=== PATIENT | male | born 1945 | race Two or more races ===

== ENCOUNTER → 2021-03-31 | Outpatient (CLI) | payer MEDICARE ==
[2021-03-31 11:44] LABS: African American GFR (CKD) >90 (>60 ml/min/1.73 sqM); Blood Urea Nitrogen 15 mg/dL (9-20); Non-African American GFR(CKD) 84 (>60 ml/min/1.73 sqM)
--- NOTE | 2021-04-02 19:44 | CT ---
EXAMINATION TYPE: CT soft tissue neck w con DATE OF EXAM: 03/31/2021 COMPARISON: None HISTORY: 75-year-old male right-sided sore throat TECHNIQUE: Contiguous axial scanning of the soft tissues of the neck performed with IV Contrast, nataly ent injected with 100 mL of Isovue 300. Coronal/sagittal reconstructions performed. CT DLP: 552 mGycm Automated exposure control for dose reduction was used. FINDINGS: Leftward nasal septal deviation. There is partial opacification of the right-sided mastoid air cells. Visualized paranasal sinuses are clear. Visualized intracranial structures and orbits and globes appear intact. Nasopharynx is clear. Retropharyngeal course of the bilateral ICAs. There is some asymmetric soft tissue effacement in the region of the right palatoglossal arch, refer to axial image 37. This may be secondary to some asymmetric soft palate elevation. Minimal hypertrophy of the lingual tonsils. Epiglottis and prevertebral soft tissues are satisfactory. Asymmetric soft tissue thickening and effacement of the left piriform sinus, refer to axial images 52 through 54. Findings may be positional and in part due to mass effect from the retropharyngeal cours e of the ICAs. Otherwise, glottic and subglottic structures as well as the tracheal column appear clear. Minimal emp hysematous change of the visualized upper lungs. There is a 2.4 cm soft tissue calcification centered in the anterior right-sided subcutaneous adipose layer at the level of the thyroid gland. Thyroid gland is satisfactory. Small 3 mm calculus within the medial margin of the right submandibular gland. Seminal glands otherwi se appear satisfactory as does the bilateral parotid glands. No cervical lymphadenopathy seen. Moderate axillary calcifications left greater than right carotid bifurcations. Moderate spondylotic change particularly at C5-C6 and C6-C7. IMPRESSION: 1. A 2.4 CM FOCUS OF SOFT TISSUE CALCIFICATION IN THE ANTERIOR RIGHT NECK AT THE LEVEL OF THE THYROID GLAND CENTERED WITHIN THE SUBCUTANEOUS ADIPOSE LAYER. FINDINGS MAY REFLECT SEQUELA OF PRIOR INJURY O R INFECTION. CLINICALLY CORRELATE. 2. A 3 MM SIALOLITH ALONG THE MEDIAL MARGIN OF THE RIGHT SUBMANDIBULAR GLAND. NO INFLAMMATORY CHANGES SEEN. 3. SOME ASYMMETRIC SOFT TISSUE EFFACEMENT IN THE REGION OF THE RIGHT PALATOGLOSSAL ARCH MAY BE DUE TO UNEVEN SOFT PALATE ELEVATION. RECOMMEND DIRECT VISUALIZATION TO EXCLUDE A SUBTLE MUCOSAL LESION HERE . 4. SIMILARLY, ASYMMETRIC EFFACEMENT OF THE LEFT PIRIFORM SINUS. THIS MAY IN PART BE DUE TO MASS EFFEC T FROM THE RETROPHARYNGEAL COURSE OF THE ICA's. AGAIN, DIRECT VISUALIZATION CAN BE PERFORMED. 5. PARTIAL OPACIFICATION RIGHT MASTOID AIR CELLS. CORRELATE FOR ANY MASTOID PAIN TO EXCLUDE MASTOIDIT IS.
== END | disposition home or self-care (01) ==
LOC: RADCTMAIN 11:07
PROVIDERS: ATTEND Otolaryngology
DX: K11.5 Sialolithiasis (principal); M79.89 Other specified soft tissue disorders
CPT/HCPCS: 82565; 84520; 70491; 36415; Q9967

== ENCOUNTER 2021-08-19 22:06 | Inpatient (IN) | payer MEDICARE ==
[2021-08-19] MEDS ORDERED: SODIUM CHLORIDE 0.9% 500 ML 500 ML IV STA (22:44)
--- NOTE | 2021-08-19 22:48 | ED ---
Weakness HPI - General Chief complaint: Weakness Stated complaint: Weakness Time Seen by Provider: 08/19/21 22:15 Source: patient, family, EMS Mode of arrival: EMS Limitations: no limitations - History of Present Illness MD Complaint: generalized weakness, lack of energy Onset/Timin -: days(s) Location: generalized Severity scale (1-10): 0 Consistency: constant Improves with: none Worsens with: none Associated Symptoms: fever/chills, loss of appetite, other (Cough) - Related Data Allergies Allergy/AdvReac Type Severity Reaction Status Date / Time No Known Allergies Allergy Verified 08/19/21 22:49 Review of Systems ROS Statement: Those systems with pertinent positive or pertinent negative responses have been documented in the HPI. ROS Other: All systems not noted in ROS Statement are negative. Constitutional: Reports: fever, weakness. Denies: chills ENT: Denies: ear pain, throat pain, congestion Respiratory: Reports: cough. Denies: dyspnea, wheezes Cardiovascular: Denies: chest pain, palpitations, orthopnea, edema, syncope Gastrointestinal: Denies: abdominal pain, vomiting, diarrhea Genitourinary: Denies: dysuria, hematuria Musculoskeletal: Denies: back pain Skin: Denies: rash Neurological: Denies: headache, weakness Past Medical History Past Medical History: Hypertension Additional Past Medical History / Comment(s): AAA History of Any Multi-Drug Resistant Organisms: None Reported Past Psychological History: No Psychological Hx Reported Smoking Status: Never smoker Past Alcohol Use History: Daily Past Drug Use History: None Reported - Past Family History Mother Family Medical History: Congestive Heart Failure (CHF) General Exam Limitations: no limitations General appearance: alert, in no apparent distress Head exam: Present: atraumatic, normocephalic Eye exam: Present: normal appearance. Absent: scleral icterus, conjunctival injection Respiratory exam: Present: normal lung sounds bilaterally. Absent: respiratory distress, wheezes, rales, rhonchi, stridor Cardiovascular Exam: Present: regular rate, normal rhythm, normal heart sounds. Absent: systolic murmur, diastolic murmur, rubs, gallop GI/Abdominal exam: Present: soft. Absent: distended, tenderness, guarding, rebound, rigid, mass, pulsatile mass Extremities exam: Present: normal inspection, normal capillary refill. Absent: pedal edema, calf tenderness Back exam: Present: normal inspection. Absent: CVA tenderness (R), CVA te nderness (L) Neurological exam: Present: alert Skin exam: Present: warm, dry, intact, normal color. Absent: rash Course Vital Signs 08/19/21 08/19/21 08/20/21 22:11 22:21 01:44 Temperature 101.4 F H Pulse Rate 91 100 Pulse Rate [ Pulse Oximetery ] Respiratory 18 16 16 Rate Blood Pressure 99/61 86/57 Blood Pressure [Left Arm] O2 Sat by Pulse 90 L 97 Oximetry 08/20/21 08/20/21 02:29 03:00 Temperature 98.9 F 98.5 F Pulse Rate 92 Pulse Rate [ 102 H Pulse Oximetery ] Respiratory 18 18 Rate Blood Pressure 106/62 Blood Pressure 105/60 [Left Arm] O2 Sat by Pulse 94 L 91 L Oximetry Medical Decision Making - Lab Data Result diagrams: 08/19/21 22:56 08/19/21 22:56 Lab Results 08/19/21 08/19/21 08/19/21 Range/Units 22:56 22:56 22:56 WBC 2.6 L (3.8-10.6) k/uL RBC 4.07 L (4.30-5.90) m/uL Hgb 12.7 L (13.0-17.5) gm/dL Hct 37.6 L (39.0-53.0) % MCV 92.4 (80.0-100.0) fL MCH 31.2 (25.0-35.0) pg MCHC 33.8 (31.0-37.0) g/dL RDW 12.9 (11.5-15.5) % Plt Count 165 (150-450) k/uL MPV 8.5 Neutrophils % 80 % Lymphocytes % 10 % Monocytes % 7 % Eosinophils % 0 % Basophils % 1 % Neutrophils # 2.1 (1.3-7.7) k/uL Lymphocytes # 0.3 L (1.0-4.8) k/uL Monocytes # 0.2 (0-1.0) k/uL Eosinophils # 0.0 (0-0.7) k/uL Basophils # 0.0 (0-0.2) k/uL PT 10.4 (9.0-12.0) sec INR 1.0 (<1.2) APTT 23.1 (22.0-30.0) sec Sodium 129 L (137-145) mmol/L Potassium 3.6 (3.5-5.1) mmol/L Chloride 99 (98-107) mmol/L Carbon Dioxide 19 L (22-30) mmol/L Anion Gap 11 mmol/L BUN 49 H (9-20) mg/dL Creatinine 1.42 H (0.66-1.25) mg/dL Est GFR (CKD-EPI)AfAm 55 (>60 ml/min/1.73 sqM) Est GFR (CKD-EPI)NonAf 48 (>60 ml/min/1.73 sqM) Glucose 106 H (74-99) mg/dL Plasma Lactic Acid Jayden (0.7-2.0) mmol/L Calcium 7.7 L (8.4-10.2) mg/dL Magnesium 2.4 H (1.6-2.3) mg/dL Total Bilirubin 0.5 (0.2-1.3) mg/dL AST 37 (17-59) U/L ALT 16 (4-49) U/L Alkaline Phosphatase 54 (38-126) U/L Troponin I (0.000-0.034) ng/mL Total Protein 6.4 (6.3-8.2) g/dL Albumin 3.3 L (3.5-5.0) g/dL TSH 0.611 (0.465-4.680) mIU/L Urine Color Urine Appearance (Clear) Urine pH (5.0-8.0) Ur Specific [place] (1.001-1.035) Urine Protein (Negative) Urine Glucose (UA) (Negative) Urine Ketones (Negative) Urine Blood (Negative) Urine Nitrite (Negative) Urine Bilirubin (Negative) Urine Urobilinogen (<2.0) mg/dL Ur Leukocyte Esterase (Negative) Coronavirus (PCR) (Not Detectd) 08/19/21 08/20/21 08/20/21 Range/Units 22:56 01:24 01:40 WBC (3.8-10.6) k/uL RBC (4.30-5.90) m/uL Hgb (13.0-17.5) gm/dL Hct (39.0-53.0) % MCV (80.0-100.0) fL MCH (25.0-35.0) pg MCHC (31.0-37.0) g/dL RDW (11.5-15.5) % Plt Count (150-450) k/uL MPV Neutrophils % % Lymphocytes % % Monocytes % % Eosinophils % % Basophils % % Neutrophils # (1.3-7.7) k/uL Lymphocytes # (1.0-4.8) k/uL Monocytes # (0-1.0) k/uL Eosinophils # (0-0.7) k/uL Basophils # (0-0.2) k/uL PT (9.0-12.0) sec INR (<1.2) APTT (22.0-30.0) sec Sodium (137-145) mmol/L Potassium (3.5-5.1) mmol/L Chloride (98-107) mmol/L Carbon Dioxide (22-30) mmol/L Anion Gap mmol/L BUN (9-20) mg/dL Creatinine (0.66-1.25) mg/dL Est GFR (CKD-EPI)AfAm (>60 ml/min/1.73 sqM) Est GFR (CKD-EPI)NonAf (>60 ml/min/1.73 sqM) Glucose (74-99) mg/dL Plasma Lactic Acid Jayden 1.4 (0.7-2.0) mmol/L Calcium (8.4-10.2) mg/dL Magnesium (1.6-2.3) mg/dL Total Bilirubin (0.2-1.3) mg/dL AST (17-59) U/L ALT (4-49) U/L Alkaline Phosphatase (38-126) U/L Troponin I 0.058 H* (0.000-0.034) ng/mL Total Protein (6.3-8.2) g/dL Albumin (3.5-5.0) g/dL TSH (0.465-4.680) mIU/L Urine Color Yellow Urine Appearance Clear (Clear) Urine pH 5.5 (5.0-8.0) Ur Specific [place] 1.018 (1.001-1.035) Urine Protein Trace H (Negative) Urine Glucose (UA) Negative (Negative) Urine Ketones Negative (Negative) Urine Blood Negative (Negative) Urine Nitrite Negative (Negative) Urine Bilirubin Negative (Negative) Urine Urobilinogen <2.0 (<2.0) mg/dL Ur Leukocyte Esterase Negative (Negative) Coronavirus (PCR) (Not Detectd) 08/20/21 08/20/21 Range/Units 01:40 03:07 WBC (3.8-10.6) k/uL RBC (4.30-5.90) m/uL Hgb (13.0-17.5) gm/dL Hct (39.0-53.0) % MCV (80.0-100.0) fL MCH (25.0-35.0) pg MCHC (31.0-37.0) g/dL RDW (11.5-15.5) % Plt Count (150-450) k/uL MPV Neutrophils % % Lymphocytes % % Monocytes % % Eosinophils % % Basophils % % Neutrophils # (1.3-7.7) k/uL Lymphocytes # (1.0-4.8) k/uL Monocytes # (0-1.0) k/uL Eosinophils # (0-0.7) k/uL Basophils # (0-0.2) k/uL PT (9.0-12.0) sec INR (<1.2) APTT (22.0-30.0) sec Sodium (137-145) mmol/L Potassium (3.5-5.1) mmol/L Chloride (98-107) mmol/L Carbon Dioxide (22-30) mmol/L Anion Gap mmol/L BUN (9-20) mg/dL Creatinine (0.66-1.25) mg/dL Est GFR (CKD-EPI)AfAm (>60 ml/min/1.73 sqM) Est GFR (CKD-EPI)NonAf (>60 ml/min/1.73 sqM) Glucose (74-99) mg/dL Plasma Lactic Acid Jayden (0.7-2.0) mmol/L Calcium (8.4-10.2) mg/dL Magnesium (1.6-2.3) mg/dL Total Bilirubin (0.2-1.3) mg/dL AST (17-59) U/L ALT (4-49) U/L Alkaline Phosphatase (38-126) U/L Troponin I 0.051 H* (0.000-0.034) ng/mL Total Protein (6.3-8.2) g/dL Albumin (3.5-5.0) g/dL TSH (0.465-4.680) mIU/L Urine Color Urine Appearance (Clear) Urine pH (5.0-8.0) Ur Specific [place] (1.001-1.035) Urine Protein (Negative) Urine Glucose (UA) (Negative) Urine Ketones (Negative) Urine Blood (Negative) Urine Nitrite (Negative) Urine Bilirubin (Negative) Urine Urobilinogen (<2.0) mg/dL Ur Leukocyte Esterase (Negative) Coronavirus (PCR) Detected A (Not Detectd) Disposition Clinical Impression: Generalized weakness, COVID-19, Dehydration Disposition: ADMITTED IP TO THIS [facility] Condition: Fair Is patient prescribed a controlled substance at d/c from ED?: No Referrals: Brenda Redd DO [Primary Care Provider] - 1-2 days
--- NOTE | 2021-08-19 23:07 | XR ---
EXAMINATION TYPE: XR chest 2V DATE OF EXAM: 08/19/2021 COMPARISON: NONE HISTORY: Weakness TECHNIQUE: 2 views FINDINGS: Heart is normal. Lungs are clear of consolidation. There are no hilar masses. Bony thorax is intact IMPRESSION: No active cardiopulmonary disease. Normal heart.
[2021-08-19 23:26] LABS: Albumin 3.3 g/dL (3.5-5.0); Calcium 7.7 mg/dL (8.4-10.2); Magnesium 2.4 mg/dL (1.6-2.3); Potassium 3.6 mmol/L (3.5-5.1); Total Bilirubin 0.5 mg/dL (0.2-1.3); Total Protein 6.4 g/dL (6.3-8.2)
[2021-08-19 23:47] LABS: Partial Thromboplastin Time 23.1 sec (22.0-30.0); Prothrombin Time 10.4 sec (9.0-12.0)
[2021-08-20 00:19] LABS: Basophils % (A) 1 %; Eosinophils % (A) 0 %; HCT 37.6 % (39.0-53.0); HGB 12.7 gm/dL (13.0-17.5); Lymphocytes # (A) 0.3 k/uL (1.0-4.8); Lymphocytes % (A) 10 %; MCH 31.2 pg (25.0-35.0); MCHC 33.8 g/dL (31.0-37.0); MCV 92.4 fL (80.0-100.0); Mean Platelet Volume 8.5; Monocytes # (A) 0.2 k/uL (0-1.0); Monocytes % (A) 7 %; Neutrophils # (A) 2.1 k/uL (1.3-7.7); Neutrophils % (A) 80 %; Platelet Count 165 k/uL (150-450); RBC 4.07 m/uL (4.30-5.90); RDW 12.9 % (11.5-15.5); WBC 2.6 k/uL (3.8-10.6)
[2021-08-20 01:37] LABS: Appearance,Urine Clear (Clear); Bilirubin,Urine Negative (Negative); Blood,Urine Negative (Negative); Color,Urine Yellow; Glucose,Urine (UA) Negative (Negative); Ketones,Urine Negative (Negative); Leukocyte Esterase,Urine Negative (Negative); Nitrite,Urine Negative (Negative); PH, Urine 5.5 (5.0-8.0); Protein,Urine Trace (Negative); Specific Gravity,Urine 1.018 (1.001-1.035); Urobilinogen,Urine <2.0 mg/dL (<2.0)
[2021-08-20] MEDS ORDERED: MAG HYDROX/AL HYDROX/SIMETH 30 ML CUP PO PRN (02:06)
[2021-08-20] MEDS ORDERED: NALOXONE 0.4 MG/ML 1 ML VIAL IV PRN (02:06)
[2021-08-20] MEDS ORDERED: ONDANSETRON 4 MG/2 ML VIAL IVP PRN (02:06)
[2021-08-20] MEDS ORDERED: SODIUM CHLORIDE 0.9% 500 ML 500 ML IV STA (02:09)
[2021-08-20] MEDS: SODIUM CHLORIDE 0.9% 1,000 ML IV SCH (03:29)
[2021-08-20] MEDS ORDERED: HEPARIN SODIUM 1,000 UN/ML (10ML VL) IV ONE (04:25)
[2021-08-20] MEDS ORDERED: HEPARIN SODIUM 1,000 UN/ML (10ML VL) IV PRN (04:25)
[2021-08-20] MEDS: HEPARIN SOD,PORK IN 0.45% NACL 25,000 UNIT in 0.45% NACL 1 250ML.BAG IV SCH (04:46)
[2021-08-20] MEDS: METOPROLOL TARTRATE 12.5 MG TAB PO SCH ×2 (08:49→20:35)
[2021-08-20] MEDS: FAMOTIDINE 20 MG/2 ML VIAL IV SCH (08:49)
[2021-08-20] MEDS ORDERED: FAMOTIDINE 20 MG/2 ML VIAL IV SCH (09:00)
--- NOTE | 2021-08-20 09:58 | P.HPIM ---
History of Present Illness Patient is a pleasant 75 years old male with past medical history of hypertension and AAA. Patient states he came because of generalized weakness. Patient has been feeling weak for the last 4-5 days, was getting worse over the last 3 days staying in bed most of the time difficult for him to get out of bed. His granddaughter was: Him and he could not get up and go fast enough to grape picker before so she got worried and she is a nurse so she can visit with him and brought him to the hospital. Patient states that he can manage himself going to the restroom and making food but he didn't have good appetite over the last 3 days,. Denies any headache or difficulty moving her arms or legs or weakness. No numbness. No blood vision or slurred speech. She was feeling dizzy, no vertigo but nonspecific dizziness. Patient denies falling or syncope. No chest pain or discomfort. No dyspnea. He has some cough and the total amoun t of phlegm occasionally over the last week. No abdominal pain or vomiting. He has loose bowel movements once a day now and then. His been having low appetite over the last 3 days. No urinary complaints. Patient 64. States every day. No smoking or illicit drugs Denies depression, suicidal or homicidal ideation. Patient states he has been not taking his blood pressure medication for the last few days. She supposed to be on 2 medications On admission he was hypotensive 86/57, with a short of breath and saturating 91% on 2 L oxygen via nasal cannula Labs reviewed showing the leukopenia of 2.6 hemoglobin 12.7, platelet normal 165, lymphocytes low at 0.3 INR is 1.0 Sodium 129 Creatinine elevated 1.4, baseline 0.8-1.1 Magnesium 2.4, liver enzymes not elevated. Troponin is elevated at 0.052 TSH is normal at 0.6 Urine analysis is no suspicious of infection [place] first detected Chest x-ray: No active cardiopulmonary disease per radiologist In the emergency room patient was started on heparin drip, and received normal saline Also cardiology team were consulted Review of Systems CONSTITUTIONAL: No fever, no malaise, no fatigue. HEENT: No recent visual problems or hearing problems. Denied any sore throat. CARDIOVASCULAR: No orthopnea, PND, no palpitations, no syncope. PULMONARY: No shortness of breath, no cough, no hemoptysis. GASTROINTESTINAL: No diarrhea, no nausea, no vomiting, no abdominal pain. Normoactive bowel sounds. NEUROLOGICAL: No headaches, no weakness, no numbness. HEMATOLOGICAL: Denies any bleeding or petechiae. GENITOURINARY: Denies any burning micturition, frequency, or urgency. MUSCULOSKELETAL/RHEUMATOLOGICAL: Denies any joint pain, swelling, or any muscle pain. ENDOCRINE: Denies any polyuria or polydipsia. Past Medical History Past Medical History: Hypertension Additional Past Medical History / Comment(s): AAA History of Any Multi-Drug Resistant Organisms: None Reported Past Psychological History: No Psychological Hx Reported Smoking Status: Never smoker Past Alcohol Use History: Daily Past Drug Use History: None Reported - Past Family History Mother Family Medical History: Congestive Heart Failure (CHF) Medications and Allergies Allergies Allergy/AdvReac Type Severity Reaction Status Date / Time No Known Allergies Allergy Verified 08/20/21 08:33 Physical Exam Vitals: Vital Signs Temp Pulse Pulse Resp BP BP Pulse Ox 08/20/21 03:00 98.5 F 102 H 18 105/60 91 L 08/20/21 02:29 98.9 F 92 18 106/62 94 L 08/20/21 01:44 100 16 86/57 97 08/19/21 22:21 16 08/19/21 22:11 101.4 F H 91 18 99/61 90 L Intake and Output 08/19/21 08/20/21 08/20/21 22:59 06:59 14:59 Other: Weight 88.904 kg 88.904 kg -GENERAL: The patient is alert and oriented x3, not in any acute distress. Well developed, well nourished. Generally weak HEENT: Pupils are round and equally reacting to light. EOMI. No scleral icterus. No conjunctival pallor. Normocephalic, atraumatic. No pharyngeal erythema. No thyromegaly. CARDIOVASCULAR: S1 and S2 present. No murmurs, rubs, or gallops. PULMONARY: Chest is clear to auscultation, no wheezing or crackles. ABDOMEN: Soft, nontender, nondistended, normoactive bowel sounds. No palpable organomegaly. MUSCULOSKELETAL: No joint swelling or deformity. EXTREMITIES: No cyanosis, clubbing, or pedal edema. -NEUROLOGICAL: Cranial nerves are grossly intact, strength is 5/5 in all extremities. Sensation is intact. Meningeal signs are absent. Gait deferred because of generalized weakness SKIN: No rashes. No petechiae Results CBC & Chem 7: 08/19/21 22:56 08/19/21 22:56 Labs: Abnormal Lab Results - Last 24 Hours (Table) 08/19/21 08/19/21 08/19/21 Range/Units 22:56 22:56 22:56 WBC 2.6 L (3.8-10.6) k/uL RBC 4.07 L (4.30-5.90) m/uL Hgb 12.7 L (13.0-17.5) gm/dL Hct 37.6 L (39.0-53.0) % Lymphocytes # 0.3 L (1.0-4.8) k/uL Sodium 129 L (137-145) mmol/L Carbon Dioxide 19 L (22-30) mmol/L BUN 49 H (9-20) mg/dL Creatinine 1.42 H (0.66-1.25) mg/dL Glucose 106 H (74-99) mg/dL Calcium 7.7 L (8.4-10.2) mg/dL Magnesium 2.4 H (1.6-2.3) mg/dL Troponin I 0.058 H* (0.000-0.034) ng/mL Albumin 3.3 L (3.5-5.0) g/dL Urine Protein (Negative) Coronavirus (PCR) (Not Detectd) 08/20/21 08/20/21 08/20/21 Range/Units 01:24 01:40 03:07 WBC (3.8-10.6) k/uL RBC (4.30-5.90) m/uL Hgb (13.0-17.5) gm/dL Hct (39.0-53.0) % Lymphocytes # (1.0-4.8) k/uL Sodium (137-145) mmol/L Carbon Dioxide (22-30) mmol/L BUN (9-20) mg/dL Creatinine (0.66-1.25) mg/dL Glucose (74-99) mg/dL Calcium (8.4-10.2) mg/dL Magnesium (1.6-2.3) mg/dL Troponin I 0.051 H* (0.000-0.034) ng/mL Albumin (3.5-5.0) g/dL Urine Protein Trace H (Negative) Coronavirus (PCR) Detected A (Not Detectd) Thrombosis Risk Factor Assmnt - Choose All That Apply Any of the Below Risk Factors Present?: Yes Each Factor Represents 1 point: Obesity (BMI >25) Other Risk Factors: Yes Each Risk Factor Represents 3 Points: Age 75 years or older Other congenital or acquired thrombophilia - If yes, enter type in comment: No Thrombosis Risk Factor Assessment Total Risk Factor Score: 4 Thrombosis Risk Factor Assessment Level: Moderate Risk Assessment and Plan Assessment: COVID-19 infection, with no significant evidence of pneumonia but mild hypoxia Elevated troponin rule out Exclude intracardiac hoses Hypotension on admission Acute kidney injury Hypovolemic hyponatremia History of Hypertension History of aortic abdominal aneurysm Plan: This is a pleasant 75 years old male who presents with hypotension, elevated troponin and Covid infection [facility] [employer] Department already evaluated the patient and start him on heparin drip. Follow-up Echocardiogram Continue with normal saline hydration Monitor creatinine Start dexamethasone, vitamin C, vitamin D and zinc. Infectious disease consult Labs and medication were reviewed.. Continue same treatment. Continue with symptomatic treatment. Resume home medication. Monitor lytes and vitals. DVT and GI prophylaxis. Further recommendations depends on the clinical course of the patient DVT prophylaxis: heparin GI Prophylaxis: Pepcid PT/OT: Pending Prognosis is guarded
--- NOTE | 2021-08-20 10:08 | P.CRDCN ---
History of Present Illness Consult date: 08/20/21 History of present illness: This is a 75-year-old gentleman with history of hypertension and also abdominal aortic aneurysm was brought to the hospital with complaints of generalized weakness for the last for 5 days. Patient also lost his appetite. Patient denied any chest pain or shortness of breath. Patient had cough with small amount of phlegm. Patient was brought to the hospital because of the above complaints. Patient was tested positive for COVID. His troponin levels are mildly elevated but the pattern is not consistent with acute coronary syndrome. EKG was reported as showing atrial fibrillation with controlled ventricular response. Patient was initiated on metoprolol 12.5 mg by mouth twice a day along with heparin. Patient is going to have an echocardiogram done. Rest of the management as for the primary care physician. We'll follow Review of Systems As per the chart Past Medical History Past Medical History: Hypertension Additional Past Medical History / Comment(s): AAA History of Any Multi-Drug Resistant Organisms: None Reported Past Psychological History: No Psychological Hx Reported Smoking Status: Never smoker Past Alcohol Use History: Daily Past Drug Use History: None Reported - Past Family History Mother Family Medical History: Congestive Heart Failure (CHF) Medications and Allergies Allergies Allergy/AdvReac Type Severity Reaction Status Date / Time No Known Allergies Allergy Verified 08/20/21 08:33 Physical Exam Vitals: Vital Signs Temp Pulse Pulse Resp BP BP Pulse Ox 08/20/21 08:00 98.7 F 92 18 91/59 91 L 08/20/21 03:00 98.5 F 102 H 18 105/60 91 L 08/20/21 02:29 98.9 F 92 18 106/62 94 L 08/20/21 01:44 100 16 86/57 97 08/19/21 22:21 16 08/19/21 22:11 101.4 F H 91 18 99/61 90 L Intake and Output 08/19/21 08/20/21 08/20/21 22:59 06:59 14:59 Other: Weight 88.904 kg 88.904 kg This patient is not personally examined. Information is From the consult notes in chart Results 08/19/21 22:56 08/19/21 22:56 Cardiac Enzymes 08/19/21 08/19/21 08/20/21 Range/Units 22:56 22:56 03:07 AST 37 (17-59) U/L Troponin I 0.058 H* 0.051 H* (0.000-0.034) ng/mL 08/20/21 Range/Units 06:59 AST (17-59) U/L Troponin I 0.042 H* (0.000-0.034) ng/mL Coagulation 08/19/21 Range/Units 22:56 PT 10.4 (9.0-12.0) sec APTT 23.1 (22.0-30.0) sec CBC 08/19/21 Range/Units 22:56 WBC 2.6 L (3.8-10.6) k/uL RBC 4.07 L (4.30-5.90) m/uL Hgb 12.7 L (13.0-17.5) gm/dL Hct 37.6 L (39.0-53.0) % Plt Count 165 (150-450) k/uL Comprehensive Metabolic Panel 08/19/21 Range/Units 22:56 Sodium 129 L (137-145) mmol/L Potassium 3.6 (3.5-5.1) mmol/L Chloride 99 (98-107) mmol/L Carbon Dioxide 19 L (22-30) mmol/L BUN 49 H (9-20) mg/dL Creatinine 1.42 H (0.66-1.25) mg/dL Glucose 106 H (74-99) mg/dL Calcium 7.7 L (8.4-10.2) mg/dL AST 37 (17-59) U/L ALT 16 (4-49) U/L Alkaline Phosphatase 54 (38-126) U/L Total Protein 6.4 (6.3-8.2) g/dL Albumin 3.3 L (3.5-5.0) g/dL Current Medications Generic Name Dose Route Start Last Admin Trade Name Freq PRN Reason Stop Dose Admin Acetaminophen 650 mg 08/20/21 02:06 Acetaminophen Tab 325 Mg Tab PO Q6HR PRN Mild Pain or Fever > 100.5 Al Hydroxide/Mg Hydroxide 15 ml 08/20/21 02:06 Mag Hydrox/Al Hydrox/Simeth 30 Ml Cup PO Q6HR PRN Indigestion Ascorbic Acid 1,000 mg 08/20/21 10:00 Ascorbic Acid 500 Mg Tab PO DAILY MARK Cholecalciferol 50 mcg 08/20/21 10:00 Cholecalciferol 25 Mcg (1000 Iu) Tablet PO DAILY MARK Dexamethasone 6 mg 08/20/21 10:00 Dexamethasone 2 Mg Tab PO DAILY MARK Famotidine 20 mg 08/20/21 09:00 08/20/21 08:49 Famotidine 20 Mg/2 Ml Vial IV 20 mg Q24HR MARK Administration Heparin Sodium (Porcine) 0 unit 08/20/21 04:25 Heparin Sodium 1,000 Un/Ml (10ml Vl) IV PER PROTOCOL PRN Low PTT Protocol Sodium Chloride 1,000 mls @ 20 mls/hr 08/20/21 02:15 08/20/21 03:29 Saline 0.9% IV Not Given .Q24H MARK Heparin Sodium/Sodium Chloride 250 mls @ 9.984 mls/hr 08/20/21 04:30 08/20/21 04:46 25,000 unit/ Sodium Chloride IV 11.23 units/kg/hr .Q24H MARK 9.984 mls/hr Administration Protocol 11.23 UNITS/KG/HR Sodium Chloride 1,000 mls @ 75 mls/hr 08/20/21 08:00 Saline 0.9% IV .[id number] MARK Metoprolol Tartrate 12.5 mg 08/20/21 09:00 08/20/21 08:49 Metoprolol Tartrate 12.5 Mg Tab PO 12.5 mg BID MARK Administration Naloxone HCl 0.2 mg 08/20/21 02:06 Naloxone 0.4 Mg/Ml 1 Ml Vial IV Q2M PRN Opioid Reversal Ondansetron HCl 4 mg 08/20/21 02:06 Ondansetron 4 Mg/2 Ml Vial IVP Q8HR PRN Nausea And Vomiting Thiamine HCl 100 mg 08/20/21 10:00 Thiamine 100 Mg/Ml 2 Ml Vial IVP DAILY MARK Zinc Sulfate 220 mg 08/20/21 10:00 Zinc Sulfate 220 Mg Cap PO DAILY MARK Intake and Output 08/19/21 08/20/21 08/20/21 22:59 06:59 14:59 Other: Weight 88.904 kg 88.904 kg 08/19/21 22:56 08/19/21 22:56 EKG Interpretations (text) Not available in the computer. Apparently showed atrial fibrillation with controlled ventricular response Assessment and Plan (1) Atrial fibrillation Current Visit: Yes Status: Acute Code(s): I48.91 - UNSPECIFIED ATRIAL FIBRILLATION SNOMED Code(s): 56146828 (2) COVID-19 Current Visit: Yes Status: Acute Code(s): U07.1 - COVID-19 SNOMED Code(s): 101893794 (3) Generalized weakness Current Visit: Yes Status: Acute Code(s): R53.1 - WEAKNESS SNOMED Code(s): 57617713 (4) Troponin level elevated Current Visit: Yes Status: Acute Code(s): R77.8 - OTHER SPECIFIED ABNORMALITIES OF PLASMA PROTEINS SNOMED Code(s): 299269034 Plan: Continue with beta blockers and heparin. Echocardiogram to assess LV function. Continue the rest of the treatment. Prognosis is guarded
[2021-08-20 10:22] LABS: Basophils % (A) 0 %; Eosinophils % (A) 0 %; HCT 35.2 % (39.0-53.0); HGB 11.7 gm/dL (13.0-17.5); Lymphocytes # (A) 0.3 k/uL (1.0-4.8); Lymphocytes % (A) 10 %; MCH 31.3 pg (25.0-35.0); MCHC 33.1 g/dL (31.0-37.0); MCV 94.6 fL (80.0-100.0); Mean Platelet Volume 8.8; Monocytes # (A) 0.1 k/uL (0-1.0); Monocytes % (A) 4 %; Neutrophils # (A) 2.2 k/uL (1.3-7.7); Neutrophils % (A) 84 %; Platelet Count 176 k/uL (150-450); RBC 3.73 m/uL (4.30-5.90); WBC 2.6 k/uL (3.8-10.6)
[2021-08-20 11:26] LABS: Bilirubin,Unconjugated 0.2 mg/dL (0.0-1.1)
[2021-08-20 11:55] LABS: Albumin 2.8 g/dL (3.5-5.0); Bilirubin, Delta 0.1 mg/dL (0.0-0.2); Calcium 7.3 mg/dL (8.4-10.2); Potassium 3.7 mmol/L (3.5-5.1); Total Bilirubin 0.3 mg/dL (0.2-1.3); Total Protein 5.6 g/dL (6.3-8.2)
[2021-08-20] MEDS: ZINC SULFATE 220 MG CAP PO SCH (12:23)
[2021-08-20] MEDS: dexAMETHasone 2 MG TAB PO SCH (12:23)
[2021-08-20] MEDS: CHOLECALCIFEROL 25 MCG (1000 IU) TABLET PO SCH (12:23)
[2021-08-20] MEDS: ASCORBIC ACID 500 MG TAB PO SCH (12:23)
[2021-08-20] MEDS: THIAMINE 100 MG/ML 2 ML VIAL IVP SCH (12:24)
--- NOTE | 2021-08-21 00:02 | P.CONS ---
History of Present Illness - Reason for Consult Consult date: 08/20/21 covid Requesting physician: Chico Roberts - Chief Complaint cough x 10 days and worsening weakness x few days - History of Present Illness History of present illness : Patient is 75-year male presenting to the ER last night for evaluation of generalized weakness no energy in this patient symptom has been going on for about 10 days before presentation to the hospital patient mention his symptoms initially started with a cough which has been moderate intensity and dry in nature subsequently started having a increasing shortness of breath and started having the weakness patient could not get up and go positive tobacco patient did not have any good appetite with the symptom the patient was evaluated by the ER physician on arrival to the ER patient did have a fever of 101.4 F patient was hypoxic with O2 sats of 90% on room air and is currently 93% on 7 L nasal cannula patient did have a leukopenia as well as lymphopenia creatinine was normal liver enzymes are normal did have elevated troponin procalcitonin 0.13 urine has been negative richter PCR was positive patient did have a chest x-ray no active cardiopulmonary disease normal heart patient was admitted to hospital infectious disease was consulted for further management Review of system: CONSTITUTIONAL: Positive for weakness along with the fever. EYES: No complaint. ENT: No complaint. RESPIRATORY: As per history of present illness. CARDIOVASCULAR: No complaint. GENITOURINARY: No complaint. GASTROINTESTINAL as per history of present illness. MUSCULOSKELETAL: No complaint. INTEGUMENTARY: No complaint. PSYCHOLOGIC: No complaint. ENDOCRINE: No complaint. NEUROLOGIC: No complaint. Past medical history : Reviewed, documented below Past surgical history : Reviewed, documented below Social history: Reviewed, documented below Medications: Reviewed, as documented below EXAMINATION: Vital sigans= Reviewed and documented below GENERAL DESCRIPTION: Elderly male lying in bed, no distress. No tachypnea or accessory muscle of respiration use. HEENT: Shows Pallor , no scleral icterus. Oral mucous membrane is dry. NECK: Trachea central, no thyromegaly. LUNGS: Unlabored breathing. Decrease intensity of breath sounds. No wheeze or crackle. HEART: S1, S2, regular rate and rhythm. ABDOMEN: Soft, no tenderness , guarding or rigidity EXTREMITIES: No edema of feet. SKIN: No rash, no masses palpable. NEUROLOGICAL: The patient is awake, alert, oriented x3, mood and affect normal. LABS AND RADIOLOGY: Reviewed results see below Assessment : Patient presented to hospital with generalized weakness no energy in this patient started having a cough about 10 days ago and the symptom has been getting worse since then now with progressive weakness shortness of breath and cough patient did have a fever on admission the hospital the patient was hypoxic and need for supplemental oxygen chest x-ray reported negative for acute infiltrate, patient is currently out of the therapeutic window for remdesivir per [facility] policy Plan: 1-patient to continue with heparin per weight-based protocol receiving for his elevated troponin along with the dexamethasone zinc and ascorbic acid 2-patient out of the therapeutic window for remdesivir 3-droplet isolation and respiratory support We will follow on clinical condition and cultures to further adjust medication if needed Thank you for this consultation we will follow the patient along with you Past Medical History Past Medical History: Hypertension Additional Past Medical History / Comment(s): AAA History of Any Multi-Drug Resistant Organisms: None Reported Past Psychological History: No Psychological Hx Reported Smoking Status: Never smoker Past Alcohol Use History: Daily Past Drug Use History: None Reported - Past Family History Mother Family Medical History: Congestive Heart Failure (CHF) Medications and Allergies Allergies Allergy/AdvReac Type Severity Reaction Status Date / Time No Known Allergies Allergy Verified 08/20/21 08:33 Physical Exam Vitals: Vital Signs Temp Pulse Pulse Resp BP BP Pulse Ox 08/20/21 14:00 20 08/20/21 12:00 99 20 118/59 94 L 08/20/21 08:00 98.7 F 92 18 91/59 91 L 08/20/21 03:00 98.5 F 102 H 18 105/60 91 L 08/20/21 02:29 98.9 F 92 18 106/62 94 L 08/20/21 01:44 100 16 86/57 97 08/19/21 22:21 16 08/19/21 22:11 101.4 F H 91 18 99/61 90 L Intake and Output 08/20/21 08/20/21 08/20/21 06:59 14:59 22:59 Output Total 300 225 Balance -300 -225 Output: Urine 300 225 Other: Weight 88.904 kg Results CBC & Chem 7: 08/20/21 10:04 08/20/21 10:04 Labs: Abnormal Lab Results - Last 24 Hours (Table) 08/19/21 08/19/21 08/19/21 Range/Units 22:56 22:56 22:56 WBC 2.6 L (3.8-10.6) k/uL RBC 4.07 L (4.30-5.90) m/uL Hgb 12.7 L (13.0-17.5) gm/dL Hct 37.6 L (39.0-53.0) % Lymphocytes # 0.3 L (1.0-4.8) k/uL APTT (22.0-30.0) sec Sodium 129 L (137-145) mmol/L Carbon Dioxide 19 L (22-30) mmol/L BUN 49 H (9-20) mg/dL Creatinine 1.42 H (0.66-1.25) mg/dL Glucose 106 H (74-99) mg/dL Calcium 7.7 L (8.4-10.2) mg/dL Magnesium 2.4 H (1.6-2.3) mg/dL Troponin I 0.058 H* (0.000-0.034) ng/mL Total Protein (6.3-8.2) g/dL Albumin 3.3 L (3.5-5.0) g/dL Urine Protein (Negative) Coronavirus (PCR) (Not Detectd) 08/20/21 08/20/21 08/20/21 Range/Units 01:24 01:40 03:07 WBC (3.8-10.6) k/uL RBC (4.30-5.90) m/uL Hgb (13.0-17.5) gm/dL Hct (39.0-53.0) % Lymphocytes # (1.0-4.8) k/uL APTT (22.0-30.0) sec Sodium (137-145) mmol/L Carbon Dioxide (22-30) mmol/L BUN (9-20) mg/dL Creatinine (0.66-1.25) mg/dL Glucose (74-99) mg/dL Calcium (8.4-10.2) mg/dL Magnesium (1.6-2.3) mg/dL Troponin I 0.051 H* (0.000-0.034) ng/mL Total Protein (6.3-8.2) g/dL Albumin (3.5-5.0) g/dL Urine Protein Trace H (Negative) Coronavirus (PCR) Detected A (Not Detectd) 08/20/21 08/20/21 08/20/21 Range/Units 06:59 10:04 10:04 WBC 2.6 L (3.8-10.6) k/uL RBC 3.73 L (4.30-5.90) m/uL Hgb 11.7 L (13.0-17.5) gm/dL Hct 35.2 L (39.0-53.0) % Lymphocytes # 0.3 L (1.0-4.8) k/uL APTT 47.2 H (22.0-30.0) sec Sodium (137-145) mmol/L Carbon Dioxide (22-30) mmol/L BUN (9-20) mg/dL Creatinine (0.66-1.25) mg/dL Glucose (74-99) mg/dL Calcium (8.4-10.2) mg/dL Magnesium (1.6-2.3) mg/dL Troponin I 0.042 H* (0.000-0.034) ng/mL Total Protein (6.3-8.2) g/dL Albumin (3.5-5.0) g/dL Urine Protein (Negative) Coronavirus (PCR) (Not Detectd) 08/20/21 Range/Units 10:04 WBC (3.8-10.6) k/uL RBC (4.30-5.90) m/uL Hgb (13.0-17.5) gm/dL Hct (39.0-53.0) % Lymphocytes # (1.0-4.8) k/uL APTT (22.0-30.0) sec Sodium 130 L (137-145) mmol/L Carbon Dioxide 21 L (22-30) mmol/L BUN 35 H (9-20) mg/dL Creatinine (0.66-1.25) mg/dL Glucose 114 H (74-99) mg/dL Calcium 7.3 L (8.4-10.2) mg/dL Magnesium (1.6-2.3) mg/dL Troponin I (0.000-0.034) ng/mL Total Protein 5.6 L (6.3-8.2) g/dL Albumin 2.8 L (3.5-5.0) g/dL Urine Protein (Negative) Coronavirus (PCR) (Not Detectd)
[2021-08-21] MEDS: HEPARIN SOD,PORK IN 0.45% NACL 25,000 UNIT in 0.45% NACL 1 250ML.BAG IV SCH (02:03)
[2021-08-21] MEDS: SODIUM CHLORIDE 0.9% 1,000 ML IV SCH ×3 (02:26→19:02)
[2021-08-21 08:18] LABS: Basophils % (A) 0 %; Eosinophils % (A) 0 %; HCT 38.7 % (39.0-53.0); HGB 12.5 gm/dL (13.0-17.5); Lymphocytes # (A) 0.2 k/uL (1.0-4.8); Lymphocytes % (A) 4 %; MCHC 32.3 g/dL (31.0-37.0); MCV 95.9 fL (80.0-100.0); Mean Platelet Volume 8.2; Monocytes # (A) 0.1 k/uL (0-1.0); Monocytes % (A) 2 %; Neutrophils # (A) 5.2 k/uL (1.3-7.7); Neutrophils % (A) 92 %; Platelet Count 253 k/uL (150-450); RBC 4.03 m/uL (4.30-5.90); RDW 13.2 % (11.5-15.5); WBC 5.7 k/uL (3.8-10.6)
[2021-08-21 08:29] LABS: INR 0.9 (<1.2); Partial Thromboplastin Time 47.8 sec (22.0-30.0); Prothrombin Time 10.2 sec (9.0-12.0)
--- NOTE | 2021-08-21 09:17 | P.PN ---
Subjective Progress Note Date: 08/21/21 Principal diagnosis: Paroxysmal atrial fibrillation The patient is a 75-year-old gentleman who was admitted to the hospital with COVID-19 infection and we consulted to see the patient for atrial fibrillation with RVR which was new the patient. The patient continues to have hypoxemia and he is requiring higher dose of oxygen. He reports no heart racing or fluttering or dizziness or lightheadedness and no presyncope or syncope and no symptoms of chest pain or chest discomfort. He continues to be in atrial fibrillation with heart rate around 100 bpm. He is on AV marck olga with beta olga. He is on heparin for anticoagulation. We will consider starting the patient on oral anticoagulation in the next 24 hours. Echo still pending Objective - Vital Signs Vital signs: Vital Signs Temp 98.3 F 08/20/21 20:40 Pulse 99 08/21/21 03:20 Resp 18 08/21/21 03:20 BP 113/72 08/21/21 03:20 Pulse Ox 92 L 08/21/21 03:20 Intake & Output 08/20/21 08/21/21 08/21/21 18:59 06:59 18:59 Intake Total 212.493 Output Total 625 500 175 Balance -625 -287.507 -175 Intake: Intake, IV Titration 212.493 Amount Heparin Sod,Pork in 0.45% 212.493 NaCl 25,000 unit In 0.45 % NaCl 1 250ml.bag @ 11. 23 UNITS/KG/HR 9.984 mls/ hr IV .Q24H [facility] Rx#: [id number] Output: Urine 625 500 175 - Labs CBC & Chem 7: 08/21/21 07:09 08/20/21 10:04 Labs: Abnormal Lab Results - Last 24 Hours (Table) 08/20/21 08/20/21 08/20/21 Range/Units 10:04 10:04 10:04 WBC 2.6 L (3.8-10.6) k/uL RBC 3.73 L (4.30-5.90) m/uL Hgb 11.7 L (13.0-17.5) gm/dL Hct 35.2 L (39.0-53.0) % Lymphocytes # 0.3 L (1.0-4.8) k/uL APTT 47.2 H (22.0-30.0) sec Sodium 130 L (137-145) mmol/L Carbon Dioxide 21 L (22-30) mmol/L BUN 35 H (9-20) mg/dL Glucose 114 H (74-99) mg/dL Calcium 7.3 L (8.4-10.2) mg/dL Total Protein 5.6 L (6.3-8.2) g/dL Albumin 2.8 L (3.5-5.0) g/dL Procalcitonin (0.02-0.09) ng/mL 08/20/21 08/21/21 08/21/21 Range/Units 10:04 07:09 07:09 WBC (3.8-10.6) k/uL RBC 4.03 L (4.30-5.90) m/uL Hgb 12.5 L (13.0-17.5) gm/dL Hct 38.7 L (39.0-53.0) % Lymphocytes # 0.2 L (1.0-4.8) k/uL APTT 47.8 H (22.0-30.0) sec Sodium (137-145) mmol/L Carbon Dioxide (22-30) mmol/L BUN (9-20) mg/dL Glucose (74-99) mg/dL Calcium (8.4-10.2) mg/dL Total Protein (6.3-8.2) g/dL Albumin (3.5-5.0) g/dL Procalcitonin 0.13 H (0.02-0.09) ng/mL Assessment and Plan Assessment: Assessment #1 COVID-19 pneumonia #2 paroxysmal atrial fibrillation Plan #1 continue the current dose of metoprolol #2 consider starting the patient on oral anticoagulation #3 follow-up on the echocardiogram
[2021-08-21] MEDS: ASCORBIC ACID 500 MG TAB PO SCH (09:38)
[2021-08-21] MEDS: THIAMINE 100 MG/ML 2 ML VIAL IVP SCH (09:38)
[2021-08-21] MEDS: CHOLECALCIFEROL 25 MCG (1000 IU) TABLET PO SCH (09:38)
[2021-08-21] MEDS: METOPROLOL TARTRATE 12.5 MG TAB PO SCH ×2 (09:38→20:45)
[2021-08-21] MEDS: dexAMETHasone 2 MG TAB PO SCH (09:38)
[2021-08-21] MEDS: FAMOTIDINE 20 MG/2 ML VIAL IV SCH ×2 (09:39→20:45)
[2021-08-21] MEDS: ZINC SULFATE 220 MG CAP PO SCH (09:39)
--- NOTE | 2021-08-21 11:00 | ECHOF ---
Referral Reason:new onset afib MEASUREMENTS -------- HEIGHT: 180.3 cm WEIGHT: 88.9 kg BP: IVSd: 1.7 cm (0.6 - 1.1) LVIDd: 2.8 cm (3.9 - 5.3) LVPWd: 1.7 cm (0.6 - 1.1) IVSs: 1.8 cm LVIDs: 2.0 cm LVPWs: 2.7 cm Ao Diam: 3.7 cm (2.0 - 3.7) AV Cusp: 2.0 cm (1.5 - 2.6) LA Diam: 4.0 cm (2.7 - 3.8) MV EXCURSION: 19.783 mm (> 18.000) MV EF SLOPE: 129 mm/s (70 - 150) EPSS: 0.8 cm RAP: 5.00 mmHg RVSP: 11.16 mmHg FINDINGS -------- This was a technically difficult study with suboptimal views. Limited study due to covid 19 exposur e. The left ventricular size is normal. There is moderate concentric left ventricular hypertrophy. O verall left ventricular systolic function is mild-moderately impaired with, an EF between 40 - 45 %. Mid to basal inferiorlateral is hypokinetic Lumason used The tricuspid valve appears structurally normal. Mild tricuspid regurgitation present. Right vent ricular systolic pressure is normal at < 35 mmHg. There is no pericardial effusion. CONCLUSIONS -------- 1. Limited study due to covid 19 exposure. 2. The left ventricular size is normal. 3. There is moderate concentric left ventricular hypertrophy. 4. Overall left ventricular systolic function is mild-moderately impaired with, an EF between 40 - 45 %. 5. Mid to basal inferiorlateral is hypokinetic 6. Lumason used 7. Mild tricuspid regurgitation present. 8. There is no pericardial effusion. EXCAVATING CONTRACTOR: Jacqueline Btuler RDCS
--- NOTE | 2021-08-21 11:17 | XR ---
EXAMINATION TYPE: XR chest 1V portable DATE OF EXAM: 08/21/2021 COMPARISON: 08/19/2021 HISTORY: Shortness of breath TECHNIQUE: Frontal and lateral views of the chest are obtained. FINDINGS: Scattered senescent parenchymal changes noted. Hyperinflation compatible with COPD. Ill-defined infiltrates noted throughout the left mid lung zone and to a lesser extent on the right o f reflect underlying pneumonia. Heart size is stable. Mediastinal structures are stable and grossly unremarkable. No evidence for hilar prominence. Degenerative changes dorsal spine. IMPRESSION: 1. Ill-defined infiltrates noted throughout the left mid lung zone and to a lesser extent on the righ t of reflect underlying pneumonia.
--- NOTE | 2021-08-21 12:57 | CT ---
EXAMINATION TYPE: CT chest angio for PE DATE OF EXAM: 08/21/2021 COMPARISON: None HISTORY: Covid, hypoxia. CT DLP: 430.6 mGycm CONTRAST: CT chest with contrast and 3D reconstruction with MIP imaging is performed with IV Contrast, patient injected with 100 mL of Isovue 370. Contrast-enhanced CT of the chest was performed through the course of the pulmonary arteries with emily g and mediastinal window settings submitted. 3D reconstruction with MIP imaging was also performed. PULMONARY ARTERIES: The pulmonary arteries and their major tributaries are patent. I do not see dhaval dence for sizable filling defect to suggest pulmonary embolic process. LUNGS: Diffuse infiltrates throughout both lung griggs. No evidence for atelectasis. No pulmonary n odule or mass is detected. No pleural effusion. MEDIASTINUM: Thoracic aorta is of normal caliber,however, evaluation is limited given timing of the contrast bolus. If there is concern for thoracic aortic pathology consider EULALIA. Correlate clinicall y . The heart is not enlarged. No evidence for mediastinal mass. No mediastinal lymph nodes greater than 1cm. HILAR STRUCTURES: No evidence for mass. No hilar lymph nodes greater than 1 cm. UPPER ABDOMEN: No significant abnormality is seen. IMPRESSION: 1. No evidence for Pulmonary embolism at this time.
[2021-08-21] MEDS ORDERED: FUROSEMIDE 10 MG/ML 4 ML VIAL IV SCH (13:15)
[2021-08-21] MEDS ORDERED: DILTIAZEM DRIP BOLUS FROM BAG 1 MG SOLN IV ONE (14:08)
[2021-08-21] MEDS: DILTIAZEM 125 MG in SODIUM CHLORIDE 0.9% 100 ML IV SCH (15:19)
--- NOTE | 2021-08-21 15:23 | P.CNPUL ---
History of Present Illness Consult date: 08/21/21 Requesting physician: Chico E Sheet Reason for consult: pneumonia Chief complaint: Cough and shortness of breath History of present illness: This is a 75-year-old white male with history of hypertension, dyslipidemia, history of abdominal aortic aneurysm, patient was brought into the hospital with 10 days' history of feeling weak, shortness of breath, cough, patient is not vaccinated. Patient was seen in the ER, and his chest x-ray showed evidence of pneumonia. CT angiogram of the chest showed extensive diffuse infiltrates throughout the lungs and no evidence of pulmonary embolism. PCR for COVID-19 was positive, patient was noted to have relative leukopenia with WBC count of 2.6, lymphopenia, hyponatremia, elevated troponin, and relatively unremarkable pro calcitonin level. Patient was initially on 2 L nasal cannula, however over the last 24 hours since admission, his oxygen saturation has been dropping and his oxygen has been titrated up to a nonrebreather mask with poor oxygenation and his O2 saturation at present is 85% on a nonrebreather mask. Patient was also noted to be in atrial fibrillation and that is being addressed by cardiology patient was placed on that COVID-19 cocktail, he is also on heparin, and he received significant amount of fluids with fluid boluses on admissions. After I evaluated the patient and reviewed his chest x-ray as well as CT angiogram of the chest, I recommended Lasix 40 mg IV push to be given and I recommended immediate transfer the patient to the ICU. Patient has been on Cardizem drip, remains tachycardic remains in atrial fibrillation with a rate of 120. Patient denies any chest pain denies any nausea or vomiting denies any palpitations denies any orthopnea or PND however the patient is complaining of weakness cough and shortness of breath. Review of Systems CONSTITUTIONAL: Weakness fatigue malaise and low-grade fever when his initial symptoms started about 10 days ago. HEENT: No loss of sensation of taste or smell CARDIOVASCULAR: As noted in HPI PULMONARY: As noted in HPI GASTROINTESTINAL: Negative NEUROLOGICAL: No headaches, no weakness, no numbness. HEMATOLOGICAL: Denies any bleeding or petechiae. GENITOURINARY: Denies any burning micturition, frequency, or urgency. MUSCULOSKELETAL/RHEUMATOLOGICAL: Negative ENDOCRINE: Negative Past Medical History Past Medical History: Hypertension Additional Past Medical History / Comment(s): AAA History of Any Multi-Drug Resistant Organisms: None Reported Past Psychological History: No Psychological Hx Reported Smoking Status: Never smoker Past Alcohol Use History: Daily Past Drug Use History: None Reported - Past Family History Mother Family Medical History: Congestive Heart Failure (CHF) Medications and Allergies Home Medications Medication Instructions Recorded Confirmed Type Atorvastatin [Lipitor] 40 mg PO DAILY 08/21/21 08/21/21 History Lisinopril-Hctz 20-12.5 mg 1 tab PO DAILY 08/21/21 08/21/21 History [Zestoretic 20-12.5] amLODIPine [Norvasc] 5 mg PO DAILY 08/21/21 08/21/21 History Allergies Allergy/AdvReac Type Severity Reaction Status Date / Time No Known Allergies Allergy Verified 08/20/21 08:33 Physical Exam Vitals: Vital Signs Temp Pulse Resp BP Pulse Ox 08/21/21 12:00 120 H 24 135/71 77 L 08/21/21 08:00 84 18 125/67 90 L 08/21/21 03:20 99 18 113/72 92 L 08/21/21 01:57 93 L 08/20/21 23:00 91 19 108/60 91 L 08/20/21 20:40 98.3 F 82 18 106/60 93 L 08/20/21 16:00 88 20 91/55 90 L Intake and Output 08/21/21 08/21/21 08/21/21 06:59 14:59 22:59 Intake Total 212.493 0 Output Total 500 175 Balance -287.507 -175 Intake: Intake, IV Titration 212.493 Amount Heparin Sod,Pork in 0.45% 212.493 NaCl 25,000 unit In 0.45 % NaCl 1 250ml.bag @ 11. 23 UNITS/KG/HR 9.984 mls/ hr IV .Q24H [facility] Rx#: [id number] Oral 0 Output: Urine 500 175 Physical Exam: Revealed a 75-year-old white male in moderate respiratory distress tachypneic, tachycardic, anxious. On a nonrebreather mask. Head: Atraumatic, normocephalic. HEENT:[Neck is supple.] [No neck masses.] [No thyromegaly.] [No JVD.] Chest: [Symmetrical chest expansion crackles at the bases bilaterally no rhonchi and no wheezes Cardiac Exam: Irregular irregular rhythm, 2/6 systolic murmur thought the precordium. Abdomen: [Soft, nontender, no megaly, no rebound, no guarding, normal bowel sounds.] Extremities: [No clubbing edema or cyanosis. Good pulses bilaterally. Neurological Exam: Alert and oriented 3 focal deficits. Psychiatric: Normal mood, affect and normal mental status examination. Skin: No rashes. Results - Laboratory Findings CBC and BMP: 08/21/21 07:09 08/20/21 10:04 PT/INR, D-dimer PT 10.2 sec (9.0-12.0) 08/21/21 07:09 INR 0.9 (<1.2) 08/21/21 07:09 Abnormal lab findings: Abnormal Labs 08/19/21 08/19/21 08/19/21 22:56 22:56 22:56 WBC 2.6 L RBC 4.07 L Hgb 12.7 L Hct 37.6 L Lymphocytes # 0.3 L APTT Sodium 129 L Carbon Dioxide 19 L BUN 49 H Creatinine 1.42 H Glucose 106 H Calcium 7.7 L Magnesium 2.4 H Troponin I 0.058 H* Total Protein Albumin 3.3 L Procalcitonin Urine Protein Coronavirus (PCR) 08/20/21 08/20/21 08/20/21 01:24 01:40 03:07 WBC RBC Hgb Hct Lymphocytes # APTT Sodium Carbon Dioxide BUN Creatinine Glucose Calcium Magnesium Troponin I 0.051 H* Total Protein Albumin Procalcitonin Urine Protein Trace H Coronavirus (PCR) Detected A 08/20/21 08/20/21 08/20/21 06:59 10:04 10:04 WBC 2.6 L RBC 3.73 L Hgb 11.7 L Hct 35.2 L Lymphocytes # 0.3 L APTT 47.2 H Sodium Carbon Dioxide BUN Creatinine Glucose Calcium Magnesium Troponin I 0.042 H* Total Protein Albumin Procalcitonin Urine Protein Coronavirus (PCR) 08/20/21 08/20/21 08/21/21 10:04 10:04 07:09 WBC RBC 4.03 L Hgb 12.5 L Hct 38.7 L Lymphocytes # 0.2 L APTT Sodium 130 L Carbon Dioxide 21 L BUN 35 H Creatinine Glucose 114 H Calcium 7.3 L Magnesium Troponin I Total Protein 5.6 L Albumin 2.8 L Procalcitonin 0.13 H Urine Protein Coronavirus (PCR) 08/21/21 07:09 WBC RBC Hgb Hct Lymphocytes # APTT 47.8 H Sodium Carbon Dioxide BUN Creatinine Glucose Calcium Magnesium Troponin I Total Protein Albumin Procalcitonin Urine Protein Coronavirus (PCR) - Diagnostic Findings CT scan - chest: image reviewed (As noted in HPI diffuse airspace disease, no evidence of pulmonary embolism) Assessment and Plan Assessment: Impression: Acute hypoxic respiratory failure secondary to COVID-19 pneumonia Atrial fibrillation with RVR Possible component of pulmonary edema based on chest x-ray and computed tomography scan findings History of hypertension History of abdominal aortic aneurysm Hypovolemic hyponatremia Lymphopenia secondary to COVID-19 infection LV dysfunction with ejection fraction of 40-45% Recommendation: Transfer patient to ICU Titrate oxygen accordingly and maintain O2 sats above 90% Cut down IV fluid to KVO for now, considering the patient has LV dysfunction with ejection fraction of 40-45% Lasix 40 mg IV push was given Continue the COVID-19 cocktail including ascorbic acid Decadron heparin vitamin D, and zinc GI and DVT prophylaxis Monitor and check inflammatory markers ProBNP level to be done now. Monitor daily x-rays of the chest Will start the patient on Baricitinib Prognosis is guarded We will continue to follow while in the ICU. Time with Patient: Greater than 30
[2021-08-21 16:54] LABS: C Reactive Protein 6.4 mg/dL (<1.0)
[2021-08-21 16:56] LABS: Glucose,Whole Blood 141 mg/dL (75-99)
--- NOTE | 2021-08-21 17:29 | PN ---
PROGRESS NOTE DATE OF SERVICE: 08/21/2021 REASON FOR FOLLOWUP: COVID-19 pneumonia. INTERVAL HISTORY: Patient is afebrile. The patient noticed worsening of his respiratory distress and is currently on a non-rebreather. The patient denies any chest pain. No worsening cough or sputum production. No abdominal pain or diarrhea. PHYSICAL EXAMINATION: Blood pressure 135/71 with a pulse of 120, temperature is 98.3. He is 97% on room air. General description is an elderly male lying in bed in no distress. Respiratory system: Unlabored breathing. Coarse breath sounds bilaterally. No wheeze. Heart S1, S2. Regular rate and rhythm. Abdomen soft, no tenderness. LABS: Hemoglobin is 12.5, white count 5.7. DIAGNOSTIC IMPRESSION AND PLAN: Patient with acute respiratory failure, COVID-19 pneumonia with worsening of his respiratory status. The patient started on Baricitinib to continue along with dexamethasone, zinc and ascorbic acid. Prognosis remains to be guarded. MMODL / IJN: [id number] /
[2021-08-21] MEDS: BARICITINIB 2 MG TABLET PO SCH (19:02)
[2021-08-21] MEDS: FUROSEMIDE 10 MG/ML 2 ML VIAL IV SCH (20:43)
--- NOTE | 2021-08-22 02:22 | P.PN ---
Subjective Patient is a pleasant 75 years old male with past medical history of hypertension and AAA. Patient states he came because of generalized weakness. Patient has been feeling weak for the last 4-5 days, was getting worse over the last 3 days staying in bed most of the time difficult for him to get out of bed. His granddaughter was: Him and he could not get up and go fast enough to pear picker before so she got worried and she is a nurse so she can visit with him and brought him to the hospital. Patient states that he can manage himself going to the restroom and making food but he didn't have good appetite over the last 3 days,. Denies any headache or difficulty moving her arms or legs or weakness. No numbness. No blood vision or slurred speech. She was feeling dizzy, no vertigo but nonspecific dizziness. Patient denies falling or syncope. No chest pain or discomfort. No dyspnea. He has some cough and the total amount of phlegm occasionally over the last week. No abdominal pain or vomiting. He has loose bowel movements once a day now and then. His been having low appetite over the last 3 days. No urinary complaints. Patient 64. States every day. No smoking or illicit drugs Denies depression, suicidal or homicidal ideation. Patient states he has been not taking his blood pressure medication for the last few days. She supposed to be on 2 medications On admission he was hypotensive 86/57, with a short of breath and saturating 91% on 2 L oxygen via nasal cannula Labs reviewed showing the leukopenia of 2.6 hemoglobin 12.7, platelet normal 165, lymphocytes low at 0.3 INR is 1.0 Sodium 129 Creatinine elevated 1.4, baseline 0.8-1.1 Magnesium 2.4, liver enzymes not elevated. Troponin is elevated at 0.052 TSH is normal at 0.6 Urine analysis is no suspicious of infection [place] first detected Chest x-ray: No active cardiopulmonary disease per radiologist In the emergency room patient was started on heparin drip, and received normal saline Also cardiology team were consulted 08/21/2021 Patient today More dyspneic, his oxygen requirements increased from 2 L/m up to 15 L/m during the day. Also patient is tachycardic and tachypneic Chest x-ray: ill defined infiltrates noted throughout the left mid lung zone and to a lesser extent to the right reflect an underlying pneumonia. CTA: No PE, diffuse infiltrates throughout both lung griggs. No pulmonary mass pulmonary team consult was obtained. He was started on baricitinib per pulmonary team. lasix iv 20 BID. thiamin he was transferred to icu for close monitoring also he is on cardizem drip for his a fib infectious input is already appreciated Objective - Vital Signs Vital signs: Vital Signs Temp 98.3 F 08/20/21 20:40 Pulse 84 08/21/21 08:00 Resp 18 08/21/21 08:00 BP 125/67 08/21/21 08:00 Pulse Ox 90 L 08/21/21 08:00 Intake & Output 08/20/21 08/21/21 08/21/21 18:59 06:59 18:59 Intake Total 212.493 Output Total 625 500 175 Balance -625 -287.507 -175 Intake: Intake, IV Titration 212.493 Amount Heparin Sod,Pork in 0.45% 212.493 NaCl 25,000 unit In 0.45 % NaCl 1 250ml.bag @ 11. 23 UNITS/KG/HR 9.984 mls/ hr IV .Q24H [facility] Rx#: [id number] Output: Urine 625 500 175 - Labs CBC & Chem 7: 08/21/21 07:09 08/20/21 10:04 Labs: Abnormal Lab Results - Last 24 Hours (Table) 08/20/21 08/21/21 08/21/21 Range/Units 10:04 07:09 07:09 RBC 4.03 L (4.30-5.90) m/uL Hgb 12.5 L (13.0-17.5) gm/dL Hct 38.7 L (39.0-53.0) % Lymphocytes # 0.2 L (1.0-4.8) k/uL APTT 47.8 H (22.0-30.0) sec Procalcitonin 0.13 H (0.02-0.09) ng/mL Assessment and Plan Assessment: COVID-19 infection, bilateral pneumonia sever hypoxic respiratory failure elevated inflammatory markers paroxysmal atrial fibrillation Hypertension on admission Acute kidney injury Hypovolemic hyponatremia History of Hypertension History of aortic abdominal aneurysm Plan: This is a pleasant 75 years old male who presents with hypotension, elevated troponin and Covid infection Skimmer Scoop Operator already evaluated the patient and start him on heparin drip. Follow-up Echocardiogram Monitor creatinine Start dexamethasone, vitamin C, vitamin D and zinc. Infectious disease consult infectious disease consult is already on the case consult pulmonary team Labs and medication were reviewed.. Continue same treatment. Continue with symptomatic treatment. Resume home medication. Monitor lytes and vitals. DVT and GI prophylaxis. Further recommendations depends on the clinical course of the patient DVT prophylaxis: heparin GI Prophylaxis: Pepcid PT/OT: Pending Prognosis is guarded
[2021-08-22] MEDS: SODIUM CHLORIDE 0.9% 1,000 ML IV SCH ×3 (02:42→17:54)
[2021-08-22] MEDS: DEXMEDETOMIDINE/0.9% NACL(PMX) 400 MCG in EMPTY BAG 1 BAG IV SCH (03:04)
[2021-08-22] MEDS: HEPARIN SOD,PORK IN 0.45% NACL 25,000 UNIT in 0.45% NACL 1 250ML.BAG IV SCH (03:19)
[2021-08-22 04:37] LABS: Allen Test Performed? Yes
[2021-08-22 04:38] LABS: ABG Base Excess -2.7 mmol/L; ABG HCO3 22 mmol/L (21-25); ABG PCO2 34 mmHg (35-45); ABG PH 7.42 (7.35-7.45); ABG TCO2 23 mmol/L (19-24)
[2021-08-22 04:40] LABS: ABG PO2 42 mmHg (83-108)
[2021-08-22] MEDS: CISATRACURIUM 200 MG in SODIUM CHLORIDE 0.9% 180 ML IV SCH (05:13)
[2021-08-22] MEDS: fentaNYL (PF). 1,000 MCG in SODIUM CHLORIDE 0.9% 80 ML IV SCH ×3 (05:15→22:29)
[2021-08-22] MEDS: NOREPINEPHRINE 4 MG in SODIUM CHLORIDE 0.9% 250 ML IV SCH (05:29)
--- NOTE | 2021-08-22 06:06 | XR ---
EXAMINATION TYPE: XR chest 1V portable DATE OF EXAM: 08/22/2021 COMPARISON: Yesterday HISTORY: Hypoxemia TECHNIQUE: Single view FINDINGS: Endotracheal tube is 4 cm from the ana lilia. There is pulmonary interstitial and airspace rose mary ma. Heart size is normal. There is nasogastric tube in the stomach. There are chest leads. IMPRESSION: There is mild pulmonary edema which is not significantly different than yesterday.
[2021-08-22 06:17] LABS: ABG Base Excess -4.2 mmol/L; ABG HCO3 22 mmol/L (21-25); ABG PCO2 43 mmHg (35-45); ABG PH 7.32 (7.35-7.45); ABG PO2 116 mmHg (83-108); ABG TCO2 23 mmol/L (19-24); Allen Test Performed? Yes
--- NOTE | 2021-08-22 07:47 | P.PN ---
Subjective Progress Note Date: 08/22/21 Principal diagnosis: Paroxysmal atrial fibrillation The patient is a 75-year-old gentleman who was admitted to the hospital with COVID-19 infection and we consulted to see the patient for atrial fibrillation with RVR which was new the patient. The patient went back into sinus rhythm and subsequently later on during the day yesterday he went into A. fib with RVR and he was in respiratory distress and for that reason he was transferred to the intensive care unit. He was seen today in the intensive care unit. He is intubated on mechanical ventilation. Hemodynamically he was requiring small dose of norepinephrine but currently he is off norepinephrine. He converted back to normal sinus mechanism. I'm going to increase the dose of metoprolol to 25 mg by mouth twice a day. DC heparin and start the patient on oral anticoagulation with a lacrosse. The echo showed mildly impaired LV function was EF between 40-45%. Objective - Vital Signs Vital signs: Vital Signs Temp 99.6 F 08/22/21 04:00 Pulse 64 08/22/21 07:00 Resp 32 H 08/22/21 07:00 BP 117/68 08/22/21 06:00 Pulse Ox 97 08/22/21 07:00 Intake & Output 08/21/21 08/22/21 08/22/21 18:59 06:59 18:59 Intake Total 0 2319.826 25 Output Total 575 1470 12 Balance -575 849.826 13 Intake: IV 770 25 0.9 NaCl- 715 20 Cardizem 55 5 Intake, IV Titration 0 349.826 Amount Dexmedetomidine/0.9% NaCl 12.594 (Pmx) 400 mcg In Empty Bag 1 bag @ 0.2 MCG/KG/HR 4.445 mls/hr IV .[id number] [facility] Rx#:[id number] Heparin Sod,Pork in 0.45% 250 NaCl 25,000 unit In 0.45 % NaCl 1 250ml.bag @ 11. 23 UNITS/KG/HR 9.984 mls/ hr IV .Q24H [facility] Rx#: [id number] Norepinephrine 4 mg In 8.75 Sodium Chloride 0.9% 250 ml @ 0.05 MCG/KG/MIN 16. 936 mls/hr IV .Q15H [facility] Rx#:[id number] Sodium Chloride 0.9% 1, 0 75 000 ml @ 75 mls/hr IV . [id number] [facility] Rx#:[id number] fentaNYL (PF). 1,000 mcg 3.482 In Sodium Chloride 0.9% 80 ml @ 0.5 MCG/KG/HR 4. 445 mls/hr IV .[id number] [facility] Rx#:[id number] Oral 0 1200 Output: Urine 575 1470 12 Other: Voiding Method Urinal ABP, PAP, CO, CI - Last Documented Arterial Blood Pressure 107/46 - Constitutional General appearance: Present: no acute distress - Labs CBC & Chem 7: 08/21/21 07:09 08/20/21 10:04 Labs: Abnormal Lab Results - Last 24 Hours (Table) 08/21/21 08/21/21 08/21/21 Range/Units 07:09 07:09 15:48 RBC 4.03 L (4.30-5.90) m/uL Hgb 12.5 L (13.0-17.5) gm/dL Hct 38.7 L (39.0-53.0) % Lymphocytes # 0.2 L (1.0-4.8) k/uL APTT 47.8 H (22.0-30.0) sec D-Dimer (<0.60) mg/L FEU ABG pH (7.35-7.45) ABG pCO2 (35-45) mmHg ABG pO2 (83-108) mmHg ABG O2 Saturation (94-97) % POC Glucose (mg/dL) (75-99) mg/dL Lactate Dehydrogenase (313-618) U/L C-Reactive Protein (<1.0) mg/dL Procalcitonin 0.11 H (0.02-0.09) ng/mL 08/21/21 08/21/21 08/21/21 Range/Units 15:48 15:48 16:54 RBC (4.30-5.90) m/uL Hgb (13.0-17.5) gm/dL Hct (39.0-53.0) % Lymphocytes # (1.0-4.8) k/uL APTT (22.0-30.0) sec D-Dimer 1.88 H (<0.60) mg/L FEU ABG pH (7.35-7.45) ABG pCO2 (35-45) mmHg ABG pO2 (83-108) mmHg ABG O2 Saturation (94-97) % POC Glucose (mg/dL) 141 H (75-99) mg/dL Lactate Dehydrogenase 1206 H (313-618) U/L C-Reactive Protein 6.4 H (<1.0) mg/dL Procalcitonin (0.02-0.09) ng/mL 08/22/21 08/22/21 Range/Units 04:33 06:15 RBC (4.30-5.90) m/uL Hgb (13.0-17.5) gm/dL Hct (39.0-53.0) % Lymphocytes # (1.0-4.8) k/uL APTT (22.0-30.0) sec D-Dimer (<0.60) mg/L FEU ABG pH 7.32 L (7.35-7.45) ABG pCO2 34 L (35-45) mmHg ABG pO2 42 L* 116 H (83-108) mmHg ABG O2 Saturation 77.0 L 98.0 H (94-97) % POC Glucose (mg/dL) (75-99) mg/dL Lactate Dehydrogenase (313-618) U/L C-Reactive Protein (<1.0) mg/dL Procalcitonin (0.02-0.09) ng/mL Assessment and Plan Assessment: Assessment #1 COVID-19 pneumonia #2 acute hypoxic respiratory failure #3 paroxysmal atrial fibrillation #4 mild cardiomyopathy Plan #1 DC heparin and start the patient on oral anticoagulation #2 increase the dose of metoprolol #3 follow-up with the patient
[2021-08-22] MEDS ORDERED: SODIUM CHLORIDE 0.9% 1,000 ML IV ONE (09:51)
[2021-08-22] MEDS ORDERED: INSULIN ASPART (NovoLOG) 100 UNIT/ML VIAL SQ SCH (10:00)
[2021-08-22] MEDS ORDERED: LIDOCAINE 1% INJ 10MG/ML (20 ML MDV) ONE (10:12)
[2021-08-22] MEDS: CHOLECALCIFEROL 25 MCG (1000 IU) TABLET PO SCH (10:22)
[2021-08-22] MEDS: CHLORHEXIDINE GLUCONATE 15 ML CUP MUCOUS MEM SCH ×2 (10:22→20:36)
[2021-08-22] MEDS: ASCORBIC ACID 500 MG TAB PO SCH (10:22)
[2021-08-22] MEDS: FUROSEMIDE 10 MG/ML 2 ML VIAL IV SCH ×2 (10:23→20:37)
[2021-08-22] MEDS: THIAMINE 100 MG TAB PO SCH (10:23)
[2021-08-22] MEDS: dexAMETHasone 2 MG TAB PO SCH (10:23)
[2021-08-22] MEDS: ZINC SULFATE 220 MG CAP PO SCH (10:24)
[2021-08-22] MEDS: FAMOTIDINE 20 MG/2 ML VIAL IV SCH ×2 (10:25→20:37)
[2021-08-22] MEDS ORDERED: LIDOCAINE 1% INJ 10MG/ML (20 ML MDV) SQ ONE (10:40)
--- NOTE | 2021-08-22 11:00 | IR ---
PICC LINE PLACEMENT: HISTORY: TPN PROCEDURE: Ultrasound guidance of PICC line placement. COMPLICATIONS: None ANESTHESIA: 1. 1% Lidocaine locally. FINDINGS/TECHNIQUE: The procedure was explained to the patient. The risks, complications, benefits and alternatives were discussed and any questions were answered. Informed consent was obtained. The patient was placed supine on the fluoroscopic table and prepped and draped in the usual sterile fash ion. Utilizing a 21 gauge needle and sonographic guidance, access in the right cephalic vein was ac hieved and there is placement of a 0.018 guidewire. The vein is patent. A 5-F. sheath was placed ov er the guidewire. The guidewire and dilator were removed and a 5-F. Double lumen PICC line was place d through the sheath with the chest x-ray confirming the tip at the level of the SVC. The sheath was removed, the catheter was flushed and sutured into position. The patient was stable throughout the procedure and remained stable upon discharge from the Department of Radiology. The vein puncture was patent under ultrasound. A patrick scale image was obtained to document patency of the vein punctured. All elements of the maximal barrier technique were utilized. IMPRESSION: 1. Successful PICC line placement under ultrasound performed bedside within the ICU.
--- NOTE | 2021-08-22 11:07 | XR ---
EXAMINATION TYPE: XR chest 1V portable DATE OF EXAM: 08/22/2021 HISTORY: Shortness of breath. COMPARISON: 08/22/2021 TECHNIQUE: Single view of the chest is submitted. FINDINGS: Right-sided PICC line with distal tip overlying the SVC. No evidence for pneumothorax. Endotracheal a nd NG tubes are noted to be in place. Scattered bilateral infiltrates persist unchanged. The heart is stable. Hilar and mediastinal structures are within normal limits. Degenerative changes are seen of the dorsal spine. IMPRESSION: 1. As above
[2021-08-22] MEDS: APIXABAN 5 MG TAB PO SCH ×2 (11:24→20:37)
[2021-08-22 11:39] LABS: Glucose,Whole Blood 111 mg/dL (75-99)
--- NOTE | 2021-08-22 11:43 | P.PN ---
Subjective Progress Note Date: 08/22/21 Principal diagnosis: Acute hypoxic respiratory failure secondary to COVID-19 pneumonia This is a 75-year-old white male with history of hypertension, dyslipidemia, history of abdominal aortic aneurysm, patient was brought into the hospital with 10 days' history of feeling weak, shortness of breath, cough, patient is not vaccinated. Patient was seen in the ER, and his chest x-ray showed evidence of pneumonia. CT angiogram of the chest showed extensive diffuse infiltrates th roughout the lungs and no evidence of pulmonary embolism. PCR for COVID-19 was positive, patient was noted to have relative leukopenia with WBC count of 2.6, lymphopenia, hyponatremia, elevated troponin, and relatively unremarkable pro calcitonin level. Patient was initially on 2 L nasal cannula, however over the last 24 hours since admission, his oxygen saturation has been dropping and his oxygen has been titrated up to a nonrebreather mask with poor oxygenation and his O2 saturation at present is 85% on a nonrebreather mask. Patient was also noted to be in atrial fibrillation and that is being addressed by cardiology patient was placed on that COVID-19 cocktail, he is also on heparin, and he received significant amount of fluids with fluid boluses on admissions. After I evaluated the patient and reviewed his chest x-ray as well as CT angiogram of the chest, I recommended Lasix 40 mg IV push to be given and I recommended immediate transfer the patient to the ICU. Patient has been on Cardizem drip, remains tachycardic remains in atrial fibrillation with a rate of 120. Patient denies any chest pain denies any nausea or vomiting denies any palpitations denies any orthopnea or PND however the patient is complaining of weakness cough and shortness of breath. Patient was reevaluated today on 08/22/21, patient was evaluated yesterday on the regular medical floor, and as soon as I evaluated the patient, I recommended immediate transfer to the ICU. Patient was developing impending respiratory failure requiring intubation and mechanical ventilation. He was initially placed on BiPAP, and he could not tolerate BiPAP as the patient has history of claustrophobia. Patient was given Precedex, and did not seem to do well, I was notified about the patient at night, that he was not doing well and he Desaturated. And he was developing worsening respiratory distress. Recommended intubation and mechanical ventilation. He is now on mechanical ventilation with assist control rate of 32 patella volume 400 FiO2 is 50% and PEEP of 14. ABG earlier on 100% showed a pO2 of 116 pCO2 43 pH of 7.32. On admission patient was also noted to have elevated BNP, and Lasix was given as I felt there may be some component of potential congestive heart failure. Patient is on fentanyl at 1 Nimbex at 2 mcg/kg/m, is also on propofol at 20 mcg/kg/m. Patient is fully sedated and paralyzed. X-ray is clearly showing bilateral interstitial infiltrates consistent with COVID-19 pneumonia. Patient is on Eliquis 5 mg twice a day Baricitinib, Peridex, vitamin D, Decadron 6 mg by mouth daily, Pepcid 20 mg twice a day, Lasix 20 mg IV push every 12 hours, patient is not requiring any pressors. He is hemodynamically stable. He is on thiamine and zinc. Last night he was briefly on norepinephrine which has been discontinued early this morning. Blood pressure seems to be stable. Objective - Vital Signs Vital signs: Vital Signs Temp 99.6 F 08/22/21 04:00 Pulse 64 08/22/21 07:00 Resp 32 H 08/22/21 07:00 BP 117/68 08/22/21 06:00 Pulse Ox 97 08/22/21 07:00 Intake & Output 08/21/21 08/22/21 08/22/21 18:59 06:59 18:59 Intake Total 0 2319.826 25 Output Total 575 1470 12 Balance -575 849.826 13 Intake: IV 770 25 0.9 NaCl- 715 20 Cardizem 55 5 Intake, IV Titration 0 349.826 Amount Dexmedetomidine/0.9% NaCl 12.594 (Pmx) 400 mcg In Empty Bag 1 bag @ 0.2 MCG/KG/HR 4.445 mls/hr IV .[id number] [facility] Rx#:[id number] Heparin Sod,Pork in 0.45% 250 NaCl 25,000 unit In 0.45 % NaCl 1 250ml.bag @ 11. 23 UNITS/KG/HR 9.984 mls/ hr IV .Q24H [facility] Rx#: [id number] Norepinephrine 4 mg In 8.75 Sodium Chloride 0.9% 250 ml @ 0.05 MCG/KG/MIN 16. 936 mls/hr IV .Q15H [facility] Rx#:[id number] Sodium Chloride 0.9% 1, 0 75 000 ml @ 75 mls/hr IV . [id number] [facility] Rx#:[id number] fentaNYL (PF). 1,000 mcg 3.482 In Sodium Chloride 0.9% 80 ml @ 0.5 MCG/KG/HR 4. 445 mls/hr IV .[id number] [facility] Rx#:[id number] Oral 0 1200 Output: Urine 575 1470 12 Other: Voiding Method Urinal ABP, PAP, CO, CI - Last Documented Arterial Blood Pressure 107/46 - Exam Physical Exam: Revealed a 75-year-old white male, heavily bearded, intubated and mechanically ventilated. Sedated and paralyzed Head: Atraumatic, normocephalic. The tracheal tube and orogastric tube are intact HEENT:[Neck is supple.] [No neck masses.] [No thyromegaly.] [No JVD.] Chest: [Symmetrical chest expansion crackles at the bases bilaterally no rhonchi and no wheezes Cardiac Exam: Normal S1 and S2. 2/6 systolic murmur thought the precordium. Abdomen: [Soft, nontender, no megaly, no rebound, no guarding, normal bowel sounds.] Extremities: [No clubbing edema or cyanosis. Good pulses bilaterally. Neurological Exam: Could not assess patient is sedated and paralyzed. Psychiatric: Could not assess, patient is sedated and paralyzed Skin: No rashes. - Labs CBC & Chem 7: 08/21/21 07:09 08/20/21 10:04 Labs: Abnormal Lab Results - Last 24 Hours (Table) 08/21/21 08/21/21 08/21/21 Range/Units 15:48 15:48 15:48 D-Dimer 1.88 H (<0.60) mg/L FEU ABG pH (7.35-7.45) ABG pCO2 (35-45) mmHg ABG pO2 (83-108) mmHg ABG O2 Saturation (94-97) % POC Glucose (mg/dL) (75-99) mg/dL Lactate Dehydrogenase 1206 H (313-618) U/L C-Reactive Protein 6.4 H (<1.0) mg/dL Procalcitonin 0.11 H (0.02-0.09) ng/mL 08/21/21 08/22/21 08/22/21 Range/Units 16:54 04:33 06:15 D-Dimer (<0.60) mg/L FEU ABG pH 7.32 L (7.35-7.45) ABG pCO2 34 L (35-45) mmHg ABG pO2 42 L* 116 H (83-108) mmHg ABG O2 Saturation 77.0 L 98.0 H (94-97) % POC Glucose (mg/dL) 141 H (75-99) mg/dL Lactate Dehydrogenase (313-618) U/L C-Reactive Protein (<1.0) mg/dL Procalcitonin (0.02-0.09) ng/mL Assessment and Plan Assessment: Impression: Acute hypoxic respiratory failure secondary to COVID-19 pneumonia patient was admitted and seen yesterday, transferred to the ICU, intubated on 08/21/21, re [facility] intubated and mechanically ventilated, sedated and paralyzed. Patient is now on Baricitinib and the COVID-19 cocktail. Atrial fibrillation with RVR, patient converted to normal sinus rhythm this morning. Possible component acute systolic congestive heart failure patient has abnormal BNP level, and abnormal echocardiogram, LV dysfunction and ejection fraction of 40-45%. History of hypertension History of abdominal aortic aneurysm Hypovolemic hyponatremia Lymphopenia secondary to COVID-19 infection LV dysfunction with ejection fraction of 40-45% Recommendation: Continue ventilatory support Continue COVID-19 cocktail Continue Baricitinib Continue diuretics Continue sedation and paralysis as the patient is requiring relatively high FiO2 and high PEEP Continue Eliquis, patient had atrial fibrillation and RVR on his initial presentation presently in sinus rhythm, negative workup for pulmonary embolism Minimize fluids Continue Lasix 20 mg IV push twice a day GI and DVT prophylaxis Monitor and check inflammatory markers Monitor daily x-rays of the chest Prognosis is guarded, patient is critically ill. Critical care time is over 30 minutes Time with Patient: Greater than 30
[2021-08-22] MEDS: INSULIN ASPART (NovoLOG) 100 UNIT/ML VIAL SQ SCH ×2 (12:10→17:56)
[2021-08-22] MEDS: DILTIAZEM 125 MG in SODIUM CHLORIDE 0.9% 100 ML IV SCH (12:17)
[2021-08-22 15:12] LABS: Basophils % (A) 0 %; Eosinophils % (A) 0 %; HCT 34.2 % (39.0-53.0); HGB 11.7 gm/dL (13.0-17.5); Lymphocytes # (A) 0.1 k/uL (1.0-4.8); Lymphocytes % (A) 2 %; MCH 32.2 pg (25.0-35.0); MCHC 34.1 g/dL (31.0-37.0); MCV 94.4 fL (80.0-100.0); Monocytes # (A) 0.1 k/uL (0-1.0); Monocytes % (A) 2 %; Neutrophils # (A) 8.2 k/uL (1.3-7.7); Neutrophils % (A) 96 %; Platelet Count 327 k/uL (150-450); RBC 3.63 m/uL (4.30-5.90); RDW 13.9 % (11.5-15.5); WBC 8.6 k/uL (3.8-10.6)
[2021-08-22 15:23] LABS: ALT 16 U/L (4-49); AST 55 U/L (17-59); African American GFR (CKD) >90 (>60 ml/min/1.73 sqM); Albumin 2.9 g/dL (3.5-5.0); Alkaline Phosphatase 56 U/L (38-126); Anion Gap 9 mmol/L; Blood Urea Nitrogen 24 mg/dL (9-20); Calcium 6.9 mg/dL (8.4-10.2); Carbon Dioxide 23 mmol/L (22-30); Chloride 105 mmol/L (98-107); Glucose 121 mg/dL (74-99); Non-African American GFR(CKD) 84 (>60 ml/min/1.73 sqM); Potassium 4.2 mmol/L (3.5-5.1); Sodium 137 mmol/L (137-145); Total Bilirubin 0.3 mg/dL (0.2-1.3); Total Protein 5.9 g/dL (6.3-8.2)
--- NOTE | 2021-08-22 15:56 | PN ---
PROGRESS NOTE DATE OF SERVICE: 08/22/2021 This 75-year-old gentleman who was admitted acute COVID-19 bilateral pneumonia, acute hypoxic respiratory failure, is on mechanical ventilation. The patient also has paroxysmal atrial fibrillation. The patient is mechanically ventilated and sedated. The most recent chest x-ray, which I reviewed personally, showed extensive bilateral infiltrates, left more than the right. The patient is being closely monitored at this time. Dr. Gonzalez and Infectious Disease are also following the patient closely. The patient was intubated because of impending acute hypoxic respiratory failure and was not responding to BiPAP adequately. The cultures are negative. Past medical history reviewed. Review of systems could not be taken because the patient is mechanically ventilated and sedated. CURRENT MEDICATIONS: Reviewed. They include Tylenol, Maalox, Eliquis, vitamin C, Peridex, vitamin D3. Doses and other medications noted. PHYSICAL EXAMINATION: Patient is mechanically ventilated and sedated. Pulse 71, blood pressure 142/84, respiration 32, temperature normal, pulse ox 98% on mechanical ventilation. Mechanical vent parameters are tidal volume 450, FiO2 40, 14 of PEEP. HEENT: Conjunctivae normal. NECK: No jugular venous distention. CARDIOVASCULAR: S1, S2 muffled. RESPIRATION: Breath sounds diminished at the bases. A few scattered rhonchi. ABDOMEN: Soft, nontender. LEGS: No edema. No swelling. NERVOUS SYSTEM: Patient is mechanically ventilated and sedated. LAB STUDIES: ABG showed pH of 7.32 and pCO2 of 42. CRP 6.4. WBC 2.6, hemoglobin 12.7. ASSESSMENT: 1. Acute COVID-19 infection with acute COVID-19 bilateral pneumonia with acute hypoxic hypercarbic respiratory failure, on mechanical ventilation. 2. Status post BiPAP. 3. Change in mental status, acute metabolic encephalopathy. 4. Bicytopenia, possibly secondary to COVID-19, with neutropenia as well as anemia. 5. Lymphopenia. 6. Elevated D-dimer. 7. Hyponatremia. 8. Elevated creatinine with acute renal failure, acute tubular necrosis, present on admission. 9. Hypermagnesemia. 10.Hypocalcemia. 11.Troponin 0.058, present on admission, of undetermined etiology; possibly related to COVID. Rule out coronary artery disease. 12.Elevated procalcitonin 0.133. 13.History of hypertension. 14.History of abdominal aortic aneurysm. 15.History of daily ETOH. RECOMMENDATIONS AND DISCUSSION: I recommend to continue current medications, continue with the monitoring, symptomatic treatment. Continue with mechanical ventilation. Continue with usual medications for COVID-19, including dexamethasone. Otherwise, inflammatory markers are COVID-19 are also elevated. Will continue to monitor. Continue with Levophed and continue the rest of the medications. Guarded prognosis. Further recommendations to follow. Infectious Disease as well as Pulmonary have been consulted. MMLACEY / INON: [id number] /
[2021-08-22 17:16] LABS: Glucose,Whole Blood 121 mg/dL (75-99)
[2021-08-22] MEDS: BARICITINIB 2 MG TABLET PO SCH (17:54)
[2021-08-22] MEDS: METOPROLOL TARTRATE 25 MG TAB PO SCH (19:47)
--- NOTE | 2021-08-22 22:42 | PN ---
PROGRESS NOTE DATE OF SERVICE: 08/22/2021 REASON FOR FOLLOWUP: COVID-19 pneumonia. INTERVAL HISTORY: The patient is afebrile. The patient did go into respiratory distress, ended up getting intubated early this morning. The patient is currently on a low-dose pressor in the form of Levophed. FiO2 is currently at 45%. No significant purulent secretions through the ET, diarrhea or any other changes reported by nursing staff. PHYSICAL EXAMINATION: Blood pressure 118/47 with a pulse of 75, temperature 98.1. He is 98% on 45% FiO2. General description is an elderly male lying in bed in no distress. Respiratory system: Unlabored breathing, decreased intensity of breath sounds. No wheeze. Heart S1, S2. Regular rate and rhythm. Abdomen soft, no tenderness. Extremities with no edema of the feet. LABS: Hemoglobin is 11.6, white count 8.6, creatinine 0.85. DIAGNOSTIC IMPRESSION AND PLAN: Patient with acute respiratory failure secondary to severe COVID-19 pneumonia. Patient is currently on dexamethasone, Eliquis, zinc and ascorbic acid along with baricitinib; to continue along with respiratory support and monitor his clinical course closely. Continue with supportive care. MMODL / IJN: [id number] /
[2021-08-22 23:12] LABS: Glucose,Whole Blood 143 mg/dL (75-99)
[2021-08-23] MEDS: NOREPINEPHRINE 4 MG in SODIUM CHLORIDE 0.9% 250 ML IV SCH ×2 (00:02→15:52)
[2021-08-23] MEDS: DEXMEDETOMIDINE/0.9% NACL(PMX) 400 MCG in EMPTY BAG 1 BAG IV SCH (00:02)
[2021-08-23] MEDS: INSULIN ASPART (NovoLOG) 100 UNIT/ML VIAL SQ SCH ×5 (00:30→23:12)
[2021-08-23] MEDS: CISATRACURIUM 200 MG in SODIUM CHLORIDE 0.9% 180 ML IV SCH (04:58)
[2021-08-23 05:29] LABS: Basophils % (A) 0 %; Eosinophils % (A) 0 %; HCT 34.2 % (39.0-53.0); HGB 11.2 gm/dL (13.0-17.5); Lymphocytes # (A) 0.1 k/uL (1.0-4.8); Lymphocytes % (A) 2 %; MCH 31.2 pg (25.0-35.0); MCHC 32.9 g/dL (31.0-37.0); MCV 94.8 fL (80.0-100.0); Mean Platelet Volume 7.9; Monocytes # (A) 0.2 k/uL (0-1.0); Monocytes % (A) 3 %; Neutrophils # (A) 5.6 k/uL (1.3-7.7); Neutrophils % (A) 94 %; Platelet Count 343 k/uL (150-450); RBC 3.61 m/uL (4.30-5.90); WBC 5.9 k/uL (3.8-10.6)
[2021-08-23 05:39] LABS: ALT 15 U/L (4-49); AST 55 U/L (17-59); African American GFR (CKD) >90 (>60 ml/min/1.73 sqM); Albumin 2.7 g/dL (3.5-5.0); Alkaline Phosphatase 52 U/L (38-126); Anion Gap 5 mmol/L; Blood Urea Nitrogen 24 mg/dL (9-20); Carbon Dioxide 26 mmol/L (22-30); Chloride 106 mmol/L (98-107); Glucose 141 mg/dL (74-99); Non-African American GFR(CKD) 83 (>60 ml/min/1.73 sqM); Potassium 4.3 mmol/L (3.5-5.1); Sodium 137 mmol/L (137-145); Total Bilirubin 0.2 mg/dL (0.2-1.3); Total Protein 5.7 g/dL (6.3-8.2)
[2021-08-23 05:51] LABS: ABG Base Excess 1.8 mmol/L; ABG HCO3 27 mmol/L (21-25); ABG Oxygen Saturation 98.1 % (94-97); ABG PCO2 46 mmHg (35-45); ABG PH 7.38 (7.35-7.45); ABG PO2 108 mmHg (83-108); ABG TCO2 28 mmol/L (19-24); Allen Test Performed? Yes; Glucose,Whole Blood 145 mg/dL (75-99)
[2021-08-23] MEDS: SODIUM CHLORIDE 0.9% 1,000 ML IV SCH ×3 (05:58→18:11)
--- NOTE | 2021-08-23 07:27 | XR ---
EXAMINATION TYPE: XR chest 1V portable DATE OF EXAM: 08/23/2021 COMPARISON: 08/22/2021 INDICATION: Tube placement TECHNIQUE: Single frontal view of the chest is obtained semiupright position. FINDINGS: The heart size is normal. The pulmonary vasculature is normal. Mild slight increased lung markings are present within the lower lung griggs. This is nonspecific. Co nsider atelectasis or atypical pulmonary edema. Other etiologies including atypical pneumonia not exc luded. Endotracheal tube tip is above ana lilia. Nasogastric tube transverses the thorax tip in the proximal le ft upper quadrant of the abdomen. This could be advanced slightly for better positioning. Right-sided PICC line is present with tip in the distal superior vena cava region. IMPRESSION: 1. Mild diffuse increased lung markings at the lung bases may have slight improvement over the interv al. 2. Lines and catheters discussed above. Nasogastric tube can be advanced slightly.
[2021-08-23] MEDS: CHOLECALCIFEROL 25 MCG (1000 IU) TABLET PO SCH (09:07)
[2021-08-23] MEDS: CHLORHEXIDINE GLUCONATE 15 ML CUP MUCOUS MEM SCH ×2 (09:07→20:36)
[2021-08-23] MEDS: ZINC SULFATE 220 MG CAP PO SCH (09:08)
[2021-08-23] MEDS: FAMOTIDINE 20 MG/2 ML VIAL IV SCH ×2 (09:08→20:36)
[2021-08-23] MEDS: ASCORBIC ACID 500 MG TAB PO SCH (09:08)
[2021-08-23] MEDS: FUROSEMIDE 10 MG/ML 2 ML VIAL IV SCH ×2 (09:08→20:36)
[2021-08-23] MEDS: THIAMINE 100 MG TAB PO SCH (09:08)
[2021-08-23] MEDS: APIXABAN 5 MG TAB PO SCH ×2 (09:09→20:36)
[2021-08-23] MEDS: fentaNYL (PF). 1,000 MCG in SODIUM CHLORIDE 0.9% 80 ML IV SCH ×2 (09:38→18:08)
[2021-08-23] MEDS: dexAMETHasone 2 MG TAB PO SCH (09:39)
[2021-08-23] MEDS: METOPROLOL TARTRATE 25 MG TAB PO SCH ×2 (09:39→22:09)
[2021-08-23 11:36] LABS: Glucose,Whole Blood 146 mg/dL (75-99)
[2021-08-23] MEDS ORDERED: DEXTROSE 5% IN WATER 100 ML with AMIODARONE 150 MG IV ONE (11:37)
[2021-08-23] MEDS ORDERED: AMIODARONE 360 MG in DEXTROSE 5% IN WATER 200 ML IV ONE ×2 (11:37)
--- NOTE | 2021-08-23 13:08 | P.PN ---
Subjective Progress Note Date: 08/23/21 Principal diagnosis: Paroxysmal atrial fibrillation The patient is a 75-year-old gentleman who was admitted to the hospital with COVID-19 infection and we consulted to see the patient for atrial fibrillation with RVR which was new the patient. The patient went back into sinus rhythm and subsequently later on during the day yesterday he went into A. fib with RVR and he was in respiratory distress and for that reason he was transferred to the intensive care unit. The patient was evaluated today. He continues to be intubated and on mechanical ventilation. Hemodynamically he is unstable and requiring norepinephrine. For that reason the beta olga and calcium channel olga are on hold. He has been maintaining normal sinus mechanism. He was started yesterday on oral anticoagulation. The echo during this admission revealed mild cardiomyopathy with EF between 40-45%. Objective - Vital Signs Vital signs: Vital Signs Temp 98.6 F 08/23/21 08:00 Pulse 94 08/23/21 11:00 Resp 32 H 08/23/21 11:00 BP 89/69 08/23/21 11:00 Pulse Ox 100 08/23/21 11:00 Intake & Output 08/22/21 08/23/21 08/23/21 18:59 06:59 18:59 Intake Total 2305.413 1421.208 881.985 Output Total 1522 1275 600 Balance 783.413 146.208 281.985 Weight 86 kg Intake: IV 850 825 375 0.9 NaCl- 845 825 375 Cardizem 5 Intake, IV Titration 1285.413 326.208 266.985 Amount Cisatracurium 200 mg In 73.520 83 32.992 Sodium Chloride 0.9% 180 ml @ 1 MCG/KG/MIN 5.334 mls/hr IV .Q24H [facility] Rx#: [id number] Diltiazem 125 mg In 80.917 Sodium Chloride 0.9% 100 ml @ 5 MG/HR 5 mls/hr IV .Q24H [facility] Rx#:[id number] Norepinephrine 4 mg In 21.451 80.788 75.982 Sodium Chloride 0.9% 250 ml @ 0.05 MCG/KG/MIN 16. 936 mls/hr IV .Q15H [facility] Rx#:[id number] Sodium Chloride 0.9% 1, 1000 000 ml @ 999 mls/hr IV . Q1H1M [facility] Rx#:[id number] fentaNYL (PF). 1,000 mcg 66.231 80.01 99.124 In Sodium Chloride 0.9% 80 ml @ 0.5 MCG/KG/HR 4. 445 mls/hr IV .[id number] [facility] Rx#:[id number] propofoL 1,000 mg In 43.294 82.410 58.887 Empty Bag 1 bag @ Titrate IV .Q0M [facility] Rx#: [id number] Oral 100 Tube Feeding 40 210 140 Other 130 60 Output: Urine 1522 1275 600 Other: Voiding Method Indwelling Catheter ABP, PAP, CO, CI - Last Documented Arterial Blood Pressure 97/56 - Constitutional General appearance: Present: no acute distress - Labs CBC & Chem 7: 08/23/21 05:00 08/23/21 05:00 Labs: Abnormal Lab Results - Last 24 Hours (Table) 08/22/21 08/22/21 08/22/21 Range/Units 14:25 14:25 17:14 RBC 3.63 L (4.30-5.90) m/uL Hgb 11.7 L (13.0-17.5) gm/dL Hct 34.2 L (39.0-53.0) % Neutrophils # 8.2 H (1.3-7.7) k/uL Lymphocytes # 0.1 L (1.0-4.8) k/uL ABG pCO2 (35-45) mmHg ABG HCO3 (21-25) mmol/L ABG Total CO2 (19-24) mmol/L ABG O2 Saturation (94-97) % BUN 24 H (9-20) mg/dL Glucose 121 H (74-99) mg/dL POC Glucose (mg/dL) 121 H (75-99) mg/dL Calcium 6.9 L (8.4-10.2) mg/dL Total Protein 5.9 L (6.3-8.2) g/dL Albumin 2.9 L (3.5-5.0) g/dL 08/22/21 08/23/21 08/23/21 Range/Units 23:11 05:00 05:00 RBC 3.61 L (4.30-5.90) m/uL Hgb 11.2 L (13.0-17.5) gm/dL Hct 34.2 L (39.0-53.0) % Neutrophils # (1.3-7.7) k/uL Lymphocytes # 0.1 L (1.0-4.8) k/uL ABG pCO2 (35-45) mmHg ABG HCO3 (21-25) mmol/L ABG Total CO2 (19-24) mmol/L ABG O2 Saturation (94-97) % BUN 24 H (9-20) mg/dL Glucose 141 H (74-99) mg/dL POC Glucose (mg/dL) 143 H (75-99) mg/dL Calcium 7.0 L (8.4-10.2) mg/dL Total Protein 5.7 L (6.3-8.2) g/dL Albumin 2.7 L (3.5-5.0) g/dL 08/23/21 08/23/21 08/23/21 Range/Units 05:50 05:50 11:34 RBC (4.30-5.90) m/uL Hgb (13.0-17.5) gm/dL Hct (39.0-53.0) % Neutrophils # (1.3-7.7) k/uL Lymphocytes # (1.0-4.8) k/uL ABG pCO2 46 H (35-45) mmHg ABG HCO3 27 H (21-25) mmol/L ABG Total CO2 28 H (19-24) mmol/L ABG O2 Saturation 98.1 H (94-97) % BUN (9-20) mg/dL Glucose (74-99) mg/dL POC Glucose (mg/dL) 145 H 146 H (75-99) mg/dL Calcium (8.4-10.2) mg/dL Total Protein (6.3-8.2) g/dL Albumin (3.5-5.0) g/dL Microbiology - Last 24 Hours (Table) 08/22/21 17:05 Urine Culture - Preliminary Urine,Catheterized Assessment and Plan Assessment: Assessment #1 COVID-19 pneumonia #2 acute hypoxic respiratory failure #3 paroxysmal atrial fibrillation #4 mild cardiomyopathy Plan #1 continue the current medical regimen #2 continue oral anticoagulation #3 consider starting the patient on amiodarone IV if he goes to A. fib again #4 restart the patient back on beta olga once he is stable hemodynamically
--- NOTE | 2021-08-23 13:13 | P.PN ---
Subjective Progress Note Date: 08/23/21 Principal diagnosis: Acute hypoxic respiratory failure secondary to COVID-19 pneumonia This is a 75-year-old white male with history of hypertension, dyslipidemia, history of abdominal aortic aneurysm, patient was brought into the hospital with 10 days' history of feeling weak, shortness of breath, cough, patient is not vaccinated. Patient was seen in the ER, and his chest x-ray showed evidence of pneumonia. CT angiogram of the chest showed extensive diffuse infiltrates th roughout the lungs and no evidence of pulmonary embolism. PCR for COVID-19 was positive, patient was noted to have relative leukopenia with WBC count of 2.6, lymphopenia, hyponatremia, elevated troponin, and relatively unremarkable pro calcitonin level. Patient was initially on 2 L nasal cannula, however over the last 24 hours since admission, his oxygen saturation has been dropping and his oxygen has been titrated up to a nonrebreather mask with poor oxygenation and his O2 saturation at present is 85% on a nonrebreather mask. Patient was also noted to be in atrial fibrillation and that is being addressed by cardiology patient was placed on that COVID-19 cocktail, he is also on heparin, and he received significant amount of fluids with fluid boluses on admissions. After I evaluated the patient and reviewed his chest x-ray as well as CT angiogram of the chest, I recommended Lasix 40 mg IV push to be given and I recommended immediate transfer the patient to the ICU. Patient has been on Cardizem drip, remains tachycardic remains in atrial fibrillation with a rate of 120. Patient denies any chest pain denies any nausea or vomiting denies any palpitations denies any orthopnea or PND however the patient is complaining of weakness cough and shortness of breath. Patient was reevaluated today on 08/22/21, patient was evaluated yesterday on the regular medical floor, and as soon as I evaluated the patient, I recommended immediate transfer to the ICU. Patient was developing impending respiratory failure requiring intubation and mechanical ventilation. He was initially placed on BiPAP, and he could not tolerate BiPAP as the patient has history of claustrophobia. Patient was given Precedex, and did not seem to do well, I was notified about the patient at night, that he was not doing well and he Desaturated. And he was developing worsening respiratory distress. Recommended intubation and mechanical ventilation. He is now on mechanical ventilation with assist control rate of 32 patella volume 400 FiO2 is 50% and PEEP of 14. ABG earlier on 100% showed a pO2 of 116 pCO2 43 pH of 7.32. On admission patient was also noted to have elevated BNP, and Lasix was given as I felt there may be some component of potential congestive heart failure. Patient is on fentanyl at 1 Nimbex at 2 mcg/kg/m, is also on propofol at 20 mcg/kg/m. Patient is fully sedated and paralyzed. X-ray is clearly showing bilateral interstitial infiltrates consistent with COVID-19 pneumonia. Patient is on Eliquis 5 mg twice a day Baricitinib, Peridex, vitamin D, Decadron 6 mg by mouth daily, Pepcid 20 mg twice a day, Lasix 20 mg IV push every 12 hours, patient is not requiring any pressors. He is hemodynamically stable. He is on thiamine and zinc. Last night he was briefly on norepinephrine which has been discontinued early this morning. Blood pressure seems to be stable. Reevaluated today on 08/23/21, patient remains in the ICU, intubated and mechanically ventilated. He is on assist control rate of 32, tidal volume 400 FiO2 45% and PEEP of 14 and I cut it down to 10. Patient is on multiple drips including norepinephrine at 0.02 more cramping per minute, he is also receiving fentanyl at 20 mcg/kg/h propofol at 20 mcg/kg/m IV fluid at 75 mL per hour. He is also receiving Glucerna for nutritional support, he is at 50 mL per hour and the goal is 65. His Baricitinib was discontinued today because of worsening lymphopenia and it is presently on hold. His WBC count is 5.9 hemoglobin is 11.2. Lactulose are normal renal profile is normal ABG this morning showed a pO2 of 108 pCO2 46 pH of 7.38 hence his PEEP 1 down from 14-10. Kept him on 45% FiO2. Chest x-ray is showing slight improvement in his bilateral infiltrates. May even consider stopping his sedation today if tolerated and at least give the patient possibly a weaning trial if possible. At least I will start withholding the Nimbex and see how he does with fentanyl and propofol only and if he tolerates that may consider a weaning trial on this patient. If not patient may have to go back on Nimbex. Objective - Vital Signs Vital signs: Vital Signs Temp 98.6 F 08/23/21 08:00 Pulse 94 08/23/21 11:00 Resp 32 H 08/23/21 11:00 BP 89/69 08/23/21 11:00 Pulse Ox 100 08/23/21 11:00 Intake & Output 08/22/21 08/23/21 08/23/21 18:59 06:59 18:59 Intake Total 2305.413 1421.208 881.985 Output Total 1522 1275 600 Balance 783.413 146.208 281.985 Weight 86 kg Intake: IV 850 825 375 0.9 NaCl- 845 825 375 Cardizem 5 Intake, IV Titration 1285.413 326.208 266.985 Amount Cisatracurium 200 mg In 73.520 83 32.992 Sodium Chloride 0.9% 180 ml @ 1 MCG/KG/MIN 5.334 mls/hr IV .Q24H [facility] Rx#: [id number] Diltiazem 125 mg In 80.917 Sodium Chloride 0.9% 100 ml @ 5 MG/HR 5 mls/hr IV .Q24H [facility] Rx#:[id number] Norepinephrine 4 mg In 21.451 80.788 75.982 Sodium Chloride 0.9% 250 ml @ 0.05 MCG/KG/MIN 16. 936 mls/hr IV .Q15H [facility] Rx#:[id number] Sodium Chloride 0.9% 1, 1000 000 ml @ 999 mls/hr IV . Q1H1M [facility] Rx#:[id number] fentaNYL (PF). 1,000 mcg 66.231 80.01 99.124 In Sodium Chloride 0.9% 80 ml @ 0.5 MCG/KG/HR 4. 445 mls/hr IV .[id number] [facility] Rx#:[id number] propofoL 1,000 mg In 43.294 82.410 58.887 Empty Bag 1 bag @ Titrate IV .Q0M [facility] Rx#: [id number] Oral 100 Tube Feeding 40 210 140 Other 130 60 Output: Urine 1522 1275 600 Other: Voiding Method Indwelling Catheter ABP, PAP, CO, CI - Last Documented Arterial Blood Pressure 97/56 - Exam Physical Exam: Revealed a 75-year-old white male, heavily bearded, intubated and mechanically ventilated. Sedated and paralyzed Head: Atraumatic, normocephalic. Endotracheal tube and orogastric tube are intact HEENT:[Neck is supple.] [No neck masses.] [No thyromegaly.] [No JVD.] Chest: [Symmetrical chest expansion crackles at the bases bilaterally no rhonchi and no wheezes Cardiac Exam: Normal S1 and S2. 2/6 systolic murmur thought the precordium. Abdomen: [Soft, nontender, no megaly, no rebound, no guarding, normal bowel sounds.] Extremities: [No clubbing edema or cyanosis. Good pulses bilaterally. Neurological Exam: Could not assess patient is sedated and paralyzed. Psychiatric: Could not assess, patient is sedated and paralyzed Skin: No rashes. - Labs CBC & Chem 7: 08/23/21 05:00 08/23/21 05:00 Labs: Abnormal Lab Results - Last 24 Hours (Table) 08/22/21 08/22/21 08/22/21 Range/Units 14:25 14:25 17:14 RBC 3.63 L (4.30-5.90) m/uL Hgb 11.7 L (13.0-17.5) gm/dL Hct 34.2 L (39.0-53.0) % Neutrophils # 8.2 H (1.3-7.7) k/uL Lymphocytes # 0.1 L (1.0-4.8) k/uL ABG pCO2 (35-45) mmHg ABG HCO3 (21-25) mmol/L ABG Total CO2 (19-24) mmol/L ABG O2 Saturation (94-97) % BUN 24 H (9-20) mg/dL Glucose 121 H (74-99) mg/dL POC Glucose (mg/dL) 121 H (75-99) mg/dL Calcium 6.9 L (8.4-10.2) mg/dL Total Protein 5.9 L (6.3-8.2) g/dL Albumin 2.9 L (3.5-5.0) g/dL 08/22/21 08/23/21 08/23/21 Range/Units 23:11 05:00 05:00 RBC 3.61 L (4.30-5.90) m/uL Hgb 11.2 L (13.0-17.5) gm/dL Hct 34.2 L (39.0-53.0) % Neutrophils # (1.3-7.7) k/uL Lymphocytes # 0.1 L (1.0-4.8) k/uL ABG pCO2 (35-45) mmHg ABG HCO3 (21-25) mmol/L ABG Total CO2 (19-24) mmol/L ABG O2 Saturation (94-97) % BUN 24 H (9-20) mg/dL Glucose 141 H (74-99) mg/dL POC Glucose (mg/dL) 143 H (75-99) mg/dL Calcium 7.0 L (8.4-10.2) mg/dL Total Protein 5.7 L (6.3-8.2) g/dL Albumin 2.7 L (3.5-5.0) g/dL 08/23/21 08/23/21 08/23/21 Range/Units 05:50 05:50 11:34 RBC (4.30-5.90) m/uL Hgb (13.0-17.5) gm/dL Hct (39.0-53.0) % Neutrophils # (1.3-7.7) k/uL Lymphocytes # (1.0-4.8) k/uL ABG pCO2 46 H (35-45) mmHg ABG HCO3 27 H (21-25) mmol/L ABG Total CO2 28 H (19-24) mmol/L ABG O2 Saturation 98.1 H (94-97) % BUN (9-20) mg/dL Glucose (74-99) mg/dL POC Glucose (mg/dL) 145 H 146 H (75-99) mg/dL Calcium (8.4-10.2) mg/dL Total Protein (6.3-8.2) g/dL Albumin (3.5-5.0) g/dL Microbiology - Last 24 Hours (Table) 08/22/21 17:05 Urine Culture - Preliminary Urine,Catheterized Assessment and Plan Assessment: Impression: Acute hypoxic respiratory failure secondary to COVID-19 pneumonia patient was admitted and seen yesterday, transferred to the ICU, intubated on 08/21/21, remains intubated and mechanically ventilated, sedated and paralyzed. However his Baricitinib was placed on hold today mostly because of worsening lymphopenia Atrial fibrillation with RVR, patient converted to normal sinus rhythm Possible component acute systolic congestive heart failure patient has abnormal BNP level, and abnormal echocardiogram, LV dysfunction and ejection fraction of 40-45%. History of hypertension History of abdominal aortic aneurysm Hypovolemic hyponatremia Lymphopenia secondary to COVID-19 infection LV dysfunction with ejection fraction of 40-45% Recommendation: Continue ventilatory support, presently on assist control rate 52 total volume 400 FiO2 45%, and I cut the PEEP down from 14-10. Continue COVID-19 cocktail Hold Baricitinib Continue diuretics, Lasix 20 mg IV push every 12 hours. Trial off Nimbex today. And see if tolerated. Continue Eliquis, patient had atrial fibrillation and RVR on his initial presentation Minimize fluids GI and DVT prophylaxis Monitor and check inflammatory markers Monitor daily x-rays of the chest Prognosis is guarded, patient is critically ill. Critical care time is over 30 minutes Time with Patient: Greater than 30
--- NOTE | 2021-08-23 13:14 | P.PN ---
Subjective Progress Note Date: 08/23/21 This is a 75-year-old male who was admitted for bilateral acute COVID-19 pneumonia with acute hypoxic respiratory failure and continues on mechanical ventilation. Multiple medical consultations following including pulmonary junior architect and cardiology. Per nursing staff peep has been slightly adjusted and decreased to 10%. Patient continues on oral dexamethasone along with Eliquis, vitamin and zinc supplements and will continue. Patient also continues on Nimbex and propofol and fentanyl for sedation. Cardiology following as well and patient is off IV Cardizem and started on IV amiodarone along with metoprolol. Patient is also receiving IV Lasix 20 mg twice daily. Chest x-ray today shows mild diffuse increased lung markings at the lung bases that may have a slight improvement over the interval and recommend NG tube to be advanced slightly. Patient is afebrile Labs: WBC is 5.9, hemoglobin is 11.2, platelets are 343, sodium is 137, potassium is 4.3, BUN is 24, creatinine is 0.88 Review of systems: Unable to complete as patient is intubated and sedated Active Medications Acetaminophen (Acetaminophen Tab 325 Mg Tab) 650 mg PO Q6HR PRN PRN Reason: Mild Pain or Fever > 100.5 Al Hydroxide/Mg Hydroxide (Mag Hydrox/Al Hydrox/Simeth 30 Ml Cup) 15 ml PO Q6HR PRN PRN Reason: Indigestion Apixaban (Apixaban 5 Mg Tab) 5 mg PO BID [facility]; Protocol Last Admin: 08/23/21 09:09 Dose: 5 mg Documented by: Ascorbic Acid (Ascorbic Acid 500 Mg Tab) 1,000 mg PO DAILY [facility] Last Admin: 08/23/21 09:08 Dose: 1,000 mg Documented by: Chlorhexidine Gluconate (Chlorhexidine Gluconate 15 Ml Cup) 15 ml MUCOUS MEM BID [facility] Last Admin: 08/23/21 09:07 Dose: 15 ml Documented by: Cholecalciferol (Cholecalciferol 25 Mcg (1000 Iu) Tablet) 50 mcg PO DAILY [facility] Last Admin: 08/23/21 09:07 Dose: 50 mcg Documented by: Dexamethasone (Dexamethasone 2 Mg Tab) 6 mg PO DAILY [facility] Last Admin: 08/23/21 09:39 Dose: 6 mg Documented by: Famotidine (Famotidine 20 Mg/2 Ml Vial) 20 mg IV Q12HR [facility] Last Admin: 08/23/21 09:08 Dose: 20 mg Documented by: Furosemide (Furosemide 10 Mg/Ml 2 Ml Vial) 20 mg IV Q12HR [facility] Last Admin: 08/23/21 09:08 Dose: 20 mg Documented by: Sodium Chloride (Saline 0.9%) 1,000 mls @ 75 mls/hr IV .[id number] [facility] Last Admin: 08/23/21 05:58 Dose: 75 mls/hr Documented by: Diltiazem HCl 125 mg/ Sodium (Chloride) 125 mls @ 5 mls/hr IV .Q24H [facility] Last Admin: 08/22/21 12:17 Dose: Not Given Documented by: Dexmedetomidine HCl 400 mcg/ (IV Solution) 100 mls @ 4.445 mls/hr IV .[id number] [facility]; Protocol Last Admin: 08/23/21 00:02 Dose: Not Given Documented by: Propofol 1,000 mg/ IV Solution 100 mls @ 0 mls/hr IV .Q0M [facility]; Protocol Last Titration: 08/23/21 11:18 Dose: 25 mcg/kg/min, 12.9 mls/hr Documented by: Cisatracurium Besylate 200 mg/ (Sodium Chloride) 200 mls @ 5.334 mls/hr IV .Q24H [facility]; Protocol Last Titration: 08/23/21 10:16 Dose: 1 mcg/kg/min, 5.334 mls/hr Documented by: Fentanyl Citrate 1,000 mcg/ (Sodium Chloride) 100 mls @ 4.445 mls/hr IV .[id number] [facility]; Protocol Last Admin: 08/23/21 09:38 Dose: 1 mcg/kg/hr, 8.89 mls/hr Documented by: Norepinephrine Bitartrate 4 mg (/ Sodium Chloride) 254 mls @ 16.936 mls/hr IV .Q15H [facility]; Protocol Last Titration: 08/23/21 09:40 Dose: 0 mcg/kg/min, 0 mls/hr Documented by: Amiodarone HCl 360 mg/ (Dextrose/Water) 200 mls @ 33.333 mls/hr IV .Q6H [facility]; Protocol Stop: 08/23/21 17:36 Amiodarone HCl 450 mg/ (Dextrose/Water) 250 mls @ 16.667 mls/hr IV .Q15H [facility]; Protocol Stop: 08/24/21 11:59 Insulin Aspart (Insulin Aspart (Novolog) 100 Unit/Ml Vial) 0 unit SQ Q6H [facility]; Protocol Last Admin: 08/23/21 06:39 Dose: 2 unit Documented by: Metoprolol Tartrate (Metoprolol Tartrate 25 Mg Tab) 25 mg PO BID [facility] Last Admin: 08/23/21 09:39 Dose: 25 mg Documented by: Naloxone HCl (Naloxone 0.4 Mg/Ml 1 Ml Vial) 0.2 mg IV Q2M PRN PRN Reason: Opioid Reversal Ondansetron HCl (Ondansetron 4 Mg/2 Ml Vial) 4 mg IVP Q8HR PRN PRN Reason: Nausea And Vomiting Thiamine HCl (Thiamine 100 Mg Tab) 100 mg PO DAILY [facility] Last Admin: 08/23/21 09:08 Dose: 100 mg Documented by: Zinc Sulfate (Zinc Sulfate 220 Mg Cap) 220 mg PO DAILY [facility] Last Admin: 08/23/21 09:08 Dose: 220 mg Documented by: PHYSICAL EXAMINATION: GENERAL: The patient is on mechanical ventilation and sedation. Temp is 98.6F, pulse is 79, respirations are 32, blood pressure is 116/72, arterial blood pressure is 121/56, oxygen saturation is 99% on mechanical vent and FiO2 of 45% and PEEP of 10% HEENT: Pupils are round and equally reacting to light. EOMI. No scleral icterus. No conjunctival pallor. Normocephalic, atraumatic. No pharyngeal erythema. No thyromegaly. CARDIOVASCULAR: S1 and S2 muffled. PULMONARY: diminished breath sounds bilaterally with a few scattered rhonchi not ed.. ABDOMEN: Soft, nontender, nondistended, normoactive bowel sounds. No palpable organomegaly. MUSCULOSKELETAL: No joint swelling or deformity. EXTREMITIES: No cyanosis, clubbing, or pedal edema. NEUROLOGICAL: Unable to completely assess as patient is on mechanical ventilation and sedation SKIN: No rashes. Assessment and plan: Acute COVID-19 infection with acute COVID-19 bilateral pneumonia with acute hypoxic respiratory failure, on mechanical ventilation Status post BiPAP Atrial fibrillation with RVR, paroxysmal, currently rate controlled on IV amiodarone and metoprolol Change in mental status, acute mental ENCEPHALOPATHY Bicytopenia, possibly secondary to COVID-19 with neutropenia as well as anemia Lymphopenia Elevated d-dimer Hyponatremia Elevated creatinine with acute renal failure, acute tubular necrosis, present on admission Hypomagnesemia Hypocalcemia troponin 0.058, present on admission of undetermined etiology possibly related to Covid, rule out coronary artery disease Elevated pro calcitonin 0.133 history of hypertension history of abdominal aortic aneurysm history of daily EtOH DVT prophylaxis on Eliquis Full code Plan: Continue with current medications and management with multiple medical consultations following. Per nursing staff patient peep has been slightly decreased to 10% and continues on mechanical ventilation and intubation. Attempts to wean Nimbex were unsuccessful as patient's respirations increased and patient became hypertensive and will continue for now. Continue with propofol and fentanyl for sedation as well. Due to multiple complex medical issues, prognosis is guarded. Objective - Vital Signs Vital signs: Vital Signs Temp 98.3 F 08/23/21 04:00 Pulse 79 08/23/21 07:00 Resp 32 H 08/23/21 07:00 BP 129/79 08/23/21 07:00 Pulse Ox 98 08/23/21 07:00 Intake & Output 08/22/21 08/23/21 08/23/21 18:59 06:59 18:59 Intake Total 2305.413 1421.208 341.710 Output Total 1522 1275 80 Balance 783.413 146.208 261.710 Weight 86 kg Intake: IV 850 825 75 0.9 NaCl- 845 825 75 Cardizem 5 Intake, IV Titration 1285.413 326.208 246.710 Amount Cisatracurium 200 mg In 73.520 83 32.325 Sodium Chloride 0.9% 180 ml @ 1 MCG/KG/MIN 5.334 mls/hr IV .Q24H [facility] Rx#: [id number] Diltiazem 125 mg In 80.917 Sodium Chloride 0.9% 100 ml @ 5 MG/HR 5 mls/hr IV .Q24H [facility] Rx#:[id number] Norepinephrine 4 mg In 21.451 80.788 75.982 Sodium Chloride 0.9% 250 ml @ 0.05 MCG/KG/MIN 16. 936 mls/hr IV .Q15H [facility] Rx#:[id number] Sodium Chloride 0.9% 1, 1000 000 ml @ 999 mls/hr IV . Q1H1M [facility] Rx#:[id number] fentaNYL (PF). 1,000 mcg 66.231 80.01 99.124 In Sodium Chloride 0.9% 80 ml @ 0.5 MCG/KG/HR 4. 445 mls/hr IV .[id number] [facility] Rx#:[id number] propofoL 1,000 mg In 43.294 82.410 39.279 Empty Bag 1 bag @ Titrate IV .Q0M [facility] Rx#: [id number] Tube Feeding 40 210 20 Other 130 60 Output: Urine 1522 1275 80 Other: Voiding Method Indwelling Catheter ABP, PAP, CO, CI - Last Documented Arterial Blood Pressure 118/48 - Labs CBC & Chem 7: 08/23/21 05:00 08/23/21 05:00 Labs: Abnormal Lab Results - Last 24 Hours (Table) 08/22/21 08/22/21 08/22/21 Range/Units 11:38 14:25 14:25 RBC 3.63 L (4.30-5.90) m/uL Hgb 11.7 L (13.0-17.5) gm/dL Hct 34.2 L (39.0-53.0) % Neutrophils # 8.2 H (1.3-7.7) k/uL Lymphocytes # 0.1 L (1.0-4.8) k/uL ABG pCO2 (35-45) mmHg ABG HCO3 (21-25) mmol/L ABG Total CO2 (19-24) mmol/L ABG O2 Saturation (94-97) % BUN 24 H (9-20) mg/dL Glucose 121 H (74-99) mg/dL POC Glucose (mg/dL) 111 H (75-99) mg/dL Calcium 6.9 L (8.4-10.2) mg/dL Total Protein 5.9 L (6.3-8.2) g/dL Albumin 2.9 L (3.5-5.0) g/dL 08/22/21 08/22/21 08/23/21 Range/Units 17:14 23:11 05:00 RBC 3.61 L (4.30-5.90) m/uL Hgb 11.2 L (13.0-17.5) gm/dL Hct 34.2 L (39.0-53.0) % Neutrophils # (1.3-7.7) k/uL Lymphocytes # 0.1 L (1.0-4.8) k/uL ABG pCO2 (35-45) mmHg ABG HCO3 (21-25) mmol/L ABG Total CO2 (19-24) mmol/L ABG O2 Saturation (94-97) % BUN (9-20) mg/dL Glucose (74-99) mg/dL POC Glucose (mg/dL) 121 H 143 H (75-99) mg/dL Calcium (8.4-10.2) mg/dL Total Protein (6.3-8.2) g/dL Albumin (3.5-5.0) g/dL 08/23/21 08/23/21 08/23/21 Range/Units 05:00 05:50 05:50 RBC (4.30-5.90) m/uL Hgb (13.0-17.5) gm/dL Hct (39.0-53.0) % Neutrophils # (1.3-7.7) k/uL Lymphocytes # (1.0-4.8) k/uL ABG pCO2 46 H (35-45) mmHg ABG HCO3 27 H (21-25) mmol/L ABG Total CO2 28 H (19-24) mmol/L ABG O2 Saturation 98.1 H (94-97) % BUN 24 H (9-20) mg/dL Glucose 141 H (74-99) mg/dL POC Glucose (mg/dL) 145 H (75-99) mg/dL Calcium 7.0 L (8.4-10.2) mg/dL Total Protein 5.7 L (6.3-8.2) g/dL Albumin 2.7 L (3.5-5.0) g/dL Microbiology - Last 24 Hours (Table) 08/22/21 17:05 Urine Culture - Preliminary Urine,Catheterized
[2021-08-23] MEDS: DILTIAZEM 125 MG in SODIUM CHLORIDE 0.9% 100 ML IV SCH (15:53)
--- NOTE | 2021-08-23 16:49 | PN ---
PROGRESS NOTE DATE OF SERVICE: 08/23/2021 REASON FOR FOLLOWUP: COVID-19 pneumonia. INTERVAL HISTORY: The patient is afebrile. The patient is hemodynamically stable. He is off the pressor support as of this morning. FiO2 is currently 45%. No significant purulent secretion or any other changes reported by nursing staff. PHYSICAL EXAMINATION: Blood pressure 118/70 with a pulse of 83, temperature of 98.6. He is 97% on 45% FiO2. General description is an elderly male intubated on the vent. Respiratory system: Unlabored breathing, decreased intensity of breath sounds. No wheeze. Heart S1, S2. Regular rate and rhythm. Abdomen: Soft, no tenderness. Extremities: No edema of the feet. LABS: Hemoglobin 11.2, white count 5.8, creatinine 0.88. DIAGNOSTIC IMPRESSION AND PLAN: Patient with acute respiratory failure secondary to COVID-19 pneumonia. Clinical suspicion for secondary bacterial infection. The patient is currently on Eliquis, dexamethasone, to continue along with respiratory support and monitor clinical course closely. Continue supportive care. MMODL / IJN: [id number] /
[2021-08-23 17:58] LABS: Glucose,Whole Blood 174 mg/dL (75-99)
[2021-08-23 23:10] LABS: Glucose,Whole Blood 170 mg/dL (75-99)
[2021-08-24] MEDS: fentaNYL (PF). 1,000 MCG in SODIUM CHLORIDE 0.9% 80 ML IV SCH ×2 (03:24→13:23)
[2021-08-24] MEDS: AMIODARONE 450 MG in DEXTROSE 5% IN WATER 250 ML IV SCH ×6 (04:35→14:50)
[2021-08-24] MEDS: CISATRACURIUM 200 MG in SODIUM CHLORIDE 0.9% 180 ML IV SCH ×2 (04:38→11:59)
[2021-08-24] MEDS: NOREPINEPHRINE 4 MG in SODIUM CHLORIDE 0.9% 250 ML IV SCH ×2 (04:43→18:25)
[2021-08-24] MEDS: DEXMEDETOMIDINE/0.9% NACL(PMX) 400 MCG in EMPTY BAG 1 BAG IV SCH ×2 (04:43→08:06)
[2021-08-24 05:01] LABS: Basophils % (A) 0 %; Eosinophils % (A) 0 %; HCT 31.9 % (39.0-53.0); HGB 10.6 gm/dL (13.0-17.5); Lymphocytes # (A) 0.2 k/uL (1.0-4.8); Lymphocytes % (A) 3 %; MCH 31.5 pg (25.0-35.0); MCHC 33.1 g/dL (31.0-37.0); MCV 95.2 fL (80.0-100.0); Monocytes # (A) 0.2 k/uL (0-1.0); Monocytes % (A) 4 %; Neutrophils # (A) 4.2 k/uL (1.3-7.7); Neutrophils % (A) 90 %; Platelet Count 345 k/uL (150-450); RBC 3.35 m/uL (4.30-5.90); RDW 14.2 % (11.5-15.5); WBC 4.6 k/uL (3.8-10.6)
[2021-08-24 05:15] LABS: ALT 16 U/L (4-49); AST 46 U/L (17-59); African American GFR (CKD) >90 (>60 ml/min/1.73 sqM); Albumin 2.5 g/dL (3.5-5.0); Alkaline Phosphatase 48 U/L (38-126); Anion Gap 5 mmol/L; Blood Urea Nitrogen 28 mg/dL (9-20); Calcium 7.4 mg/dL (8.4-10.2); Carbon Dioxide 26 mmol/L (22-30); Chloride 109 mmol/L (98-107); Glucose 148 mg/dL (74-99); Non-African American GFR(CKD) 87 (>60 ml/min/1.73 sqM); Potassium 4.1 mmol/L (3.5-5.1); Sodium 140 mmol/L (137-145); Total Bilirubin 0.2 mg/dL (0.2-1.3); Total Protein 5.3 g/dL (6.3-8.2)
[2021-08-24] MEDS: SODIUM CHLORIDE 0.9% 1,000 ML IV SCH ×2 (05:25→20:01)
[2021-08-24 05:26] LABS: Glucose,Whole Blood 140 mg/dL (75-99)
[2021-08-24] MEDS: INSULIN ASPART (NovoLOG) 100 UNIT/ML VIAL SQ SCH ×3 (05:26→18:32)
[2021-08-24 05:39] LABS: ABG Base Excess 4.7 mmol/L; ABG HCO3 28 mmol/L (21-25); ABG Oxygen Saturation 94.4 % (94-97); ABG PCO2 40 mmHg (35-45); ABG PH 7.47 (7.35-7.45); ABG PO2 65 mmHg (83-108); ABG TCO2 30 mmol/L (19-24)
--- NOTE | 2021-08-24 06:03 | P.PN ---
Subjective Progress Note Date: 08/24/21 Principal diagnosis: Paroxysmal atrial fibrillation The patient is a 75-year-old gentleman who was admitted to the hospital with COVID-19 infection and we consulted to see the patient for atrial fibrillation with RVR which was new the patient. The patient was seen this morning. He has been maintaining normal sinus mechanism except for one short episode of A. fib with RVR earlier. He is off norepinephrine. With that being safe going to restart him back on beta olga with metoprolol. He is already on oral anticoagulation with WHICH we are going to continue. He is on Lasix IV. The chest x-ray was reviewed today and continues to 40 finding consistent was bilateral pleural effusion. The echo revealed cardiomyopathy with EF between 40-45%. We will continue the current medical regimen and continue following up with the patient and continue up titrating the dose of beta olga if his pressure allows. Continue oral anticoagulation Objective - Vital Signs Vital signs: Vital Signs Temp 98.3 F 08/24/21 04:00 Pulse 57 L 08/24/21 04:00 Resp 32 H 08/24/21 04:00 BP 117/63 08/24/21 04:00 Pulse Ox 98 08/24/21 04:00 Intake & Output 08/23/21 08/23/21 08/24/21 06:59 18:59 06:59 Intake Total 9379.990 7131.250 1715.727 Output Total 5016 499 4420 Balance 146.208 888.250 530.727 Weight 82 kg 77 kg Intake: IV 825 900 750 0.9 NaCl- 825 900 750 Intake, IV Titration 326.208 453.250 435.727 Amount Cisatracurium 200 mg In 83 32.992 97.968 Sodium Chloride 0.9% 180 ml @ 1 MCG/KG/MIN 5.334 mls/hr IV .Q24H MARK Rx#: [id number] Norepinephrine 4 mg In 80.788 75.982 Sodium Chloride 0.9% 250 ml @ 0.05 MCG/KG/MIN 16. 936 mls/hr IV .Q15H MARK Rx#:[id number] fentaNYL (PF). 1,000 mcg 80.01 182.692 100 In Sodium Chloride 0.9% 80 ml @ 0.5 MCG/KG/HR 4. 445 mls/hr IV .[id number] MARK Rx#:[id number] propofoL 1,000 mg In 82.410 161.584 237.759 Empty Bag 1 bag @ Titrate IV .Q0M MARK Rx#: [id number] Oral 100 Tube Feeding 210 400 440 Other 60 90 Output: Urine 7479 062 0477 Other: Voiding Method Indwelling Catheter Indwelling Catheter Indwelling Catheter ABP, PAP, CO, CI - Last Documented Arterial Blood Pressure 133/52 - Constitutional General appearance: Present: no acute distress - Labs CBC & Chem 7: 08/24/21 04:55 08/24/21 04:55 Labs: Abnormal Lab Results - Last 24 Hours (Table) 08/23/21 08/23/21 08/23/21 Range/Units 11:34 17:56 23:08 RBC (4.30-5.90) m/uL Hgb (13.0-17.5) gm/dL Hct (39.0-53.0) % Lymphocytes # (1.0-4.8) k/uL Chloride (98-107) mmol/L BUN (9-20) mg/dL Glucose (74-99) mg/dL POC Glucose (mg/dL) 146 H 174 H 170 H (75-99) mg/dL Calcium (8.4-10.2) mg/dL Total Protein (6.3-8.2) g/dL Albumin (3.5-5.0) g/dL 08/24/21 08/24/21 08/24/21 Range/Units 04:55 04:55 05:25 RBC 3.35 L (4.30-5.90) m/uL Hgb 10.6 L (13.0-17.5) gm/dL Hct 31.9 L (39.0-53.0) % Lymphocytes # 0.2 L (1.0-4.8) k/uL Chloride 109 H (98-107) mmol/L BUN 28 H (9-20) mg/dL Glucose 148 H (74-99) mg/dL POC Glucose (mg/dL) 140 H (75-99) mg/dL Calcium 7.4 L (8.4-10.2) mg/dL Total Protein 5.3 L (6.3-8.2) g/dL Albumin 2.5 L (3.5-5.0) g/dL Microbiology - Last 24 Hours (Table) 08/22/21 17:05 Urine Culture - Preliminary Urine,Catheterized Group D Enterococcus 08/22/21 15:13 Blood Culture - Preliminary Blood No Growth after 24 hours Assessment and Plan Assessment: Assessment #1 COVID-19 pneumonia #2 acute hypoxic respiratory failure #3 paroxysmal atrial fibrillation #4 mild cardiomyopathy Plan #1 restart the patient back on beta olga since he is off norepinephrine #2 continue oral anticoagulation #3 uptitrate the dose of beta olga if the pressure continues to be stable #4 follow-up with the patient
[2021-08-24 06:19] LABS: Allen Test Performed? no
[2021-08-24] MEDS ORDERED: FUROSEMIDE 10 MG/ML 4 ML VIAL IV STA (07:06)
--- NOTE | 2021-08-24 07:11 | P.PN ---
Subjective Progress Note Date: 08/24/21 This is a 75-year-old white male with history of hypertension, dyslipidemia, history of abdominal aortic aneurysm, patient was brought into the hospital with 10 days' history of feeling weak, shortness of breath, cough, patient is not vaccinated. Patient was seen in the ER, and his chest x-ray showed evidence of pneumonia. CT angiogram of the chest showed extensive diffuse infiltrates throughout the lungs and no evidence of pulmonary embolism. PCR for COVID-19 was positive, patient was noted to have relative leukopenia with WBC count of 2.6, lymphopenia, hyponatremia, elevated troponin, and relatively unremarkable pro calcitonin level. Patient was initially on 2 L nasal cannula, however over the last 24 hours since admission, his oxygen saturation has been dropping and his oxygen has been titrated up to a nonrebreather mask with poor oxygenation and his O2 saturation at present is 85% on a nonrebreather mask. Patient was also noted to be in atrial fibrillation and that is being addressed by cardiology patient was placed on that COVID-19 cocktail, he is also on heparin, and he received significant amount of fluids with fluid boluses on admissions. After I evaluated the patient and reviewed his chest x-ray as well as CT angiogram of the chest, I recommended Lasix 40 mg IV push to be given and I recommended immediate transfer the patient to the ICU. Patient has been on Cardizem drip, remains tachycardic remains in atrial fibrillation with a rate of 120. Patient denies any chest pain denies any nausea or vomiting denies any palpitations denies any orthopnea or PND however the patient is complaining of weakness cough and shortness of breath. Patient was reevaluated today on 08/22/21, patient was evaluated yesterday on the regular medical floor, and as soon as I evaluated the patient, I recommended immediate transfer to the ICU. Patient was developing impending respiratory failure requiring intubation and mechanical ventilation. He was initially placed on BiPAP, and he could not tolerate BiPAP as the patient has history of claustrophobia. Patient was given Precedex, and did not seem to do well, I was notified about the patient at night, that he was not doing well and he Desaturated. And he was developing worsening respiratory distress. Recommended intubation and mechanical ventilation. He is now on mechanical ventilation with assist control rate of 32 patella volume 400 FiO2 is 50% and PEEP of 14. ABG earlier on 100% showed a pO2 of 116 pCO2 43 pH of 7.32. On admission patient was also noted to have elevated BNP, and Lasix was given as I felt there may be some component of potential congestive heart failure. Patient is on fentanyl at 1 Nimbex at 2 mcg/kg/m, is also on propofol at 20 mcg/kg/m. Patient is fully sedated and paralyzed. X-ray is clearly showing bilateral interstitial infiltrates consistent with COVID-19 pneumonia. Patient is on Eliquis 5 mg twice a day Baricitinib, Peridex, vitamin D, Decadron 6 mg by mouth daily, Pepcid 20 mg twice a day, Lasix 20 mg IV push every 12 hours, patient is not requiring any pressors. He is hemodynamically stable. He is on thiamine and zinc. Last night he was briefly on norepinephrine which has been discontinued early this morning. Blood pressure seems to be stable. Reevaluated today on 08/23/21, patient remains in the ICU, intubated and mechanically ventilated. He is on assist control rate of 32, tidal volume 400 FiO2 45% and PEEP of 14 and I cut it down to 10. Patient is on multiple drips including norepinephrine at 0.02 more cramping per minute, he is also receiving fentanyl at 20 mcg/kg/h propofol at 20 mcg/kg/m IV fluid at 75 mL per hour. He is also receiving Glucerna for nutritional support, he is at 50 mL per hour and the goal is 65. His Baricitinib was discontinued today because of worsening lymphopenia and it is presently on hold. His WBC count is 5.9 hemoglobin is 11.2. Lactulose are normal renal profile is normal ABG this morning showed a pO2 of 108 pCO2 46 pH of 7.38 hence his PEEP 1 down from 14-10. Kept him on 45% FiO2. Chest x-ray is showing slight improvement in his bilateral infiltrates. May even consider stopping his sedation today if tolerated and at least give the patient possibly a weaning trial if possible. At least I will start withholding the Nimbex and see how he does with fentanyl and propofol only and if he tolerates that may consider a weaning trial on this patient. If not patient may have to go back on Nimbex. 08/24/2021, seeing this patient for a follow-up. 75-year-old male patient, currently intubated on mechanical ventilator due to complications of COVID 19 related pneumonia. Note that the patient was quite ill when he presented to us. CAT scan of the chest that was done at that time showed evidence of diffuse bilateral pulmonary infiltrates consistent with COVID 19. He was leukopenic and he was hyponatremic. He was on 2 L of oxygen by nasal cannula and he immediately progressed and following that here required intubation mechanical ventilation. Currently he is sedated and paralyzed. Currently is on a combination of propofol and fentanyl, propofol is running at 45 mg/kg per minute and fentanyl is running at 1.25 mcg/kg/h. The patient is also on Nimbex running at 1 mg/kg per minute. He has been adequately sedated and paralyzed. He remains on a mechanical ventilator on assist control mode at the rate of 32, tidal volume is at 400, FiO2 is 50% and this was up down to 45% and a PEEP is currently at 8. The chest x-ray showing bilateral pulmonary infiltrates, there is elevation of left hemidiaphragm and some infiltration of the left lung base compared to yesterday. The pH of 7.47 with a pCO2 of 40 and pO2 of 65 and the rest of the blood work shows a white cell count of 4.6, hemoglobin of 10.6, the patient remains lymphopenic, electrodes are all within normal limits, blood sugars of 140, LFTs are normal, the inflammatory markers showed an LDH level of 1206 on 08/21/2021. The patient also had a CRP level of 6.4. ProBNP level was also elevated at 6470. The patient is currently on IV fluids running at 75 mL an hour this obviously needs to be cut down. The patient's net fluid balance over the past 24 hours has been +1.5 L. The patient is also on enteral feeding for nutritional support and currently is on Glucerna running at the rate of 50 mL an hour. In terms of his lung mechanics, I noted that the peak patient has a peak airway pressure of around 23 Static air pressure was I will say lower at 18-20. Objective - Vital Signs Vital signs: Vital Signs Temp 98.3 F 08/24/21 04:00 Pulse 60 08/24/21 06:00 Resp 32 H 08/24/21 06:00 BP 117/63 08/24/21 06:00 Pulse Ox 97 08/24/21 06:00 Intake & Output 08/23/21 08/24/21 08/24/21 18:59 06:59 18:59 Intake Total 9703.752 5320.727 Output Total 965 1280 Balance 888.250 685.727 Weight 82 kg 77 kg Intake: IV 900 900 0.9 NaCl- 900 900 Intake, IV Titration 453.250 435.727 Amount Cisatracurium 200 mg In 32.992 97.968 Sodium Chloride 0.9% 180 ml @ 1 MCG/KG/MIN 5.334 mls/hr IV .Q24H MARK Rx#: [id number] Norepinephrine 4 mg In 75.982 Sodium Chloride 0.9% 250 ml @ 0.05 MCG/KG/MIN 16. 936 mls/hr IV .Q15H MARK Rx#:[id number] fentaNYL (PF). 1,000 mcg 182.692 100 In Sodium Chloride 0.9% 80 ml @ 0.5 MCG/KG/HR 4. 445 mls/hr IV .[id number] MARK Rx#:[id number] propofoL 1,000 mg In 161.584 237.759 Empty Bag 1 bag @ Titrate IV .Q0M MARK Rx#: [id number] Oral 100 Tube Feeding 400 540 Other 90 Output: Urine 965 1280 Other: Voiding Method Indwelling Catheter Indwelling Catheter ABP, PAP, CO, CI - Last Documented Arterial Blood Pressure 132/53 - Exam Physical Exam: Revealed a 75-year-old white male, heavily bearded, intubated and mechanically ventilated. Sedated and off paralyzed Head: Atraumatic, normocephalic. Endotracheal tube and orogastric tube are intact HEENT:[Neck is supple.] [No neck masses.] [No thyromegaly.] [No JVD.] Chest: [Symmetrical chest expansion crackles at the bases bilaterally no rhonchi and no wheezes Cardiac Exam: Normal S1 and S2. 2/6 systolic murmur thought the precordium. Abdomen: [Soft, nontender, no megaly, no rebound, no guarding, normal bowel sounds.] Extremities: [No clubbing edema or cyanosis. Good pulses bilaterally. Neurological Exam: Could not assess patient is sedated and off paralyzed. Psychiatric: Could not assess, patient is sedated and paralyzed Skin: No rashes. - Labs CBC & Chem 7: 08/24/21 04:55 08/24/21 04:55 Labs: Abnormal Lab Results - Last 24 Hours (Table) 08/23/21 08/23/21 08/23/21 Range/Units 11:34 17:56 23:08 RBC (4.30-5.90) m/uL Hgb (13.0-17.5) gm/dL Hct (39.0-53.0) % Lymphocytes # (1.0-4.8) k/uL ABG pH (7.35-7.45) ABG pO2 (83-108) mmHg ABG HCO3 (21-25) mmol/L ABG Total CO2 (19-24) mmol/L Chloride (98-107) mmol/L BUN (9-20) mg/dL Glucose (74-99) mg/dL POC Glucose (mg/dL) 146 H 174 H 170 H (75-99) mg/dL Calcium (8.4-10.2) mg/dL Total Protein (6.3-8.2) g/dL Albumin (3.5-5.0) g/dL 08/24/21 08/24/21 08/24/21 Range/Units 04:55 04:55 05:25 RBC 3.35 L (4.30-5.90) m/uL Hgb 10.6 L (13.0-17.5) gm/dL Hct 31.9 L (39.0-53.0) % Lymphocytes # 0.2 L (1.0-4.8) k/uL ABG pH (7.35-7.45) ABG pO2 (83-108) mmHg ABG HCO3 (21-25) mmol/L ABG Total CO2 (19-24) mmol/L Chloride 109 H (98-107) mmol/L BUN 28 H (9-20) mg/dL Glucose 148 H (74-99) mg/dL POC Glucose (mg/dL) 140 H (75-99) mg/dL Calcium 7.4 L (8.4-10.2) mg/dL Total Protein 5.3 L (6.3-8.2) g/dL Albumin 2.5 L (3.5-5.0) g/dL 08/24/21 Range/Units 05:37 RBC (4.30-5.90) m/uL Hgb (13.0-17.5) gm/dL Hct (39.0-53.0) % Lymphocytes # (1.0-4.8) k/uL ABG pH 7.47 H (7.35-7.45) ABG pO2 65 L (83-108) mmHg ABG HCO3 28 H (21-25) mmol/L ABG Total CO2 30 H (19-24) mmol/L Chloride (98-107) mmol/L BUN (9-20) mg/dL Glucose (74-99) mg/dL POC Glucose (mg/dL) (75-99) mg/dL Calcium (8.4-10.2) mg/dL Total Protein (6.3-8.2) g/dL Albumin (3.5-5.0) g/dL Microbiology - Last 24 Hours (Table) 08/22/21 17:05 Urine Culture - Preliminary Urine,Catheterized Group D Enterococcus 08/22/21 15:13 Blood Culture - Preliminary Blood No Growth after 24 hours Assessment and Plan Plan: 1 Acute hypoxic respiratory failure secondary to COVID-19 pneumonia patient was admitted and seen yesterday, transferred to the ICU, intubated on 08/21/21, remains intubated and mechanically ventilated, sedated and paralyzed. However h is Baricitinib was placed on hold today mostly because of worsening lymphopenia rate, the patient seems to be improving. Peak and static pressures are quite low. Chest x-ray findings are rather stable. Blood gases was noted. Chest x- ray was noted. The patient is currently on a PEEP of 8 with an FiO2 of 45% he is hemodynamically stable at this point in time. I dropped the PEEP down to 6 I am in the process of making of the patient's to assess his weaning parameters. 2 Atrial fibrillation with RVR, patient converted to normal sinus rhythm 3 systolic congestive heart failure patient has abnormal BNP level, and abnormal echocardiogram, LV dysfunction and ejection fraction of 40-45%. 4 History of hypertension 5 History of abdominal aortic aneurysm 6 Hypovolemic hyponatremia, recovered 7 Lymphopenia secondary to COVID-19 infection 8 Suspected UTI with Enterococcus grp D Recommendation: Continue ventilatory support I cut the PEEP down to 6 Stop sedation and check weaning parameters and assess candidacy for further weaning. The patient is very gently sedated and he would wake up from sedation rather easily and we'll should be able to check his weaning parameters and consider possible extubation. Repeat urinalysis and urine cultures in regards to enterococcus in the urine IV fluids to KVO Continue COVID-19 cocktail Hold Baricitinib Lasix 40 mg IV push x1. Continue Eliquis, patient had atrial fibrillation and RVR on his initial presentation GI and DVT prophylaxis Monitor and check inflammatory markers Monitor daily x-rays of the chest Prognosis is guarded, patient is critically ill. Critical care time is over 30 minutes Time with Patient: Greater than 30
--- NOTE | 2021-08-24 07:37 | XR ---
EXAMINATION TYPE: XR chest 1V portable DATE OF EXAM: 08/24/2021 Comparison: 08/23/2021 Clinical History: 75 year-old male tube placement Findings: ET tube tip 3.6 cm from the ana lilia. NG tube courses below the diaphragm. Partially visualized endovas cular stent graft of the abdominal aorta. Right PICC tip within the right atrium. Heart mildly enlarg ed. There are bilateral patchy interstitial opacities. Slightly more confluent at the left lower lobe . Overall unchanged from prior exam. Impression: Overall stable patchy interstitial densities and more focal opacity at the left base.
[2021-08-24] MEDS ORDERED: AMIODARONE 360 MG in DEXTROSE 5% IN WATER 200 ML IV ONE ×2 (08:08)
[2021-08-24] MEDS ORDERED: DEXTROSE 5% IN WATER 100 ML with AMIODARONE 150 MG IV ONE (08:08)
[2021-08-24] MEDS ORDERED: AMIODARONE IN DEXTROSE,ISO-OSM 360 MG/200 ML PLAST..BAG IV ONE (08:49)
[2021-08-24] MEDS ORDERED: AMIODARONE IN DEXTROSE,ISO-OSM 150 MG/100 ML PLAST..BAG IV ONE (08:49)
[2021-08-24] MEDS: ASCORBIC ACID 500 MG TAB PO SCH (09:38)
[2021-08-24] MEDS: CHOLECALCIFEROL 25 MCG (1000 IU) TABLET PO SCH (09:38)
[2021-08-24] MEDS: CHLORHEXIDINE GLUCONATE 15 ML CUP MUCOUS MEM SCH ×2 (09:38→20:01)
[2021-08-24] MEDS: APIXABAN 5 MG TAB PO SCH ×2 (09:39→20:01)
[2021-08-24] MEDS: dexAMETHasone 2 MG TAB PO SCH (09:39)
[2021-08-24] MEDS: FAMOTIDINE 20 MG/2 ML VIAL IV SCH ×2 (09:39→20:01)
[2021-08-24] MEDS: ZINC SULFATE 220 MG CAP PO SCH (09:40)
[2021-08-24] MEDS: METOPROLOL TARTRATE 25 MG TAB PO SCH (09:40)
[2021-08-24] MEDS: THIAMINE 100 MG TAB PO SCH (09:40)
[2021-08-24 15:40] LABS: Appearance,Urine Clear (Clear); Bacteria,Urine Occasional /hpf; Bilirubin,Urine Negative (Negative); Blood,Urine Small (Negative); Color,Urine Yellow; Glucose,Urine (UA) Negative (Negative); Ketones,Urine Negative (Negative); Leukocyte Esterase,Urine Small (Negative); Mucus,Urine Rare /hpf; Nitrite,Urine Negative (Negative); PH, Urine 5.5 (5.0-8.0); Protein,Urine Trace (Negative); RBC,Urine 24 /hpf (0-5); Specific Gravity,Urine 1.017 (1.001-1.035); Squamous Epithelial Cell,Urine <1 /hpf (0-4); Urobilinogen,Urine <2.0 mg/dL (<2.0); WBC,Urine 6 /hpf (0-5)
[2021-08-24 17:01] LABS: Glucose,Whole Blood 157 mg/dL (75-99)
--- NOTE | 2021-08-24 18:05 | PN ---
PROGRESS NOTE DATE OF SERVICE: 08/24/2021 This 75-year-old gentleman who was admitted with acute Covid 19 initial bilateral interstitial pneumonia had acute hypoxic respiratory had problems with weaning. The patient had tachycardia. The patient has atrial fibrillation. Patient is started on amiodarone drip. The patient being closely monitored. Patient remains unresponsive. Dr. Villegas is following the patient closely in ICU. Otherwise, portable chest x-ray which was done today and monitored, reviewed personally by me showed extensive bilateral interstitial infiltrate. Past medical history reviewed. REVIEW OF SYMPTOMS: Could not be taken, the patient mechanically ventilated and sedated. CURRENT MEDICATIONS: Reviewed and include: Tylenol, Maalox, amiodarone drip, Eliquis, vitamin C, Peridex, vitamin D3, doses reviewed. PHYSICAL EXAMINATION: Patient is mechanically sedated. Pulse 85, blood pressure is 114/65, respirations 30, temperature 99.2, pulse ox 100 percent on mechanical ventilation. Vent settings are noted. Tidal volume 400 and 100% FIO2 and 10 of PEEP. HEENT: Conjunctivae normal. Neck: No JVD. Cardiovascular: S1, S2 irregular. Respirations: A few scattered rhonchi. Abdomen: Soft. Nervous system: The patient mechanically sedated. LAB STUDIES: WBC 4.7, hemoglobin 10.3, ABGs noted. UA also noted. Mainly RBCs. ASSESSMENT: 1. Acute Covid 19 infection with acute Covid 19 bilateral interstitial pneumonia with acute hypoxic respiratory failure on mechanical ventilation. 2. Status post BiPAP. 3. Atrial fibrillation with rapid ventricular rate, paroxysmal, currently on IV amiodarone and metoprolol. 4. Change in mental status, acute metabolic encephalopathy. 5. Bicytopenia possibly secondary to Covid 19 and neutropenia as well as anemia. 6. Lymphopenia. 7. Elevated D-dimer. 8. Hyponatremia. 9. Elevated creatinine with acute renal failure, acute tubular necrosis present on admission. 10.Hypomagnesemia. 11.Hypocalcemia. 12.Troponin 0.058, present on admission. Underlying etiology possibly due to Covid rule out coronary artery disease. 13.Elevated procalcitonin 0.133. 14.History of hypertension. 15.History of abdominal aortic aneurysm. 16.History of daily EtOH. 17.Deep vein thrombosis prophylaxis. 18.FULL CODE. RECOMMENDATIONS AND DISCUSSION: Continue current medications, management and symptomatic treatment. Continue with the monitoring, continue with further weaning attempts. Continue with amiodarone. Otherwise, I would also supplement vitamins. Guarded prognosis. Further recommendations to follow. MMODL / IJN: [id number] / JULI
[2021-08-24] MEDS: DILTIAZEM 125 MG in SODIUM CHLORIDE 0.9% 100 ML IV SCH (18:25)
[2021-08-24] MEDS: PIPERACILLIN-TAZOBACTAM 3.375 GM in SODIUM CHLORIDE 0.9% 100 ML IVPB SCH (18:32)
--- NOTE | 2021-08-24 18:50 | PN ---
PROGRESS NOTE DATE OF SERVICE: 08/24/2021 REASON FOR FOLLOWUP: COVID-19 pneumonia. INTERVAL HISTORY: The patient did spike a fever this morning of 102 degrees Fahrenheit. The patient has been afebrile since then. The patient is hemodynamically stable. The patient is currently on 100% FiO2. No significant purulent secretions in the ET, diarrhea or any other changes reported by the nursing staff. PHYSICAL EXAMINATION: Blood pressure 106/67, pulse of 85, temperature 99.2. He is 100% on 100% FiO2. General description is an elderly male intubated on the vent. Respiratory system: Unlabored breathing, decreased intensity of breath sounds. No wheeze. Heart S1, S2. Regular rate and rhythm. Abdomen soft, no tenderness. LABS: Hemoglobin is 10.3, white count 4.6, creatinine 0.79. Urine is mildly positive. Urine is showing a group D Enterococcus. DIAGNOSTIC IMPRESSION AND PLAN: Patient with acute respiratory failure secondary to COVID-19 pneumonia in this patient with a new fever and evidence of Enterococcus in the urine. UA not significantly positive, though. We will obtain sputum for Gram stain and culture. Empirically add Zosyn while waiting for the culture to finalize and monitor his clinical course closely. MMODL / IJN: [id number] /
[2021-08-24 23:47] LABS: Glucose,Whole Blood 169 mg/dL (75-99)
[2021-08-25] MEDS: METOPROLOL TARTRATE 25 MG TAB PO SCH ×3 (00:12→22:28)
[2021-08-25] MEDS: INSULIN ASPART (NovoLOG) 100 UNIT/ML VIAL SQ SCH ×5 (00:14→23:59)
[2021-08-25] MEDS: fentaNYL (PF). 1,000 MCG in SODIUM CHLORIDE 0.9% 80 ML IV SCH ×3 (00:27→20:57)
[2021-08-25] MEDS: CISATRACURIUM 200 MG in SODIUM CHLORIDE 0.9% 180 ML IV SCH (00:33)
[2021-08-25] MEDS: PIPERACILLIN-TAZOBACTAM 3.375 GM in SODIUM CHLORIDE 0.9% 100 ML IVPB SCH ×3 (01:29→17:54)
[2021-08-25] MEDS: AMIODARONE 450 MG in DEXTROSE 5% IN WATER 250 ML IV SCH ×2 (04:29)
[2021-08-25 04:56] LABS: Basophils % (A) 0 %; Eosinophils % (A) 0 %; HCT 32.7 % (39.0-53.0); HGB 10.7 gm/dL (13.0-17.5); Lymphocytes # (A) 0.2 k/uL (1.0-4.8); Lymphocytes % (A) 2 %; MCH 31.8 pg (25.0-35.0); MCHC 32.8 g/dL (31.0-37.0); MCV 96.9 fL (80.0-100.0); Mean Platelet Volume 8.3; Monocytes # (A) 0.2 k/uL (0-1.0); Monocytes % (A) 3 %; Neutrophils # (A) 5.8 k/uL (1.3-7.7); Neutrophils % (A) 93 %; Platelet Count 358 k/uL (150-450); RBC 3.37 m/uL (4.30-5.90); RDW 13.6 % (11.5-15.5); WBC 6.2 k/uL (3.8-10.6)
[2021-08-25 05:32] LABS: ABG Base Excess 6.1 mmol/L; ABG HCO3 31 mmol/L (21-25); ABG Oxygen Saturation 97.4 % (94-97); ABG PCO2 49 mmHg (35-45); ABG PH 7.41 (7.35-7.45); ABG PO2 90 mmHg (83-108); ABG TCO2 32 mmol/L (19-24)
[2021-08-25 05:45] LABS: Glucose,Whole Blood 150 mg/dL (75-99)
[2021-08-25 05:50] LABS: ALT 20 U/L (4-49); AST 54 U/L (17-59); African American GFR (CKD) >90 (>60 ml/min/1.73 sqM); Albumin 2.5 g/dL (3.5-5.0); Alkaline Phosphatase 48 U/L (38-126); Anion Gap 4 mmol/L; Blood Urea Nitrogen 27 mg/dL (9-20); Calcium 7.8 mg/dL (8.4-10.2); Carbon Dioxide 29 mmol/L (22-30); Chloride 109 mmol/L (98-107); Glucose 141 mg/dL (74-99); Non-African American GFR(CKD) 88 (>60 ml/min/1.73 sqM); Potassium 4.2 mmol/L (3.5-5.1); Sodium 142 mmol/L (137-145); Total Bilirubin 0.3 mg/dL (0.2-1.3); Total Protein 5.5 g/dL (6.3-8.2)
[2021-08-25 06:28] LABS: Allen Test Performed? no
[2021-08-25] MEDS: NOREPINEPHRINE 4 MG in SODIUM CHLORIDE 0.9% 250 ML IV SCH ×2 (06:36→23:44)
[2021-08-25] MEDS ORDERED: FUROSEMIDE 10 MG/ML 4 ML VIAL IV STA (07:10)
--- NOTE | 2021-08-25 07:13 | P.PN ---
Subjective Progress Note Date: 08/25/21 This is a 75-year-old white male with history of hypertension, dyslipidemia, history of abdominal aortic aneurysm, patient was brought into the hospital with 10 days' history of feeling weak, shortness of breath, cough, patient is not vaccinated. Patient was seen in the ER, and his chest x-ray showed evidence of pneumonia. CT angiogram of the chest showed extensive diffuse infiltrates throughout the lungs and no evidence of pulmonary embolism. PCR for COVID-19 was positive, patient was noted to have relative leukopenia with WBC count of 2.6, lymphopenia, hyponatremia, elevated troponin, and relatively unremarkable pro calcitonin level. Patient was initially on 2 L nasal cannula, however over the last 24 hours since admission, his oxygen saturation has been dropping and his oxygen has been titrated up to a nonrebreather mask with poor oxygenation and his O2 saturation at present is 85% on a nonrebreather mask. Patient was also noted to be in atrial fibrillation and that is being addressed by cardiology patient was placed on that COVID-19 cocktail, he is also on heparin, and he received significant amount of fluids with fluid boluses on admissions. After I evaluated the patient and reviewed his chest x-ray as well as CT angiogram of the chest, I recommended Lasix 40 mg IV push to be given and I recommended immediate transfer the patient to the ICU. Patient has been on Cardizem drip, remains tachycardic remains in atrial fibrillation with a rate of 120. Patient denies any chest pain denies any nausea or vomiting denies any palpitations denies any orthopnea or PND however the patient is complaining of weakness cough and shortness of breath. Patient was reevaluated today on 08/22/21, patient was evaluated yesterday on the regular medical floor, and as soon as I evaluated the patient, I recommended immediate transfer to the ICU. Patient was developing impending respiratory failure requiring intubation and mechanical ventilation. He was initially placed on BiPAP, and he could not tolerate BiPAP as the patient has history of claustrophobia. Patient was given Precedex, and did not seem to do well, I was notified about the patient at night, that he was not doing well and he Desaturated. And he was developing worsening respiratory distress. Recommended intubation and mechanical ventilation. He is now on mechanical ventilation with assist control rate of 32 patella volume 400 FiO2 is 50% and PEEP of 14. ABG earlier on 100% showed a pO2 of 116 pCO2 43 pH of 7.32. On admission patient was also noted to have elevated BNP, and Lasix was given as I felt there may be some component of potential congestive heart failure. Patient is on fentanyl at 1 Nimbex at 2 mcg/kg/m, is also on propofol at 20 mcg/kg/m. Patient is fully sedated and paralyzed. X-ray is clearly showing bilateral interstitial infiltrates consistent with COVID-19 pneumonia. Patient is on Eliquis 5 mg twice a day Baricitinib, Peridex, vitamin D, Decadron 6 mg by mouth daily, Pepcid 20 mg twice a day, Lasix 20 mg IV push every 12 hours, patient is not requiring any pressors. He is hemodynamically stable. He is on thiamine and zinc. Last night he was briefly on norepinephrine which has been discontinued early this morning. Blood pressure seems to be stable. Reevaluated today on 08/23/21, patient remains in the ICU, intubated and mechanically ventilated. He is on assist control rate of 32, tidal volume 400 FiO2 45% and PEEP of 14 and I cut it down to 10. Patient is on multiple drips including norepinephrine at 0.02 more cramping per minute, he is also receiving fentanyl at 20 mcg/kg/h propofol at 20 mcg/kg/m IV fluid at 75 mL per hour. He is also receiving Glucerna for nutritional support, he is at 50 mL per hour and the goal is 65. His Baricitinib was discontinued today because of worsening lymphopenia and it is presently on hold. His WBC count is 5.9 hemoglobin is 11.2. Lactulose are normal renal profile is normal ABG this morning showed a pO2 of 108 pCO2 46 pH of 7.38 hence his PEEP 1 down from 14-10. Kept him on 45% FiO2. Chest x-ray is showing slight improvement in his bilateral infiltrates. May even consider stopping his sedation today if tolerated and at least give the patient possibly a weaning trial if possible. At least I will start withholding the Nimbex and see how he does with fentanyl and propofol only and if he tolerates that may consider a weaning trial on this patient. If not patient may have to go back on Nimbex. 08/24/2021, seeing this patient for a follow-up. 75-year-old male patient, currently intubated on mechanical ventilator due to complications of COVID 19 related pneumonia. Note that the patient was quite ill when he presented to us. CAT scan of the chest that was done at that time showed evidence of diffuse bilateral pulmonary infiltrates consistent with COVID 19. He was leukopenic and he was hyponatremic. He was on 2 L of oxygen by nasal cannula and he immediately progressed and following that here required intubation mechanical ventilation. Currently he is sedated and paralyzed. Currently is on a combination of propofol and fentanyl, propofol is running at 45 mg/kg per minute and fentanyl is running at 1.25 mcg/kg/h. The patient is also on Nimbex running at 1 mg/kg per minute. He has been adequately sedated and paralyzed. He remains on a mechanical ventilator on assist control mode at the rate of 32, tidal volume is at 400, FiO2 is 50% and this was up down to 45% and a PEEP is currently at 8. The chest x-ray showing bilateral pulmonary infiltrates, there is elevation of left hemidiaphragm and some infiltration of the left lung base compared to yesterday. The pH of 7.47 with a pCO2 of 40 and pO2 of 65 and the rest of the blood work shows a white cell count of 4.6, hemoglobin of 10.6, the patient remains lymphopenic, electrodes are all within normal limits, blood sugars of 140, LFTs are normal, the inflammatory markers showed an LDH level of 1206 on 08/21/2021. The patient also had a CRP level of 6.4. ProBNP level was also elevated at 6470. The patient is currently on IV fluids running at 75 mL an hour this obviously needs to be cut down. The patient's net fluid balance over the past 24 hours has been +1.5 L. The patient is also on enteral feeding for nutritional support and currently is on Glucerna running at the rate of 50 mL an hour. In terms of his lung mechanics, I noted that the peak patient has a peak airway pressure of around 23 Static air pressure was I will say lower at 18-20. 08/25/2021, the patient is being seen for a follow-up. Note that the patient's condition was rather stable yesterday. I was quite excited about possible extubation. For that reason, the patient was given a sedation holiday and following that he was given a spelled his breathing trial. Note that his weaning parameters were adequate. While having the spontaneous breathing trial, the patient went into atrial fibrillation with rapid ventricular response, he became tachypneic and tachycardic and hemodynamically unstable and he started desaturating. Based on all this, the child was aborted, the patient was placed back on sedation and he was briefly paralyzed. Subsequently, he was taken off the paralytics. I brought up his PEEP up to 10 and gradually wean down the FiO2 down to 50% and currently is on a rate of 32 with an FiO2 of 400. His blood gases from this morning shows a pH of 7.41 with a pCO2 of 49 and pO2 of 90. Chest x-ray shows stable bilateral pulmonary infiltrates, essentially unchanged from yesterday probably there is some improved aeration the left lung base. No significant orotracheal secretions. Note that his cardiac rhythm is back to sinus. I started patient back then amiodarone drip which is currently running at 0.5 mg per minute and I'm going to maintain the amiodarone drip for now. He is hemodynamically stable. Is on no pressors. IV fluids are running at the rate of 20 mL an hour. His peak airway pressure is around 23. He is easily arousable. The plan is to go to the same process again and consider extubating this patient and this will largely depend on his weaning parameters and ability to do a brief spotting is breathing trial. Noted this patient has been intubated on 08/22/2021. Electrolytes are all within normal limits. Sodium is at 142, BUN is at 27 with a creatinine of 0.7, white cell count is at 6.2. He remains on Decadron 6 mg daily basis. He sedation currently is with a combination of propofol and fentanyl. Propofol is running at 40 mcg/kg per minute and fentanyl is running at 1 mcg/kg/h. He is on no pressors. Overall fluid balance has been +1.5 L over the past 24-48 hours. Objective - Vital Signs Vital signs: Vital Signs Temp 97.8 F 08/24/21 20:00 Pulse 57 L 08/25/21 07:00 Resp 32 H 08/25/21 07:00 BP 110/60 08/25/21 02:00 Pulse Ox 98 08/25/21 07:00 Intake & Output 12/08/25/21 08/25/21 18:59 06:59 18:59 Intake Total 4500.323 5770.569 Output Total 1315 600 Balance -466.291 4902.569 Weight 71.5 kg Intake: IV 295 220 0.9 NaCl- 295 220 Intake, IV Titration 457.365 765.569 Amount Amiodarone 450 mg In 227.505 Dextrose 5% in Water 250 ml @ 0.5 MG/MIN 16.667 mls/hr IV .Q15H MARK Rx#: [id number] Cisatracurium 200 mg In 142.824 128.470 Sodium Chloride 0.9% 180 ml @ 1 MCG/KG/MIN 5.334 mls/hr IV .Q24H MARK Rx#: [id number] Dexmedetomidine/0.9% NaCl 2.889 (Pmx) 400 mcg In Empty Bag 1 bag @ 0.2 MCG/KG/HR 4.445 mls/hr IV .[id number] MARK Rx#:[id number] fentaNYL (PF). 1,000 mcg 85.309 98.383 In Sodium Chloride 0.9% 80 ml @ 0.5 MCG/KG/HR 4. 445 mls/hr IV .[id number] MARK Rx#:[id number] propofoL 1,000 mg In 226.343 311.211 Empty Bag 1 bag @ Titrate IV .Q0M MARK Rx#: [id number] Oral 100 Tube Feeding 250 560 Other 90 Output: Urine 1315 600 Other: Voiding Method Indwelling Catheter Indwelling Catheter ABP, PAP, CO, CI - Last Documented Arterial Blood Pressure 123/49 - Exam Physical Exam: Revealed a 75-year-old white male, heavily bearded, intubated and mechanically ventilated. Sedated and off paralyzed Head: Atraumatic, normocephalic. Endotracheal tube and orogastric tube are int act HEENT:[Neck is supple.] [No neck masses.] [No thyromegaly.] [No JVD.] Chest: [Symmetrical chest expansion crackles at the bases bilaterally no rhonchi and no wheezes Cardiac Exam: Normal S1 and S2. 2/6 systolic murmur thought the precordium. Abdomen: [Soft, nontender, no megaly, no rebound, no guarding, normal bowel sounds.] Extremities: [No clubbing edema or cyanosis. Good pulses bilaterally. Neurological Exam: Could not assess patient is sedated and off paralyzed. Psychiatric: Could not assess, patient is sedated and paralyzed Skin: No rashes. - Labs CBC & Chem 7: 08/25/21 04:40 08/25/21 04:40 Labs: Abnormal Lab Results - Last 24 Hours (Table) 08/24/21 08/24/21 08/24/21 Range/Units 14:46 17:00 23:45 RBC (4.30-5.90) m/uL Hgb (13.0-17.5) gm/dL Hct (39.0-53.0) % Lymphocytes # (1.0-4.8) k/uL ABG pCO2 (35-45) mmHg ABG HCO3 (21-25) mmol/L ABG Total CO2 (19-24) mmol/L ABG O2 Saturation (94-97) % Chloride (98-107) mmol/L BUN (9-20) mg/dL Glucose (74-99) mg/dL POC Glucose (mg/dL) 157 H 169 H (75-99) mg/dL Calcium (8.4-10.2) mg/dL Total Protein (6.3-8.2) g/dL Albumin (3.5-5.0) g/dL Urine Protein Trace H (Negative) Urine Blood Small H (Negative) Ur Leukocyte Esterase Small H (Negative) Urine RBC 24 H (0-5) /hpf Urine WBC 6 H (0-5) /hpf Urine Bacteria Occasional H (None) /hpf Urine Mucus Rare H (None) /hpf 08/25/21 08/25/21 08/25/21 Range/Units 04:40 04:40 05:31 RBC 3.37 L (4.30-5.90) m/uL Hgb 10.7 L (13.0-17.5) gm/dL Hct 32.7 L (39.0-53.0) % Lymphocytes # 0.2 L (1.0-4.8) k/uL ABG pCO2 49 H (35-45) mmHg ABG HCO3 31 H (21-25) mmol/L ABG Total CO2 32 H (19-24) mmol/L ABG O2 Saturation 97.4 H (94-97) % Chloride 109 H (98-107) mmol/L BUN 27 H (9-20) mg/dL Glucose 141 H (74-99) mg/dL POC Glucose (mg/dL) (75-99) mg/dL Calcium 7.8 L (8.4-10.2) mg/dL Total Protein 5.5 L (6.3-8.2) g/dL Albumin 2.5 L (3.5-5.0) g/dL Urine Protein (Negative) Urine Blood (Negative) Ur Leukocyte Esterase (Negative) Urine RBC (0-5) /hpf Urine WBC (0-5) /hpf Urine Bacteria (None) /hpf Urine Mucus (None) /hpf 08/25/21 Range/Units 05:43 RBC (4.30-5.90) m/uL Hgb (13.0-17.5) gm/dL Hct (39.0-53.0) % Lymphocytes # (1.0-4.8) k/uL ABG pCO2 (35-45) mmHg ABG HCO3 (21-25) mmol/L ABG Total CO2 (19-24) mmol/L ABG O2 Saturation (94-97) % Chloride (98-107) mmol/L BUN (9-20) mg/dL Glucose (74-99) mg/dL POC Glucose (mg/dL) 150 H (75-99) mg/dL Calcium (8.4-10.2) mg/dL Total Protein (6.3-8.2) g/dL Albumin (3.5-5.0) g/dL Urine Protein (Negative) Urine Blood (Negative) Ur Leukocyte Esterase (Negative) Urine RBC (0-5) /hpf Urine WBC (0-5) /hpf Urine Bacteria (None) /hpf Urine Mucus (None) /hpf Microbiology - Last 24 Hours (Table) 08/24/21 07:00 Gram Stain - Preliminary Sputum Sputum Culture - Preliminary 08/22/21 17:05 Urine Culture - Final Urine,Catheterized Enterococcus faecalis 08/22/21 15:13 Blood Culture - Preliminary Blood No Growth after 48 hours Assessment and Plan Plan: 1 Acute hypoxic respiratory failure secondary to COVID-19 pneumonia patient was admitted and seen yesterday, transferred to the ICU, intubated on 08/21/21, remains intubated and mechanically ventilated, sedated and paralyzed. However his Baricitinib was placed on hold today mostly because of worsening lymphopenia rate, the patient seems to be improving. Peak and static pressures are quite low. I think the patient is potentially extubated about. The patient failed this point is breathing trial as the patient became unstable, tachypneic and tachycardic and he went into atrial fibrillation with rapid ventricular response. The situation was controlled. The patient was placed back on sedation and his cardiac rhythm is back to sinus. I reviewed the chest x-ray from today. I reviewed the blood gas. He is in a stable condition. We'll given a sedation holiday and recheck the weaning parameters and proceed with another spontaneous breathing trial. We'll continue Decadron for now. We'll continue the anticoagulation for now. He is hemodynamically stable. 2 Atrial fibrillation with RVR, patient converted to normal sinus rhythm , and the patient is currently on amiodarone drip at 0.5 mg/m and the patient is on metoprolol at a dose of 25 mg by mouth twice a day and the patient is on Eliquis anticoagulants. 3 systolic congestive heart failure patient has abnormal BNP level, and ab normal echocardiogram, LV dysfunction and ejection fraction of 40-45%. 4 History of hypertension 5 History of abdominal aortic aneurysm 6 Hypovolemic hyponatremia, recovered 7 Lymphopenia secondary to COVID-19 infection 8 Suspected UTI with Enterococcus grp D, Enterococcus faecalis sensitive to penicillins. Recommendation: Continue ventilatory support I cut the PEEP down to 6, RR to 24 Stop sedation and check weaning parameters and assess candidacy for further weaning. The patient is very gently sedated and he would wake up from sedation rather easily and we'll should be able to check his weaning parameters and consider possible extubation. Noted the patient. The trial yesterday because of hemodynamic changes. I'm going to keep him on amiodarone 0.5 mg per minute and keep the cardiac rhythm is sinus. This may be ultimately a quick point is breathing trial and neck extubation IV fluids to KVO Continue COVID-19 cocktail Hold Baricitinib Lasix 40 mg IV push x1. Continue Eliquis, GI and DVT prophylaxis Monitor and check inflammatory markers Monitor daily x-rays of the chest Prognosis is guarded, patient is critically ill. Critical care time is over 30 minutes Time with Patient: Greater than 30
[2021-08-25] MEDS: ASCORBIC ACID 500 MG TAB PO SCH (08:04)
[2021-08-25] MEDS: ZINC SULFATE 220 MG CAP PO SCH (08:04)
[2021-08-25] MEDS: dexAMETHasone 2 MG TAB PO SCH (08:05)
[2021-08-25] MEDS: CHOLECALCIFEROL 25 MCG (1000 IU) TABLET PO SCH (08:05)
[2021-08-25] MEDS: THIAMINE 100 MG TAB PO SCH (08:05)
[2021-08-25] MEDS: APIXABAN 5 MG TAB PO SCH ×2 (08:05→20:13)
[2021-08-25] MEDS: FOLIC ACID 1 MG TAB PO SCH ×2 (08:06→12:17)
[2021-08-25] MEDS: FAMOTIDINE 20 MG/2 ML VIAL IV SCH ×2 (08:07→20:13)
[2021-08-25] MEDS: CHLORHEXIDINE GLUCONATE 15 ML CUP MUCOUS MEM SCH ×2 (08:07→20:14)
--- NOTE | 2021-08-25 08:10 | P.PN ---
Subjective HISTORY OF PRESENTING ILLNESS Paroxysmal atrial fibrillation The patient is a 75-year-old gentleman who was admitted to the hospital with COVID-19 infection and we consulted to see the patient for atrial fibrillation with RVR which was new the patient. The patient was seen this morning. He has been maintaining normal sinus mechanism except for one short episode of A. fib with RVR earlier. He is off norepinephrine. With that being safe going to restart him back on beta olga with metoprolol. He is already on oral anticoagulation with WHICH we are going to continue. He is on Lasix IV. The chest x-ray was reviewed today and continu es to 40 finding consistent was bilateral pleural effusion. The echo revealed cardiomyopathy with EF between 40-45%. We will continue the current medical regimen and continue following up with the patient and continue up titrating the dose of beta olga if his pressure allows. Continue oral anticoagulation 08/25 Patient examined from the hallway however not personally examined secondary COVI D-19 infection. Patient converted to sinus rhythm. Patient has been on amiodarone drip at 0.5. Maintained on anticoagulation without hematochezia or melena. Remains sedated on ventilator however wean sedation with likely trial extubation today. On 50% FiO2. PHYSICAL EXAMINATION Vital signs reviewed. Not personally examined secondary COVID-19 infection. Appears sedated on ventilator. ASSESSMENT Assessment #1 COVID-19 pneumonia #2 acute hypoxic respiratory failure #3 paroxysmal atrial fibrillation #4 mild cardiomyopathy PLAN Currently in normal sinus rhythm. Blood pressures been better and has recently been elevated secondary to wean sedation. Continue to monitor and increase rate control if able. Continue amiodarone for now, change to oral 400mg bid however doubt long-term amiodarone. Objective - Vital Signs Vital signs: Vital Signs Temp 97.8 F 08/24/21 20:00 Pulse 57 L 08/25/21 07:00 Resp 32 H 08/25/21 07:00 BP 110/60 08/25/21 02:00 Pulse Ox 98 08/25/21 07:00 Intake & Output 08/24/21 08/25/21 08/25/21 18:59 06:59 18:59 Intake Total 7060.738 7306.569 20 Output Total 1315 650 50 Balance -711.045 6112.569 -30 Weight 71.5 kg Intake: IV 295 240 20 0.9 NaCl- 295 240 20 Intake, IV Titration 457.365 765.569 Amount Amiodarone 450 mg In 227.505 Dextrose 5% in Water 250 ml @ 0.5 MG/MIN 16.667 mls/hr IV .Q15H MARK Rx#: [id number] Cisatracurium 200 mg In 142.824 128.470 Sodium Chloride 0.9% 180 ml @ 1 MCG/KG/MIN 5.334 mls/hr IV .Q24H MARK Rx#: [id number] Dexmedetomidine/0.9% NaCl 2.889 (Pmx) 400 mcg In Empty Bag 1 bag @ 0.2 MCG/KG/HR 4.445 mls/hr IV .[id number] MARK Rx#:[id number] fentaNYL (PF). 1,000 mcg 85.309 98.383 In Sodium Chloride 0.9% 80 ml @ 0.5 MCG/KG/HR 4. 445 mls/hr IV .[id number] MARK Rx#:[id number] propofoL 1,000 mg In 226.343 311.211 Empty Bag 1 bag @ Titrate IV .Q0M MARK Rx#: [id number] Oral 100 Tube Feeding 250 560 Other 90 Output: Urine 1315 650 50 Other: Voiding Method Indwelling Catheter Indwelling Catheter ABP, PAP, CO, CI - Last Documented Arterial Blood Pressure 123/49 - Labs CBC & Chem 7: 08/25/21 04:40 08/25/21 04:40 Labs: Abnormal Lab Results - Last 24 Hours (Table) 08/24/21 08/24/21 08/24/21 Range/Units 14:46 17:00 23:45 RBC (4.30-5.90) m/uL Hgb (13.0-17.5) gm/dL Hct (39.0-53.0) % Lymphocytes # (1.0-4.8) k/uL ABG pCO2 (35-45) mmHg ABG HCO3 (21-25) mmol/L ABG Total CO2 (19-24) mmol/L ABG O2 Saturation (94-97) % Chloride (98-107) mmol/L BUN (9-20) mg/dL Glucose (74-99) mg/dL POC Glucose (mg/dL) 157 H 169 H (75-99) mg/dL Calcium (8.4-10.2) mg/dL Total Protein (6.3-8.2) g/dL Albumin (3.5-5.0) g/dL Urine Protein Trace H (Negative) Urine Blood Small H (Negative) Ur Leukocyte Esterase Small H (Negative) Urine RBC 24 H (0-5) /hpf Urine WBC 6 H (0-5) /hpf Urine Bacteria Occasional H (None) /hpf Urine Mucus Rare H (None) /hpf 08/25/21 08/25/21 08/25/21 Range/Units 04:40 04:40 05:31 RBC 3.37 L (4.30-5.90) m/uL Hgb 10.7 L (13.0-17.5) gm/dL Hct 32.7 L (39.0-53.0) % Lymphocytes # 0.2 L (1.0-4.8) k/uL ABG pCO2 49 H (35-45) mmHg ABG HCO3 31 H (21-25) mmol/L ABG Total CO2 32 H (19-24) mmol/L ABG O2 Saturation 97.4 H (94-97) % Chloride 109 H (98-107) mmol/L BUN 27 H (9-20) mg/dL Glucose 141 H (74-99) mg/dL POC Glucose (mg/dL) (75-99) mg/dL Calcium 7.8 L (8.4-10.2) mg/dL Total Protein 5.5 L (6.3-8.2) g/dL Albumin 2.5 L (3.5-5.0) g/dL Urine Protein (Negative) Urine Blood (Negative) Ur Leukocyte Esterase (Negative) Urine RBC (0-5) /hpf Urine WBC (0-5) /hpf Urine Bacteria (None) /hpf Urine Mucus (None) /hpf 08/25/21 Range/Units 05:43 RBC (4.30-5.90) m/uL Hgb (13.0-17.5) gm/dL Hct (39.0-53.0) % Lymphocytes # (1.0-4.8) k/uL ABG pCO2 (35-45) mmHg ABG HCO3 (21-25) mmol/L ABG Total CO2 (19-24) mmol/L ABG O2 Saturation (94-97) % Chloride (98-107) mmol/L BUN (9-20) mg/dL Glucose (74-99) mg/dL POC Glucose (mg/dL) 150 H (75-99) mg/dL Calcium (8.4-10.2) mg/dL Total Protein (6.3-8.2) g/dL Albumin (3.5-5.0) g/dL Urine Protein (Negative) Urine Blood (Negative) Ur Leukocyte Esterase (Negative) Urine RBC (0-5) /hpf Urine WBC (0-5) /hpf Urine Bacteria (None) /hpf Urine Mucus (None) /hpf Microbiology - Last 24 Hours (Table) 08/24/21 07:00 Gram Stain - Preliminary Sputum Sputum Culture - Preliminary 08/22/21 17:05 Urine Culture - Final Urine,Catheterized Enterococcus faecalis 08/22/21 15:13 Blood Culture - Preliminary Blood No Growth after 48 hours
--- NOTE | 2021-08-25 08:22 | XR ---
EXAMINATION TYPE: XR chest 1V portable DATE OF EXAM: 08/25/2021 Comparison: 08/24/2021 Clinical History: 75-year-old male Tube placement Findings: ET tube tip 4 cm from the ana lilia. NG tube courses below the diaphragm. Heart) dictated up right atriu m. Upper limits of normal in size. Diffuse interstitial changes and patchy lower lung opacities. No s izable pleural effusion. Impression: Overall stable mild diffuse interstitial changes and patchy bibasilar opacities, left greater than ri ght.
[2021-08-25] MEDS: MULTIVITAMINS, THERA 1 EACH TAB PO SCH (12:17)
[2021-08-25 12:30] LABS: Glucose,Whole Blood 130 mg/dL (75-99)
[2021-08-25 17:35] LABS: Glucose,Whole Blood 158 mg/dL (75-99)
[2021-08-25] MEDS: AMIODARONE 200 MG TAB PO SCH (20:13)
[2021-08-25] MEDS: SODIUM CHLORIDE 0.9% 1,000 ML IV SCH (20:32)
[2021-08-25] MEDS: DEXMEDETOMIDINE/0.9% NACL(PMX) 400 MCG in EMPTY BAG 1 BAG IV SCH (20:33)
[2021-08-25 23:49] LABS: Glucose,Whole Blood 152 mg/dL (75-99)
--- NOTE | 2021-08-25 23:55 | P.PN ---
Subjective Progress Note Date: 08/25/21 This is a 75-year-old male who was admitted for bilateral acute COVID-19 pneumonia with acute hypoxic respiratory failure and continues on mechanical ventilation. 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 Per nursing staff peep has been slightly adjusted and decreased to 10%. Patient continues on oral dexamethasone along with Eliquis, vitamin and zinc supplements and will continue. Patient also continues on Nimbex and propofol and fentanyl for sedation. Cardiology following as well and patient is off IV Cardizem and started on IV amiodarone along with metoprolol. Patient is also receiving IV Lasix 20 mg twice daily. Chest x-ray today shows mild diffuse increased lung markings at the lung bases that may have a slight improvement over the interval and recommend NG tube to be advanced slightly. Patient is afebrile 08/25/2021 Patient is seen in follow up today and continues to be closely monitored in the ICU with multiple medical consultations following. Patient remains on mechanical vent with an FI02 of 50% and peep of 6. Patient continues with sedation as well. Patient is maintained on eliquis and oral amiodarone, vitamin and zinc supplements along with oral dexamethasone and will continue. ID also following and patient continues on Zosyn and will continue while awaiting cultures to finalize. urine culture showed enterococcus faecalis. Labs: WBC is 6.2, hemoglobin is 10.7, platelets are 358, sodium is 142, potassium is 4.2, BUN is 27, creatinine is 0.77 Review of systems: Unable to complete as patient is intubated and sedated Active Medications Acetaminophen (Acetaminophen Tab 325 Mg Tab) 650 mg PO Q6HR PRN PRN Reason: Mild Pain or Fever > 100.5 Al Hydroxide/Mg Hydroxide (Mag Hydrox/Al Hydrox/Simeth 30 Ml Cup) 15 ml PO Q6HR PRN PRN Reason: Indigestion Amiodarone HCl (Amiodarone 200 Mg Tab) 400 mg PO BID [facility] Apixaban (Apixaban 5 Mg Tab) 5 mg PO BID [facility]; Protocol Last Admin: 08/25/21 08:05 Dose: 5 mg Documented by: Ascorbic Acid (Ascorbic Acid 500 Mg Tab) 1,000 mg PO DAILY [facility] Last Admin: 08/25/21 08:04 Dose: 1,000 mg Documented by: Chlorhexidine Gluconate (Chlorhexidine Gluconate 15 Ml Cup) 15 ml MUCOUS MEM BID [facility] Last Admin: 08/25/21 08:07 Dose: 15 ml Documented by: Cholecalciferol (Cholecalciferol 25 Mcg (1000 Iu) Tablet) 50 mcg PO DAILY [facility] Last Admin: 08/25/21 08:05 Dose: 50 mcg Documented by: Dexamethasone (Dexamethasone 2 Mg Tab) 6 mg PO DAILY [facility] Last Admin: 08/25/21 08:05 Dose: 6 mg Documented by: Famotidine (Famotidine 20 Mg/2 Ml Vial) 20 mg IV Q12HR [facility] Last Admin: 08/25/21 08:07 Dose: 20 mg Documented by: Folic Acid (Folic Acid 1 Mg Tab) 1 mg PO DAILY@1200 [facility] Last Admin: 08/25/21 12:17 Dose: 1 mg Documented by: Sodium Chloride (Saline 0.9%) 1,000 mls @ 20 mls/hr IV .Q24H [facility] Last Admin: 08/24/21 20:01 Dose: Not Given Documented by: Dexmedetomidine HCl 400 mcg/ (IV Solution) 100 mls @ 4.445 mls/hr IV .[id number] [facility]; Protocol Last Titration: 08/24/21 08:45 Dose: 0 mcg/kg/hr, 0 mls/hr Documented by: Propofol 1,000 mg/ IV Solution 100 mls @ 0 mls/hr IV .Q0M [facility]; Protocol Last Admin: 08/25/21 15:02 Dose: 45 mcg/kg/min, 19.305 mls/hr Documented by: Fentanyl Citrate 1,000 mcg/ (Sodium Chloride) 100 mls @ 4.445 mls/hr IV .[id number] [facility]; Protocol Last Admin: 08/25/21 13:00 Dose: 1 mcg/kg/hr, 8.89 mls/hr Documented by: Norepinephrine Bitartrate 4 mg (/ Sodium Chloride) 254 mls @ 16.936 mls/hr IV . Q15H [facility]; Protocol Last Admin: 08/25/21 06:36 Dose: Not Given Documented by: Piperacillin Sod/Tazobactam (Sod 3.375 gm/ Sodium Chloride) 100 mls @ 25 mls/hr IVPB Q8H [facility] Last Admin: 08/25/21 10:02 Dose: 25 mls/hr Documented by: Insulin Aspart (Insulin Aspart (Novolog) 100 Unit/Ml Vial) 0 unit SQ Q6H [facility]; Protocol Last Admin: 08/25/21 13:01 Dose: Not Given Documented by: Metoprolol Tartrate (Metoprolol Tartrate 25 Mg Tab) 25 mg PO BID [facility] Last Admin: 08/25/21 08:05 Dose: 25 mg Documented by: Multivitamins (Multivitamins, Thera 1 Each Tab) 1 each PO DAILY@1200 [facility] Last Admin: 08/25/21 12:17 Dose: 1 each Documented by: Naloxone HCl (Naloxone 0.4 Mg/Ml 1 Ml Vial) 0.2 mg IV Q2M PRN PRN Reason: Opioid Reversal Ondansetron HCl (Ondansetron 4 Mg/2 Ml Vial) 4 mg IVP Q8HR PRN PRN Reason: Nausea And Vomiting Thiamine HCl (Thiamine 100 Mg Tab) 100 mg PO DAILY [facility] Last Admin: 08/25/21 08:05 Dose: 100 mg Documented by: Zinc Sulfate (Zinc Sulfate 220 Mg Cap) 220 mg PO DAILY [facility] Last Admin: 08/25/21 08:04 Dose: 220 mg Documented by: PHYSICAL EXAMINATION: GENERAL: The patient is on mechanical ventilation and sedation. Temp is 98F, pulse is 68, respirations are 26, blood pressure is 104/50, oxygen saturation is 95% on mechanical vent and FiO2 of 50% and PEEP of 6% HEENT: Pupils are round and equally reacting to light. EOMI. No scleral icterus. No conjunctival pallor. Normocephalic, atraumatic. No pharyngeal erythema. No thyromegaly. CARDIOVASCULAR: S1 and S2 muffled. PULMONARY: diminished breath sounds bilaterally with a few scattered rhonchi no hussein.. ABDOMEN: Soft, nontender, nondistended, normoactive bowel sounds. No palpable organomegaly. MUSCULOSKELETAL: No joint swelling or deformity. EXTREMITIES: No cyanosis, clubbing, or pedal edema. NEUROLOGICAL: Unable to completely assess as patient is on mechanical ventilation and sedation SKIN: No rashes. Assessment and plan: Acute COVID-19 infection with acute COVID-19 bilateral pneumonia with acute hypoxic respiratory failure, on mechanical ventilation Status post BiPAP Atrial fibrillation with RVR, paroxysmal, currently rate controlled on oral amiodarone and metoprolol Change in mental status, acute metabolic ENCEPHALOPATHY Bicytopenia, possibly secondary to COVID-19 with neutropenia as well as anemia Lymphopenia Elevated d-dimer Hyponatremia Elevated creatinine with acute renal failure, acute tubular necrosis, present on admission Hypomagnesemia Hypocalcemia troponin 0.058, present on admission of undetermined etiology possibly related to Covid, rule out coronary artery disease Elevated pro calcitonin 0.133 history of hypertension history of abdominal aortic aneurysm history of daily EtOH DVT prophylaxis on Eliquis Full code Plan: Continue with current medications and management with multiple medical consultations following. Patient continues on mechanical ventilation and intubation. Continued weaning trials. Continue with propofol and fentanyl for sedation as well. Cardiology and ID also following and patient is now on eliquis with oral amiodarone. Patient also continues on IV zosyn for enterococcus. Repeat chest xray and labs ordered. Further recommendations to follow based on the clinical course of the patient. Due to multiple complex medical issues, prognosis is guarded. Objective - Vital Signs Vital signs: Vital Signs Temp 98 F 08/25/21 12:00 Pulse 57 L 08/25/21 15:00 Resp 26 H 08/25/21 15:00 BP 110/60 08/25/21 02:00 Pulse Ox 92 L 08/25/21 15:00 Intake & Output 08/24/21 08/25/21 08/25/21 18:59 06:59 18:59 Intake Total 1774.525 8000.569 988.074 Output Total 1524 303 1221 Balance -712.124 3664.569 -796.926 Weight 71.5 kg 71.5 kg Intake: IV 295 240 20 0.9 NaCl- 295 240 20 Intake, IV Titration 457.365 765.569 508.074 Amount Amiodarone 450 mg In 227.505 Dextrose 5% in Water 250 ml @ 0.5 MG/MIN 16.667 mls/hr IV .Q15H [facility] Rx#: [id number] Cisatracurium 200 mg In 142.824 128.470 Sodium Chloride 0.9% 180 ml @ 1 MCG/KG/MIN 5.334 mls/hr IV .Q24H [facility] Rx#: [id number] Dexmedetomidine/0.9% NaCl 2.889 (Pmx) 400 mcg In Empty Bag 1 bag @ 0.2 MCG/KG/HR 4.445 mls/hr IV .[id number] [facility] Rx#:[id number] Piperacillin-Tazobactam 3 100 .375 gm In Sodium Chloride 0.9% 100 ml @ 25 mls/hr IVPB Q8H [facility] Rx#: [id number] Sodium Chloride 0.9% 1, 160 000 ml @ 20 mls/hr IV . Q24H [facility] Rx#:[id number] fentaNYL (PF). 1,000 mcg 85.309 98.383 95.420 In Sodium Chloride 0.9% 80 ml @ 0.5 MCG/KG/HR 4. 445 mls/hr IV .[id number] [facility] Rx#:[id number] propofoL 1,000 mg In 226.343 311.211 152.654 Empty Bag 1 bag @ Titrate IV .Q0M [facility] Rx#: [id number] Oral 100 Tube Feeding 250 560 330 Other 90 130 Output: Urine 0284 828 2200 Other: Voiding Method Indwelling Catheter Indwelling Catheter Indwelling Catheter ABP, PAP, CO, CI - Last Documented Arterial Blood Pressure 98/45 - Labs CBC & Chem 7: 08/25/21 04:40 08/25/21 04:40 Labs: Abnormal Lab Results - Last 24 Hours (Table) 08/24/21 08/24/21 08/25/21 Range/Units 17:00 23:45 04:40 RBC 3.37 L (4.30-5.90) m/uL Hgb 10.7 L (13.0-17.5) gm/dL Hct 32.7 L (39.0-53.0) % Lymphocytes # 0.2 L (1.0-4.8) k/uL ABG pCO2 (35-45) mmHg ABG HCO3 (21-25) mmol/L ABG Total CO2 (19-24) mmol/L ABG O2 Saturation (94-97) % Chloride (98-107) mmol/L BUN (9-20) mg/dL Glucose (74-99) mg/dL POC Glucose (mg/dL) 157 H 169 H (75-99) mg/dL Calcium (8.4-10.2) mg/dL Total Protein (6.3-8.2) g/dL Albumin (3.5-5.0) g/dL 08/25/21 08/25/21 08/25/21 Range/Units 04:40 05:31 05:43 RBC (4.30-5.90) m/uL Hgb (13.0-17.5) gm/dL Hct (39.0-53.0) % Lymphocytes # (1.0-4.8) k/uL ABG pCO2 49 H (35-45) mmHg ABG HCO3 31 H (21-25) mmol/L ABG Total CO2 32 H (19-24) mmol/L ABG O2 Saturation 97.4 H (94-97) % Chloride 109 H (98-107) mmol/L BUN 27 H (9-20) mg/dL Glucose 141 H (74-99) mg/dL POC Glucose (mg/dL) 150 H (75-99) mg/dL Calcium 7.8 L (8.4-10.2) mg/dL Total Protein 5.5 L (6.3-8.2) g/dL Albumin 2.5 L (3.5-5.0) g/dL 08/25/21 Range/Units 12:28 RBC (4.30-5.90) m/uL Hgb (13.0-17.5) gm/dL Hct (39.0-53.0) % Lymphocytes # (1.0-4.8) k/uL ABG pCO2 (35-45) mmHg ABG HCO3 (21-25) mmol/L ABG Total CO2 (19-24) mmol/L ABG O2 Saturation (94-97) % Chloride (98-107) mmol/L BUN (9-20) mg/dL Glucose (74-99) mg/dL POC Glucose (mg/dL) 130 H (75-99) mg/dL Calcium (8.4-10.2) mg/dL Total Protein (6.3-8.2) g/dL Albumin (3.5-5.0) g/dL Microbiology - Last 24 Hours (Table) 08/24/21 07:00 Gram Stain - Preliminary Sputum Sputum Culture - Preliminary 08/22/21 17:05 Urine Culture - Final Urine,Catheterized Enterococcus faecalis 08/22/21 15:13 Blood Culture - Preliminary Blood No Growth after 48 hours
--- NOTE | 2021-08-26 00:03 | PN ---
PROGRESS NOTE DATE OF SERVICE: 08/25/2021. REASON FOR FOLLOW UP: Pneumonia. INTERVAL HISTORY: Patient is afebrile. The patient is hemodynamically stable. FiO2 is currently 50%. No significant purulent secretions through the ET, diarrhea or any other changes reported by the nursing staff. PHYSICAL EXAMINATION: Blood pressure is 113/48 with a pulse of 55, temperature 98.7. He is 97% on 50% FiO2. General description is an elderly male lying in bed in no distress. Respiratory system: Unlabored breathing, decreased breath sounds in the base. No wheeze. Heart S1, S2. Regular rate and rhythm. Abdomen soft, no tenderness. LABS: Hemoglobin is 12.6, white count 6.2, creatinine 0.77. Urine showing Enterococcus faecalis. Sputum cultures currently pending. No . DIAGNOSTIC IMPRESSION AND PLAN: Patient with acute respiratory failure secondary to Covid 19 pneumonia concern for possible ischemic component. Also with Enterococcus faecalis UTI. The patient is currently covered with Zosyn to continue while waiting for the sputum culture to finalize and monitor clinical course closely. Prognosis remains to be guarded. MMODL / IJN: [id number] /
[2021-08-26] MEDS: fentaNYL (PF). 1,000 MCG in SODIUM CHLORIDE 0.9% 80 ML IV SCH ×4 (02:26→22:34)
[2021-08-26] MEDS: PIPERACILLIN-TAZOBACTAM 3.375 GM in SODIUM CHLORIDE 0.9% 100 ML IVPB SCH ×3 (02:26→17:46)
[2021-08-26 04:04] LABS: Basophils % (A) 0 %; Eosinophils % (A) 1 %; HGB 10.6 gm/dL (13.0-17.5); Lymphocytes # (A) 0.3 k/uL (1.0-4.8); Lymphocytes % (A) 5 %; MCHC 33.3 g/dL (31.0-37.0); MCV 96.1 fL (80.0-100.0); Mean Platelet Volume 8.8; Monocytes # (A) 0.2 k/uL (0-1.0); Monocytes % (A) 3 %; Neutrophils # (A) 5.7 k/uL (1.3-7.7); Neutrophils % (A) 90 %; Platelet Count 333 k/uL (150-450); RBC 3.33 m/uL (4.30-5.90); RDW 13.6 % (11.5-15.5); WBC 6.3 k/uL (3.8-10.6)
[2021-08-26 04:18] LABS: ALT 24 U/L (4-49); AST 53 U/L (17-59); African American GFR (CKD) >90 (>60 ml/min/1.73 sqM); Albumin 2.6 g/dL (3.5-5.0); Alkaline Phosphatase 53 U/L (38-126); Anion Gap 5 mmol/L; Blood Urea Nitrogen 37 mg/dL (9-20); Calcium 8.1 mg/dL (8.4-10.2); Carbon Dioxide 31 mmol/L (22-30); Chloride 105 mmol/L (98-107); Glucose 125 mg/dL (74-99); Non-African American GFR(CKD) 87 (>60 ml/min/1.73 sqM); Potassium 4.6 mmol/L (3.5-5.1); Sodium 141 mmol/L (137-145); Total Bilirubin 0.2 mg/dL (0.2-1.3); Total Protein 5.5 g/dL (6.3-8.2)
[2021-08-26 05:30] LABS: ABG Base Excess 8.8 mmol/L; ABG HCO3 33 mmol/L (21-25); ABG Oxygen Saturation 82.2 % (94-97); ABG PCO2 49 mmHg (35-45); ABG PH 7.44 (7.35-7.45); ABG TCO2 35 mmol/L (19-24)
[2021-08-26 05:36] LABS: ABG PO2 47 mmHg (83-108); Allen Test Performed? no
[2021-08-26] MEDS: INSULIN ASPART (NovoLOG) 100 UNIT/ML VIAL SQ SCH ×3 (06:25→18:30)
[2021-08-26 06:26] LABS: Glucose,Whole Blood 137 mg/dL (75-99)
--- NOTE | 2021-08-26 06:45 | XR ---
EXAMINATION TYPE: XR chest 1V portable DATE OF EXAM: 08/26/2021 5:28 AM COMPARISON:Chest radiograph from one day prior. CLINICAL INDICATION:Male, 75 years old with history of Tube placement; TECHNIQUE: Frontal view of the chest. FINDINGS: Lungs/Pleura: Multifocal airspace opacities. No evidence of pneumothorax or pleural effusion. Pulmonary vascularity: Unremarkable. Heart/mediastinum: Cardiomediastinal silhouette is unremarkable. Musculoskeletal: No acute osseous pathology. Lines/Tubes: Endotracheal tube with distal tip 3. The Cm above the ana lilia Nasogastric tube with its distal tip and side-port projecting under the diaphragm. Right-sided PICC line with distal tip at the cavoatrial junction. IMPRESSION: 1. Similar multifocal pneumonia. 2. Stable support lines and tubes.
--- NOTE | 2021-08-26 07:42 | P.PN ---
Subjective Progress Note Date: 08/26/21 This is a 75-year-old white male with history of hypertension, dyslipidemia, history of abdominal aortic aneurysm, patient was brought into the hospital with 10 days' history of feeling weak, shortness of breath, cough, patient is not vaccinated. Patient was seen in the ER, and his chest x-ray showed evidence of pneumonia. CT angiogram of the chest showed extensive diffuse infiltrates throughout the lungs and no evidence of pulmonary embolism. PCR for COVID-19 was positive, patient was noted to have relative leukopenia with WBC count of 2.6, lymphopenia, hyponatremia, elevated troponin, and relatively unremarkable pro calcitonin level. Patient was initially on 2 L nasal cannula, however over the last 24 hours since admission, his oxygen saturation has been dropping and his oxygen has been titrated up to a nonrebreather mask with poor oxygenation and his O2 saturation at present is 85% on a nonrebreather mask. Patient was also noted to be in atrial fibrillation and that is being addressed by cardiology patient was placed on that COVID-19 cocktail, he is also on heparin, and he received significant amount of fluids with fluid boluses on admissions. After I evaluated the patient and reviewed his chest x-ray as well as CT angiogram of the chest, I recommended Lasix 40 mg IV push to be given and I recommended immediate transfer the patient to the ICU. Patient has been on Cardizem drip, remains tachycardic remains in atrial fibrillation with a rate of 120. Patient denies any chest pain denies any nausea or vomiting denies any palpitations denies any orthopnea or PND however the patient is complaining of weakness cough and shortness of breath. Patient was reevaluated today on 08/22/21, patient was evaluated yesterday on the regular medical floor, and as soon as I evaluated the patient, I recommended immediate transfer to the ICU. Patient was developing impending respiratory failure requiring intubation and mechanical ventilation. He was initially placed on BiPAP, and he could not tolerate BiPAP as the patient has history of claustrophobia. Patient was given Precedex, and did not seem to do well, I was notified about the patient at night, that he was not doing well and he Desaturated. And he was developing worsening respiratory distress. Recommended intubation and mechanical ventilation. He is now on mechanical ventilation with assist control rate of 32 patella volume 400 FiO2 is 50% and PEEP of 14. ABG earlier on 100% showed a pO2 of 116 pCO2 43 pH of 7.32. On admission patient was also noted to have elevated BNP, and Lasix was given as I felt there may be some component of potential congestive heart failure. Patient is on fentanyl at 1 Nimbex at 2 mcg/kg/m, is also on propofol at 20 mcg/kg/m. Patient is fully sedated and paralyzed. X-ray is clearly showing bilateral interstitial infiltrates consistent with COVID-19 pneumonia. Patient is on Eliquis 5 mg twice a day Baricitinib, Peridex, vitamin D, Decadron 6 mg by mouth daily, Pepcid 20 mg twice a day, Lasix 20 mg IV push every 12 hours, patient is not requiring any pressors. He is hemodynamically stable. He is on thiamine and zinc. Last night he was briefly on norepinephrine which has been discontinued early this morning. Blood pressure seems to be stable. Reevaluated today on 08/23/21, patient remains in the ICU, intubated and mechanically ventilated. He is on assist control rate of 32, tidal volume 400 FiO2 45% and PEEP of 14 and I cut it down to 10. Patient is on multiple drips including norepinephrine at 0.02 more cramping per minute, he is also receiving fentanyl at 20 mcg/kg/h propofol at 20 mcg/kg/m IV fluid at 75 mL per hour. He is also receiving Glucerna for nutritional support, he is at 50 mL per hour and the goal is 65. His Baricitinib was discontinued today because of worsening lymphopenia and it is presently on hold. His WBC count is 5.9 hemoglobin is 11.2. Lactulose are normal renal profile is normal ABG this morning showed a pO2 of 108 pCO2 46 pH of 7.38 hence his PEEP 1 down from 14-10. Kept him on 45% FiO2. Chest x-ray is showing slight improvement in his bilateral infiltrates. May even consider stopping his sedation today if tolerated and at least give the patient possibly a weaning trial if possible. At least I will start withholding the Nimbex and see how he does with fentanyl and propofol only and if he tolerates that may consider a weaning trial on this patient. If not patient may have to go back on Nimbex. 08/24/2021, seeing this patient for a follow-up. 75-year-old male patient, currently intubated on mechanical ventilator due to complications of COVID 19 related pneumonia. Note that the patient was quite ill when he presented to us. CAT scan of the chest that was done at that time showed evidence of diffuse bilateral pulmonary infiltrates consistent with COVID 19. He was leukopenic and he was hyponatremic. He was on 2 L of oxygen by nasal cannula and he immediately progressed and following that here required intubation mechanical ventilation. Currently he is sedated and paralyzed. Currently is on a combination of propofol and fentanyl, propofol is running at 45 mg/kg per minute and fentanyl is running at 1.25 mcg/kg/h. The patient is also on Nimbex running at 1 mg/kg per minute. He has been adequately sedated and paralyzed. He remains on a mechanical ventilator on assist control mode at the rate of 32, tidal volume is at 400, FiO2 is 50% and this was up down to 45% and a PEEP is currently at 8. The chest x-ray showing bilateral pulmonary infiltrates, there is elevation of left hemidiaphragm and some infiltration of the left lung base compared to yesterday. The pH of 7.47 with a pCO2 of 40 and pO2 of 65 and the rest of the blood work shows a white cell count of 4.6, hemoglobin of 10.6, the patient remains lymphopenic, electrodes are all within normal limits, blood sugars of 140, LFTs are normal, the inflammatory markers showed an LDH level of 1206 on 08/21/2021. The patient also had a CRP level of 6.4. ProBNP level was also elevated at 6470. The patient is currently on IV fluids running at 75 mL an hour this obviously needs to be cut down. The patient's net fluid balance over the past 24 hours has been +1.5 L. The patient is also on enteral feeding for nutritional support and currently is on Glucerna running at the rate of 50 mL an hour. In terms of his lung mechanics, I noted that the peak patient has a peak airway pressure of around 23 Static air pressure was I will say lower at 18-20. 08/25/2021, the patient is being seen for a follow-up. Note that the patient's condition was rather stable yesterday. I was quite excited about possible extubation. For that reason, the patient was given a sedation holiday and following that he was given a spelled his breathing trial. Note that his weaning parameters were adequate. While having the spontaneous breathing trial, the patient went into atrial fibrillation with rapid ventricular response, he became tachypneic and tachycardic and hemodynamically unstable and he started desaturating. Based on all this, the child was aborted, the patient was placed back on sedation and he was briefly paralyzed. Subsequently, he was taken off the paralytics. I brought up his PEEP up to 10 and gradually wean down the FiO2 down to 50% and currently is on a rate of 32 with an FiO2 of 400. His blood gases from this morning shows a pH of 7.41 with a pCO2 of 49 and pO2 of 90. Chest x-ray shows stable bilateral pulmonary infiltrates, essentially unchanged from yesterday probably there is some improved aeration the left lung base. No significant orotracheal secretions. Note that his cardiac rhythm is back to sinus. I started patient back then amiodarone drip which is currently running at 0.5 mg per minute and I'm going to maintain the amiodarone drip for now. He is hemodynamically stable. Is on no pressors. IV fluids are running at the rate of 20 mL an hour. His peak airway pressure is around 23. He is easily arousable. The plan is to go to the same process again and consider extubating this patient and this will largely depend on his weaning parameters and ability to do a brief spotting is breathing trial. Noted this patient has been intubated on 08/22/2021. Electrolytes are all within normal limits. Sodium is at 142, BUN is at 27 with a creatinine of 0.7, white cell count is at 6.2. He remains on Decadron 6 mg daily basis. He sedation currently is with a combination of propofol and fentanyl. Propofol is running at 40 mcg/kg per minute and fentanyl is running at 1 mcg/kg/h. He is on no pressors. Overall fluid balance has been +1.5 L over the past 24-48 hours. 08/26/2021, I'm seeing the patient for a follow-up. As noted, the patient failed weaning trial yesterday as the patient became again hypoxic while being given as pertains breathing trial. As such, he was kept on a mechanical ventilator throughout the day and he was restarted back on sedation and currently is on propofol which is running at 50 mg/kg per minute. He is also on fentanyl at 2 mcg/kg/h. He seems to be quite comfortable at this point in time. I noted that the patient is generating a higher tidal volumes that he is quite asynchronous with mechanical ventilator. He was on a volume cycle mode of mechanical ventilation with a tidal volume of 400, the FiO2 is up to 100% with a PEEP of 6 and the rate of 24. Morning blood gases showed a pH of 7.44 with a pCO2 of 49 and pO2 of 47. The chest x-ray shows stable findings on the right, there is some worsening in the consolidation of the left lung base. The patient is still having significant amount of rest or secretions. Cultures from the sputum was sent and is pending for now. He does have Enterococcus faecalis in his urine. The patient remains on IV antibiotics and currently he is on IV Zosyn. Hemodynamically stable. Is on no pressors. He was taken off the amiodarone drip and currently is on amiodarone orally. He does have underlying centimeters bradycardia for now with a heart rate in the mid 50s. He remains to coagulation with Eliquis 5 mg by mouth twice a day. He remains on Decadron 6 mg by mouth on a daily basis. He remains on enteral feeding for nutritional support and the patient is receiving Glucerna at the rate of 55 mL an hour. No significant swelling in lower extremities. Fluid balance over the past 24 hours has been +792 mL. He is afebrile. He is hemodynamically stable at this point in time. Objective - Vital Signs Vital signs: Vital Signs Temp 98 F 08/26/21 04:00 Pulse 54 L 08/26/21 07:00 Resp 26 H 08/26/21 07:00 BP 110/60 08/25/21 02:00 Pulse Ox 96 08/26/21 07:00 Intake & Output 08/25/21 08/26/21 08/26/21 18:59 06:59 18:59 Intake Total 7293.704 8692.071 78 Output Total 1965 730 50 Balance -470.084 705.071 28 Weight 71.5 kg 74 kg Intake: IV 20 253 23 0.9 NaCl- 20 220 20 pressure bag 33 3 Intake, IV Titration 764.916 432.071 Amount Piperacillin-Tazobactam 3 200 .375 gm In Sodium Chloride 0.9% 100 ml @ 25 mls/hr IVPB Q8H MARK Rx#: [id number] Sodium Chloride 0.9% 1, 220 20 000 ml @ 20 mls/hr IV . Q24H MARK Rx#:[id number] fentaNYL (PF). 1,000 mcg 136.314 131.433 In Sodium Chloride 0.9% 80 ml @ 0.5 MCG/KG/HR 4. 445 mls/hr IV .[id number] MARK Rx#:[id number] propofoL 1,000 mg In 208.602 280.638 Empty Bag 1 bag @ Titrate IV .Q0M MARK Rx#: [id number] Tube Feeding 550 660 55 Other 160 90 Output: Urine 1965 730 50 Other: Voiding Method Indwelling Catheter Indwelling Catheter ABP, PAP, CO, CI - Last Documented Arterial Blood Pressure 117/47 - Exam Physical Exam: Revealed a 75-year-old white male, heavily bearded, intubated and mechanically ventilated. Patient remains sedated with a combination of propofol and fentanyl. Head: Atraumatic, normocephalic. Endotracheal tube and orogastric tube are intact HEENT:[Neck is supple.] [No neck masses.] [No thyromegaly.] [No JVD.] Chest: [Symmetrical chest expansion crackles at the bases bilaterally no rhonchi and no wheezes Cardiac Exam: Normal S1 and S2. 2/6 systolic murmur thought the precordium. Abdomen: [Soft, nontender, no megaly, no rebound, no guarding, normal bowel sounds.] Extremities: [No clubbing edema or cyanosis. Good pulses bilaterally. Neurological Exam: Could not assess patient is sedated and off paralyzed. Psychiatric: Could not assess, patient is sedated and the patient remains on examination of propofol and fentanyl. Skin: No rashes. - Labs CBC & Chem 7: 08/26/21 03:50 08/26/21 03:50 Labs: Abnormal Lab Results - Last 24 Hours (Table) 08/25/21 08/25/21 08/25/21 Range/Units 12:28 17:34 23:48 RBC (4.30-5.90) m/uL Hgb (13.0-17.5) gm/dL Hct (39.0-53.0) % Lymphocytes # (1.0-4.8) k/uL ABG pCO2 (35-45) mmHg ABG pO2 (83-108) mmHg ABG HCO3 (21-25) mmol/L ABG Total CO2 (19-24) mmol/L ABG O2 Saturation (94-97) % Carbon Dioxide (22-30) mmol/L BUN (9-20) mg/dL Glucose (74-99) mg/dL POC Glucose (mg/dL) 130 H 158 H 152 H (75-99) mg/dL Calcium (8.4-10.2) mg/dL Total Protein (6.3-8.2) g/dL Albumin (3.5-5.0) g/dL 08/26/21 08/26/21 08/26/21 Range/Units 03:50 03:50 05:29 RBC 3.33 L (4.30-5.90) m/uL Hgb 10.6 L (13.0-17.5) gm/dL Hct 32.0 L (39.0-53.0) % Lymphocytes # 0.3 L (1.0-4.8) k/uL ABG pCO2 49 H (35-45) mmHg ABG pO2 47 L* (83-108) mmHg ABG HCO3 33 H (21-25) mmol/L ABG Total CO2 35 H (19-24) mmol/L ABG O2 Saturation 82.2 L (94-97) % Carbon Dioxide 31 H (22-30) mmol/L BUN 37 H (9-20) mg/dL Glucose 125 H (74-99) mg/dL POC Glucose (mg/dL) (75-99) mg/dL Calcium 8.1 L (8.4-10.2) mg/dL Total Protein 5.5 L (6.3-8.2) g/dL Albumin 2.6 L (3.5-5.0) g/dL 08/26/21 Range/Units 06:24 RBC (4.30-5.90) m/uL Hgb (13.0-17.5) gm/dL Hct (39.0-53.0) % Lymphocytes # (1.0-4.8) k/uL ABG pCO2 (35-45) mmHg ABG pO2 (83-108) mmHg ABG HCO3 (21-25) mmol/L ABG Total CO2 (19-24) mmol/L ABG O2 Saturation (94-97) % Carbon Dioxide (22-30) mmol/L BUN (9-20) mg/dL Glucose (74-99) mg/dL POC Glucose (mg/dL) 137 H (75-99) mg/dL Calcium (8.4-10.2) mg/dL Total Protein (6.3-8.2) g/dL Albumin (3.5-5.0) g/dL Microbiology - Last 24 Hours (Table) 08/22/21 15:13 Blood Culture - Preliminary Blood No Growth after 72 hours Assessment and Plan Plan: 1 Acute hypoxic respiratory failure secondary to COVID-19 pneumonia patient was admitted and seen yesterday, transferred to the ICU, intubated on 08/21/21, remains intubated and mechanically ventilated, sedated and paralyzed. However his Baricitinib was placed on hold today mostly because of worsening lymphopenia rate, and suspicion for an infection. The patient has failed spontaneous breathing trials on 2 separate occasions for the past 2 days. On today's evaluation, he is hypoxic and is quite a sense of the mechanical ventilator despite being sedated with a combination of propofol and fentanyl. He is having increased orotracheal secretions. Cultures were sent and the patient is also on IV Zosyn. Meanwhile, I did the necessity ventilator changes to maintain s ynchrony and improve his oxygenation. A follow-up blood gases will be done. 2 Atrial fibrillation with RVR, patient converted to normal sinus rhythm , and the patient is currently on oral amiodarone and Eliquis. He is in sinus bradycardia for now. 3 systolic congestive heart failure patient has abnormal BNP level, and abnormal echocardiogram, LV dysfunction and ejection fraction of 40-45%. 4 History of hypertension 5 History of abdominal aortic aneurysm 6 Hypovolemic hyponatremia, recovered 7 Lymphopenia secondary to COVID-19 infection 8 UTI with Enterococcus grp D, Enterococcus faecalis sensitive to penicillins. The patient remains on IV Zosyn Recommendation: Continue ventilatory support , switch this patient to a pressure control mode of mechanical ventilation. Currently is on a pressure control of 16 with an FiO2 of 80% with a PEEP of 6 and the respiratory rate of 24. His inspiratory time is currently at 1.15 seconds. He is quite synchronous and is not double stacking at this point in time. There is a chance that we may be able to gradually wean off the sedation initially fentanyl and later on propofol. Did for further weaning for now. IV fluids to KVO Continue COVID-19 cocktail Hold Baricitinib Continue oral amiodarone Continue Eliquis, GI and DVT prophylaxis Monitor and check inflammatory markers Monitor daily x-rays of the chest Awaiting cultures including sputum cultures Failed spontaneous breathing trial on several occasions, and the patient accordingly was not extubated Prognosis is guarded, patient is critically ill. Critical care time is over 30 minutes Time with Patient: Greater than 30
--- NOTE | 2021-08-26 08:15 | P.PN ---
Subjective HISTORY OF PRESENTING ILLNESS Paroxysmal atrial fibrillation The patient is a 75-year-old gentleman who was admitted to the hospital with COVID-19 infection and we consulted to see the patient for atrial fibrillation with RVR which was new the patient. The patient was seen this morning. He has been maintaining normal sinus mechanism except for one short episode of A. fib with RVR earlier. He is off norepinephrine. With that being safe going to restart him back on beta olga with metoprolol. He is already on oral anticoagulation with WHICH we are going to continue. He is on Lasix IV. The chest x-ray was reviewed today and continu es to 40 finding consistent was bilateral pleural effusion. The echo revealed cardiomyopathy with EF between 40-45%. We will continue the current medical regimen and continue following up with the patient and continue up titrating the dose of beta olga if his pressure allows. Continue oral anticoagulation 08/25 Patient examined from the hallway however not personally examined secondary COVI D-19 infection. Patient converted to sinus rhythm. Patient has been on amiodarone drip at 0.5. Maintained on anticoagulation without hematochezia or melena. Remains sedated on ventilator however wean sedation with likely trial extubation today. On 50% FiO2. 08/26 Patient examined from the hallway. She remains in sinus rhythm with oral amiodarone. Heart rates are predominantly in the 50s. No further A. fib since yesterday. Patient failed weaning and spontaneous breathing trial yesterday. PHYSICAL EXAMINATION Vital signs reviewed. Not personally examined secondary COVID-19 infection. Appears sedated on ventilator. ASSESSMENT Assessment #1 COVID-19 pneumonia #2 acute hypoxic respiratory failure #3 paroxysmal atrial fibrillation #4 mild cardiomyopathy PLAN Currently in normal sinus rhythm. Continue with oral amiodarone and monitor for any significant bradycardia however currently appears well controlled. Blood pressures appear controlled. Continue supportive care. Objective - Vital Signs Vital signs: Vital Signs Temp 98 F 08/26/21 04:00 Pulse 54 L 08/26/21 07:00 Resp 26 H 08/26/21 07:00 BP 110/60 08/25/21 02:00 Pulse Ox 96 08/26/21 07:00 Intake & Output 08/25/21 08/26/21 08/26/21 18:59 06:59 18:59 Intake Total 4107.190 3952.071 78 Output Total 1965 730 50 Balance -470.084 705.071 28 Weight 71.5 kg 74 kg Intake: IV 20 253 23 0.9 NaCl- 20 220 20 pressure bag 33 3 Intake, IV Titration 764.916 432.071 Amount Piperacillin-Tazobactam 3 200 .375 gm In Sodium Chloride 0.9% 100 ml @ 25 mls/hr IVPB Q8H MARK Rx#: [id number] Sodium Chloride 0.9% 1, 220 20 000 ml @ 20 mls/hr IV . Q24H MARK Rx#:[id number] fentaNYL (PF). 1,000 mcg 136.314 131.433 In Sodium Chloride 0.9% 80 ml @ 0.5 MCG/KG/HR 4. 445 mls/hr IV .[id number] MARK Rx#:[id number] propofoL 1,000 mg In 208.602 280.638 Empty Bag 1 bag @ Titrate IV .Q0M MARK Rx#: [id number] Tube Feeding 550 660 55 Other 160 90 Output: Urine 1965 730 50 Other: Voiding Method Indwelling Catheter Indwelling Catheter ABP, PAP, CO, CI - Last Documented Arterial Blood Pressure 117/47 - Labs CBC & Chem 7: 08/26/21 03:50 08/26/21 03:50 Labs: Abnormal Lab Results - Last 24 Hours (Table) 08/25/21 08/25/21 08/25/21 Range/Units 12:28 17:34 23:48 RBC (4.30-5.90) m/uL Hgb (13.0-17.5) gm/dL Hct (39.0-53.0) % Lymphocytes # (1.0-4.8) k/uL ABG pCO2 (35-45) mmHg ABG pO2 (83-108) mmHg ABG HCO3 (21-25) mmol/L ABG Total CO2 (19-24) mmol/L ABG O2 Saturation (94-97) % Carbon Dioxide (22-30) mmol/L BUN (9-20) mg/dL Glucose (74-99) mg/dL POC Glucose (mg/dL) 130 H 158 H 152 H (75-99) mg/dL Calcium (8.4-10.2) mg/dL Total Protein (6.3-8.2) g/dL Albumin (3.5-5.0) g/dL 08/26/21 08/26/21 08/26/21 Range/Units 03:50 03:50 05:29 RBC 3.33 L (4.30-5.90) m/uL Hgb 10.6 L (13.0-17.5) gm/dL Hct 32.0 L (39.0-53.0) % Lymphocytes # 0.3 L (1.0-4.8) k/uL ABG pCO2 49 H (35-45) mmHg ABG pO2 47 L* (83-108) mmHg ABG HCO3 33 H (21-25) mmol/L ABG Total CO2 35 H (19-24) mmol/L ABG O2 Saturation 82.2 L (94-97) % Carbon Dioxide 31 H (22-30) mmol/L BUN 37 H (9-20) mg/dL Glucose 125 H (74-99) mg/dL POC Glucose (mg/dL) (75-99) mg/dL Calcium 8.1 L (8.4-10.2) mg/dL Total Protein 5.5 L (6.3-8.2) g/dL Albumin 2.6 L (3.5-5.0) g/dL 08/26/21 Range/Units 06:24 RBC (4.30-5.90) m/uL Hgb (13.0-17.5) gm/dL Hct (39.0-53.0) % Lymphocytes # (1.0-4.8) k/uL ABG pCO2 (35-45) mmHg ABG pO2 (83-108) mmHg ABG HCO3 (21-25) mmol/L ABG Total CO2 (19-24) mmol/L ABG O2 Saturation (94-97) % Carbon Dioxide (22-30) mmol/L BUN (9-20) mg/dL Glucose (74-99) mg/dL POC Glucose (mg/dL) 137 H (75-99) mg/dL Calcium (8.4-10.2) mg/dL Total Protein (6.3-8.2) g/dL Albumin (3.5-5.0) g/dL Microbiology - Last 24 Hours (Table) 08/22/21 15:13 Blood Culture - Preliminary Blood No Growth after 72 hours
[2021-08-26] MEDS: CHLORHEXIDINE GLUCONATE 15 ML CUP MUCOUS MEM SCH ×2 (08:52→20:24)
[2021-08-26] MEDS: ASCORBIC ACID 500 MG TAB PO SCH (08:53)
[2021-08-26] MEDS: dexAMETHasone 2 MG TAB PO SCH (08:53)
[2021-08-26] MEDS: AMIODARONE 200 MG TAB PO SCH ×2 (08:53→20:24)
[2021-08-26] MEDS: THIAMINE 100 MG TAB PO SCH (08:53)
[2021-08-26] MEDS: ZINC SULFATE 220 MG CAP PO SCH (08:53)
[2021-08-26] MEDS: APIXABAN 5 MG TAB PO SCH ×2 (08:53→20:24)
[2021-08-26] MEDS: CHOLECALCIFEROL 25 MCG (1000 IU) TABLET PO SCH (08:53)
[2021-08-26] MEDS: METOPROLOL TARTRATE 25 MG TAB PO SCH ×2 (08:54→20:18)
[2021-08-26] MEDS: FAMOTIDINE 20 MG/2 ML VIAL IV SCH ×2 (08:54→20:25)
[2021-08-26 10:17] LABS: ABG Base Excess 9.2 mmol/L; ABG HCO3 33 mmol/L (21-25); ABG Oxygen Saturation 92.3 % (94-97); ABG PCO2 46 mmHg (35-45); ABG PH 7.47 (7.35-7.45); ABG PO2 62 mmHg (83-108); ABG TCO2 34 mmol/L (19-24)
[2021-08-26 10:18] LABS: Allen Test Performed? NO
[2021-08-26] MEDS: MULTIVITAMINS, THERA 1 EACH TAB PO SCH (11:51)
[2021-08-26] MEDS: FOLIC ACID 1 MG TAB PO SCH (11:51)
[2021-08-26 11:55] LABS: Glucose,Whole Blood 122 mg/dL (75-99)
[2021-08-26] MEDS: NOREPINEPHRINE 4 MG in SODIUM CHLORIDE 0.9% 250 ML IV SCH (14:28)
[2021-08-26 17:54] LABS: Glucose,Whole Blood 150 mg/dL (75-99)
[2021-08-26] MEDS: DEXMEDETOMIDINE/0.9% NACL(PMX) 400 MCG in EMPTY BAG 1 BAG IV SCH (18:30)
[2021-08-26] MEDS: SODIUM CHLORIDE 0.9% 1,000 ML IV SCH (18:30)
--- NOTE | 2021-08-26 20:07 | PN ---
PROGRESS NOTE DATE OF SERVICE: 08/26/2021 This 75-year-old gentleman who was admitted with acute Covid 19 infection is being closely monitored. The patient is on mechanical ventilation. The most recent chest x- ray which I reviewed personally showed acute extensive bilateral lesions, probably left more than the right. The patient has atrial fibrillation also. The patient is on amiodarone. Cardiology following the patient closely. Dr. Villegas has recommended continue the mechanical ventilation because of the patient's repeated failures of weaning. The patient has significant asynchronous ventilations also. The recent sputum cultures are pending at this time. The patient is on IV Zosyn as well. Urine culture showed Enterococcus faecalis. Past medical history reviewed. REVIEW OF SYSTEMS: Could not be taken because the patient is mechanically sedated. CURRENT MEDICATIONS: Reviewed and include: Tylenol, Maalox, Cordarone, Eliquis, vitamin C. Rest of medication doses are reviewed. PHYSICAL EXAM: The patient mechanically ventilated and sedated. Pulse 51, blood pressure 117/40, respiration 24, temperature 99 degrees, pulse ox 97% on mechanical ventilation. Vent settings are noted. HEENT: Conjunctivae normal. Neck: No JVD. Cardiovascular: S1, S2 muffled. Respiration: Breath sounds diminished in the bases. Scattered rhonchi and crackles. Abdomen: Soft, nontender. Legs: No edema. No swelling. Nervous system: The patient mechanically sedated. LAB STUDIES: ABGs noted. Other labs are noted. ASSESSMENT: 1. Acute Covid 19 infection with acute chronic bilateral pneumonia, interstitial pneumonia with acute hypoxic respiratory on prolonged mechanical ventilation. 2. Failure to wean multiple times. 3. Status post BiPAP. 4. Possible superadded bacterial pneumonia infection. 5. Atrial fibrillation with rapid ventricular rate, paroxysmal, currently rate controlled and amiodarone and metoprolol. 6. Change in mental status, acute metabolic encephalopathy. 7. Bicytopenia, possibly secondary to Covid 19, neutropenia and anemia. 8. Lymphopenia. 9. Elevated D-dimer. 10.Hyponatremia. 11.Elevated creatinine with acute renal failure with acute tubular necrosis present on admission. 12.Hypomagnesemia. 13.Hypocalcemia. 14.Troponin 0.052, present on admission of undetermined etiology, possibly related to Covid. Rule out coronary artery disease. 15.Elevated procalcitonin. 16.History of hypertension. 17.History of abdominal aortic aneurysm. 18.History of ETOH. 19.Deep vein thrombosis prophylaxis, on Eliquis. 20.FULL CODE. RECOMMENDATIONS AND DISCUSSION: Recommend to continue current medication, management and symptomatic treatment. Otherwise, at this time, I would recommend continue the antibiotics. Repeat labs. Further weaning attempts per Dr. Villegas. Prognosis guarded because of multiple complex medical issues. Further recommendations to follow. MMODL / IJN: [id number] /
--- NOTE | 2021-08-26 20:10 | PN ---
PROGRESS NOTE DATE OF SERVICE: 09/14/2021 REASON FOR FOLLOWUP: COVID-19 pneumonia. INTERVAL HISTORY: The patient is afebrile. The patient is hemodynamically stable. FiO2 is currently 80%. No significant purulent secretions in the ET, diarrhea or any other changes reported by Nursing staff. PHYSICAL EXAMINATION: Blood pressure 117/47, pulse of 50, temperature of 98. He is 96% on 80% FiO2. General description is an elderly male intubated on the vent. Respiratory system: Unlabored breathing, decreased intensity of breath sounds in the base, with no wheeze. Heart S1, S2. Regular rate and rhythm. Abdomen soft. No tenderness. LABS: Hemoglobin is 10.1, white count 6.3, creatinine 0.78. Urine showing Enterococcus faecalis. Sputum culture has been negative. DIAGNOSTIC IMPRESSION AND PLAN: 1. Patient with acute respiratory failure secondary to COVID-19 pneumonia. Patient is currently on dexamethasone, Tylenol, Lovenox, zinc and ascorbic acid. 2. Patient did have a new fever. Source could be possibly urinary tract infection, catheter associated urine showing Enterococcus sensitive pathogen. Antibiotic will be adjusted to Unasyn and monitor clinical course closely. MMODL / IJN: [id number] /
[2021-08-26 23:59] LABS: Glucose,Whole Blood 137 mg/dL (75-99)
[2021-08-27] MEDS: NOREPINEPHRINE 4 MG in SODIUM CHLORIDE 0.9% 250 ML IV SCH ×2 (00:04→20:59)
[2021-08-27] MEDS: AMPICILLIN-SULBACTAM 3 GM in SODIUM CHLORIDE 0.9% 100 ML IVPB SCH ×4 (00:11→17:33)
[2021-08-27] MEDS: INSULIN ASPART (NovoLOG) 100 UNIT/ML VIAL SQ SCH ×4 (00:11→18:00)
[2021-08-27 04:47] LABS: ALT 22 U/L (4-49); AST 58 U/L (17-59); African American GFR (CKD) >90 (>60 ml/min/1.73 sqM); Albumin 2.6 g/dL (3.5-5.0); Alkaline Phosphatase 49 U/L (38-126); Anion Gap 5 mmol/L; Blood Urea Nitrogen 35 mg/dL (9-20); Calcium 8.3 mg/dL (8.4-10.2); Carbon Dioxide 31 mmol/L (22-30); Chloride 108 mmol/L (98-107); Glucose 117 mg/dL (74-99); Non-African American GFR(CKD) 88 (>60 ml/min/1.73 sqM); Potassium 4.8 mmol/L (3.5-5.1); Sodium 144 mmol/L (137-145); Total Bilirubin 0.4 mg/dL (0.2-1.3); Total Protein 5.5 g/dL (6.3-8.2)
[2021-08-27 04:48] LABS: Basophils % (A) 0 %; Eosinophils % (A) 0 %; HCT 31.7 % (39.0-53.0); HGB 10.3 gm/dL (13.0-17.5); Lymphocytes # (A) 0.3 k/uL (1.0-4.8); Lymphocytes % (A) 3 %; MCH 30.9 pg (25.0-35.0); MCHC 32.4 g/dL (31.0-37.0); MCV 95.5 fL (80.0-100.0); Mean Platelet Volume 8.7; Monocytes # (A) 0.2 k/uL (0-1.0); Monocytes % (A) 2 %; Neutrophils # (A) 7.7 k/uL (1.3-7.7); Neutrophils % (A) 93 %; Platelet Count 336 k/uL (150-450); RBC 3.32 m/uL (4.30-5.90); RDW 13.6 % (11.5-15.5); WBC 8.3 k/uL (3.8-10.6)
[2021-08-27] MEDS: fentaNYL (PF). 1,000 MCG in SODIUM CHLORIDE 0.9% 80 ML IV SCH ×3 (05:40→19:40)
[2021-08-27 05:49] LABS: Glucose,Whole Blood 114 mg/dL (75-99)
[2021-08-27 05:56] LABS: ABG Base Excess 8.6 mmol/L; ABG HCO3 32 mmol/L (21-25); ABG Oxygen Saturation 85.9 % (94-97); ABG PCO2 46 mmHg (35-45); ABG PH 7.46 (7.35-7.45); ABG TCO2 34 mmol/L (19-24)
[2021-08-27 05:59] LABS: ABG PO2 52 mmHg (83-108)
[2021-08-27 06:00] LABS: Allen Test Performed? No
--- NOTE | 2021-08-27 07:54 | P.PN ---
Subjective Progress Note Date: 08/27/21 Principal diagnosis: CoVID pneumonia This is a 75-year-old white male with history of hypertension, dyslipidemia, history of abdominal aortic aneurysm, patient was brought into the hospital with 10 days' history of feeling weak, shortness of breath, cough, patient is not vaccinated. Patient was seen in the ER, and his chest x-ray showed evidence of pneumonia. CT angiogram of the chest showed extensive diffuse infiltrates throughout the lungs and no evidence of pulmonary embolism. PCR for COVID-19 was positive, patient was noted to have relative leukopenia with WBC count of 2.6, lymphopenia, hyponatremia, elevated troponin, and relatively unremarkable pro calcitonin level. Patient was initially on 2 L nasal cannula, however over the last 24 hours since admission, his oxygen saturation has been dropping and his oxygen has been titrated up to a nonrebreather mask with poor oxygenation and his O2 saturation at present is 85% on a nonrebreather mask. Patient was also noted to be in atrial fibrillation and that is being addressed by cardiology patient was placed on that COVID-19 cocktail, he is also on heparin, and he received significant amount of fluids with fluid boluses on admissions. After I evaluated the patient and reviewed his chest x-ray as well as CT angiogram of the chest, I recommended Lasix 40 mg IV push to be given and I recommended immediate transfer the patient to the ICU. Patient has been on Cardizem drip, remains tachycardic remains in atrial fibrillation with a rate of 120. Patient denies any chest pain denies any nausea or vomiting denies any palpitations denies any orthopnea or PND however the patient is complaining of weakness cough and shortness of breath. Patient was reevaluated today on 08/22/21, patient was evaluated yesterday on the regular medical floor, and as soon as I evaluated the patient, I recommended immediate transfer to the ICU. Patient was developing impending respiratory failure requiring intubation and mechanical ventilation. He was initially placed on BiPAP, and he could not tolerate BiPAP as the patient has history of claustrophobia. Patient was given Precedex, and did not seem to do well, I was notified about the patient at night, that he was not doing well and he Desaturated. And he was developing worsening respiratory distress. Recommended intubation and mechanical ventilation. He is now on mechanical ventilation with assist control rate of 32 patella volume 400 FiO2 is 50% and PEEP of 14. ABG earlier on 100% showed a pO2 of 116 pCO2 43 pH of 7.32. On admission patient was also noted to have elevated BNP, and Lasix was given as I felt there may be some component of potential congestive heart failure. Patient is on fentanyl at 1 Nimbex at 2 mcg/kg/m, is also on propofol at 20 mcg/kg/m. Patient is fully sedated and paralyzed. X-ray is clearly showing bilateral interstitial infiltrates consistent with COVID-19 pneumonia. Patient is on Eliquis 5 mg twice a day Baricitinib, Peridex, vitamin D, Decadron 6 mg by mouth daily, Pepcid 20 mg twice a day, Lasix 20 mg IV push every 12 hours, patient is not requiring any pressors. He is hemodynamically stable. He is on thiamine and zinc. Last night he was briefly on norepinephrine which has been discontinued early this morning. Blood pressure seems to be stable. Reevaluated today on 08/23/21, patient remains in the ICU, intubated and mechanically ventilated. He is on assist control rate of 32, tidal volume 400 FiO2 45% and PEEP of 14 and I cut it down to 10. Patient is on multiple drips including norepinephrine at 0.02 more cramping per minute, he is also receiving fentanyl at 20 mcg/kg/h propofol at 20 mcg/kg/m IV fluid at 75 mL per hour. He is also receiving Glucerna for nutritional support, he is at 50 mL per hour and the goal is 65. His Baricitinib was discontinued today because of worsening lymphopenia and it is presently on hold. His WBC count is 5.9 hemoglobin is 11.2. Lactulose are normal renal profile is normal ABG this morning showed a pO2 of 108 pCO2 46 pH of 7.38 hence his PEEP 1 down from 14-10. Kept him on 45% FiO2. Chest x-ray is showing slight improvement in his bilateral infiltrates. May even consider stopping his sedation today if tolerated and at least give the patient possibly a weaning trial if possible. At least I will start withholding the Nimbex and see how he does with fentanyl and propofol only and if he tolerates that may consider a weaning trial on this patient. If not patient may have to go back on Nimbex. 08/24/2021, seeing this patient for a follow-up. 75-year-old male patient, currently intubated on mechanical ventilator due to complications of COVID 19 related pneumonia. Note that the patient was quite ill when he presented to us. CAT scan of the chest that was done at that time showed evidence of diffuse bilateral pulmonary infiltrates consistent with COVID 19. He was leukopenic and he was hyponatremic. He was on 2 L of oxygen by nasal cannula and he immediately progressed and following that here required intubation mechanical ventilation. Currently he is sedated and paralyzed. Currently is on a combination of propofol and fentanyl, propofol is running at 45 mg/kg per minute and fentanyl is running at 1.25 mcg/kg/h. The patient is also on Nimbex running at 1 mg/kg per minute. He has been adequately sedated and paralyzed. He remains on a mechanical ventilator on assist control mode at the rate of 32, tidal volume is at 400, FiO2 is 50% and this was up down to 45% and a PEEP is currently at 8. The chest x-ray showing bilateral pulmonary infiltrates, there is elevation of left hemidiaphragm and some infiltration of the left lung base compared to yesterday. The pH of 7.47 with a pCO2 of 40 and pO2 of 65 and the rest of the blood work shows a white cell count of 4.6, hemoglobin of 10.6, the patient remains lymphopenic, electrodes are all within normal limits, blood sugars of 140, LFTs are normal, the inflammatory markers showed an LDH level of 1206 on 08/21/2021. The patient also had a CRP level of 6.4. ProBNP level was also elevated at 6470. The patient is currently on IV fluids running at 75 mL an hour this obviously needs to be cut down. The patient's net fluid balance over the past 24 hours has been +1.5 L. The patient is also on enteral feeding for nutritional support and currently is on Glucerna running at the rate of 50 mL an hour. In terms of his lung mechanics, I noted that the peak patient has a peak airway pressure of around 23 Static air pressure was I will say lower at 18-20. 08/25/2021, the patient is being seen for a follow-up. Note that the patient's condition was rather stable yesterday. I was quite excited about possible extubation. For that reason, the patient was given a sedation holiday and following that he was given a spelled his breathing trial. Note that his we aning parameters were adequate. While having the spontaneous breathing trial, the patient went into atrial fibrillation with rapid ventricular response, he became tachypneic and tachycardic and hemodynamically unstable and he started desaturating. Based on all this, the child was aborted, the patient was placed back on sedation and he was briefly paralyzed. Subsequently, he was taken off the paralytics. I brought up his PEEP up to 10 and gradually wean down the FiO2 down to 50% and currently is on a rate of 32 with an FiO2 of 400. His blood gases from this morning shows a pH of 7.41 with a pCO2 of 49 and pO2 of 90. Chest x-ray shows stable bilateral pulmonary infiltrates, essentially unchanged from yesterday probably there is some improved aeration the left lung base. No significant orotracheal secretions. Note that his cardiac rhythm is back to sinus. I started patient back then amiodarone drip which is currently running at 0.5 mg per minute and I'm going to maintain the amiodarone drip for now. He is hemodynamically stable. Is on no pressors. IV fluids are running at the rate of 20 mL an hour. His peak airway pressure is around 23. He is easily arousable. The plan is to go to the same process again and consider extubating this patient and this will largely depend on his weaning parameters and ability to do a brief spotting is breathing trial. Noted this patient has been intubated on 08/22/2021. Electrolytes are all within normal limits. Sodium is at 142, BUN is at 27 with a creatinine of 0.7, white cell count is at 6.2. He remains on Decadron 6 mg daily basis. He sedation currently is with a combination of propofol and fentanyl. Propofol is running at 40 mcg/kg per minute and fentanyl is running at 1 mcg/kg/h. He is on no pressors. Overall fluid balance has been +1.5 L over the past 24-48 hours. 08/26/2021, I'm seeing the patient for a follow-up. As noted, the patient failed weaning trial yesterday as the patient became again hypoxic while being given as pertains breathing trial. As such, he was kept on a mechanical ventilator throughout the day and he was restarted back on sedation and currently is on propofol which is running at 50 mg/kg per minute. He is also on fentanyl at 2 mcg/kg/h. He seems to be quite comfortable at this point in time. I noted that the patient is generating a higher tidal volumes that he is quite asynchronous with mechanical ventilator. He was on a volume cycle mode of mechanical ventilation with a tidal volume of 400, the FiO2 is up to 100% with a PEEP of 6 and the rate of 24. Morning blood gases showed a pH of 7.44 with a pCO2 of 49 and pO2 of 47. The chest x-ray shows stable findings on the right, there is some worsening in the consolidation of the left lung base. The patient is still having significant amount of rest or secretions. Cultures from the sputum was sent and is pending for now. He does have Enterococcus faecalis in his urine. The patient remains on IV antibiotics and currently he is on IV Zosyn. Hemodynamically stable. Is on no pressors. He was taken off the amioda laurie drip and currently is on amiodarone orally. He does have underlying centimeters bradycardia for now with a heart rate in the mid 50s. He remains to coagulation with Eliquis 5 mg by mouth twice a day. He remains on Decadron 6 mg by mouth on a daily basis. He remains on enteral feeding for nutritional support and the patient is receiving Glucerna at the rate of 55 mL an hour. No significant swelling in lower extremities. Fluid balance over the past 24 hours has been +792 mL. He is afebrile. He is hemodynamically stable at this point in time. The patient is seen today 08/27/2021 in follow-up on the intensive care unit. He remains intubated and on the mechanical ventilator. Currently on pressure control mode at 16 with a TI of 1.15, respiratory rate, respiratory rate at 24, FiO2 80% and a PEEP of 6. Morning blood gases revealed a P O2 of 52, pCO2 46, pH 7.46. He is currently sedated on propofol at 40 mcg/kg/m. Fentanyl at 1 g her kilogram per hour. He is anticoagulated with Eliquis. He has more synchronous with the vent and the pressure control mode. He does become quite restless, tachypneic, hypertensive with daily interruption of sedation. We will try again today. He remains on antibiotics in the form of Unasyn for Enterococcus faecalis in his urine culture. Sputum cultures revealing no growth thus far. Chest x-ray continues to show bilateral patchy infiltrates with some increased density in the left lower lung. White count 8.3. Hemoglobin 10.3. Lymphocytes 0.3. Sodium 144. Potassium 4.8. Creatinine 0.77. Glucose 117. He is being nourished with Glucerna at 55 ML's per hour which is goal. No significant issues with bradycardia this morning. No lower extremity edema. He remains in a positive balance of 1.3 L. He is continued on amiodarone. Not requiring any pressors at this point. Objective - Vital Signs Vital signs: Vital Signs Temp 98.3 F 08/27/21 04:00 Pulse 58 L 08/27/21 07:00 Resp 24 08/27/21 07:00 BP 110/60 08/25/21 02:00 Pulse Ox 90 L 08/27/21 07:00 Intake & Output 08/26/21 08/27/21 08/27/21 18:59 06:59 18:59 Intake Total 7180.807 9561.271 Output Total 750 965 Balance 1091.119 297.271 Weight 74 kg 76.8 kg Intake: IV 56 279 0.9 NaCl- 20 Sodium Chloride 0.9% 1, 240 000 ml @ 20 mls/hr IV . Q24H MARK Rx#:[id number] pressure bag 36 39 Intake, IV Titration 860.119 349.271 Amount Piperacillin-Tazobactam 3 200 .375 gm In Sodium Chloride 0.9% 100 ml @ 25 mls/hr IVPB Q8H MARK Rx#: [id number] Sodium Chloride 0.9% 1, 220 20 000 ml @ 20 mls/hr IV . Q24H MARK Rx#:[id number] fentaNYL (PF). 1,000 mcg 258.251 103.256 In Sodium Chloride 0.9% 80 ml @ 0.5 MCG/KG/HR 4. 445 mls/hr IV .[id number] MARK Rx#:[id number] propofoL 1,000 mg In 181.868 226.015 Empty Bag 1 bag @ Titrate IV .Q0M MARK Rx#: [id number] Tube Feeding 735 574 Other 190 60 Output: Urine 750 965 Other: Voiding Method Indwelling Catheter Indwelling Catheter ABP, PAP, CO, CI - Last Documented Arterial Blood Pressure 126/41 - Exam GENERAL EXAM: Intubated, sedated 75-year-old male patient, remains on mechanical ventilator, fairly comfortable in no apparent distress. HEAD: Normocephalic. EYES: Sluggish reaction of pupils, equal size. NOSE: Clear with pink turbinates. THROAT: Oral endotracheal and gastric tube secured in place. No erythema or exudates. NECK: No masses, no JVD. CHEST: No chest wall deformity. LUNGS: Equal air entry with bilateral scattered rhonchi, crackles in the posterior bases more so on the left lung base. CVS: S1 and S2 normal with no audible murmur, regular rhythm. ABDOMEN: No hepatosplenomegaly, normal bowel sounds, no guarding or rigidity. SPINE: No scoliosis or deformity SKIN: No rashes CENTRAL NERVOUS SYSTEM: Intubated, sedated, tone is normal in all 4 extremities. EXTREMITIES: There is no peripheral edema. No clubbing, no cyanosis. Peripheral pulses are intact. - Labs CBC & Chem 7: 08/27/21 04:30 08/27/21 04:30 Labs: Abnormal Lab Results - Last 24 Hours (Table) 08/26/21 08/26/21 08/26/21 Range/Units 10:16 11:53 17:52 RBC (4.30-5.90) m/uL Hgb (13.0-17.5) gm/dL Hct (39.0-53.0) % Lymphocytes # (1.0-4.8) k/uL ABG pH 7.47 H (7.35-7.45) ABG pCO2 46 H (35-45) mmHg ABG pO2 62 L (83-108) mmHg ABG HCO3 33 H (21-25) mmol/L ABG Total CO2 34 H (19-24) mmol/L ABG O2 Saturation 92.3 L (94-97) % Chloride (98-107) mmol/L Carbon Dioxide (22-30) mmol/L BUN (9-20) mg/dL Glucose (74-99) mg/dL POC Glucose (mg/dL) 122 H 150 H (75-99) mg/dL Calcium (8.4-10.2) mg/dL Total Protein (6.3-8.2) g/dL Albumin (3.5-5.0) g/dL 08/26/21 08/27/21 08/27/21 Range/Units 23:57 04:30 04:30 RBC 3.32 L (4.30-5.90) m/uL Hgb 10.3 L (13.0-17.5) gm/dL Hct 31.7 L (39.0-53.0) % Lymphocytes # 0.3 L (1.0-4.8) k/uL ABG pH (7.35-7.45) ABG pCO2 (35-45) mmHg ABG pO2 (83-108) mmHg ABG HCO3 (21-25) mmol/L ABG Total CO2 (19-24) mmol/L ABG O2 Saturation (94-97) % Chloride 108 H (98-107) mmol/L Carbon Dioxide 31 H (22-30) mmol/L BUN 35 H (9-20) mg/dL Glucose 117 H (74-99) mg/dL POC Glucose (mg/dL) 137 H (75-99) mg/dL Calcium 8.3 L (8.4-10.2) mg/dL Total Protein 5.5 L (6.3-8.2) g/dL Albumin 2.6 L (3.5-5.0) g/dL 08/27/21 08/27/21 Range/Units 05:37 05:47 RBC (4.30-5.90) m/uL Hgb (13.0-17.5) gm/dL Hct (39.0-53.0) % Lymphocytes # (1.0-4.8) k/uL ABG pH 7.46 H (7.35-7.45) ABG pCO2 46 H (35-45) mmHg ABG pO2 52 L* (83-108) mmHg ABG HCO3 32 H (21-25) mmol/L ABG Total CO2 34 H (19-24) mmol/L ABG O2 Saturation 85.9 L (94-97) % Chloride (98-107) mmol/L Carbon Dioxide (22-30) mmol/L BUN (9-20) mg/dL Glucose (74-99) mg/dL POC Glucose (mg/dL) 114 H (75-99) mg/dL Calcium (8.4-10.2) mg/dL Total Protein (6.3-8.2) g/dL Albumin (3.5-5.0) g/dL Microbiology - Last 24 Hours (Table) 08/22/21 15:13 Blood Culture - Preliminary Blood No Growth after 96 hours 08/24/21 07:00 Gram Stain - Final Sputum Sputum Culture - Final Assessment and Plan Assessment: 1 Acute hypoxic respiratory failure secondary to COVID-19 pneumonia patient was admitted and seen yesterday, transferred to the ICU, intubated on 08/21/21, remains intubated and mechanically ventilated, sedated. However his Baricitinib was placed on hold mostly because of worsening lymphopenia rate, and urine culture positive for Enterococcus faecalis. Currently on Unasyn. The patient has failed spontaneous breathing trials on 2 separate occasions for the past 3 days. On today's evaluation, he is hypoxic and is more synchronous with the mechanical ventilator on pressure control mode he still has quite a significant amount of secretions. The plan is for bronchoscopy today. 2 Atrial fibrillation with RVR, patient converted to normal sinus rhythm , and the patient is currently on oral amiodarone and Eliquis. He is in sinus bradycardia for now. 3 systolic congestive heart failure patient has abnormal BNP level, and abnormal echocardiogram, LV dysfunction and ejection fraction of 40-45%. 4 History of hypertension 5 History of abdominal aortic aneurysm 6 Hypovolemic hyponatremia, recovered 7 Lymphopenia secondary to COVID-19 infection 8 UTI with Enterococcus grp D, Enterococcus faecalis sensitive to penicillins. The patient remains on IV Zosyn Alejandra: The patient was seen and evaluated Chest x-ray, ABGs and labs reviewed Increase the PEEP to 8 Continue pressure control mode Plan for bronchoscopy with BAL today Follow-up chest x-ray, ABGs and labs in the a.m. Continue Unasyn for an Enterococcus faecalis UTI Remains anticoagulated with Eliquis Remains on Decadron, bronchodilators We will continue to follow and make further recommendations based on his clinical status Critical care time not including procedures, 38 minutes I, the cosigning physician, performed a history & physical examination of the patient. Lungs sounds with bilateral scattered rhonchi, crackles in the posterior bases more so on the left lung. Maintaining O2 saturations in the 90s on 80% FiO2 and a PEEP of 8 via the mechanical ventilator. I discussed the assessment and plan of care with my nurse practitioner, Alannah Son. I attest to the above note as dictated by her.
--- NOTE | 2021-08-27 08:32 | P.PN ---
Subjective HISTORY OF PRESENTING ILLNESS Paroxysmal atrial fibrillation The patient is a 75-year-old gentleman who was admitted to the hospital with COVID-19 infection and we consulted to see the patient for atrial fibrillation with RVR which was new the patient. The patient was seen this morning. He has been maintaining normal sinus mechanism except for one short episode of A. fib with RVR earlier. He is off norepinephrine. With that being safe going to restart him back on beta olga with metoprolol. He is already on oral anticoagulation with WHICH we are going to continue. He is on Lasix IV. The chest x-ray was reviewed today and continu es to 40 finding consistent was bilateral pleural effusion. The echo revealed cardiomyopathy with EF between 40-45%. We will continue the current medical regimen and continue following up with the patient and continue up titrating the dose of beta olga if his pressure allows. Continue oral anticoagulation 08/25 Patient examined from the hallway however not personally examined secondary COVI D-19 infection. Patient converted to sinus rhythm. Patient has been on amiodarone drip at 0.5. Maintained on anticoagulation without hematochezia or melena. Remains sedated on ventilator however wean sedation with likely trial extubation today. On 50% FiO2. 08/26 Patient examined from the hallway. She remains in sinus rhythm with oral amiodarone. Heart rates are predominantly in the 50s. No further A. fib since yesterday. Patient failed weaning and spontaneous breathing trial yesterday. 08/27 Patient has been going in and out of atrial fibrillation however currently sinus rhythm. Maintained on oral amiodarone. Patient is off of pressors. FiO2 up to 80% and likely bronchoscopy to be performed today. PHYSICAL EXAMINATION Vital signs reviewed. Not personally examined secondary COVID-19 infection. Appears sedated on ventilator. ASSESSMENT Assessment #1 COVID-19 pneumonia #2 acute hypoxic respiratory failure #3 paroxysmal atrial fibrillation #4 mild cardiomyopathy PLAN Continues to have intermittent runs of atrial fibrillation. Continue with oral amiodarone. Continue with metoprolol 25 mg twice a day May consider uptitrating if blood pressures allow. Patient with continued high oxygen demand and likely bronchoscopy to be performed by pulmonary today. Continue supportive care. Objective - Vital Signs Vital signs: Vital Signs Temp 98.3 F 08/27/21 04:00 Pulse 58 L 08/27/21 07:00 Resp 24 08/27/21 07:00 BP 110/60 08/25/21 02:00 Pulse Ox 90 L 08/27/21 07:00 Intake & Output 08/26/21 08/27/21 08/27/21 18:59 06:59 18:59 Intake Total 5084.363 0204.271 81.77 Output Total 750 965 Balance 1091.119 297.271 81.77 Weight 74 kg 76.8 kg Intake: IV 56 279 0.9 NaCl- 20 Sodium Chloride 0.9% 1, 240 000 ml @ 20 mls/hr IV . Q24H MARK Rx#:[id number] pressure bag 36 39 Intake, IV Titration 860.119 349.271 81.77 Amount Piperacillin-Tazobactam 3 200 .375 gm In Sodium Chloride 0.9% 100 ml @ 25 mls/hr IVPB Q8H MARK Rx#: [id number] Sodium Chloride 0.9% 1, 220 20 000 ml @ 20 mls/hr IV . Q24H MARK Rx#:[id number] fentaNYL (PF). 1,000 mcg 258.251 103.256 In Sodium Chloride 0.9% 80 ml @ 0.5 MCG/KG/HR 4. 445 mls/hr IV .[id number] MARK Rx#:[id number] propofoL 1,000 mg In 181.868 226.015 81.77 Empty Bag 1 bag @ Titrate IV .Q0M MARK Rx#: [id number] Tube Feeding 735 574 Other 190 60 Output: Urine 750 965 Other: Voiding Method Indwelling Catheter Indwelling Catheter ABP, PAP, CO, CI - Last Documented Arterial Blood Pressure 126/41 - Labs CBC & Chem 7: 08/27/21 04:30 08/27/21 04:30 Labs: Abnormal Lab Results - Last 24 Hours (Table) 08/26/21 08/26/21 08/26/21 Range/Units 10:16 11:53 17:52 RBC (4.30-5.90) m/uL Hgb (13.0-17.5) gm/dL Hct (39.0-53.0) % Lymphocytes # (1.0-4.8) k/uL ABG pH 7.47 H (7.35-7.45) ABG pCO2 46 H (35-45) mmHg ABG pO2 62 L (83-108) mmHg ABG HCO3 33 H (21-25) mmol/L ABG Total CO2 34 H (19-24) mmol/L ABG O2 Saturation 92.3 L (94-97) % Chloride (98-107) mmol/L Carbon Dioxide (22-30) mmol/L BUN (9-20) mg/dL Glucose (74-99) mg/dL POC Glucose (mg/dL) 122 H 150 H (75-99) mg/dL Calcium (8.4-10.2) mg/dL Total Protein (6.3-8.2) g/dL Albumin (3.5-5.0) g/dL 08/26/21 08/27/21 08/27/21 Range/Units 23:57 04:30 04:30 RBC 3.32 L (4.30-5.90) m/uL Hgb 10.3 L (13.0-17.5) gm/dL Hct 31.7 L (39.0-53.0) % Lymphocytes # 0.3 L (1.0-4.8) k/uL ABG pH (7.35-7.45) ABG pCO2 (35-45) mmHg ABG pO2 (83-108) mmHg ABG HCO3 (21-25) mmol/L ABG Total CO2 (19-24) mmol/L ABG O2 Saturation (94-97) % Chloride 108 H (98-107) mmol/L Carbon Dioxide 31 H (22-30) mmol/L BUN 35 H (9-20) mg/dL Glucose 117 H (74-99) mg/dL POC Glucose (mg/dL) 137 H (75-99) mg/dL Calcium 8.3 L (8.4-10.2) mg/dL Total Protein 5.5 L (6.3-8.2) g/dL Albumin 2.6 L (3.5-5.0) g/dL 08/27/21 08/27/21 Range/Units 05:37 05:47 RBC (4.30-5.90) m/uL Hgb (13.0-17.5) gm/dL Hct (39.0-53.0) % Lymphocytes # (1.0-4.8) k/uL ABG pH 7.46 H (7.35-7.45) ABG pCO2 46 H (35-45) mmHg ABG pO2 52 L* (83-108) mmHg ABG HCO3 32 H (21-25) mmol/L ABG Total CO2 34 H (19-24) mmol/L ABG O2 Saturation 85.9 L (94-97) % Chloride (98-107) mmol/L Carbon Dioxide (22-30) mmol/L BUN (9-20) mg/dL Glucose (74-99) mg/dL POC Glucose (mg/dL) 114 H (75-99) mg/dL Calcium (8.4-10.2) mg/dL Total Protein (6.3-8.2) g/dL Albumin (3.5-5.0) g/dL Microbiology - Last 24 Hours (Table) 08/22/21 15:13 Blood Culture - Preliminary Blood No Growth after 96 hours 08/24/21 07:00 Gram Stain - Final Sputum Sputum Culture - Final
[2021-08-27] MEDS: ACETAMINOPHEN TAB 325 MG TAB PO PRN ×2 (08:46→17:33)
[2021-08-27] MEDS: ASCORBIC ACID 500 MG TAB PO SCH (08:46)
[2021-08-27] MEDS: APIXABAN 5 MG TAB PO SCH ×2 (08:46→20:59)
[2021-08-27] MEDS: AMIODARONE 200 MG TAB PO SCH ×2 (08:47→20:59)
[2021-08-27] MEDS: METOPROLOL TARTRATE 25 MG TAB PO SCH ×2 (08:47→20:59)
[2021-08-27] MEDS: CHOLECALCIFEROL 25 MCG (1000 IU) TABLET PO SCH (08:48)
[2021-08-27] MEDS: CHLORHEXIDINE GLUCONATE 15 ML CUP MUCOUS MEM SCH ×2 (08:48→20:59)
[2021-08-27] MEDS: dexAMETHasone 2 MG TAB PO SCH (08:48)
[2021-08-27] MEDS: THIAMINE 100 MG TAB PO SCH (08:49)
[2021-08-27] MEDS: FAMOTIDINE 20 MG/2 ML VIAL IV SCH ×2 (08:49→20:59)
[2021-08-27] MEDS: ZINC SULFATE 220 MG CAP PO SCH (08:49)
[2021-08-27] MEDS ORDERED: CISATRACURIUM 2 MG/ML 5 ML VIAL IV ONE (09:09)
--- NOTE | 2021-08-27 09:56 | XR ---
EXAMINATION TYPE: XR chest 1V portable DATE OF EXAM: 08/27/2021 COMPARISON: 08/26/2021 INDICATION: Tube placement TECHNIQUE: Single frontal view of the chest is obtained. FINDINGS: The heart size may be mildly prominent. This could be related to technique.. The pulmonary vasculature is normal. Left lower lobe infiltrate is present. Mild infiltrates at the right base. Lines and catheters are pr esent. Right PICC line has its tip within the right atrium. Endotracheal tube tip is above the ana lilia . Nasogastric tube transverses the thorax. IMPRESSION: 1. Bibasilar infiltrates may be worsening over the interval. 2. Lines and catheters discussed above.
[2021-08-27 12:16] LABS: Glucose,Whole Blood 145 mg/dL (75-99)
[2021-08-27] MEDS: FOLIC ACID 1 MG TAB PO SCH (13:14)
[2021-08-27] MEDS: MULTIVITAMINS, THERA 1 EACH TAB PO SCH (13:14)
[2021-08-27] MEDS: DEXMEDETOMIDINE/0.9% NACL(PMX) 400 MCG in EMPTY BAG 1 BAG IV SCH (15:01)
[2021-08-27 17:56] LABS: Glucose,Whole Blood 150 mg/dL (75-99)
[2021-08-27] MEDS: SODIUM CHLORIDE 0.9% 1,000 ML IV SCH (19:00)
[2021-08-27 19:48] LABS: Glucose,Whole Blood 142 mg/dL (75-99)
--- NOTE | 2021-08-27 21:29 | PN ---
PROGRESS NOTE DATE OF SERVICE: 08/27/2021 This 75-year-old gentleman who was admitted with acute COVID-19 interstitial pneumonia also had failure to wean on multiple occasions. The patient had atrial ablation with fast ventricular rate, treated with amiodarone and Cardizem at this time. The patient also had a chest x-ray that showed bilateral extensive pneumonia, actually left more than the right. Multiple consultants are following the patient closely. The patient is mechanically and sedated at this time. Past medical history reviewed. Review of systems could not be taken. CURRENT MEDICATIONS: The patient is on Glucerna at this time. Accu-Cheks are slightly better. Current medications are noted and include Tylenol, Cordarone, Unasyn. Doses and other medications are also noted. PHYSICAL EXAMINATION: Patient is mechanically ventilated and sedated. Pulse is 60, blood pressure is 114/39, respiration 30, temperature 99 degrees, pulse ox 94% on mechanical ventilation. Vent settings are noted. HEENT: Conjunctivae normal. NECK: No jugular venous distention. CARDIOVASCULAR: S1, S2 muffled. RESPIRATION: Breath sounds diminished at the bases. A few scattered rhonchi. ABDOMEN: Soft, nontender. LEGS: No edema. No swelling. NERVOUS SYSTEM: Patient is mechanically ventilated and sedated. LAB STUDIES: WBC 8.3, hemoglobin 10.3. ABGs noted. Otherwise, lymphocytes are 0.3. ASSESSMENT: 1. Acute COVID-19 infection with acute bilateral interstitial pneumonia with acute hypoxic respiratory failure, on prolonged mechanical ventilation with failure of weaning multiple times. 2. Status post BiPAP. 3. Possible superadded bacterial pneumonia infection. 4. Atrial fibrillation with rapid ventricular rate, paroxysmal, currently controlled with amiodarone and metoprolol. 5. Change in mental status, acute metabolic encephalopathy. 6. Bicytopenia, possibly secondary to COVID-19 neutropenia and anemia. 7. Lymphopenia. 8. Elevated D-dimer. 9. Hyponatremia. 10.Elevated creatinine with acute renal failure with acute tubular necrosis, present on admission. 11.Hypomagnesemia. 12.Hypokalemia. 13.Troponin 0.052, present on admission, undetermined etiology, possibly related to COVID-19. Rule out coronary artery disease. 14.Elevated procalcitonin. 15.History of hypertension. 16.History of abdominal aortic aneurysm. 17.History of ETOH. 18.Deep vein thrombosis prophylaxis, on Eliquis. 19.FULL CODE. RECOMMENDATIONS AND DISCUSSION: I recommend to continue current medications, continue with the monitoring, symptomatic treatment. Continue with current antibiotics. Continue steroids. Continue the rest of medications. Continue with weaning. Enterococcus was grown from the culture. Guarded prognosis because of multiple complex medical issues. Further recommendations to follow. MMODL / IJN: [id number] /
--- NOTE | 2021-08-27 21:53 | PN ---
PROGRESS NOTE DATE OF SERVICE: 08/27/2021 REASON FOR FOLLOWUP: 1. COVID-19 pneumonia. 2. UTI. INTERVAL HISTORY: The patient did spike a fever of 101 around noon. The patient has been afebrile since then. The patient is currently hemodynamically stable. FiO2 is currently 80%. No significant purulent secretion through the ET, diarrhea or any other changes reported by the nursing staff. PHYSICAL EXAMINATION: Blood pressure 147/64 with a pulse of 94, temperature of 99. He is 92% on 80% FiO2. General description is an elderly male lying in bed in no distress. Respiratory system: Unlabored breathing, decreased intensity of breath sounds. No wheeze. Heart S1, S2. Regular rate and rhythm. Abdomen soft, no tenderness. LABS: Hemoglobin is 10.3, white count 8.3, creatinine 0.77. DIAGNOSTIC IMPRESSION AND PLAN: Patient with acute respiratory failure which is multifactorial in this patient who did have COVID-19 pneumonia and possible ARDS pattern, now with a fever. Urine positive for Enterococcus, which was a sensitive pathogen. Sputum culture has been negative. Chest x-ray with bibasilar infiltrate worsening over the interval. In view of the new fever, we will switch him back to Zosyn. Try to obtain another sputum and blood culture and monitor his clinical course closely. Prognosis remains guarded. MMODL / IJN: [id number] /
[2021-08-27 23:59] LABS: Glucose,Whole Blood 106 mg/dL (75-99)
[2021-08-28] MEDS: INSULIN ASPART (NovoLOG) 100 UNIT/ML VIAL SQ SCH ×4 (00:12→18:16)
[2021-08-28] MEDS: PIPERACILLIN-TAZOBACTAM 3.375 GM in SODIUM CHLORIDE 0.9% 100 ML IVPB SCH ×3 (00:38→16:14)
[2021-08-28] MEDS: ACETAMINOPHEN TAB 325 MG TAB PO PRN (00:40)
[2021-08-28] MEDS: fentaNYL (PF). 1,000 MCG in SODIUM CHLORIDE 0.9% 80 ML IV SCH ×3 (02:44→20:20)
[2021-08-28 04:05] LABS: HCT 32.6 % (39.0-53.0); HGB 10.6 gm/dL (13.0-17.5); MCH 31.2 pg (25.0-35.0); MCHC 32.5 g/dL (31.0-37.0); MCV 95.8 fL (80.0-100.0); Mean Platelet Volume 9.3; Platelet Count 286 k/uL (150-450); RDW 13.7 % (11.5-15.5)
[2021-08-28 04:27] LABS: ALT 25 U/L (4-49); AST 60 U/L (17-59); African American GFR (CKD) >90 (>60 ml/min/1.73 sqM); Albumin 2.5 g/dL (3.5-5.0); Alkaline Phosphatase 52 U/L (38-126); Anion Gap 6 mmol/L; Blood Urea Nitrogen 34 mg/dL (9-20); Calcium 8.3 mg/dL (8.4-10.2); Carbon Dioxide 29 mmol/L (22-30); Chloride 110 mmol/L (98-107); Glucose 105 mg/dL (74-99); Non-African American GFR(CKD) 87 (>60 ml/min/1.73 sqM); Potassium 4.7 mmol/L (3.5-5.1); Sodium 145 mmol/L (137-145); Total Bilirubin 0.5 mg/dL (0.2-1.3); Total Protein 5.8 g/dL (6.3-8.2)
[2021-08-28 05:22] LABS: Band Neutrophils % 4 %; Lymphocytes # (M) 0.16 k/uL (1.0-4.8); Metamyelocytes # (M) 0.08 k/uL (0); Metamyelocytes % 1 %; Monocytes # (M) 0.08 k/uL (0-1.0); Neutrophils % (M) 93 %; Nucleated Red Blood Cells 0 /100 WBC (0-0); Total Cells Counted 200
[2021-08-28 05:23] LABS: C Reactive Protein 36.2 mg/dL (<1.0)
[2021-08-28 05:24] LABS: Toxic Granulation Present
[2021-08-28 05:38] LABS: Glucose,Whole Blood 93 mg/dL (75-99)
[2021-08-28 06:11] LABS: ABG Base Excess 7.1 mmol/L; ABG HCO3 31 mmol/L (21-25); ABG Oxygen Saturation 88.7 % (94-97); ABG PCO2 42 mmHg (35-45); ABG PH 7.48 (7.35-7.45); ABG TCO2 32 mmol/L (19-24); Allen Test Performed? Yes
[2021-08-28 06:14] LABS: ABG PO2 55 mmHg (83-108)
[2021-08-28] MEDS: dexAMETHasone 2 MG TAB PO SCH (08:10)
[2021-08-28] MEDS: APIXABAN 5 MG TAB PO SCH ×2 (08:10→20:19)
[2021-08-28] MEDS: ASCORBIC ACID 500 MG TAB PO SCH (08:10)
[2021-08-28] MEDS: ZINC SULFATE 220 MG CAP PO SCH (08:10)
[2021-08-28] MEDS: CHOLECALCIFEROL 25 MCG (1000 IU) TABLET PO SCH (08:10)
[2021-08-28] MEDS: THIAMINE 100 MG TAB PO SCH (08:11)
[2021-08-28] MEDS: METOPROLOL TARTRATE 25 MG TAB PO SCH ×2 (08:11→20:19)
[2021-08-28] MEDS: AMIODARONE 200 MG TAB PO SCH ×2 (08:11→20:19)
[2021-08-28] MEDS: NOREPINEPHRINE 4 MG in SODIUM CHLORIDE 0.9% 250 ML IV SCH (08:11)
[2021-08-28] MEDS: CHLORHEXIDINE GLUCONATE 15 ML CUP MUCOUS MEM SCH ×2 (08:11→20:19)
[2021-08-28] MEDS: FAMOTIDINE 20 MG/2 ML VIAL IV SCH (08:11)
--- NOTE | 2021-08-28 10:09 | XR ---
EXAMINATION TYPE: XR chest 1V portable DATE OF EXAM: 08/28/2021 CLINICAL HISTORY: Difficulty breathing and pneumonia progress study. TECHNIQUE: Single AP portable semiupright view of the chest is obtained. COMPARISON: Chest x-ray from one day earlier and older studies. FINDINGS: Stable endotracheal and orogastric tubes. Slight retraction of the right-sided PICC line. Bilateral multifocal increased opacities greatest in the lower lungs redemonstrated. Cardiac silhouet te size stable and upper limits of normal with atherosclerotic aortic knob. Osseous structures are in tact. IMPRESSION: Bilateral multifocal increased opacities greatest in the lower lungs consistent with covi d-19 infection, no significant change from one day earlier.
[2021-08-28 11:57] LABS: Glucose,Whole Blood 132 mg/dL (75-99)
[2021-08-28] MEDS: MULTIVITAMINS, THERA 1 EACH TAB PO SCH (12:10)
[2021-08-28] MEDS: FOLIC ACID 1 MG TAB PO SCH (12:10)
--- NOTE | 2021-08-28 13:20 | P.PN ---
Subjective Progress Note Date: 08/28/21 Principal diagnosis: Respiratory failure. 08/26/2021, I'm seeing the patient for a follow-up. As noted, the patient failed weaning trial yesterday as the patient became again hypoxic while being given as pertains breathing trial. As such, he was kept on a mechanical ventilator throughout the day and he was restarted back on sedation and currently is on propofol which is running at 50 mg/kg per minute. He is also on fentanyl at 2 mcg/kg/h. He seems to be quite comfortable at this point in time. I noted that the patient is generating a higher tidal volumes that he is quite asynchronous with mechanical ventilator. He was on a volume cycle mode of mechanical ventilation with a tidal volume of 400, the FiO2 is up to 100% with a PEEP of 6 and the rate of 24. Morning blood gases showed a pH of 7.44 with a pCO2 of 49 and pO2 of 47. The chest x-ray shows stable findings on the right, there is some worsening in the consolidation of the left lung base. The patient is still having significant amount of rest or secretions. Cultures from the sputum was sent and is pending for now. He does have Enterococcus faecalis in his urine. The patient remains on IV antibiotics and currently he is on IV Zosyn. Hemodynamically stable. Is on no pressors. He was taken off the amiodarone drip and currently is on amiodarone orally. He does have underlying centimeters bradycardia for now with a heart rate in the mid 50s. He remains to coagulation with Eliquis 5 mg by mouth twice a day. He remains on Decadron 6 mg by mouth on a daily basis. He remains on enteral feeding for nutritional support and the patient is receiving Glucerna at the rate of 55 mL an hour. No significant swelling in lower extremities. Fluid balance over the past 24 hours has been +792 mL. He is afebrile. He is hemodynamically stable at this point in time. The patient is seen today 08/27/2021 in follow-up on the intensive care unit. He remains intubated and on the mechanical ventilator. Currently on pressure control mode at 16 with a TI of 1.15, respiratory rate, respiratory rate at 24, FiO2 80% and a PEEP of 6. Morning blood gases revealed a P O2 of 52, pCO2 46, pH 7.46. He is currently sedated on propofol at 40 mcg/kg/m. Fentanyl at 1 g her kilogram per hour. He is anticoagulated with Eliquis. He has more synchronous with the vent and the pressure control mode. He does become quite restless, tachypneic, hypertensive with daily interruption of sedation. We will try again today. He remains on antibiotics in the form of Unasyn for Enterococcus faecalis in his urine culture. Sputum cultures revealing no growth thus far. Chest x-ray continues to show bilateral patchy infiltrates with some increased density in the left lower lung. White count 8.3. Hemoglobin 10.3. Lymphocytes 0.3. Sodium 144. Potassium 4.8. Creatinine 0.77. Glucose 117. He is being nourished with Glucerna at 55 ML's per hour which is goal. No significant issues with bradycardia this morning. No lower extremity edema. He remains in a positive balance of 1.3 L. He is continued on amiodarone. Not requiring any pressors at this point. Progress note dated 08/28/2021. This is a 75-year-old male, admitted on August 19. He came to the intensive care unit on the , with coronavirus associated pneumonia and hypoxemia. He was intubated and mechanically ventilated on August 22. The patient remains on the ventilator. He is on the pressure assist control modality, inspiratory pressure of 16 cm water. Inspiratory time is 0.9 seconds, 90% FiO2, PEEP of 8, and rate of 24. Blood gases showed pO2 55, pCO2 42, and pH 7.48. The patient remains on propofol at 50 mcg/kg/m, and fentanyl 1.5 mcg/kg/h. The patient is on Zosyn for Enterococcus faecalis urinary tract infection. The patient's getting saline at 20 mL an hour. Tube feedings are currently on hold. White count is 8, hemoglobin 10.6, hematocrit 32.6, and platelet count is 286,000. Sodium 145, potassium 4.7, chlorides 110, CO2 29, anion gap 6, BUN 34, and creatinine 0.79. C-reactive protein is 36.2. Pro-calcitonin level was 1.36. Chest x-ray shows diffuse bilateral multifocal infiltrates, consistent with coronavirus pneumonia. The chest x-ray is essentially unchanged. Objective - Vital Signs Vital signs: Vital Signs Temp 97.2 F L 08/28/21 08:00 Pulse 51 L 08/28/21 11:00 Resp 21 08/28/21 11:00 BP 104/57 08/28/21 07:00 Pulse Ox 94 L 08/28/21 11:00 Intake & Output 08/27/21 08/28/21 08/28/21 18:59 06:59 18:59 Intake Total 1480.800 967.814 503.168 Output Total 740 850 225 Balance 740.800 117.814 278.168 Weight 76.8 kg Intake: IV 253 230 115 Sodium Chloride 0.9% 1, 220 200 100 000 ml @ 20 mls/hr IV . Q24H MARK Rx#:[id number] pressure bag 33 30 15 Intake, IV Titration 344.800 379.814 287.168 Amount Piperacillin-Tazobactam 3 100 .375 gm In Sodium Chloride 0.9% 100 ml @ 25 mls/hr IVPB Q8HR MARK Rx# :[id number] fentaNYL (PF). 1,000 mcg 88.534 179.814 100 In Sodium Chloride 0.9% 80 ml @ 0.5 MCG/KG/HR 4. 445 mls/hr IV .[id number] MARK Rx#:[id number] propofoL 1,000 mg In 256.266 200 87.168 Empty Bag 1 bag @ Titrate IV .Q0M MARK Rx#: [id number] Tube Feeding 533 328 41 Other 350 30 60 Output: Urine 740 550 225 Stool 300 Other: Voiding Method Indwelling Catheter Indwelling Catheter Indwelling Catheter # Bowel Movements 1 1 ABP, PAP, CO, CI - Last Documented Arterial Blood Pressure 105/43 - Exam No acute distress, sedated, with an orally placed endotracheal tube and NG tube. HEENT examination is grossly unremarkable. Neck supple. Full range of motion. No adenopathy thyromegaly or neck vein distention. Cardiovascular examination reveals regular rhythm rate. S1-S2 normal. No S3 or S4. No discernible murmur noted. Heart sounds are distant. Heart rate is 51 bpm. Lungs reveal bilateral rhonchi. No wheezes or crackles. Breath sounds are equal bilaterally. Saturations are 94%. Abdomen soft, with bowel sounds. Extremities are intact. No cyanosis clubbing or edema. Skin is without rash or lesion. Neurologic examination cannot be adequately assessed as the patient's currently sedated. - Labs CBC & Chem 7: 08/28/21 03:50 08/28/21 03:50 Labs: Abnormal Lab Results - Last 24 Hours (Table) 08/27/21 08/27/21 08/27/21 Range/Units 17:54 19:45 23:57 RBC (4.30-5.90) m/uL Hgb (13.0-17.5) gm/dL Hct (39.0-53.0) % Lymphocytes # (Manual) (1.0-4.8) k/uL Metamyelocytes # (Man) (0) k/uL ABG pH (7.35-7.45) ABG pO2 (83-108) mmHg ABG HCO3 (21-25) mmol/L ABG Total CO2 (19-24) mmol/L ABG O2 Saturation (94-97) % Chloride (98-107) mmol/L BUN (9-20) mg/dL Glucose (74-99) mg/dL POC Glucose (mg/dL) 150 H 142 H 106 H (75-99) mg/dL Calcium (8.4-10.2) mg/dL AST (17-59) U/L C-Reactive Protein (<1.0) mg/dL Total Protein (6.3-8.2) g/dL Albumin (3.5-5.0) g/dL Procalcitonin (0.02-0.09) ng/mL 08/28/21 08/28/21 08/28/21 Range/Units 03:50 03:50 03:50 RBC 3.40 L (4.30-5.90) m/uL Hgb 10.6 L (13.0-17.5) gm/dL Hct 32.6 L (39.0-53.0) % Lymphocytes # (Manual) 0.16 L (1.0-4.8) k/uL Metamyelocytes # (Man) 0.08 H (0) k/uL ABG pH (7.35-7.45) ABG pO2 (83-108) mmHg ABG HCO3 (21-25) mmol/L ABG Total CO2 (19-24) mmol/L ABG O2 Saturation (94-97) % Chloride 110 H (98-107) mmol/L BUN 34 H (9-20) mg/dL Glucose 105 H (74-99) mg/dL POC Glucose (mg/dL) (75-99) mg/dL Calcium 8.3 L (8.4-10.2) mg/dL AST 60 H (17-59) U/L C-Reactive Protein 36.2 H (<1.0) mg/dL Total Protein 5.8 L (6.3-8.2) g/dL Albumin 2.5 L (3.5-5.0) g/dL Procalcitonin 1.36 H (0.02-0.09) ng/mL 08/28/21 08/28/21 Range/Units 06:10 11:56 RBC (4.30-5.90) m/uL Hgb (13.0-17.5) gm/dL Hct (39.0-53.0) % Lymphocytes # (Manual) (1.0-4.8) k/uL Metamyelocytes # (Man) (0) k/uL ABG pH 7.48 H (7.35-7.45) ABG pO2 55 L* (83-108) mmHg ABG HCO3 31 H (21-25) mmol/L ABG Total CO2 32 H (19-24) mmol/L ABG O2 Saturation 88.7 L (94-97) % Chloride (98-107) mmol/L BUN (9-20) mg/dL Glucose (74-99) mg/dL POC Glucose (mg/dL) 132 H (75-99) mg/dL Calcium (8.4-10.2) mg/dL AST (17-59) U/L C-Reactive Protein (<1.0) mg/dL Total Protein (6.3-8.2) g/dL Albumin (3.5-5.0) g/dL Procalcitonin (0.02-0.09) ng/mL Microbiology - Last 24 Hours (Table) 08/22/21 15:13 Blood Culture - Preliminary Blood No Growth after 120 hours Assessment and Plan Assessment: Acute hypoxemic respiratory failure secondary to coronavirus associated pneum onia, status post intubation and mechanical ventilation on August 22. Atrial fibrillation with RVR. Systolic congestive heart failure. History of hypertension. History of abdominal aortic aneurysm. Hypovolemic hyponatremia, resolved. Lymphopenia, secondary to coronavirus infection. Enterococcus faecalis urinary tract infection, currently on Zosyn. Plan: Plan dated 08/28/2021. The patient's labs, x-rays, medications are all reviewed. No changes to the patient's mechanical ventilator. The patient remains on Zosyn for that urinary tract infection. The patient is currently sedated with both propofol and fentanyl. Additional recommendations and suggestions are forthcoming. Prognosis is guarded. The patient remains on Eliquis, and Decadron. The patient remains on vitamins. Additional recommendations and suggestions are forthcoming. We will continue to follow make recommendations where appropriate. No need for bronchoscopy today. Time with Patient: Greater than 30
--- NOTE | 2021-08-28 15:21 | PN ---
PROGRESS NOTE DATE OF SERVICE: 08/28/2021. This 75-year-old gentleman who was admitted acute COVID-19 infection with acute bilateral interstitial pneumonia with acute hypoxic respiratory failure was on prolonged mechanical ventilation. Patient had atrial fibrillation which has converted to normal sinus rhythm at this time. The patient is on PEEP of 8 and 90% FiO2. The patient is running some fevers. Cultures were obtained. The patient is on broad- spectrum IV antibiotics. Chest x-ray done today which was reviewed personally by me showed bilateral persistent interstitial infiltrates, not particularly any worse than previously. The cultures are showing Enterococcus faecalis --the urine culture done on 08/22/2021. Past medical history reviewed. Review of systems could not be taken. CURRENT MEDICATIONS: Reviewed. They include Tylenol, Maalox, Cordarone, Eliquis, vitamin C, Peridex. Doses and other medications noted. PHYSICAL EXAMINATION: Patient is mechanically ventilated and sedated. Pulse 51, blood pressure 99/42, respiration 26, temperature 97.3, pulse ox 93% on mechanical ventilation. Vent settings are noted; 90% FiO2. HEENT: Conjunctivae normal. NECK: No jugular venous distention. CARDIOVASCULAR: S1, S2 muffled. RESPIRATION: Breath sounds diminished at the bases. A few scattered rhonchi. ABDOMEN: Soft, obese, non-tender. LEGS: No edema. No swelling. NERVOUS SYSTEM: Sedated. LABS: WBC 8, hemoglobin 10.6. ABGs noted. Sodium 140, potassium 4.7. Procalcitonin noted. ASSESSMENT: 1. Acute COVID-19 infection with acute bilateral interstitial pneumonia with acute hypoxic respiratory failure, on prolonged mechanical ventilation, failure to wean multiple times. 2. Status post BiPAP. 3. Possible superadded bacterial pneumonia infection. 4. Elevated procalcitonin. 5. Atrial fibrillation with rapid ventricular rate, paroxysmal, currently on amiodarone and metoprolol. 6. Change in mental status, acute metabolic encephalopathy. 7. Bicytopenia, possibly secondary to COVID-19, with neutropenia and anemia. 8. Lymphopenia. 9. Elevated D-dimer. 10.Hyponatremia. 11.Elevated creatinine and acute renal failure with acute tubular necrosis, present on admission. 12.Hypomagnesemia. 13.Hypokalemia. 14.Troponin 0.052, present on admission; undetermined etiology; possibly related to COVID-19. Rule out coronary artery disease. 15.History of hypertension. 16.History of abdominal aortic aneurysm. 17.History of ETOH. 18.Deep vein thrombosis prophylaxis, on Eliquis. 19.FULL CODE. RECOMMENDATIONS AND DISCUSSION: I recommend to continue current medications, continue with the monitoring, symptomatic treatment. Otherwise, supplement vitamins. Continue the rest of the medications. Further weaning attempts per Dr. Villegas. Continue with apixaban and amiodarone. Closely follow with Cardiology. Guarded prognosis. Further recommendations to follow. The patient is on beta blockers as well. See orders for details. Patient is on IV steroids also. MMODL / IJN: [id number] /
[2021-08-28 17:34] LABS: Glucose,Whole Blood 157 mg/dL (75-99)
[2021-08-28] MEDS: SODIUM CHLORIDE 0.9% 1,000 ML IV SCH (18:16)
--- NOTE | 2021-08-28 19:54 | PN ---
PROGRESS NOTE This is a 75-year-old patient admitted to the hospital with COVID infection and atrial fib, RVR. This morning he is in sinus rhythm. Echo revealed ejection fraction of 40% to 45%. Rhythm is sinus. He seems to be hemodynamically stable. From a cardiac standpoint, I have no new specific suggestions. He is off all pressors also. He has been started back on a small dose of metoprolol 25 mg b.i.d. and seems to be doing fairly well. Blood pressure is 140/70, pulse rate is 80, regular. From a cardiac standpoint, I would recommend that we continue all his current medications, including apixaban 5 mg b.i.d., amiodarone 400 mg b.i.d., but to change the amiodarone to 200 mg b.i.d. after 5 days. Will also continue metoprolol tartrate 25 mg b.i.d. Patient is also on antibiotics. We will continue to see him as needed but would recommend that his amiodarone be reduced after 5 days. Liver functions are unremarkable. MMODL / IJN: [id number] /
--- NOTE | 2021-08-28 21:54 | PN ---
PROGRESS NOTE DATE OF SERVICE: 08/28/2021. REASON FOR FOLLOWUP: 1. Covid 19 pneumonia. 2. UTI. 3. Diarrhea. INTERVAL HISTORY: Patient overall fever pattern has improved. The last fever around midnight of 101.2. No fever since then. The patient is hemodynamically stable. FiO2 is currently 100%. No significant purulent secretions in the ET. However, the patient had worsening pain and diarrhea requiring fecal management system placement. PHYSICAL EXAMINATION: Blood pressure 111/47, pulse of 69, temperature of 98. He is 92% on 100% FiO2. General description is an elderly male intubated on the vent. Respiratory system: Unlabored breathing, decreased intensity of breath sounds. No wheeze. Heart S1, S2. Regular rate and rhythm. Abdomen soft, no distention. No guarding. No rigidity. LABS: Hemoglobin is 10.8, white count 8.0, creatinine 0.79. DIAGNOSTIC IMPRESSION AND PLAN: 1. Patient with acute respiratory failure secondary to Covid 19 pneumonia, less likely secondary bacterial component in this patient who did have a new fever that responded to the Zosyn with recurrence of fever after he was switched to Unasyn and hence put him back on the Zosyn for now. Sputum cultures have been requested those will be followed. 2. Diarrhea. We will check a stool for C diff, it if is positive, we will add Questran for symptomatic relief. MMODL / IJN: [id number] /
[2021-08-28 23:35] LABS: Glucose,Whole Blood 144 mg/dL (75-99)
[2021-08-29] MEDS: INSULIN ASPART (NovoLOG) 100 UNIT/ML VIAL SQ SCH ×4 (00:10→18:37)
[2021-08-29] MEDS: PIPERACILLIN-TAZOBACTAM 3.375 GM in SODIUM CHLORIDE 0.9% 100 ML IVPB SCH ×3 (00:11→16:33)
[2021-08-29] MEDS: ACETAMINOPHEN TAB 325 MG TAB PO PRN (00:13)
[2021-08-29] MEDS: fentaNYL (PF). 1,000 MCG in SODIUM CHLORIDE 0.9% 80 ML IV SCH ×3 (03:53→17:47)
[2021-08-29 05:27] LABS: ABG Base Excess 5.2 mmol/L; ABG HCO3 30 mmol/L (21-25); ABG Oxygen Saturation 96.2 % (94-97); ABG PCO2 50 mmHg (35-45); ABG PH 7.39 (7.35-7.45); ABG PO2 87 mmHg (83-108); ABG TCO2 32 mmol/L (19-24); Allen Test Performed? Yes
[2021-08-29 06:21] LABS: Glucose,Whole Blood 148 mg/dL (75-99)
[2021-08-29 06:23] LABS: Basophils % (A) 0 %; Eosinophils % (A) 0 %; HCT 31.4 % (39.0-53.0); HGB 10.2 gm/dL (13.0-17.5); Hypochromasia Slight; Lymphocytes # (A) 0.2 k/uL (1.0-4.8); Lymphocytes % (A) 3 %; MCH 31.7 pg (25.0-35.0); MCHC 32.3 g/dL (31.0-37.0); MCV 98.1 fL (80.0-100.0); Mean Platelet Volume 9.5; Monocytes # (A) 0.2 k/uL (0-1.0); Monocytes % (A) 2 %; Neutrophils # (A) 6.6 k/uL (1.3-7.7); Neutrophils % (A) 95 %; Platelet Count 268 k/uL (150-450); RBC 3.21 m/uL (4.30-5.90); RDW 13.4 % (11.5-15.5)
[2021-08-29 06:28] LABS: Albumin 2.4 g/dL (3.5-5.0); Calcium 8.2 mg/dL (8.4-10.2); Potassium 5.1 mmol/L (3.5-5.1); Total Bilirubin 0.3 mg/dL (0.2-1.3); Total Protein 5.8 g/dL (6.3-8.2)
[2021-08-29] MEDS: APIXABAN 5 MG TAB PO SCH ×2 (08:50→19:59)
[2021-08-29] MEDS: THIAMINE 100 MG TAB PO SCH (08:50)
[2021-08-29] MEDS: CHOLECALCIFEROL 25 MCG (1000 IU) TABLET PO SCH (08:50)
[2021-08-29] MEDS: dexAMETHasone 2 MG TAB PO SCH (08:50)
[2021-08-29] MEDS: AMIODARONE 200 MG TAB PO SCH ×2 (08:50→19:58)
[2021-08-29] MEDS: ASCORBIC ACID 500 MG TAB PO SCH (08:51)
[2021-08-29] MEDS: CHLORHEXIDINE GLUCONATE 15 ML CUP MUCOUS MEM SCH ×2 (08:51→19:59)
[2021-08-29] MEDS ORDERED: DEXTROSE 5% IN WATER 1,000 ML IV ONE (08:52)
[2021-08-29] MEDS: METOPROLOL TARTRATE 25 MG TAB PO SCH ×3 (08:54→19:59)
[2021-08-29] MEDS: PANTOPRAZOLE 40 MG/10 ML VIAL IVP SCH (09:09)
[2021-08-29] MEDS: ZINC SULFATE 220 MG CAP PO SCH (09:09)
--- NOTE | 2021-08-29 10:22 | US ---
EXAMINATION TYPE: US liver DATE OF EXAM: 08/29/2021 COMPARISON: NONE CLINICAL HISTORY: elevated lft. COVID patient, intubated and tube-fed. EXAM MEASUREMENTS: Liver Length: 16.6 cm. Normal less than 15.5 cm Gallbladder Wall: 0.16 cm CBD: 0.42 cm Right Kidney: 12.6 x 5.2 x 5.9 cm Pancreas: appears echogenic; limited visualization Liver: Increased echogenicity Gallbladder: Anechoic; appears wnl Evidence for sonographic Jimenez's sign: No CBD: wnl Right Kidney: No hydronephrosis or masses seen Difficult exam due to patient being intubated IMPRESSION: 1. Minimal hepatomegaly.
[2021-08-29] MEDS: CHOLESTYRAMINE (WITH SUGAR) 4 GM PACKET PO SCH ×2 (10:45→17:49)
--- NOTE | 2021-08-29 11:08 | P.PN ---
Subjective Progress Note Date: 08/29/21 Principal diagnosis: Respiratory failure. 08/26/2021, I'm seeing the patient for a follow-up. As noted, the patient failed weaning trial yesterday as the patient became again hypoxic while being given as pertains breathing trial. As such, he was kept on a mechanical ventilator throughout the day and he was restarted back on sedation and currently is on propofol which is running at 50 mg/kg per minute. He is also on fentanyl at 2 mcg/kg/h. He seems to be quite comfortable at this point in time. I noted that the patient is generating a higher tidal volumes that he is quite asynchronous with mechanical ventilator. He was on a volume cycle mode of mechanical ventilation with a tidal volume of 400, the FiO2 is up to 100% with a PEEP of 6 and the rate of 24. Morning blood gases showed a pH of 7.44 with a pCO2 of 49 and pO2 of 47. The chest x-ray shows stable findings on the right, there is some worsening in the consolidation of the left lung base. The patient is still having significant amount of rest or secretions. Cultures from the sputum was sent and is pending for now. He does have Enterococcus faecalis in his urine. The patient remains on IV antibiotics and currently he is on IV Zosyn. Hemodynamically stable. Is on no pressors. He was taken off the amiodarone drip and currently is on amiodarone orally. He does have underlying centimeters bradycardia for now with a heart rate in the mid 50s. He remains to coagulation with Eliquis 5 mg by mouth twice a day. He remains on Decadron 6 mg by mouth on a daily basis. He remains on enteral feeding for nutritional support and the patient is receiving Glucerna at the rate of 55 mL an hour. No significant swelling in lower extremities. Fluid balance over the past 24 hours has been +792 mL. He is afebrile. He is hemodynamically stable at this point in time. The patient is seen today 08/27/2021 in follow-up on the intensive care unit. He remains intubated and on the mechanical ventilator. Currently on pressure control mode at 16 with a TI of 1.15, respiratory rate, respiratory rate at 24, FiO2 80% and a PEEP of 6. Morning blood gases revealed a P O2 of 52, pCO2 46, pH 7.46. He is currently sedated on propofol at 40 mcg/kg/m. Fentanyl at 1 g her kilogram per hour. He is anticoagulated with Eliquis. He has more synchronous with the vent and the pressure control mode. He does become quite restless, tachypneic, hypertensive with daily interruption of sedation. We will try again today. He remains on antibiotics in the form of Unasyn for Enterococcus faecalis in his urine culture. Sputum cultures revealing no growth thus far. Chest x-ray continues to show bilateral patchy infiltrates with some increased density in the left lower lung. White count 8.3. Hemoglobin 10.3. Lymphocytes 0.3. Sodium 144. Potassium 4.8. Creatinine 0.77. Glucose 117. He is being nourished with Glucerna at 55 ML's per hour which is goal. No significant issues with bradycardia this morning. No lower extremity edema. He remains in a positive balance of 1.3 L. He is continued on amiodarone. Not requiring any pressors at this point. Progress note dated 08/28/2021. This is a 75-year-old male, admitted on August 19. He came to the intensive care unit on the , with coronavirus associated pneumonia and hypoxemia. He was intubated and mechanically ventilated on August 22. The patient remains on the ventilator. He is on the pressure assist control modality, inspiratory pressure of 16 cm water. Inspiratory time is 0.9 seconds, 90% FiO2, PEEP of 8, and rate of 24. Blood gases showed pO2 55, pCO2 42, and pH 7.48. The patient remains on propofol at 50 mcg/kg/m, and fentanyl 1.5 mcg/kg/h. The patient is on Zosyn for Enterococcus faecalis urinary tract infection. The patient's getting saline at 20 mL an hour. Tube feedings are currently on hold. White count is 8, hemoglobin 10.6, hematocrit 32.6, and platelet count is 286,000. Sodium 145, potassium 4.7, chlorides 110, CO2 29, anion gap 6, BUN 34, and creatinine 0.79. C-reactive protein is 36.2. Pro-calcitonin level was 1.36. Chest x-ray shows diffuse bilateral multifocal infiltrates, consistent with coronavirus pneumonia. The chest x-ray is essentially unchanged. Progress note dated 08/29/2021. This is a 75-year-old male, seen again in room 253. He was admitted on 08/19/2021, and came to the intensive care unit 3 days later on August 22. He was admitted with a diagnosis of coronavirus associated pneumonia, and hypoxemic respiratory failure. Unfortunately, he was intubated on August 22. Remains on mechanical ventilator. He is on the pressure assist control modality, with an inspiratory pressure 16 cm of water, and inspiratory time of 0.9 seconds. His respiratory rate is 24, FiO2 is 90%, and PEEP of 12. Arterial blood gases on 100% show pO2 of 87, pCO2 of 50, pH is 7.39. The patient's on fentanyl 1.5 mcg/kg/h, propofol 50 mcg/kg/m, saline at 20 mL an hour, including Diaz at 41 mL an hour. That is goal. White count 7, hemoglobin 10.2, hematocrit 31.4, and platelet count 268,000. Sodium 148, potassium 4.1, chlorides 114, CO2 32, anion gap 2, BUN 41, and creatinine 1.0. AST is 811. ALT is 536. Microbiology showing evidence of Enterococcus faecalis in the urine. Ultrasound of the liver shows minimal hepatomegaly. The chest x-ray shows diffuse bilateral infiltrates, and is largely unchanged. Objective - Vital Signs Vital signs: Vital Signs Temp 98.2 F 08/29/21 04:00 Pulse 60 08/29/21 07:00 Resp 24 08/29/21 07:00 BP 104/57 08/28/21 22:00 Pulse Ox 99 08/29/21 07:00 Intake & Output 08/28/21 08/29/21 08/29/21 18:59 06:59 18:59 Intake Total 1425.740 923.885 171.385 Output Total 550 630 Balance 875.740 293.885 171.385 Weight 80.5 kg Intake: IV 276 299 Sodium Chloride 0.9% 1, 240 260 000 ml @ 20 mls/hr IV . Q24H MARK Rx#:[id number] pressure bag 36 39 Intake, IV Titration 620.740 337.885 171.385 Amount Piperacillin-Tazobactam 3 200 .375 gm In Sodium Chloride 0.9% 100 ml @ 25 mls/hr IVPB Q8HR MARK Rx# :[id number] fentaNYL (PF). 1,000 mcg 149.860 149.565 91.129 In Sodium Chloride 0.9% 80 ml @ 0.5 MCG/KG/HR 4. 445 mls/hr IV .[id number] MARK Rx#:[id number] propofoL 1,000 mg In 270.880 188.32 80.256 Empty Bag 1 bag @ Titrate IV .Q0M MARK Rx#: [id number] Tube Feeding 369 287 Other 160 Output: Urine 550 630 Other: Voiding Method Indwelling Catheter Indwelling Catheter # Bowel Movements 1 ABP, PAP, CO, CI - Last Documented Arterial Blood Pressure 121/49 - Exam No acute distress, sedated, with an orally placed endotracheal tube and NG tube. HEENT examination is grossly unremarkable. Neck supple. Full range of motion. No adenopathy thyromegaly or neck vein distention. Cardiovascular examination reveals regular rhythm rate. S1-S2 normal. No S3 or S4. No discernible murmur noted. Heart sounds are distant. Heart rate is 60 bpm. Lungs reveal bilateral rhonchi. No wheezes or crackles. Breath sounds are equal bilaterally. Saturations are 99%. Abdomen soft, with bowel sounds. Extremities are intact. No cyanosis clubbing or edema. Skin is without rash or lesion. Neurologic examination cannot be adequately assessed as the patient's currently sedated. - Labs CBC & Chem 7: 08/29/21 04:45 08/29/21 04:45 Labs: Abnormal Lab Results - Last 24 Hours (Table) 08/28/21 08/28/21 08/28/21 Range/Units 11:56 17:33 23:33 RBC (4.30-5.90) m/uL Hgb (13.0-17.5) gm/dL Hct (39.0-53.0) % Lymphocytes # (1.0-4.8) k/uL ABG pCO2 (35-45) mmHg ABG HCO3 (21-25) mmol/L ABG Total CO2 (19-24) mmol/L Sodium (137-145) mmol/L Chloride (98-107) mmol/L Carbon Dioxide (22-30) mmol/L BUN (9-20) mg/dL Glucose (74-99) mg/dL POC Glucose (mg/dL) 132 H 157 H 144 H (75-99) mg/dL Calcium (8.4-10.2) mg/dL AST (17-59) U/L ALT (4-49) U/L Total Protein (6.3-8.2) g/dL Albumin (3.5-5.0) g/dL 08/29/21 08/29/21 08/29/21 Range/Units 04:45 04:45 05:25 RBC 3.21 L (4.30-5.90) m/uL Hgb 10.2 L (13.0-17.5) gm/dL Hct 31.4 L (39.0-53.0) % Lymphocytes # 0.2 L (1.0-4.8) k/uL ABG pCO2 50 H (35-45) mmHg ABG HCO3 30 H (21-25) mmol/L ABG Total CO2 32 H (19-24) mmol/L Sodium 148 H (137-145) mmol/L Chloride 114 H (98-107) mmol/L Carbon Dioxide 32 H (22-30) mmol/L BUN 41 H (9-20) mg/dL Glucose 135 H (74-99) mg/dL POC Glucose (mg/dL) (75-99) mg/dL Calcium 8.2 L (8.4-10.2) mg/dL AST 811 H (17-59) U/L ALT 536 H (4-49) U/L Total Protein 5.8 L (6.3-8.2) g/dL Albumin 2.4 L (3.5-5.0) g/dL 08/29/21 Range/Units 06:19 RBC (4.30-5.90) m/uL Hgb (13.0-17.5) gm/dL Hct (39.0-53.0) % Lymphocytes # (1.0-4.8) k/uL ABG pCO2 (35-45) mmHg ABG HCO3 (21-25) mmol/L ABG Total CO2 (19-24) mmol/L Sodium (137-145) mmol/L Chloride (98-107) mmol/L Carbon Dioxide (22-30) mmol/L BUN (9-20) mg/dL Glucose (74-99) mg/dL POC Glucose (mg/dL) 148 H (75-99) mg/dL Calcium (8.4-10.2) mg/dL AST (17-59) U/L ALT (4-49) U/L Total Protein (6.3-8.2) g/dL Albumin (3.5-5.0) g/dL Microbiology - Last 24 Hours (Table) 08/27/21 20:13 Gram Stain - Preliminary Sputum Sputum Culture - Preliminary 08/22/21 15:13 Blood Culture - Final Blood No Growth after 144 hours Assessment and Plan Assessment: Acute hypoxemic respiratory failure secondary to coronavirus associated pneumonia, status post intubation and mechanical ventilation on August 22. Atrial fibrillation with RVR. Transaminitis, secondary to coronavirus infection. Systolic congestive heart failure. History of hypertension. History of abdominal aortic aneurysm. Hypovolemic hyponatremia, resolved. Lymphopenia, secondary to coronavirus infection. Enterococcus faecalis urinary tract infection, currently on Zosyn. Plan: Plan dated 08/28/2021. The patient's labs, x-rays, medications are all reviewed. No changes to the patient's mechanical ventilator. The patient remains on Zosyn for that urinary tract infection. The patient is currently sedated with both propofol and fentanyl. Additional recommendations and suggestions are forthcoming. Prognosis is guarded. The patient remains on Eliquis, and Decadron. The patient remains on vitamins. Additional recommendations and suggestions are forthcoming. We will continue to follow make recommendations where appropriate. No need for bronchoscopy today. Plan dated 08/29/2021. The patient's ultrasound of the liver, showed mild hepatomegaly. We'll DC the saline IV, start the patient on D5W at 75 mL an hour. We'll also add Protonix for GI prophylaxis. The goal today is to wean the FiO2. Additional recommendations and suggestions are forthcoming. Prognosis remains guarded. T he patient remains on Eliquis and Decadron. The patient also remains on vitamin C, vitamin D3, and zinc. No need for bronchoscopy at this point. Prognosis is guarded. We will continue to follow the patient and make recommendations where appropriate. Time with Patient: Greater than 30
--- NOTE | 2021-08-29 11:23 | XR ---
EXAMINATION TYPE: XR chest 1V portable DATE OF EXAM: 08/29/2021 COMPARISON: 08/28/2021 INDICATION: Pneumonia TECHNIQUE: Single frontal view of the chest is obtained. FINDINGS: The heart size is normal. The pulmonary vasculature is normal. Mild diffuse increased lung markings are at the lung bases slightly greater on the left. Findings hav e some improvement over the interval. Endotracheal tube tip is above the ana lilia. Nasogastric tube transverses the thorax. Right-sided PICC line tip is in the superior vena cava region IMPRESSION: 1. Improving bibasilar infiltrates. Continued follow-up is recommended.
[2021-08-29] MEDS: MULTIVITAMINS, THERA 1 EACH TAB PO SCH (11:43)
[2021-08-29] MEDS: FOLIC ACID 1 MG TAB PO SCH (11:43)
[2021-08-29 11:55] LABS: Glucose,Whole Blood 142 mg/dL (75-99)
[2021-08-29] MEDS ORDERED: FOLIC ACID 1 MG TAB PO SCH (12:00)
--- NOTE | 2021-08-29 13:01 | PN ---
PROGRESS NOTE We are seeing this patient from an atrial fib standpoint. Fortunately, he is maintaining sinus bradycardia. He is on a combination of metoprolol and amiodarone. I am suggesting that we decrease the amiodarone to 200 mg b.i.d. from tomorrow and give him the metoprolol only if the heart rate is is more than 60 or blood pressure is more than 100. No other suggestions from a cardiac standpoint. Patient has multiple other comorbid issues and is on antibiotics. I will continue to see him as needed. I have not physically evaluated the patient today. MMODL / IJN: [id number] /
--- NOTE | 2021-08-29 16:06 | PN ---
PROGRESS NOTE DATE OF SERVICE: 08/29/2021 This 75 -year-old gentleman who was admitted to the hospital with Covid 19, bilateral pneumonia also had paroxysmal atrial fibrillation. Liver ultrasound was done today which showed minimal hepatomegaly. Otherwise, the most recent chest x-ray which was reviewed personally by me showed bilateral extensive infiltrates. Dr. Briones is following the patient closely. The patient continues to be on mechanical ventilation, intubated, sedated. Vent settings are noted. Enterococcus faecalis in the urine was noted. The patient is on Eliquis and Decadron. The patient is running some fever. Past medical history reviewed. REVIEW OF SYSTEMS: Could not be taken, the patient is on mechanical ventilation. CURRENT MEDICATIONS: Reviewed and include: Tylenol, Cordarone, Eliquis, vitamin C, Peridex. Doses and other medications reviewed. PHYSICAL EXAMINATION: Patient is on mechanical ventilation. Pulse 64. Blood pressure 90/40, respiration 24, temperature 100.2, pulse ox 92% on room air. HEENT: Conjunctivae normal. Neck: No JVD. Cardiovascular: S1, S2 muffled. Respiration: Breath sounds diminished in the bases. A few scattered rhonchi. Abdomen: Soft, nontender. Legs: No edema. No swelling. Nervous system: No focal deficits. LABS: WBC 7, hemoglobin 10.2, sodium 140, potassium 5.1. Glucose noted. AST/ALT noted. ASSESSMENT: 1. Acute Covid 19 infection with acute bilateral interstitial pneumonia with acute hypoxic respiratory failure on prolonged mechanical ventilation with failure to wean multiple times. 2. Fever, rule out sepsis. 3. Status post BiPAP. 4. Possible superadded bacterial pneumonia infection. 5. Elevated procalcitonin. 6. Atrial fibrillation with rapid ventricular, paroxysmal, currently on amiodarone and metoprolol. 7. Change in mental status, acute metabolic encephalopathy. 8. Bicytopenia, possibly secondary to Covid 19, neutropenia anemia. 9. Elevated AST/ALT, hepatitis possibly secondary to Covid 19. 10.Lymphopenia. 11.Elevated D-dimer. 12.Hyponatremia. 13.Elevated creatinine with acute renal failure with acute tubular necrosis, present on admission. 14.Hypomagnesemia. 15.Hypokalemia. 16.Troponin 0.058, possibly related to Covid 19, rule out underlying coronary artery disease. 17.History of hypertension. 18.History of abdominal aortic aneurysm. 19.History of ETOH. 20.Deep vein thrombosis prophylaxis, on Eliquis. 21.FULL CODE. RECOMMENDATIONS AND DISCUSSION: Recommend to continue current medications, management and symptomatic treatment. Mechanical ventilation. Follow closely. The most recent cultures are noted. The sputum culture done 2 days ago showed many gram-positive cocci and possibly normal nel. Closely monitor. Guarded prognosis because of multiple complex medical issues. Further recommendations to follow. Recommend repeat cultures and continued monitoring. MMODL / IJN: [id number] / MTDD
[2021-08-29 18:29] LABS: Glucose,Whole Blood 172 mg/dL (75-99)
--- NOTE | 2021-08-29 23:04 | PN ---
PROGRESS NOTE DATE OF SERVICE: 08/29/2021 REASON FOR FOLLOWUP: COVID-19 pneumonia and UTI. INTERVAL HISTORY: Patient has been running a low-grade fever of 100.2-100.3 degrees Fahrenheit. The patient is hemodynamically stable, not on pressor support. FiO2 is currently at 65%. Still having diarrhea with fecal management system on. PHYSICAL EXAMINATION: Blood pressure is 126/58 with a pulse of 69, temperature 98.2. He is 98% on 95% FiO2. General description is an elderly male lying in bed in no distress. Respiratory system: Unlabored breathing, decreased intensity of breath sounds. No wheeze. Heart S1, S2. Regular rate and rhythm. Abdomen soft. No tenderness. LABS: Hemoglobin is 10.1, white count 7.0. Creatinine is 1.0. Procalcitonin is 1.36. DIAGNOSTIC IMPRESSION AND PLAN: Patient with acute respiratory failure which is multifactorial in this patient with COVID-19 pneumonia and possible secondary bacterial in this patient with elevated procalcitonin. Patient is currently on Zosyn that should cover his UTI while waiting for the sputum culture to finalize. Prognosis remains to be guarded. MMODL / IJN: [id number] /
[2021-08-29 23:48] LABS: Glucose,Whole Blood 183 mg/dL (75-99)
[2021-08-30] MEDS: fentaNYL (PF). 1,000 MCG in SODIUM CHLORIDE 0.9% 80 ML IV SCH ×5 (00:53→22:51)
[2021-08-30 05:15] LABS: ABG Base Excess 3.5 mmol/L; ABG HCO3 29 mmol/L (21-25); ABG PCO2 49 mmHg (35-45); ABG PH 7.38 (7.35-7.45); ABG PO2 66 mmHg (83-108); ABG TCO2 30 mmol/L (19-24); Allen Test Performed? Yes
[2021-08-30 05:33] LABS: Basophils % (A) 0 %; Eosinophils % (A) 0 %; HCT 29.6 % (39.0-53.0); HGB 9.5 gm/dL (13.0-17.5); Hypochromasia Slight; Lymphocytes # (A) 0.3 k/uL (1.0-4.8); Lymphocytes % (A) 5 %; MCH 31.7 pg (25.0-35.0); MCV 99.1 fL (80.0-100.0); Monocytes # (A) 0.2 k/uL (0-1.0); Monocytes % (A) 3 %; Neutrophils % (A) 92 %; Platelet Count 231 k/uL (150-450); RBC 2.99 m/uL (4.30-5.90); RDW 13.9 % (11.5-15.5); WBC 6.6 k/uL (3.8-10.6)
[2021-08-30 05:37] LABS: ALT 417 U/L (4-49); AST 236 U/L (17-59); African American GFR (CKD) >90 (>60 ml/min/1.73 sqM); Albumin 2.4 g/dL (3.5-5.0); Alkaline Phosphatase 55 U/L (38-126); Anion Gap 4 mmol/L; Blood Urea Nitrogen 37 mg/dL (9-20); Calcium 7.9 mg/dL (8.4-10.2); Carbon Dioxide 29 mmol/L (22-30); Chloride 110 mmol/L (98-107); Glucose 145 mg/dL (74-99); Non-African American GFR(CKD) 80 (>60 ml/min/1.73 sqM); Potassium 4.6 mmol/L (3.5-5.1); Sodium 143 mmol/L (137-145); Total Bilirubin 0.4 mg/dL (0.2-1.3); Total Protein 5.6 g/dL (6.3-8.2)
[2021-08-30 07:41] LABS: Glucose,Whole Blood 176 mg/dL (75-99)
[2021-08-30] MEDS: INSULIN ASPART (NovoLOG) 100 UNIT/ML VIAL SQ SCH ×4 (07:55→17:55)
--- NOTE | 2021-08-30 08:56 | XR ---
EXAMINATION TYPE: XR chest 1V portable DATE OF EXAM: 08/30/2021 Comparison: 08/29/2021 Clinical History: 75-year-old male pneumonia Findings: ETT and NG tubes are satisfactory. Right PICC tip in upper right atrium. Heart upper limits of normal in size. Groundglass changes especially mid and lower lungs remain unchanged. No pneumothorax. No pl eural effusion. Impression: Similar groundglass changes in the mid and lower lungs.
[2021-08-30] MEDS: CHLORHEXIDINE GLUCONATE 15 ML CUP MUCOUS MEM SCH ×2 (09:34→20:09)
--- NOTE | 2021-08-30 09:35 | P.PN ---
Subjective Progress Note Date: 08/30/21 Principal diagnosis: Respiratory failure. 08/26/2021, I'm seeing the patient for a follow-up. As noted, the patient failed weaning trial yesterday as the patient became again hypoxic while being given as pertains breathing trial. As such, he was kept on a mechanical ventilator throughout the day and he was restarted back on sedation and currently is on propofol which is running at 50 mg/kg per minute. He is also on fentanyl at 2 mcg/kg/h. He seems to be quite comfortable at this point in time. I noted that the patient is generating a higher tidal volumes that he is quite asynchronous with mechanical ventilator. He was on a volume cycle mode of mechanical ventilation with a tidal volume of 400, the FiO2 is up to 100% with a PEEP of 6 and the rate of 24. Morning blood gases showed a pH of 7.44 with a pCO2 of 49 and pO2 of 47. The chest x-ray shows stable findings on the right, there is some worsening in the consolidation of the left lung base. The patient is still having significant amount of rest or secretions. Cultures from the sputum was sent and is pending for now. He does have Enterococcus faecalis in his urine. The patient remains on IV antibiotics and currently he is on IV Zosyn. Hemodynamically stable. Is on no pressors. He was taken off the amiodarone drip and currently is on amiodarone orally. He does have underlying centimeters bradycardia for now with a heart rate in the mid 50s. He remains to coagulation with Eliquis 5 mg by mouth twice a day. He remains on Decadron 6 mg by mouth on a daily basis. He remains on enteral feeding for nutritional support and the patient is receiving Glucerna at the rate of 55 mL an hour. No significant swelling in lower extremities. Fluid balance over the past 24 hours has been +792 mL. He is afebrile. He is hemodynamically stable at this point in time. The patient is seen today 08/27/2021 in follow-up on the intensive care unit. He remains intubated and on the mechanical ventilator. Currently on pressure control mode at 16 with a TI of 1.15, respiratory rate, respiratory rate at 24, FiO2 80% and a PEEP of 6. Morning blood gases revealed a P O2 of 52, pCO2 46, pH 7.46. He is currently sedated on propofol at 40 mcg/kg/m. Fentanyl at 1 g her kilogram per hour. He is anticoagulated with Eliquis. He has more synchronous with the vent and the pressure control mode. He does become quite restless, tachypneic, hypertensive with daily interruption of sedation. We will try again today. He remains on antibiotics in the form of Unasyn for Enterococcus faecalis in his urine culture. Sputum cultures revealing no growth thus far. Chest x-ray continues to show bilateral patchy infiltrates with some increased density in the left lower lung. White count 8.3. Hemoglobin 10.3. Lymphocytes 0.3. Sodium 144. Potassium 4.8. Creatinine 0.77. Glucose 117. He is being nourished with Glucerna at 55 ML's per hour which is goal. No significant issues with bradycardia this morning. No lower extremity edema. He remains in a positive balance of 1.3 L. He is continued on amiodarone. Not requiring any pressors at this point. Progress note dated 08/28/2021. This is a 75-year-old male, admitted on August 19. He came to the intensive care unit on the , with coronavirus associated pneumonia and hypoxemia. He was intubated and mechanically ventilated on August 22. The patient remains on the ventilator. He is on the pressure assist control modality, inspiratory pressure of 16 cm water. Inspiratory time is 0.9 seconds, 90% FiO2, PEEP of 8, and rate of 24. Blood gases showed pO2 55, pCO2 42, and pH 7.48. The patient remains on propofol at 50 mcg/kg/m, and fentanyl 1.5 mcg/kg/h. The patient is on Zosyn for Enterococcus faecalis urinary tract infection. The patient's getting saline at 20 mL an hour. Tube feedings are currently on hold. White count is 8, hemoglobin 10.6, hematocrit 32.6, and platelet count is 286,000. Sodium 145, potassium 4.7, chlorides 110, CO2 29, anion gap 6, BUN 34, and creatinine 0.79. C-reactive protein is 36.2. Pro-calcitonin level was 1.36. Chest x-ray shows diffuse bilateral multifocal infiltrates, consistent with coronavirus pneumonia. The chest x-ray is essentially unchanged. Progress note dated 08/29/2021. This is a 75-year-old male, seen again in room 253. He was admitted on 08/19/2021, and came to the intensive care unit 3 days later on August 22. He was admitted with a diagnosis of coronavirus associated pneumonia, and hypoxemic respiratory failure. Unfortunately, he was intubated on August 22. Remains on mechanical ventilator. He is on the pressure assist control modality, with an inspiratory pressure 16 cm of water, and inspiratory time of 0.9 seconds. His respiratory rate is 24, FiO2 is 90%, and PEEP of 12. Arterial blood gases on 100% show pO2 of 87, pCO2 of 50, pH is 7.39. The patient's on fentanyl 1.5 mcg/kg/h, propofol 50 mcg/kg/m, saline at 20 mL an hour, including Diaz at 41 mL an hour. That is goal. White count 7, hemoglobin 10.2, hematocrit 31.4, and platelet count 268,000. Sodium 148, potassium 4.1, chlorides 114, CO2 32, anion gap 2, BUN 41, and creatinine 1.0. AST is 811. ALT is 536. Microbiology showing evidence of Enterococcus faecalis in the urine. Ultrasound of the liver shows minimal hepatomegaly. The chest x-ray shows diffuse bilateral infiltrates, and is largely unchanged. Progress note dated 08/30/2021. 75-year-old male seen in room 253. He was admitted on , and came to the intensive care unit on August 22. He was admitted with a diagnosis of coronavirus associated pneumonia. He had chronic hypoxemic respiratory failure. He was intubated on August 22, and remains on the ventilator. He is on the pressure assist control mode, with an inspiratory pressure of 16, inspiratory time of 0.9 seconds, rate 24, FiO2 70%, PEEP of 12. Blood gases show pO2 of 66, pCO2 49, pH is 7.38. Patient is on propofol at 50 mcg/kg/m, fentanyl 1.5 mcg/kg/h, D5W at 75 mL an hour, and vital AF 1.2, at 55 mL an hour, which is his goal. White count 6.6, hemoglobin 9.5, hematocrit 29.6, and a normal platelet count. D-dimer is 34.06. PO2 66 pCO2 49, and pH 7.38. Sodium 143, potassium 4.6, chlorides 110, CO2 29, anion gap 4, BUN 37, and creatinine 0.92. AST is 236, ALT is 417. Chest x-ray shows diffuse bilateral opacities. The patient's urine from August 22 shows evidence of enterococcus faecalis. Objective - Vital Signs Vital signs: Vital Signs Temp 98.3 F 08/30/21 04:00 Pulse 91 08/30/21 07:00 Resp 24 08/30/21 07:00 BP 104/57 08/30/21 03:00 Pulse Ox 93 L 08/30/21 07:00 Intake & Output 08/29/21 08/30/21 08/30/21 18:59 06:59 18:59 Intake Total 2098.626 2016.030 282.175 Output Total 1055 1060 60 Balance 1043.626 956.030 222.175 Weight 80.5 kg 72 kg Intake: IV 53 36 3 Sodium Chloride 0.9% 1, 20 000 ml @ 20 mls/hr IV . Q24H [facility] Rx#:[id number] pressure bag 33 36 3 Intake, IV Titration 4731.436 0483.030 224.175 Amount Dextrose 5% in Water 1, 725 900 75 000 ml @ 75 mls/hr IV . [id number] [facility] Rx#:[id number] Piperacillin-Tazobactam 3 200 .375 gm In Sodium Chloride 0.9% 100 ml @ 25 mls/hr IVPB Q8HR [facility] Rx# :[id number] fentaNYL (PF). 1,000 mcg 185.370 94.686 87.351 In Sodium Chloride 0.9% 80 ml @ 0.5 MCG/KG/HR 4. 445 mls/hr IV .[id number] [facility] Rx#:[id number] propofoL 1,000 mg In 180.256 265.344 61.824 Empty Bag 1 bag @ Titrate IV .Q0M [facility] Rx#: [id number] Tube Feeding 535 660 55 Other 220 60 Output: Urine 1055 760 60 Stool 300 Other: Voiding Method Indwelling Catheter Indwelling Catheter ABP, PAP, CO, CI - Last Documented Arterial Blood Pressure 111/55 - Exam No acute distress, sedated, with an orally placed endotracheal tube and NG tube. HEENT examination is grossly unremarkable. Neck supple. Full range of motion. No adenopathy thyromegaly or neck vein distention. Cardiovascular examination reveals regular rhythm rate. S1-S2 normal. No S3 or S4. No discernible murmur noted. Heart sounds are distant. Heart rate is 91 bpm. Lungs reveal bilateral rhonchi. No wheezes or crackles. Breath sounds are equal bilaterally. Saturations are 93%. Abdomen soft, with bowel sounds. Extremities are intact. No cyanosis clubbing or edema. Skin is without rash or lesion. Neurologic examination cannot be adequately assessed as the patient's currently sedated. - Labs CBC & Chem 7: 08/30/21 04:15 08/30/21 04:15 Labs: Abnormal Lab Results - Last 24 Hours (Table) 08/29/21 08/29/21 08/29/21 Range/Units 11:54 18:26 23:46 RBC (4.30-5.90) m/uL Hgb (13.0-17.5) gm/dL Hct (39.0-53.0) % Lymphocytes # (1.0-4.8) k/uL D-Dimer (<0.60) mg/L FEU ABG pCO2 (35-45) mmHg ABG pO2 (83-108) mmHg ABG HCO3 (21-25) mmol/L ABG Total CO2 (19-24) mmol/L ABG O2 Saturation (94-97) % Chloride (98-107) mmol/L BUN (9-20) mg/dL Glucose (74-99) mg/dL POC Glucose (mg/dL) 142 H 172 H 183 H (75-99) mg/dL Calcium (8.4-10.2) mg/dL AST (17-59) U/L ALT (4-49) U/L Total Protein (6.3-8.2) g/dL Albumin (3.5-5.0) g/dL 08/30/21 08/30/21 08/30/21 Range/Units 04:15 04:15 04:15 RBC 2.99 L (4.30-5.90) m/uL Hgb 9.5 L (13.0-17.5) gm/dL Hct 29.6 L (39.0-53.0) % Lymphocytes # 0.3 L (1.0-4.8) k/uL D-Dimer 34.06 H (<0.60) mg/L FEU ABG pCO2 (35-45) mmHg ABG pO2 (83-108) mmHg ABG HCO3 (21-25) mmol/L ABG Total CO2 (19-24) mmol/L ABG O2 Saturation (94-97) % Chloride 110 H (98-107) mmol/L BUN 37 H (9-20) mg/dL Glucose 145 H (74-99) mg/dL POC Glucose (mg/dL) (75-99) mg/dL Calcium 7.9 L (8.4-10.2) mg/dL AST 236 H (17-59) U/L ALT 417 H (4-49) U/L Total Protein 5.6 L (6.3-8.2) g/dL Albumin 2.4 L (3.5-5.0) g/dL 08/30/21 08/30/21 Range/Units 05:11 07:40 RBC (4.30-5.90) m/uL Hgb (13.0-17.5) gm/dL Hct (39.0-53.0) % Lymphocytes # (1.0-4.8) k/uL D-Dimer (<0.60) mg/L FEU ABG pCO2 49 H (35-45) mmHg ABG pO2 66 L (83-108) mmHg ABG HCO3 29 H (21-25) mmol/L ABG Total CO2 30 H (19-24) mmol/L ABG O2 Saturation 92.0 L (94-97) % Chloride (98-107) mmol/L BUN (9-20) mg/dL Glucose (74-99) mg/dL POC Glucose (mg/dL) 176 H (75-99) mg/dL Calcium (8.4-10.2) mg/dL AST (17-59) U/L ALT (4-49) U/L Total Protein (6.3-8.2) g/dL Albumin (3.5-5.0) g/dL Microbiology - Last 24 Hours (Table) 08/29/21 16:40 Urine Culture - Preliminary Urine,Catheterized Assessment and Plan Assessment: Acute hypoxemic respiratory failure secondary to coronavirus associated pneumonia, status post intubation and mechanical ventilation on August 22. Atrial fibrillation with RVR. Transaminitis, secondary to coronavirus infection. Systolic congestive heart failure. History of hypertension. History of abdominal aortic aneurysm. Hypovolemic hyponatremia, resolved. Lymphopenia, secondary to coronavirus infection. Enterococcus faecalis urinary tract infection, currently on Zosyn. Plan: Plan dated 08/28/2021. The patient's labs, x-rays, medications are all reviewed. No changes to the patient's mechanical ventilator. The patient remains on Zosyn for that urinary tract infection. The patient is currently sedated with both propofol and fentanyl. Additional recommendations and suggestions are forthcoming. P rognosis is guarded. The patient remains on Eliquis, and Decadron. The patient remains on vitamins. Additional recommendations and suggestions are forthcoming. We will continue to follow make recommendations where appropriate. No need for bronchoscopy today. Plan dated 08/29/2021. The patient's ultrasound of the liver, showed mild hepatomegaly. We'll DC the saline IV, start the patient on D5W at 75 mL an hour. We'll also add Protonix for GI prophylaxis. The goal today is to wean the FiO2. Additional recommendations and suggestions are forthcoming. Prognosis remains guarded. The patient remains on Eliquis and Decadron. The patient also remains on vitamin C, vitamin D3, and zinc. No need for bronchoscopy at this point. Prognosis is guarded. We will continue to follow the patient and make recommendations where appropriate. Plan dated 08/30/2021. The patient currently remains on propofol and fentanyl. The patient is on the pressure assist control mode of ventilation. Blood gases are reasonable. Labs, x-rays, and medications are all reviewed. The patient d-dimer jumped up to 34.06. A previous CT angiogram was negative for pulmonary embolism. Additional recommendations and suggestions are forthcoming. The patient is a ready on Eliquis. The patient remains on Decadron, vitamin C, vitamin D3, and zinc. The rest of his medications are reviewed and seem appropriate. Prognosis is guarded. The patient was intubated on the . If he is not making progress towards extubation, he may benefit from tracheostomy and PEG tube placement by the end of the week. Continue to follow the patient and make recommendations where appropriate. Time with Patient: Greater than 30
[2021-08-30] MEDS: PANTOPRAZOLE 40 MG/10 ML VIAL IVP SCH (09:41)
[2021-08-30] MEDS: PIPERACILLIN-TAZOBACTAM 3.375 GM in SODIUM CHLORIDE 0.9% 100 ML IVPB SCH ×4 (09:41→15:51)
[2021-08-30] MEDS: METOPROLOL TARTRATE 25 MG TAB PO SCH ×2 (09:41→20:10)
[2021-08-30] MEDS: ZINC SULFATE 220 MG CAP PO SCH (09:42)
[2021-08-30] MEDS: ASCORBIC ACID 500 MG TAB PO SCH (09:42)
[2021-08-30] MEDS: THIAMINE 100 MG TAB PO SCH (09:42)
[2021-08-30] MEDS: CHOLESTYRAMINE (WITH SUGAR) 4 GM PACKET PO SCH ×2 (09:42→17:55)
[2021-08-30] MEDS: MULTIVITAMINS, THERA 1 EACH TAB PO SCH (09:42)
[2021-08-30] MEDS: APIXABAN 5 MG TAB PO SCH ×2 (09:42→20:10)
[2021-08-30] MEDS: CHOLECALCIFEROL 25 MCG (1000 IU) TABLET PO SCH (09:42)
[2021-08-30] MEDS: AMIODARONE 200 MG TAB PO SCH ×2 (09:43→20:09)
[2021-08-30] MEDS: dexAMETHasone 2 MG TAB PO SCH (09:43)
[2021-08-30 11:15] LABS: Glucose,Whole Blood 176 mg/dL (75-99)
[2021-08-30] MEDS: FOLIC ACID 1 MG TAB PO SCH (11:21)
--- NOTE | 2021-08-30 14:41 | PN ---
PROGRESS NOTE DATE OF SERVICE: 08/30/2021 DATE OF SERVICE: This 75-year-old gentleman who was admitted with acute COVID-19 infection, acute Covid 19 interstitial pneumonia, had significant hypoxia. The patient is still on mechanical ventilation. Patient has failed multiple episodes of weaning at times. The most recent chest x-ray which I reviewed personally showed bilateral interstitial infiltrate, left more than the right. The patient is currently on 12 of PEEP and 70 percent FiO2. The D-dimer has worsened and the previous CT angio was negative for pulmonary embolism. Tracheostomy and PEG tube is tentatively planned at this time. PAST MEDICAL HISTORY: Reviewed. REVIEW OF SYMPTOMS: Review of systems could not be taken, the patient is mechanically ventilated and sedated. CURRENT MEDICATIONS: Reviewed and include Tylenol, Maalox, Cordarone, Eliquis, vitamin C, Peridex, vitamin D3, Questran, Hexadrol, doses reviewed. PHYSICAL EXAMINATION: Patient is mechanically ventilated and sedated. Pulse 62, blood pressure is 119/54 respiration 24, temperature 100.3, pulse ox 98% on FiO2. Vent settings are noted. HEENT: Conjunctivae normal. Neck : No JVD. Cardiovascular: S1, S2, muffled. Respiratory: Diminished breath sounds at the bases. Scattered rhonchi and crackles. Abdomen: Soft, nontender. Legs are no edema. No swelling. Nervous system: No focal deficits. LABS: WBC 6.3, hemoglobin 9.5. Other labs are noted. The cultures are showing urine culture showed Enterococcus faecalis. The most recent cultures are negative so far. ASSESSMENT: 1. Acute Covid 19 infection with acute bilateral interstitial pneumonia with acute hypoxic respiratory failure, prolonged mechanical ventilation with failure to wean on multiple occasions number. 2. Fever, possible rule out sepsis. 3. Elevated D-dimer. 4. Status post BiPAP. 5. Possible superadded bacterial pneumonia infection. 6. Elevated procalcitonin. 7. Atrial fibrillation with rapid ventricular paroxysmal, currently on amiodarone and metoprolol. 8. Change in mental status, acute metabolic encephalopathy. 9. Bicytopenia possibly secondary to Covid 19, neutropenia, anemia. 10.Elevated AST/ALT, possibly acute hepatitis secondary to Covid 19. 11.Lymphopenia. 12.Elevated D-dimer. 13.Hyponatremia. 14.Elevated creatinine with acute renal failure with acute tubular necrosis present on admission. 15.Hypomagnesemia. 16.Hypokalemia. 17.Troponin 0.058, possibly related to Covid 19, rule out underlying coronary artery disease. 18.History of hypertension. 19.History of abdominal aortic aneurysm. 20.History of ETOH. 21.Deep vein thrombosis prophylaxis, on therapeutic dose of Eliquis. 22.FULL CODE. RECOMMENDATIONS AND DISCUSSION: Recommend to continue current medications, symptomatic treatment. Otherwise as mentioned earlier, are negative. Closely monitor. Follow closely with Infectious Disease and Pulmonary. Guarded prognosis because of multiple complex medical issues. The patient has an elevated D-dimer and continued fever also. Further recommendations to follow. MMODL / IJN: [id number] / JULI
[2021-08-30] MEDS: ACETAMINOPHEN TAB 325 MG TAB PO PRN ×2 (15:46)
[2021-08-30 17:40] LABS: Glucose,Whole Blood 136 mg/dL (75-99)
--- NOTE | 2021-08-30 18:17 | PN ---
PROGRESS NOTE DATE OF SERVICE: 08/30/2021 REASON FOR FOLLOWUP: Pneumonia and fever. INTERVAL HISTORY: Patient has been running a persistent fever of 101.2 degrees Fahrenheit. The patient is hemodynamically stable, not on pressor support. FiO2 is currently stable, still having diarrhea but no worsening output. PHYSICAL EXAMINATION: Blood pressure 117/54 with a pulse of 62, temperature is 101.2. He is 91% on 70% FiO2. General description is an elderly male lying in bed in no distress. Respiratory system: Unlabored breathing, decreased intensity of breath sounds. No wheeze. Heart S1, S2. Regular rate and rhythm. Abdomen soft, no tenderness. LABS: Hemoglobin 9.5, white count 6.6, creatinine 0.92. Repeat sputum is negative. Culture so far pending. IMPRESSION/PLAN: 1. Patient with acute respiratory failure which is multifactorial in this patient now running a fever for the last 3 days. The patient did have a positive culture with Enterococcus faecalis and is currently covered with Zosyn patient is on. However, persistent fever with no evidence of any tachycardia or hemodynamic instability and white count is normal. Possible non-infectious source. We will check an influenza swab, and for now continue with the Zosyn, dexamethasone, Eliquis, zinc and ascorbic acid. 2. Prognosis remains guarded. MMODL / IJN: [id number] /
[2021-08-31] MEDS: INSULIN ASPART (NovoLOG) 100 UNIT/ML VIAL SQ SCH ×4 (01:38→18:00)
[2021-08-31] MEDS: PIPERACILLIN-TAZOBACTAM 3.375 GM in SODIUM CHLORIDE 0.9% 100 ML IVPB SCH ×3 (01:39→15:40)
[2021-08-31 01:46] LABS: Glucose,Whole Blood 128 mg/dL (75-99)
[2021-08-31 05:12] LABS: ABG Base Excess 4.1 mmol/L; ABG HCO3 29 mmol/L (21-25); ABG Oxygen Saturation 91.7 % (94-97); ABG PCO2 49 mmHg (35-45); ABG PH 7.38 (7.35-7.45); ABG PO2 64 mmHg (83-108); ABG TCO2 31 mmol/L (19-24); Allen Test Performed? Yes
[2021-08-31 05:17] LABS: Basophils % (A) 0 %; Eosinophils % (A) 0 %; HCT 30.4 % (39.0-53.0); HGB 9.6 gm/dL (13.0-17.5); Hypochromasia Slight; Lymphocytes # (A) 0.3 k/uL (1.0-4.8); Lymphocytes % (A) 3 %; MCH 31.1 pg (25.0-35.0); MCHC 31.7 g/dL (31.0-37.0); Mean Platelet Volume 10.2; Monocytes # (A) 0.3 k/uL (0-1.0); Monocytes % (A) 3 %; Neutrophils # (A) 8.1 k/uL (1.3-7.7); Neutrophils % (A) 93 %; Platelet Count 195 k/uL (150-450); RDW 13.2 % (11.5-15.5); WBC 8.8 k/uL (3.8-10.6)
[2021-08-31 05:34] LABS: ALT 309 U/L (4-49); AST 115 U/L (17-59); African American GFR (CKD) >90 (>60 ml/min/1.73 sqM); Albumin 2.5 g/dL (3.5-5.0); Alkaline Phosphatase 52 U/L (38-126); Anion Gap 8 mmol/L; Blood Urea Nitrogen 35 mg/dL (9-20); Calcium 7.7 mg/dL (8.4-10.2); Carbon Dioxide 27 mmol/L (22-30); Chloride 107 mmol/L (98-107); Glucose 133 mg/dL (74-99); Non-African American GFR(CKD) 85 (>60 ml/min/1.73 sqM); Potassium 4.9 mmol/L (3.5-5.1); Sodium 142 mmol/L (137-145); Total Bilirubin 0.4 mg/dL (0.2-1.3); Total Protein 5.7 g/dL (6.3-8.2)
[2021-08-31 06:02] LABS: Glucose,Whole Blood 126 mg/dL (75-99)
--- NOTE | 2021-08-31 07:43 | XR ---
EXAMINATION TYPE: XR chest 1V portable DATE OF EXAM: 08/31/2021 Comparison: 08/30/2021 Clinical History: 75-year-old male pneumonia Findings: ET and NG tubes are satisfactory. Right PICC tip in upper right atrium. Heart borderline enlarged. Di ffuse interstitial changes persist with patchy groundglass changes in the mid and lower lungs, left g reater than right. Slight improvement noted on the right. Impression: Patchy ground glass infiltrates mid and lower lungs, left greater than right, persist but show some i nterval improvement on the right.
[2021-08-31] MEDS: ZINC SULFATE 220 MG CAP PO SCH (09:00)
[2021-08-31] MEDS: CHOLECALCIFEROL 25 MCG (1000 IU) TABLET PO SCH (09:00)
[2021-08-31] MEDS: ASCORBIC ACID 500 MG TAB PO SCH (09:00)
[2021-08-31] MEDS: dexAMETHasone 2 MG TAB PO SCH (09:01)
[2021-08-31] MEDS: AMIODARONE 200 MG TAB PO SCH ×2 (09:01→20:26)
[2021-08-31] MEDS: CHLORHEXIDINE GLUCONATE 15 ML CUP MUCOUS MEM SCH ×2 (09:01→20:26)
[2021-08-31] MEDS: PANTOPRAZOLE 40 MG/10 ML VIAL IVP SCH (09:01)
[2021-08-31] MEDS: APIXABAN 5 MG TAB PO SCH (09:01)
[2021-08-31] MEDS: METOPROLOL TARTRATE 25 MG TAB PO SCH ×2 (09:01→20:26)
[2021-08-31] MEDS: THIAMINE 100 MG TAB PO SCH (09:01)
[2021-08-31] MEDS: CHOLESTYRAMINE (WITH SUGAR) 4 GM PACKET PO SCH ×2 (09:02→18:01)
--- NOTE | 2021-08-31 09:30 | P.PN ---
Subjective Progress Note Date: 08/31/21 Principal diagnosis: Respiratory failure. 08/26/2021, I'm seeing the patient for a follow-up. As noted, the patient failed weaning trial yesterday as the patient became again hypoxic while being given as pertains breathing trial. As such, he was kept on a mechanical ventilator throughout the day and he was restarted back on sedation and currently is on propofol which is running at 50 mg/kg per minute. He is also on fentanyl at 2 mcg/kg/h. He seems to be quite comfortable at this point in time. I noted that the patient is generating a higher tidal volumes that he is quite asynchronous with mechanical ventilator. He was on a volume cycle mode of mechanical ventilation with a tidal volume of 400, the FiO2 is up to 100% with a PEEP of 6 and the rate of 24. Morning blood gases showed a pH of 7.44 with a pCO2 of 49 and pO2 of 47. The chest x-ray shows stable findings on the right, there is some worsening in the consolidation of the left lung base. The patient is still having significant amount of rest or secretions. Cultures from the sputum was sent and is pending for now. He does have Enterococcus faecalis in his urine. The patient remains on IV antibiotics and currently he is on IV Zosyn. Hemodynamically stable. Is on no pressors. He was taken off the amiodarone drip and currently is on amiodarone orally. He does have underlying centimeters bradycardia for now with a heart rate in the mid 50s. He remains to coagulation with Eliquis 5 mg by mouth twice a day. He remains on Decadron 6 mg by mouth on a daily basis. He remains on enteral feeding for nutritional support and the patient is receiving Glucerna at the rate of 55 mL an hour. No significant swelling in lower extremities. Fluid balance over the past 24 hours has been +792 mL. He is afebrile. He is hemodynamically stable at this point in time. The patient is seen today 08/27/2021 in follow-up on the intensive care unit. He remains intubated and on the mechanical ventilator. Currently on pressure control mode at 16 with a TI of 1.15, respiratory rate, respiratory rate at 24, FiO2 80% and a PEEP of 6. Morning blood gases revealed a P O2 of 52, pCO2 46, pH 7.46. He is currently sedated on propofol at 40 mcg/kg/m. Fentanyl at 1 g her kilogram per hour. He is anticoagulated with Eliquis. He has more synchronous with the vent and the pressure control mode. He does become quite restless, tachypneic, hypertensive with daily interruption of sedation. We will try again today. He remains on antibiotics in the form of Unasyn for Enterococcus faecalis in his urine culture. Sputum cultures revealing no growth thus far. Chest x-ray continues to show bilateral patchy infiltrates with some increased density in the left lower lung. White count 8.3. Hemoglobin 10.3. Lymphocytes 0.3. Sodium 144. Potassium 4.8. Creatinine 0.77. Glucose 117. He is being nourished with Glucerna at 55 ML's per hour which is goal. No significant issues with bradycardia this morning. No lower extremity edema. He remains in a positive balance of 1.3 L. He is continued on amiodarone. Not requiring any pressors at this point. Progress note dated 08/28/2021. This is a 75-year-old male, admitted on August 19. He came to the intensive care unit on the , with coronavirus associated pneumonia and hypoxemia. He was intubated and mechanically ventilated on August 22. The patient remains on the ventilator. He is on the pressure assist control modality, inspiratory pressure of 16 cm water. Inspiratory time is 0.9 seconds, 90% FiO2, PEEP of 8, and rate of 24. Blood gases showed pO2 55, pCO2 42, and pH 7.48. The patient remains on propofol at 50 mcg/kg/m, and fentanyl 1.5 mcg/kg/h. The patient is on Zosyn for Enterococcus faecalis urinary tract infection. The patient's getting saline at 20 mL an hour. Tube feedings are currently on hold. White count is 8, hemoglobin 10.6, hematocrit 32.6, and platelet count is 286,000. Sodium 145, potassium 4.7, chlorides 110, CO2 29, anion gap 6, BUN 34, and creatinine 0.79. C-reactive protein is 36.2. Pro-calcitonin level was 1.36. Chest x-ray shows diffuse bilateral multifocal infiltrates, consistent with coronavirus pneumonia. The chest x-ray is essentially unchanged. Progress note dated 08/29/2021. This is a 75-year-old male, seen again in room 253. He was admitted on 08/19/2021, and came to the intensive care unit 3 days later on August 22. He was admitted with a diagnosis of coronavirus associated pneumonia, and hypoxemic respiratory failure. Unfortunately, he was intubated on August 22. Remains on mechanical ventilator. He is on the pressure assist control modality, with an inspiratory pressure 16 cm of water, and inspiratory time of 0.9 seconds. His respiratory rate is 24, FiO2 is 90%, and PEEP of 12. Arterial blood gases on 100% show pO2 of 87, pCO2 of 50, pH is 7.39. The patient's on fentanyl 1.5 mcg/kg/h, propofol 50 mcg/kg/m, saline at 20 mL an hour, including Diaz at 41 mL an hour. That is goal. White count 7, hemoglobin 10.2, hematocrit 31.4, and platelet count 268,000. Sodium 148, potassium 4.1, chlorides 114, CO2 32, anion gap 2, BUN 41, and creatinine 1.0. AST is 811. ALT is 536. Microbiology showing evidence of Enterococcus faecalis in the urine. Ultrasound of the liver shows minimal hepatomegaly. The chest x-ray shows diffuse bilateral infiltrates, and is largely unchanged. Progress note dated 08/30/2021. 75-year-old male seen in room 253. He was admitted on , and came to the intensive care unit on August 22. He was admitted with a diagnosis of coronavirus associated pneumonia. He had chronic hypoxemic respiratory failure. He was intubated on August 22, and remains on the ventilator. He is on the pressure assist control mode, with an inspiratory pressure of 16, inspiratory time of 0.9 seconds, rate 24, FiO2 70%, PEEP of 12. Blood gases show pO2 of 66, pCO2 49, pH is 7.38. Patient is on propofol at 50 mcg/kg/m, fentanyl 1.5 mcg/kg/h, D5W at 75 mL an hour, and vital AF 1.2, at 55 mL an hour, which is his goal. White count 6.6, hemoglobin 9.5, hematocrit 29.6, and a normal platelet count. D-dimer is 34.06. PO2 66 pCO2 49, and pH 7.38. Sodium 143, potassium 4.6, chlorides 110, CO2 29, anion gap 4, BUN 37, and creatinine 0.92. AST is 236, ALT is 417. Chest x-ray shows diffuse bilateral opacities. The patient's urine from August 22 shows evidence of enterococcus faecalis. Progress note dated 08/31/2021. 75-year-old male again seen in room 253. He was admitted on 12/18/2020, and c cole to the intensive care unit 3 days later on August 22. He was minute with a diagnosis of coronavirus associated pneumonia. The patient was intubated for respiratory failure on August 22, and remains on the ventilator. The patient is on the pressure assist control mode, with an inspiratory pressure of 16, inspiratory time of 0.9 seconds, rate 24, FiO2 70%, and PEEP at home. Arterial blood gases show pO2 of 64, pCO2 49, and pH is 7.38. The patient's on propofol 50 mcg/kg/m, fentanyl at 1.5 mcg/kg per hour, saline at 20 mL an hour, and vital AF at 20 mL an hour, with a goal of 55. White count 8.8, hemoglobin 9.6, hematocrit 30.4, and platelet count 195,000. Sodium 142, potassium 4.9, chlorides 107, CO2 27, anion gap 8, BUN 35, and creatinine 0.82. AST was 115 with an ALT of 309. Albumin is 2.5. Urine from August 22 with positive for enterococcus faecalis. Chest x-ray shows diffuse patchy infiltrates, with slight interval improvement. Objective - Vital Signs Vital signs: Vital Signs Temp 97 F L 08/31/21 08:00 Pulse 66 08/31/21 08:00 Resp 24 08/31/21 08:00 BP 117/63 08/31/21 08:00 Pulse Ox 89 L 08/31/21 08:00 Intake & Output 08/30/21 08/31/21 08/31/21 18:59 06:59 18:59 Intake Total 1772.738 939.192 182.24 Output Total 1650 1395 305 Balance 122.738 -455.808 -122.76 Weight 71 kg Intake: IV 196 276 46 0.9 NS 160 240 40 pressure bag 36 36 6 Intake, IV Titration 871.738 363.192 66.24 Amount Dextrose 5% in Water 1, 300 000 ml @ 75 mls/hr IV . [id number] Rx#:[id number] Piperacillin-Tazobactam 3 100 .375 gm In Sodium Chloride 0.9% 100 ml @ 25 mls/hr IVPB Q8HR [facility] Rx# :[id number] fentaNYL (PF). 1,000 mcg 164.922 193.352 In Sodium Chloride 0.9% 80 ml @ 0.5 MCG/KG/HR 4. 445 mls/hr IV .[id number] [facility] Rx#:[id number] propofoL 1,000 mg In 306.816 169.84 66.24 Empty Bag 1 bag @ Titrate IV .Q0M [facility] Rx#: [id number] Tube Feeding 555 240 40 Other 150 60 30 Output: Urine 750 795 305 Stool 900 600 Other: Voiding Method Indwelling Catheter Indwelling Catheter ABP, PAP, CO, CI - Last Documented Arterial Blood Pressure 128/51 - Exam No acute distress, sedated, with an orally placed endotracheal tube and NG tube. HEENT examination is grossly unremarkable. Neck supple. Full range of motion. No adenopathy thyromegaly or neck vein dis tention. Cardiovascular examination reveals regular rhythm rate. S1-S2 normal. No S3 or S4. No discernible murmur noted. Heart sounds are distant. Heart rate is 66 bpm. Lungs reveal bilateral rhonchi. No wheezes or crackles. Breath sounds are equal bilaterally. Saturations are 91%. Abdomen soft, with bowel sounds. Extremities are intact. No cyanosis clubbing or edema. Skin is without rash or lesion. Neurologic examination cannot be adequately assessed as the patient's currently sedated. - Labs CBC & Chem 7: 08/31/21 03:55 08/31/21 03:55 Labs: Abnormal Lab Results - Last 24 Hours (Table) 08/30/21 08/30/21 08/31/21 Range/Units 11:14 17:38 01:44 RBC (4.30-5.90) m/uL Hgb (13.0-17.5) gm/dL Hct (39.0-53.0) % Neutrophils # (1.3-7.7) k/uL Lymphocytes # (1.0-4.8) k/uL ABG pCO2 (35-45) mmHg ABG pO2 (83-108) mmHg ABG HCO3 (21-25) mmol/L ABG Total CO2 (19-24) mmol/L ABG O2 Saturation (94-97) % BUN (9-20) mg/dL Glucose (74-99) mg/dL POC Glucose (mg/dL) 176 H 136 H 128 H (75-99) mg/dL Calcium (8.4-10.2) mg/dL AST (17-59) U/L ALT (4-49) U/L Total Protein (6.3-8.2) g/dL Albumin (3.5-5.0) g/dL 08/31/21 08/31/21 08/31/21 Range/Units 03:55 03:55 05:18 RBC 3.10 L (4.30-5.90) m/uL Hgb 9.6 L (13.0-17.5) gm/dL Hct 30.4 L (39.0-53.0) % Neutrophils # 8.1 H (1.3-7.7) k/uL Lymphocytes # 0.3 L (1.0-4.8) k/uL ABG pCO2 49 H (35-45) mmHg ABG pO2 64 L (83-108) mmHg ABG HCO3 29 H (21-25) mmol/L ABG Total CO2 31 H (19-24) mmol/L ABG O2 Saturation 91.7 L (94-97) % BUN 35 H (9-20) mg/dL Glucose 133 H (74-99) mg/dL POC Glucose (mg/dL) (75-99) mg/dL Calcium 7.7 L (8.4-10.2) mg/dL AST 115 H (17-59) U/L ALT 309 H (4-49) U/L Total Protein 5.7 L (6.3-8.2) g/dL Albumin 2.5 L (3.5-5.0) g/dL 08/31/21 Range/Units 06:00 RBC (4.30-5.90) m/uL Hgb (13.0-17.5) gm/dL Hct (39.0-53.0) % Neutrophils # (1.3-7.7) k/uL Lymphocytes # (1.0-4.8) k/uL ABG pCO2 (35-45) mmHg ABG pO2 (83-108) mmHg ABG HCO3 (21-25) mmol/L ABG Total CO2 (19-24) mmol/L ABG O2 Saturation (94-97) % BUN (9-20) mg/dL Glucose (74-99) mg/dL POC Glucose (mg/dL) 126 H (75-99) mg/dL Calcium (8.4-10.2) mg/dL AST (17-59) U/L ALT (4-49) U/L Total Protein (6.3-8.2) g/dL Albumin (3.5-5.0) g/dL Microbiology - Last 24 Hours (Table) 08/29/21 16:40 Urine Culture - Final Urine,Catheterized 08/29/21 15:45 Blood Culture - Preliminary Blood No Growth after 24 hours 08/27/21 20:13 Gram Stain - Final Sputum Sputum Culture - Final Assessment and Plan Assessment: Acute hypoxemic respiratory failure secondary to coronavirus associated pneumonia, status post intubation and mechanical ventilation on August 22. Atrial fibrillation with RVR. Transaminitis, secondary to coronavirus infection. Systolic congestive heart failure. History of hypertension. History of abdominal aortic aneurysm. Hypovolemic hyponatremia, resolved. Lymphopenia, secondary to coronavirus infection. Enterococcus faecalis urinary tract infection, currently on Zosyn. Plan: Plan dated 08/28/2021. The patient's labs, x-rays, medications are all reviewed. No changes to the patient's mechanical ventilator. The patient remains on Zosyn for that urinary tract infection. The patient is currently sedated with both propofol and fentanyl. Additional recommendations and suggestions are forthcoming. Prognosis is guarded. The patient remains on Eliquis, and Decadron. The patient remains on vitamins. Additional recommendations and suggestions are forthcoming. We will continue to follow make recommendations where appropriate. No need for bronchoscopy today. Plan dated 08/29/2021. The patient's ultrasound of the liver, showed mild hepatomegaly. We'll DC the saline IV, start the patient on D5W at 75 mL an hour. We'll also add Protonix for GI prophylaxis. The goal today is to wean the FiO2. Additional recommendations and suggestions are forthcoming. Prognosis remains guarded. The patient remains on Eliquis and Decadron. The patient also remains on vitamin C, vitamin D3, and zinc. No need for bronchoscopy at this point. Prognosis is guarded. We will continue to follow the patient and make recommendations where appropriate. Plan dated 08/30/2021. The patient currently remains on propofol and fentanyl. The patient is on the pressure assist control mode of ventilation. Blood gases are reasonable. Labs, x-rays, and medications are all reviewed. The patient d-dimer jumped up to 34.06. A previous CT angiogram was negative for pulmonary embolism. Additional recommendations and suggestions are forthcoming. The patient is a ready on Eliquis. The patient remains on Decadron, vitamin C, vitamin D3, and zinc. The rest of his medications are reviewed and seem appropriate. Prognosis is guarded. The patient was intubated on the . If he is not making progress towards extubation, he may benefit from tracheostomy and PEG tube placement by the end of the week. Continue to follow the patient and make recommendations where appropriate. Plan dated 08/31/2021. The patient remains on propofol and fentanyl. The patient remains on an FiO2 70%, PEEP at all. I'm going to ask surgery to consider the possibility of doing a tracheostomy and PEG tube placement on this patient. The patient has been ventilated August 22. It is likely he will not be able to be extubated anytime soon. We've asked for labs in the morning including CBC, basic metabolic profile, and blood gas. He will have a chest x-ray in the morning. Additional recommendations and suggestions are forthcoming. Prognosis is guarded. We will continue to follow the patient and make recommendations where appropriate. Time with Patient: Greater than 30
[2021-08-31] MEDS: fentaNYL (PF). 1,000 MCG in SODIUM CHLORIDE 0.9% 80 ML IV SCH ×3 (09:55→23:49)
[2021-08-31] MEDS: MULTIVITAMINS, THERA 1 EACH TAB PO SCH (11:48)
[2021-08-31] MEDS: FOLIC ACID 1 MG TAB PO SCH (11:48)
[2021-08-31 11:51] LABS: Glucose,Whole Blood 137 mg/dL (75-99)
[2021-08-31] MEDS: ACETAMINOPHEN TAB 325 MG TAB PO PRN (12:16)
--- NOTE | 2021-08-31 13:16 | P.GSCN ---
<Kat Ma - Last Filed: 08/31/21 13:07> History of Present Illness Consult date: 08/31/21 History of present illness: CHIEF COMPLAINT: COVID-19 pneumonia HISTORY OF PRESENT ILLNESS: This is a 75-year-old male who presented to the hospital with weakness and found have evidence of COVID-19 pneumonia. Patient required to be intubated on 08/22/2021. Patient remains on mechanical ventilat ion in the ICU. Patient has been unable to be weaned from vent. Surgical consult requested for tracheostomy and PEG tube placement. Patient has FiO2 of 70% and PEEP of 12. He is on Eliquis due to history of atrial fibrillation. Patient has been febrile with a Tmax of 102.9 and also mild tachycardia. Patient also being treated for UTI. PAST MEDICAL HISTORY: See list. PAST SURGICAL HISTORY: See list. MEDICATIONS: See list. ALLERGIES: See list. SOCIAL HISTORY: No illicit drug use. REVIEW OF SYSTEMS: Unable to obtain. Patient is intubated and sedated PHYSICAL EXAM: VITAL SIGNS: Reviewed GENERAL: Well-developed in no acute distress. HEENT: No sclera icterus. Extraocular movements grossly intact. Moist buccal mucosa. Head is atraumatic, normocephalic. No nasal drainage. ABDOMEN: Soft. Nondistended. Nontender NEUROLOGIC: Intubated and sedated LABORATORY DATA: WBC 8.8 Hgb 9.6 platelets 195 Sodium 142 potassium 4.9 BUN 35 creatinine 0.82 AST 115 ALT 309 alk phos 52 Albumin 2.5 IMAGING: Chest x-ray patchy groundglass infiltrates mid and lower lungs, left greater than right, persistent show some interval improvement on the right ASSESSMENT: 1. Acute hypoxic respiratory failure secondary to Covid 19 pneumonia requiring mechanical ventilation 2. Severe protein calorie malnutrition PLAN: -Further recommendations forthcoming per surgeon regarding tracheostomy and PEG tube placement -Keep Eliquis on hold for trach and PEG placement -Continue ICU management and supportive care Thank you for this consultation Physician Shank Carrier note has been reviewed by physician. Signing provider agrees with the documented findings, assessment, and plan of care. Past Medical History Past Medical History: Hypertension Additional Past Medical History / Comment(s): AAA History of Any Multi-Drug Resistant Organisms: None Reported Past Psychological History: No Psychological Hx Reported Smoking Status: Never smoker Past Alcohol Use History: Daily Past Drug Use History: None Reported - Past Family History Mother Family Medical History: Congestive Heart Failure (CHF) Medications and Allergies Home Medications Medication Instructions Recorded Confirmed Type Atorvastatin [Lipitor] 40 mg PO DAILY 08/21/21 08/21/21 History Lisinopril-Hctz 20-12.5 mg 1 tab PO DAILY 08/21/21 08/21/21 History [Zestoretic 20-12.5] amLODIPine [Norvasc] 5 mg PO DAILY 08/21/21 08/21/21 History Allergies Allergy/AdvReac Type Severity Reaction Status Date / Time No Known Allergies Allergy Verified 08/20/21 08:33 Surgical - Exam Vital Signs Temp Pulse Resp BP Pulse Ox 101.4 F H 91 18 99/61 90 L 08/19/21 22:11 08/19/21 22:11 08/19/21 22:11 08/19/21 22:11 08/19/21 22:11 Results - Labs 08/31/21 03:55 08/31/21 03:55 Abnormal Lab Results - Last 24 Hours (Table) 08/30/21 08/31/21 08/31/21 Range/Units 17:38 01:44 03:55 RBC 3.10 L (4.30-5.90) m/uL Hgb 9.6 L (13.0-17.5) gm/dL Hct 30.4 L (39.0-53.0) % Neutrophils # 8.1 H (1.3-7.7) k/uL Lymphocytes # 0.3 L (1.0-4.8) k/uL ABG pCO2 (35-45) mmHg ABG pO2 (83-108) mmHg ABG HCO3 (21-25) mmol/L ABG Total CO2 (19-24) mmol/L ABG O2 Saturation (94-97) % BUN (9-20) mg/dL Glucose (74-99) mg/dL POC Glucose (mg/dL) 136 H 128 H (75-99) mg/dL Calcium (8.4-10.2) mg/dL AST (17-59) U/L ALT (4-49) U/L Total Protein (6.3-8.2) g/dL Albumin (3.5-5.0) g/dL 08/31/21 08/31/21 08/31/21 Range/Units 03:55 05:18 06:00 RBC (4.30-5.90) m/uL Hgb (13.0-17.5) gm/dL Hct (39.0-53.0) % Neutrophils # (1.3-7.7) k/uL Lymphocytes # (1.0-4.8) k/uL ABG pCO2 49 H (35-45) mmHg ABG pO2 64 L (83-108) mmHg ABG HCO3 29 H (21-25) mmol/L ABG Total CO2 31 H (19-24) mmol/L ABG O2 Saturation 91.7 L (94-97) % BUN 35 H (9-20) mg/dL Glucose 133 H (74-99) mg/dL POC Glucose (mg/dL) 126 H (75-99) mg/dL Calcium 7.7 L (8.4-10.2) mg/dL AST 115 H (17-59) U/L ALT 309 H (4-49) U/L Total Protein 5.7 L (6.3-8.2) g/dL Albumin 2.5 L (3.5-5.0) g/dL 08/31/21 Range/Units 11:50 RBC (4.30-5.90) m/uL Hgb (13.0-17.5) gm/dL Hct (39.0-53.0) % Neutrophils # (1.3-7.7) k/uL Lymphocytes # (1.0-4.8) k/uL ABG pCO2 (35-45) mmHg ABG pO2 (83-108) mmHg ABG HCO3 (21-25) mmol/L ABG Total CO2 (19-24) mmol/L ABG O2 Saturation (94-97) % BUN (9-20) mg/dL Glucose (74-99) mg/dL POC Glucose (mg/dL) 137 H (75-99) mg/dL Calcium (8.4-10.2) mg/dL AST (17-59) U/L ALT (4-49) U/L Total Protein (6.3-8.2) g/dL Albumin (3.5-5.0) g/dL Microbiology - Last 24 Hours (Table) 08/31/21 00:14 Sputum Culture - Preliminary Sputum 08/29/21 16:40 Urine Culture - Final Urine,Catheterized 08/29/21 15:45 Blood Culture - Preliminary Blood No Growth after 24 hours 08/27/21 20:13 Gram Stain - Final Sputum Sputum Culture - Final Diabetes panel 08/31/21 Range/Units 03:55 Sodium 142 (137-145) mmol/L Potassium 4.9 (3.5-5.1) mmol/L Chloride 107 (98-107) mmol/L Carbon Dioxide 27 (22-30) mmol/L BUN 35 H (9-20) mg/dL Creatinine 0.82 (0.66-1.25) mg/dL Glucose 133 H (74-99) mg/dL Calcium 7.7 L (8.4-10.2) mg/dL AST 115 H (17-59) U/L ALT 309 H (4-49) U/L Alkaline Phosphatase 52 (38-126) U/L Total Protein 5.7 L (6.3-8.2) g/dL Albumin 2.5 L (3.5-5.0) g/dL Calcium panel 08/31/21 Range/Units 03:55 Calcium 7.7 L (8.4-10.2) mg/dL Albumin 2.5 L (3.5-5.0) g/dL Pituitary panel 08/31/21 Range/Units 03:55 Sodium 142 (137-145) mmol/L Potassium 4.9 (3.5-5.1) mmol/L Chloride 107 (98-107) mmol/L Carbon Dioxide 27 (22-30) mmol/L BUN 35 H (9-20) mg/dL Creatinine 0.82 (0.66-1.25) mg/dL Glucose 133 H (74-99) mg/dL Calcium 7.7 L (8.4-10.2) mg/dL Adrenal panel 08/31/21 Range/Units 03:55 Sodium 142 (137-145) mmol/L Potassium 4.9 (3.5-5.1) mmol/L Chloride 107 (98-107) mmol/L Carbon Dioxide 27 (22-30) mmol/L BUN 35 H (9-20) mg/dL Creatinine 0.82 (0.66-1.25) mg/dL Glucose 133 H (74-99) mg/dL Calcium 7.7 L (8.4-10.2) mg/dL Total Bilirubin 0.4 (0.2-1.3) mg/dL AST 115 H (17-59) U/L ALT 309 H (4-49) U/L Alkaline Phosphatase 52 (38-126) U/L Total Protein 5.7 L (6.3-8.2) g/dL Albumin 2.5 L (3.5-5.0) g/dL <MaryjeanNapoleon - Last Filed: 08/31/21 13:51> History of Present Illness History of present illness: I have personally seen and examined the patient, reviewed the ENGINEERING AGENT /PAs history, exam and MDM and agree with the assessment and plan as written. Based on total visit time, I have performed more than 50% of the visit. As above. Case discussed with patient's nurse and the patient's son by phone. We'll schedule for tracheostomy and PEG tube placement on Saturday. Hold eloquis for now. Will need to shave the patient's gregorio up to his mandible and shorten the gregorio elsewhere. Risks of bleeding, infection, air leak, pneumothorax, catheter misplacement, bowel injury, reviewed. Patient's son understands and wishes stressed to proceed. Surgical - Exam Vital Signs Temp Pulse Resp BP Pulse Ox 101.4 F H 91 18 99/61 90 L 08/19/21 22:11 08/19/21 22:11 08/19/21 22:11 08/19/21 22:11 08/19/21 22:11 Results - Labs 08/31/21 03:55 08/31/21 03:55 Abnormal Lab Results - Last 24 Hours (Table) 08/30/21 08/31/21 08/31/21 Range/Units 17:38 01:44 03:55 RBC 3.10 L (4.30-5.90) m/uL Hgb 9.6 L (13.0-17.5) gm/dL Hct 30.4 L (39.0-53.0) % Neutrophils # 8.1 H (1.3-7.7) k/uL Lymphocytes # 0.3 L (1.0-4.8) k/uL ABG pCO2 (35-45) mmHg ABG pO2 (83-108) mmHg ABG HCO3 (21-25) mmol/L ABG Total CO2 (19-24) mmol/L ABG O2 Saturation (94-97) % BUN (9-20) mg/dL Glucose (74-99) mg/dL POC Glucose (mg/dL) 136 H 128 H (75-99) mg/dL Calcium (8.4-10.2) mg/dL AST (17-59) U/L ALT (4-49) U/L Total Protein (6.3-8.2) g/dL Albumin (3.5-5.0) g/dL 08/31/21 08/31/21 08/31/21 Range/Units 03:55 05:18 06:00 RBC (4.30-5.90) m/uL Hgb (13.0-17.5) gm/dL Hct (39.0-53.0) % Neutrophils # (1.3-7.7) k/uL Lymphocytes # (1.0-4.8) k/uL ABG pCO2 49 H (35-45) mmHg ABG pO2 64 L (83-108) mmHg ABG HCO3 29 H (21-25) mmol/L ABG Total CO2 31 H (19-24) mmol/L ABG O2 Saturation 91.7 L (94-97) % BUN 35 H (9-20) mg/dL Glucose 133 H (74-99) mg/dL POC Glucose (mg/dL) 126 H (75-99) mg/dL Calcium 7.7 L (8.4-10.2) mg/dL AST 115 H (17-59) U/L ALT 309 H (4-49) U/L Total Protein 5.7 L (6.3-8.2) g/dL Albumin 2.5 L (3.5-5.0) g/dL 08/31/21 Range/Units 11:50 RBC (4.30-5.90) m/uL Hgb (13.0-17.5) gm/dL Hct (39.0-53.0) % Neutrophils # (1.3-7.7) k/uL Lymphocytes # (1.0-4.8) k/uL ABG pCO2 (35-45) mmHg ABG pO2 (83-108) mmHg ABG HCO3 (21-25) mmol/L ABG Total CO2 (19-24) mmol/L ABG O2 Saturation (94-97) % BUN (9-20) mg/dL Glucose (74-99) mg/dL POC Glucose (mg/dL) 137 H (75-99) mg/dL Calcium (8.4-10.2) mg/dL AST (17-59) U/L ALT (4-49) U/L Total Protein (6.3-8.2) g/dL Albumin (3.5-5.0) g/dL Microbiology - Last 24 Hours (Table) 08/31/21 00:14 Sputum Culture - Preliminary Sputum 08/29/21 16:40 Urine Culture - Final Urine,Catheterized 08/29/21 15:45 Blood Culture - Preliminary Blood No Growth after 24 hours 08/27/21 20:13 Gram Stain - Final Sputum Sputum Culture - Final Diabetes panel 08/31/21 Range/Units 03:55 Sodium 142 (137-145) mmol/L Potassium 4.9 (3.5-5.1) mmol/L Chloride 107 (98-107) mmol/L Carbon Dioxide 27 (22-30) mmol/L BUN 35 H (9-20) mg/dL Creatinine 0.82 (0.66-1.25) mg/dL Glucose 133 H (74-99) mg/dL Calcium 7.7 L (8.4-10.2) mg/dL AST 115 H (17-59) U/L ALT 309 H (4-49) U/L Alkaline Phosphatase 52 (38-126) U/L Total Protein 5.7 L (6.3-8.2) g/dL Albumin 2.5 L (3.5-5.0) g/dL Calcium panel 08/31/21 Range/Units 03:55 Calcium 7.7 L (8.4-10.2) mg/dL Albumin 2.5 L (3.5-5.0) g/dL Pituitary panel 08/31/21 Range/Units 03:55 Sodium 142 (137-145) mmol/L Potassium 4.9 (3.5-5.1) mmol/L Chloride 107 (98-107) mmol/L Carbon Dioxide 27 (22-30) mmol/L BUN 35 H (9-20) mg/dL Creatinine 0.82 (0.66-1.25) mg/dL Glucose 133 H (74-99) mg/dL Calcium 7.7 L (8.4-10.2) mg/dL Adrenal panel 08/31/21 Range/Units 03:55 Sodium 142 (137-145) mmol/L Potassium 4.9 (3.5-5.1) mmol/L Chloride 107 (98-107) mmol/L Carbon Dioxide 27 (22-30) mmol/L BUN 35 H (9-20) mg/dL Creatinine 0.82 (0.66-1.25) mg/dL Glucose 133 H (74-99) mg/dL Calcium 7.7 L (8.4-10.2) mg/dL Total Bilirubin 0.4 (0.2-1.3) mg/dL AST 115 H (17-59) U/L ALT 309 H (4-49) U/L Alkaline Phosphatase 52 (38-126) U/L Total Protein 5.7 L (6.3-8.2) g/dL Albumin 2.5 L (3.5-5.0) g/dL
--- NOTE | 2021-08-31 16:45 | PN ---
PROGRESS NOTE DATE OF SERVICE: 08/31/2021 This 75-year-old gentleman who was admitted with acute Covid 19 infection, acute bilateral Covid 19 interstitial pneumonia, also had a fever, possible sepsis and bilateral lower Covid pneumonia. Patient is on mechanical ventilation. Patient also had atrial fibrillation. Currently the patient is being scheduled for PEG tube and tracheostomy per Dr. Briones's recommendations. Patient had failed weaning on multiple occasions. Chest x-ray which was done today which I reviewed personally showed extensive bilateral interstitial shadows. Past medical history reviewed. REVIEW OF SYSTEMS: Could not be taken. CURRENT MEDICATIONS: Reviewed and include: Maalox, Cordarone, vitamin C, Peridex, vitamin D. dose and other medications reviewed. PHYSICAL EXAMINATION: Alert and oriented times three. Pulse 68, blood pressure 170/65, respiration 20, temperature 102.9, pulse ox 88 percent on mechanical ventilation. HEENT: Conjunctivae normal. NECK: No JVD. CARDIOVASCULAR: S1, S2 muffled. RESPIRATION: Breath sounds diminished in the bases. A few scattered rhonchi and crackles. ABDOMEN: Soft. NERVOUS SYSTEM: No focal deficits. LABS: WBC 8.8, hemoglobin 9.6. ASSESSMENT: 1. Acute COVID-19 infection with acute bilateral interstitial pneumonia with acute hypoxic respiratory failure with prolonged mechanical ventilation with failure to wean on multiple occasions. 2. Fever, possible sepsis. 3. Elevated D-dimer. 4. Status post BiPAP. 5. Possible superadded bacterial pneumonia. 6. Elevated procalcitonin. Atrial fibrillation with rapid ventricular rate, paroxysmal, currently on amiodarone and metoprolol. 7. Change in mental status, acute metabolic encephalopathy. 8. Bicytopenia, possibly secondary to Covid 19, neutropenia, anemia. 9. Elevated AST/ALT possibly acute hepatitis secondary to COVID-19. 10.Leukopenia. 11.Elevated D-dimer. 12.Hyponatremia. 13.Elevated creatinine with acute renal failure with acute tubular necrosis present on admission. 14.Hypomagnesemia. 15.Hypokalemia. 16.Troponin 0.05 with possibly related to Covid 19 or underlying coronary artery disease. 17.Hypertension. 18.History of abdominal aortic aneurysm. 19.History of ETOH. 20.Deep vein thrombosis prophylaxis. 21.On therapeutic dose of Eliquis. 22.FULL CODE. RECOMMENDATIONS AND DISCUSSION: Recommend to continue current medications, management and symptomatic treatment. Continue mechanical ventilation. Continue antibiotics. Closely follow. The urine culture on August 22 is positive. The rest of the time, the cultures are negative. Currently, Infectious Disease and Pulmonary is following the patient closely. Guarded prognosis. Further recommendations to follow. MMODL / IJN: [id number] /
[2021-08-31] MEDS: fentaNYL (PF) 2,500 MCG in SODIUM CHLORIDE 0.9% 200 ML IV SCH (17:05)
[2021-08-31] MEDS ORDERED: ANIDULAFUNGIN 200 MG in SODIUM CHLORIDE 0.9% 200 ML IVPB ONE (18:00)
[2021-08-31 18:01] LABS: Glucose,Whole Blood 153 mg/dL (75-99)
--- NOTE | 2021-08-31 23:45 | PN ---
PROGRESS NOTE DATE OF SERVICE: 08/31/2021 REASON FOR FOLLOWUP: Pneumonia, UTI, and fever. INTERVAL HISTORY: Patient has been running a fever the last few days. Multiple cultures, those have been negative so far. The patient is hemodynamically stable. FiO2 is currently 70%. No significant purulent secretions in the ET or worsening diarrhea reported by the nursing staff. PHYSICAL EXAMINATION: Blood pressure is 108/70 with a pulse of 101, temp 97.9. He is 90% on 70% FIO2. General description is an elderly male lying in bed in no distress. Respiratory system: Unlabored breathing, decreased intensity in breath sounds in the base, with no wheeze. Heart S1, S2. Regular rate and rhythm. Abdomen soft, no tenderness. LABS: Hemoglobin 9.1, white count 8.8, creatinine 0.82. Repeat blood and urine have been negative so far. Sputum is pending. DIAGNOSTIC IMPRESSION AND PLAN: Patient with acute respiratory failure, acute COVID-19 pneumonia, possible secondary to bacterial pneumonia, has been covered with Zosyn. Still running a fever. We will add Eraxis, Diflucan as the patient is on amiodarone, while waiting for the repeat culture to finalize and monitor clinical course closely. MMODL / IJN: [id number] /
[2021-09-01 00:14] LABS: Glucose,Whole Blood 163 mg/dL (75-99)
[2021-09-01] MEDS: PIPERACILLIN-TAZOBACTAM 3.375 GM in SODIUM CHLORIDE 0.9% 100 ML IVPB SCH ×3 (00:41→16:10)
[2021-09-01] MEDS: INSULIN ASPART (NovoLOG) 100 UNIT/ML VIAL SQ SCH ×4 (00:41→18:03)
[2021-09-01 05:13] LABS: ABG Base Excess 3.2 mmol/L; ABG HCO3 30 mmol/L (21-25); ABG Oxygen Saturation 84.3 % (94-97); ABG PCO2 60 mmHg (35-45); ABG TCO2 32 mmol/L (19-24); Allen Test Performed? Yes
[2021-09-01 05:17] LABS: ABG PO2 52 mmHg (83-108)
[2021-09-01] MEDS: fentaNYL (PF) 2,500 MCG in SODIUM CHLORIDE 0.9% 200 ML IV SCH (05:40)
[2021-09-01 05:53] LABS: Basophils % (A) 0 %; Eosinophils % (A) 0 %; HCT 31.8 % (39.0-53.0); Hypochromasia Slight; Lymphocytes # (A) 0.3 k/uL (1.0-4.8); Lymphocytes % (A) 3 %; MCH 31.2 pg (25.0-35.0); MCHC 31.4 g/dL (31.0-37.0); MCV 99.1 fL (80.0-100.0); Mean Platelet Volume 10.6; Monocytes # (A) 0.2 k/uL (0-1.0); Monocytes % (A) 2 %; Neutrophils # (A) 8.7 k/uL (1.3-7.7); Neutrophils % (A) 95 %; Platelet Count 170 k/uL (150-450); RBC 3.21 m/uL (4.30-5.90); RDW 13.2 % (11.5-15.5); WBC 9.3 k/uL (3.8-10.6)
[2021-09-01 06:05] LABS: Glucose,Whole Blood 150 mg/dL (75-99)
[2021-09-01 06:23] LABS: ALT 219 U/L (4-49); AST 53 U/L (17-59); African American GFR (CKD) >90 (>60 ml/min/1.73 sqM); Albumin 2.5 g/dL (3.5-5.0); Alkaline Phosphatase 65 U/L (38-126); Anion Gap 2 mmol/L; Blood Urea Nitrogen 36 mg/dL (9-20); Calcium 7.5 mg/dL (8.4-10.2); Carbon Dioxide 28 mmol/L (22-30); Chloride 111 mmol/L (98-107); Glucose 143 mg/dL (74-99); Non-African American GFR(CKD) 86 (>60 ml/min/1.73 sqM); Potassium 4.7 mmol/L (3.5-5.1); Sodium 141 mmol/L (137-145); Total Bilirubin 0.5 mg/dL (0.2-1.3)
[2021-09-01] MEDS: METOPROLOL TARTRATE 25 MG TAB PO SCH ×2 (08:15→20:33)
[2021-09-01] MEDS: CHOLECALCIFEROL 25 MCG (1000 IU) TABLET PO SCH (08:15)
[2021-09-01] MEDS: dexAMETHasone 2 MG TAB PO SCH (08:15)
[2021-09-01] MEDS: AMIODARONE 200 MG TAB PO SCH (08:15)
[2021-09-01] MEDS: ASCORBIC ACID 500 MG TAB PO SCH (08:15)
[2021-09-01] MEDS: ZINC SULFATE 220 MG CAP PO SCH (08:15)
[2021-09-01] MEDS: PANTOPRAZOLE 40 MG/10 ML VIAL IVP SCH (08:15)
[2021-09-01] MEDS: THIAMINE 100 MG TAB PO SCH (08:16)
[2021-09-01] MEDS: CHLORHEXIDINE GLUCONATE 15 ML CUP MUCOUS MEM SCH ×2 (08:16→20:34)
--- NOTE | 2021-09-01 09:30 | XR ---
EXAMINATION TYPE: XR chest 1V portable DATE OF EXAM: 09/01/2021 COMPARISON: 08/31/2021 INDICATION: Pneumonia TECHNIQUE: Single frontal view of the chest is obtained. FINDINGS: The heart size is normal. The pulmonary vasculature is prominent. Diffuse groundglass opacity is present bilaterally. Right PICC line is present with the tip in the pr oximal right atrium. Endotracheal tube tip is above the ana lilia. Nasogastric tube transverses the thor ax. IMPRESSION: 1. Mild diffuse increased lung markings bilaterally is unchanged from comparison. 2. Multiple lines and catheters discussed above.
[2021-09-01] MEDS ORDERED: DEXTROSE 5% IN WATER 100 ML with AMIODARONE 150 MG IV ONE (09:32)
[2021-09-01] MEDS ORDERED: AMIODARONE IN DEXTROSE,ISO-OSM 150 MG/100 ML PLAST..BAG IV ONE (09:46)
--- NOTE | 2021-09-01 09:49 | P.PN ---
Subjective Progress Note Date: 09/01/21 Principal diagnosis: Respiratory failure. 08/26/2021, I'm seeing the patient for a follow-up. As noted, the patient failed weaning trial yesterday as the patient became again hypoxic while being given as pertains breathing trial. As such, he was kept on a mechanical ventilator throughout the day and he was restarted back on sedation and currently is on propofol which is running at 50 mg/kg per minute. He is also on fentanyl at 2 mcg/kg/h. He seems to be quite comfortable at this point in time. I noted that the patient is generating a higher tidal volumes that he is quite asynchronous with mechanical ventilator. He was on a volume cycle mode of mechanical ventilation with a tidal volume of 400, the FiO2 is up to 100% with a PEEP of 6 and the rate of 24. Morning blood gases showed a pH of 7.44 with a pCO2 of 49 and pO2 of 47. The chest x-ray shows stable findings on the right, there is some worsening in the consolidation of the left lung base. The patient is still having significant amount of rest or secretions. Cultures from the sputum was sent and is pending for now. He does have Enterococcus faecalis in his urine. The patient remains on IV antibiotics and currently he is on IV Zosyn. Hemodynamically stable. Is on no pressors. He was taken off the amiodarone drip and currently is on amiodarone orally. He does have underlying centimeters bradycardia for now with a heart rate in the mid 50s. He remains to coagulation with Eliquis 5 mg by mouth twice a day. He remains on Decadron 6 mg by mouth on a daily basis. He remains on enteral feeding for nutritional support and the patient is receiving Glucerna at the rate of 55 mL an hour. No significant swelling in lower extremities. Fluid balance over the past 24 hours has been +792 mL. He is afebrile. He is hemodynamically stable at this point in time. The patient is seen today 08/27/2021 in follow-up on the intensive care unit. He remains intubated and on the mechanical ventilator. Currently on pressure control mode at 16 with a TI of 1.15, respiratory rate, respiratory rate at 24, FiO2 80% and a PEEP of 6. Morning blood gases revealed a P O2 of 52, pCO2 46, pH 7.46. He is currently sedated on propofol at 40 mcg/kg/m. Fentanyl at 1 g her kilogram per hour. He is anticoagulated with Eliquis. He has more synchronous with the vent and the pressure control mode. He does become quite restless, tachypneic, hypertensive with daily interruption of sedation. We will try again today. He remains on antibiotics in the form of Unasyn for Enterococcus faecalis in his urine culture. Sputum cultures revealing no growth thus far. Chest x-ray continues to show bilateral patchy infiltrates with some increased density in the left lower lung. White count 8.3. Hemoglobin 10.3. Lymphocytes 0.3. Sodium 144. Potassium 4.8. Creatinine 0.77. Glucose 117. He is being nourished with Glucerna at 55 ML's per hour which is goal. No significant issues with bradycardia this morning. No lower extremity edema. He remains in a positive balance of 1.3 L. He is continued on amiodarone. Not requiring any pressors at this point. Progress note dated 08/28/2021. This is a 75-year-old male, admitted on August 19. He came to the intensive care unit on the , with coronavirus associated pneumonia and hypoxemia. He was intubated and mechanically ventilated on August 22. The patient remains on the ventilator. He is on the pressure assist control modality, inspiratory pressure of 16 cm water. Inspiratory time is 0.9 seconds, 90% FiO2, PEEP of 8, and rate of 24. Blood gases showed pO2 55, pCO2 42, and pH 7.48. The patient remains on propofol at 50 mcg/kg/m, and fentanyl 1.5 mcg/kg/h. The patient is on Zosyn for Enterococcus faecalis urinary tract infection. The patient's getting saline at 20 mL an hour. Tube feedings are currently on hold. White count is 8, hemoglobin 10.6, hematocrit 32.6, and platelet count is 286,000. Sodium 145, potassium 4.7, chlorides 110, CO2 29, anion gap 6, BUN 34, and creatinine 0.79. C-reactive protein is 36.2. Pro-calcitonin level was 1.36. Chest x-ray shows diffuse bilateral multifocal infiltrates, consistent with coronavirus pneumonia. The chest x-ray is essentially unchanged. Progress note dated 08/29/2021. This is a 75-year-old male, seen again in room 253. He was admitted on 08/19/2021, and came to the intensive care unit 3 days later on August 22. He was admitted with a diagnosis of coronavirus associated pneumonia, and hypoxemic respiratory failure. Unfortunately, he was intubated on August 22. Remains on mechanical ventilator. He is on the pressure assist control modality, with an inspiratory pressure 16 cm of water, and inspiratory time of 0.9 seconds. His respiratory rate is 24, FiO2 is 90%, and PEEP of 12. Arterial blood gases on 100% show pO2 of 87, pCO2 of 50, pH is 7.39. The patient's on fentanyl 1.5 mcg/kg/h, propofol 50 mcg/kg/m, saline at 20 mL an hour, including Diaz at 41 mL an hour. That is goal. White count 7, hemoglobin 10.2, hematocrit 31.4, and platelet count 268,000. Sodium 148, potassium 4.1, chlorides 114, CO2 32, anion gap 2, BUN 41, and creatinine 1.0. AST is 811. ALT is 536. Microbiology showing evidence of Enterococcus faecalis in the urine. Ultrasound of the liver shows minimal hepatomegaly. The chest x-ray shows diffuse bilateral infiltrates, and is largely unchanged. Progress note dated 08/30/2021. 75-year-old male seen in room 253. He was admitted on , and came to the intensive care unit on August 22. He was admitted with a diagnosis of coronavirus associated pneumonia. He had chronic hypoxemic respiratory failure. He was intubated on August 22, and remains on the ventilator. He is on the pressure assist control mode, with an inspiratory pressure of 16, inspiratory time of 0.9 seconds, rate 24, FiO2 70%, PEEP of 12. Blood gases show pO2 of 66, pCO2 49, pH is 7.38. Patient is on propofol at 50 mcg/kg/m, fentanyl 1.5 mcg/kg/h, D5W at 75 mL an hour, and vital AF 1.2, at 55 mL an hour, which is his goal. White count 6.6, hemoglobin 9.5, hematocrit 29.6, and a normal platelet count. D-dimer is 34.06. PO2 66 pCO2 49, and pH 7.38. Sodium 143, potassium 4.6, chlorides 110, CO2 29, anion gap 4, BUN 37, and creatinine 0.92. AST is 236, ALT is 417. Chest x-ray shows diffuse bilateral opacities. The patient's urine from August 22 shows evidence of enterococcus faecalis. Progress note dated 08/31/2021. 75-year-old male again seen in room 253. He was admitted on 12/18/2020, and c cole to the intensive care unit 3 days later on August 22. He was minute with a diagnosis of coronavirus associated pneumonia. The patient was intubated for respiratory failure on August 22, and remains on the ventilator. The patient is on the pressure assist control mode, with an inspiratory pressure of 16, inspiratory time of 0.9 seconds, rate 24, FiO2 70%, and PEEP at home. Arterial blood gases show pO2 of 64, pCO2 49, and pH is 7.38. The patient's on propofol 50 mcg/kg/m, fentanyl at 1.5 mcg/kg per hour, saline at 20 mL an hour, and vital AF at 20 mL an hour, with a goal of 55. White count 8.8, hemoglobin 9.6, hematocrit 30.4, and platelet count 195,000. Sodium 142, potassium 4.9, chlorides 107, CO2 27, anion gap 8, BUN 35, and creatinine 0.82. AST was 115 with an ALT of 309. Albumin is 2.5. Urine from August 22 with positive for enterococcus faecalis. Chest x-ray shows diffuse patchy infiltrates, with slight interval improvement. Progress note dated 09/01/2021. 75-year-old male, again seen in room 253. He was admitted to the hospital on 08/19/2021. He came to the intensive care unit 3 days later on August 22. The patient was intubated with a diagnosis of coronavirus associated pneumonia, on August 22. He remains on the ventilator. The patient is on pressure assist control, with an inspiratory pressure of 16 cm water, and inspiratory time of 0.9 seconds, rate 24, FiO2 70%, and PEEP of 12. Blood gases show pO2 of 52, pCO2 of 60, and pH is 7.29. The patient will have a tracheostomy and PEG tube placement done tomorrow, by Dr. Swanson. The patient is on propofol at 50 mcg/kg/m, fentanyl at 1.75 mcg/kg per hour, saline at 20 mL an hour, and vital 1.2 at 55 mL, which is goal. White count 9.3 hemoglobin 10 hematocrit 31.8 and platelet count 170,000. Sodium 141, potassium 4.7, chlorides 111, CO2 28, anion gap 2, BUN 36, and creatinine 0.81. Chest x-ray shows bilateral patchy infiltrates, which are unchanged. Objective - Vital Signs Vital signs: Vital Signs Temp 98.5 F 09/01/21 04:00 Pulse 103 H 09/01/21 07:00 Resp 25 H 09/01/21 07:00 BP 120/70 09/01/21 07:00 Pulse Ox 92 L 09/01/21 07:00 Intake & Output 08/31/21 09/01/21 09/01/21 18:59 06:59 18:59 Intake Total 1219.153 829 Output Total 1485 765 Balance -265.847 64 Weight 72.5 kg Intake: IV 276 299 0.9 NS 240 260 pressure bag 36 39 Intake, IV Titration 313.153 200 Amount fentaNYL (PF). 1,000 mcg 77.793 100 In Sodium Chloride 0.9% 80 ml @ 0.5 MCG/KG/HR 4. 445 mls/hr IV .[id number] [facility] Rx#:[id number] propofoL 1,000 mg In 235.36 100 Empty Bag 1 bag @ Titrate IV .Q0M [facility] Rx#: [id number] Tube Feeding 450 330 Other 180 Output: Urine 885 730 Stool 600 Oral Regurgitation 35 Other: Voiding Method Indwelling Catheter Indwelling Catheter ABP, PAP, CO, CI - Last Documented Arterial Blood Pressure 96/50 - Exam No acute distress, sedated, with an orally placed endotracheal tube and NG tube. HEENT examination is grossly unremarkable. Neck supple. Full range of motion. No adenopathy thyromegaly or neck vein distention. Cardiovascular examination reveals regular rhythm rate. S1-S2 normal. No S3 or S4. No discernible murmur noted. Heart sounds are distant. Heart rate is 103 bpm. Lungs reveal bilateral rhonchi. No wheezes or crackles. Breath sounds are equal bilaterally. Saturations are 92 %. Abdomen soft, with bowel sounds. Extremities are intact. No cyanosis clubbing or edema. Skin is without rash or lesion. Neurologic examination cannot be adequately assessed as the patient's currently sedated. - Labs CBC & Chem 7: 09/01/21 04:50 09/01/21 04:50 Labs: Abnormal Lab Results - Last 24 Hours (Table) 08/31/21 08/31/21 09/01/21 Range/Units 11:50 17:59 00:13 RBC (4.30-5.90) m/uL Hgb (13.0-17.5) gm/dL Hct (39.0-53.0) % Neutrophils # (1.3-7.7) k/uL Lymphocytes # (1.0-4.8) k/uL ABG pH (7.35-7.45) ABG pCO2 (35-45) mmHg ABG pO2 (83-108) mmHg ABG HCO3 (21-25) mmol/L ABG Total CO2 (19-24) mmol/L ABG O2 Saturation (94-97) % Chloride (98-107) mmol/L BUN (9-20) mg/dL Glucose (74-99) mg/dL POC Glucose (mg/dL) 137 H 153 H 163 H (75-99) mg/dL Calcium (8.4-10.2) mg/dL ALT (4-49) U/L Total Protein (6.3-8.2) g/dL Albumin (3.5-5.0) g/dL 09/01/21 09/01/21 09/01/21 Range/Units 04:50 04:50 05:10 RBC 3.21 L (4.30-5.90) m/uL Hgb 10.0 L (13.0-17.5) gm/dL Hct 31.8 L (39.0-53.0) % Neutrophils # 8.7 H (1.3-7.7) k/uL Lymphocytes # 0.3 L (1.0-4.8) k/uL ABG pH 7.30 L (7.35-7.45) ABG pCO2 60 H (35-45) mmHg ABG pO2 52 L* (83-108) mmHg ABG HCO3 30 H (21-25) mmol/L ABG Total CO2 32 H (19-24) mmol/L ABG O2 Saturation 84.3 L (94-97) % Chloride 111 H (98-107) mmol/L BUN 36 H (9-20) mg/dL Glucose 143 H (74-99) mg/dL POC Glucose (mg/dL) (75-99) mg/dL Calcium 7.5 L (8.4-10.2) mg/dL ALT 219 H (4-49) U/L Total Protein 6.0 L (6.3-8.2) g/dL Albumin 2.5 L (3.5-5.0) g/dL 09/01/21 Range/Units 06:03 RBC (4.30-5.90) m/uL Hgb (13.0-17.5) gm/dL Hct (39.0-53.0) % Neutrophils # (1.3-7.7) k/uL Lymphocytes # (1.0-4.8) k/uL ABG pH (7.35-7.45) ABG pCO2 (35-45) mmHg ABG pO2 (83-108) mmHg ABG HCO3 (21-25) mmol/L ABG Total CO2 (19-24) mmol/L ABG O2 Saturation (94-97) % Chloride (98-107) mmol/L BUN (9-20) mg/dL Glucose (74-99) mg/dL POC Glucose (mg/dL) 150 H (75-99) mg/dL Calcium (8.4-10.2) mg/dL ALT (4-49) U/L Total Protein (6.3-8.2) g/dL Albumin (3.5-5.0) g/dL Microbiology - Last 24 Hours (Table) 08/31/21 16:35 Blood Fungal Culture - Preliminary Blood 08/31/21 00:14 Gram Stain - Preliminary Sputum Sputum Culture - Preliminary 08/29/21 15:45 Blood Culture - Preliminary Blood No Growth after 48 hours Assessment and Plan Assessment: Acute hypoxemic respiratory failure secondary to coronavirus associated pneumoni a, status post intubation and mechanical ventilation on August 22. Atrial fibrillation with RVR. Transaminitis, secondary to coronavirus infection. Systolic congestive heart failure. History of hypertension. History of abdominal aortic aneurysm. Hypovolemic hyponatremia, resolved. Lymphopenia, secondary to coronavirus infection. Enterococcus faecalis urinary tract infection, currently on Zosyn. Plan: Plan dated 08/28/2021. The patient's labs, x-rays, medications are all reviewed. No changes to the patient's mechanical ventilator. The patient remains on Zosyn for that urinary tract infection. The patient is currently sedated with both propofol and fentanyl. Additional recommendations and suggestions are forthcoming. Prognosis is guarded. The patient remains on Eliquis, and Decadron. The patient remains on vitamins. Additional recommendations and suggestions are forthcoming. We will continue to follow make recommendations where appropriate. No need for bronchoscopy today. Plan dated 08/29/2021. The patient's ultrasound of the liver, showed mild hepatomegaly. We'll DC the saline IV, start the patient on D5W at 75 mL an hour. We'll also add Protonix for GI prophylaxis. The goal today is to wean the FiO2. Additional recommendations and suggestions are forthcoming. Prognosis remains guarded. The patient remains on Eliquis and Decadron. The patient also remains on vitamin C, vitamin D3, and zinc. No need for bronchoscopy at this point. P rognosis is guarded. We will continue to follow the patient and make recommendations where appropriate. Plan dated 08/30/2021. The patient currently remains on propofol and fentanyl. The patient is on the pressure assist control mode of ventilation. Blood gases are reasonable. Labs, x-rays, and medications are all reviewed. The patient d-dimer jumped up to 34.06. A previous CT angiogram was negative for pulmonary embolism. Additional recommendations and suggestions are forthcoming. The patient is a ready on Eliquis. The patient remains on Decadron, vitamin C, vitamin D3, and zinc. The rest of his medications are reviewed and seem appropriate. Prognosis is guarded. The patient was intubated on the . If he is not making progress towards extubation, he may benefit from tracheostomy and PEG tube placement by the end of the week. Continue to follow the patient and make recommendations where appropriate. Plan dated 08/31/2021. The patient remains on propofol and fentanyl. The patient remains on an FiO2 70%, PEEP at all. I'm going to ask surgery to consider the possibility of doing a tracheostomy and PEG tube placement on this patient. The patient has been ventilated August 22. It is likely he will not be able to be extubated anytime soon. We've asked for labs in the morning including CBC, basic metabolic profile, and blood gas. He will have a chest x-ray in the morning. Additional recommendations and suggestions are forthcoming. Prognosis is guarded. We will continue to follow the patient and make recommendations where appropriate. Plan dated 09/01/2021. The patient remains on propofol and fentanyl. The patient also is on Zosyn. The patient remains on the ventilator, on the pressure assist control modality. The patient is scheduled for a tracheostomy and PEG tube placement on September 02. The patient's medications are appropriate. We will continue to follow make recommendations where appropriate. The patient was recently started on a ntifungal therapy by the infectious disease doctor. The patient is on vitamin C, vitamin D3, and zinc. In addition, the patient's getting Decadron. We will continue to follow make recommendations where appropriate. Prognosis is guarded. Time with Patient: Greater than 30
[2021-09-01] MEDS: AMIODARONE 450 MG in DEXTROSE 5% IN WATER 250 ML IV SCH ×2 (11:09)
--- NOTE | 2021-09-01 11:19 | P.PN ---
<Kat Ma - Last Filed: 09/01/21 11:13> Subjective Progress Note Date: 09/01/21 CHIEF COMPLAINT: COVID-19 pneumonia HISTORY OF PRESENT ILLNESS: Patient is in the ICU intubated and sedated. He had to be restarted on amiodarone drip. He had been in A. fib with RVR. He is hypotensive. He is scheduled for an echo today. He remains on FiO2 of 70% and PEEP of 16. Afebrile. WBC 9.3 hemoglobin is 10 PHYSICAL EXAM: VITAL SIGNS: Reviewed. GENERAL: Well-developed in no acute distress. HEENT: No sclera icterus. Extraocular movements grossly intact. Moist buccal mucosa. Head is atraumatic, normocephalic. ABDOMEN: Soft. Nondistended. Nontender. NEUROLOGIC: Intubated and sedated ASSESSMENT: 1. Acute hypoxic respiratory failure secondary to Covid 19 pneumonia requiring mechanical ventilation 2. Severe protein calorie malnutrition PLAN: -Patient is scheduled for a tracheostomy and PEG tube placement tomorrow, 09/02/[address] Swanson -Camilo Corey on hold -Hold tube feedings after midnight -Continue ICU management and supportive care Physician Cigarette Tester note has been reviewed by physician. Signing provider agrees with the documented findings, assessment, and plan of care. Objective - Vital Signs Vital signs: Vital Signs Temp 98.6 F 09/01/21 08:00 Pulse 134 H 09/01/21 10:00 Resp 25 H 09/01/21 10:00 BP 111/65 09/01/21 10:00 Pulse Ox 87 L 09/01/21 10:00 Intake & Output 08/31/21 09/01/21 09/01/21 18:59 06:59 18:59 Intake Total 1219.153 829 175.78 Output Total 1485 765 80 Balance -265.847 64 95.78 Weight 72.5 kg Intake: IV 276 299 46 0.9 NS 240 260 40 pressure bag 36 39 6 Intake, IV Titration 313.153 200 19.78 Amount fentaNYL (PF) 2,500 mcg 19.78 In Sodium Chloride 0.9% 200 ml @ 0.5 MCG/KG/HR 4. 445 mls/hr IV .Q24H [facility] Rx#:[id number] fentaNYL (PF). 1,000 mcg 77.793 100 In Sodium Chloride 0.9% 80 ml @ 0.5 MCG/KG/HR 4. 445 mls/hr IV .[id number] [facility] Rx#:[id number] propofoL 1,000 mg In 235.36 100 Empty Bag 1 bag @ Titrate IV .Q0M [facility] Rx#: [id number] Tube Feeding 450 330 110 Other 180 Output: Urine 885 730 80 Stool 600 Oral Regurgitation 35 Other: Voiding Method Indwelling Catheter Indwelling Catheter ABP, PAP, CO, CI - Last Documented Arterial Blood Pressure 88/51 - Labs CBC & Chem 7: 09/01/21 04:50 09/01/21 04:50 Labs: Abnormal Lab Results - Last 24 Hours (Table) 08/31/21 08/31/21 09/01/21 Range/Units 11:50 17:59 00:13 RBC (4.30-5.90) m/uL Hgb (13.0-17.5) gm/dL Hct (39.0-53.0) % Neutrophils # (1.3-7.7) k/uL Lymphocytes # (1.0-4.8) k/uL ABG pH (7.35-7.45) ABG pCO2 (35-45) mmHg ABG pO2 (83-108) mmHg ABG HCO3 (21-25) mmol/L ABG Total CO2 (19-24) mmol/L ABG O2 Saturation (94-97) % Chloride (98-107) mmol/L BUN (9-20) mg/dL Glucose (74-99) mg/dL POC Glucose (mg/dL) 137 H 153 H 163 H (75-99) mg/dL Calcium (8.4-10.2) mg/dL ALT (4-49) U/L Total Protein (6.3-8.2) g/dL Albumin (3.5-5.0) g/dL 09/01/21 09/01/21 09/01/21 Range/Units 04:50 04:50 05:10 RBC 3.21 L (4.30-5.90) m/uL Hgb 10.0 L (13.0-17.5) gm/dL Hct 31.8 L (39.0-53.0) % Neutrophils # 8.7 H (1.3-7.7) k/uL Lymphocytes # 0.3 L (1.0-4.8) k/uL ABG pH 7.30 L (7.35-7.45) ABG pCO2 60 H (35-45) mmHg ABG pO2 52 L* (83-108) mmHg ABG HCO3 30 H (21-25) mmol/L ABG Total CO2 32 H (19-24) mmol/L ABG O2 Saturation 84.3 L (94-97) % Chloride 111 H (98-107) mmol/L BUN 36 H (9-20) mg/dL Glucose 143 H (74-99) mg/dL POC Glucose (mg/dL) (75-99) mg/dL Calcium 7.5 L (8.4-10.2) mg/dL ALT 219 H (4-49) U/L Total Protein 6.0 L (6.3-8.2) g/dL Albumin 2.5 L (3.5-5.0) g/dL 09/01/21 Range/Units 06:03 RBC (4.30-5.90) m/uL Hgb (13.0-17.5) gm/dL Hct (39.0-53.0) % Neutrophils # (1.3-7.7) k/uL Lymphocytes # (1.0-4.8) k/uL ABG pH (7.35-7.45) ABG pCO2 (35-45) mmHg ABG pO2 (83-108) mmHg ABG HCO3 (21-25) mmol/L ABG Total CO2 (19-24) mmol/L ABG O2 Saturation (94-97) % Chloride (98-107) mmol/L BUN (9-20) mg/dL Glucose (74-99) mg/dL POC Glucose (mg/dL) 150 H (75-99) mg/dL Calcium (8.4-10.2) mg/dL ALT (4-49) U/L Total Protein (6.3-8.2) g/dL Albumin (3.5-5.0) g/dL Microbiology - Last 24 Hours (Table) 08/31/21 16:35 Blood Fungal Culture - Preliminary Blood 08/31/21 00:14 Gram Stain - Preliminary Sputum Sputum Culture - Preliminary 08/29/21 15:45 Blood Culture - Preliminary Blood No Growth after 48 hours <Boutt,Napoleon - Last Filed: 09/01/21 12:25> Subjective I have personally seen and examined the patient, reviewed the ACTING INSTRUCTOR /PAs history, exam and MDM and agree with the assessment and plan as written. Based on total visit time, I have performed more than 50% of the visit. As above. Patient's PEEP had to go up to 16 overnight. Had some hypotension with A. fib however after converting pressures have normalized. Arianaquis remains on hold for possible tracheostomy and PEG tube placement tomorrow. Apparently had a echocardiogram today those results are pending. If patient remains stable we'll proceed with tracheostomy and PEG tube placement tomorrow. Objective - Vital Signs Vital signs: Vital Signs Temp 98.6 F 09/01/21 08:00 Pulse 82 09/01/21 11:30 Resp 24 09/01/21 11:30 BP 90/59 09/01/21 11:00 Pulse Ox 90 L 09/01/21 11:30 Intake & Output 08/31/21 09/01/21 09/01/21 18:59 06:59 18:59 Intake Total 1219.153 929 331.78 Output Total 1485 765 150 Balance -265.847 164 181.78 Weight 72.5 kg 72.5 kg Intake: IV 276 299 92 0.9 NS 240 260 80 pressure bag 36 39 12 Intake, IV Titration 313.153 300 19.78 Amount fentaNYL (PF) 2,500 mcg 19.78 In Sodium Chloride 0.9% 200 ml @ 0.5 MCG/KG/HR 4. 445 mls/hr IV .Q24H [facility] Rx#:[id number] fentaNYL (PF). 1,000 mcg 77.793 100 In Sodium Chloride 0.9% 80 ml @ 0.5 MCG/KG/HR 4. 445 mls/hr IV .[id number] [facility] Rx#:[id number] propofoL 1,000 mg In 235.36 200 Empty Bag 1 bag @ Titrate IV .Q0M [facility] Rx#: [id number] Tube Feeding 450 330 220 Other 180 Output: Urine 885 730 150 Stool 600 Oral Regurgitation 35 Other: Voiding Method Indwelling Catheter Indwelling Catheter ABP, PAP, CO, CI - Last Documented Arterial Blood Pressure 119/55 - Labs CBC & Chem 7: 09/01/21 04:50 09/01/21 04:50 Labs: Abnormal Lab Results - Last 24 Hours (Table) 08/31/21 09/01/21 09/01/21 Range/Units 17:59 00:13 04:50 RBC 3.21 L (4.30-5.90) m/uL Hgb 10.0 L (13.0-17.5) gm/dL Hct 31.8 L (39.0-53.0) % Neutrophils # 8.7 H (1.3-7.7) k/uL Lymphocytes # 0.3 L (1.0-4.8) k/uL ABG pH (7.35-7.45) ABG pCO2 (35-45) mmHg ABG pO2 (83-108) mmHg ABG HCO3 (21-25) mmol/L ABG Total CO2 (19-24) mmol/L ABG O2 Saturation (94-97) % Chloride (98-107) mmol/L BUN (9-20) mg/dL Glucose (74-99) mg/dL POC Glucose (mg/dL) 153 H 163 H (75-99) mg/dL Calcium (8.4-10.2) mg/dL ALT (4-49) U/L Total Protein (6.3-8.2) g/dL Albumin (3.5-5.0) g/dL 09/01/21 09/01/21 09/01/21 Range/Units 04:50 05:10 06:03 RBC (4.30-5.90) m/uL Hgb (13.0-17.5) gm/dL Hct (39.0-53.0) % Neutrophils # (1.3-7.7) k/uL Lymphocytes # (1.0-4.8) k/uL ABG pH 7.30 L (7.35-7.45) ABG pCO2 60 H (35-45) mmHg ABG pO2 52 L* (83-108) mmHg ABG HCO3 30 H (21-25) mmol/L ABG Total CO2 32 H (19-24) mmol/L ABG O2 Saturation 84.3 L (94-97) % Chloride 111 H (98-107) mmol/L BUN 36 H (9-20) mg/dL Glucose 143 H (74-99) mg/dL POC Glucose (mg/dL) 150 H (75-99) mg/dL Calcium 7.5 L (8.4-10.2) mg/dL ALT 219 H (4-49) U/L Total Protein 6.0 L (6.3-8.2) g/dL Albumin 2.5 L (3.5-5.0) g/dL 09/01/21 Range/Units 11:36 RBC (4.30-5.90) m/uL Hgb (13.0-17.5) gm/dL Hct (39.0-53.0) % Neutrophils # (1.3-7.7) k/uL Lymphocytes # (1.0-4.8) k/uL ABG pH (7.35-7.45) ABG pCO2 (35-45) mmHg ABG pO2 (83-108) mmHg ABG HCO3 (21-25) mmol/L ABG Total CO2 (19-24) mmol/L ABG O2 Saturation (94-97) % Chloride (98-107) mmol/L BUN (9-20) mg/dL Glucose (74-99) mg/dL POC Glucose (mg/dL) 133 H (75-99) mg/dL Calcium (8.4-10.2) mg/dL ALT (4-49) U/L Total Protein (6.3-8.2) g/dL Albumin (3.5-5.0) g/dL Microbiology - Last 24 Hours (Table) 08/31/21 16:35 Blood Fungal Culture - Preliminary Blood 08/31/21 00:14 Gram Stain - Preliminary Sputum Sputum Culture - Preliminary 08/29/21 15:45 Blood Culture - Preliminary Blood No Growth after 48 hours
[2021-09-01 11:38] LABS: Glucose,Whole Blood 133 mg/dL (75-99)
[2021-09-01] MEDS: FOLIC ACID 1 MG TAB PO SCH (11:49)
[2021-09-01] MEDS: MULTIVITAMINS, THERA 1 EACH TAB PO SCH (11:49)
[2021-09-01] MEDS: CHOLESTYRAMINE (WITH SUGAR) 4 GM PACKET PO SCH ×2 (11:49→18:51)
[2021-09-01 12:09] VITALS: BMI 23.6
--- NOTE | 2021-09-01 13:10 | ECHOF ---
Referral Reason:hypotension and decrease cardiac output MEASUREMENTS -------- HEIGHT: 175.3 cm WEIGHT: 72.1 kg BP: 140/62 IVSd: 1.6 cm (0.6 - 1.1) LVIDd: 3.7 cm (3.9 - 5.3) LVPWd: 1.3 cm (0.6 - 1.1) IVSs: 1.4 cm LVIDs: 3.5 cm LVPWs: 1.6 cm FINDINGS -------- This was a technically difficult study with suboptimal views. Limited Study Pt. on a vent. The left ventricular size is normal. There is mild concentric left ventricular hypertrophy. There is severe global hypokinesis of LV . Overall left ventricular systolic function is severely impair ed with, an EF between 20 - 25 %. The right ventricle is mildly enlarged. The right ventricular systolic function is severely impaire d. 5.0mg of Lumason was utilized for enhancement of images There is no pericardial effusion. CONCLUSIONS -------- 1. The left ventricular size is normal. 2. There is mild concentric left ventricular hypertrophy. 3. There is severe global hypokinesis of LV . 4. Overall left ventricular systolic function is severely impaired with, an EF between 20 - 25 %. 5. The right ventricle is mildly enlarged. 6. The right ventricular systolic function is severely impaired. X RAY TECHNICIAN: Maryam Cabrera [facility]
--- NOTE | 2021-09-01 15:52 | PN ---
PROGRESS NOTE DATE OF SERVICE: 09/01/2021 This 75-year-old gentleman who was admitted with acute COVID-19 infection, acute COVID- 19 interstitial pneumonia, is being closely monitored at this time. The patient had an episode of atrial fibrillation. The patient was given amiodarone dosing and the patient also has some diarrhea. C difficile was requested previously, which was negative, and influenza and RSV are also negative at this time. Dr. Briones is recommending PEG tube and tracheostomy. Dr. Swanson is following the patient closely. Past medical history reviewed. Review of systems could not be taken. CURRENT MEDICATIONS: Reviewed. They include Tylenol, Maalox, amiodarone, anidulafungin, vitamin C, Peridex, vitamin D. Doses and other medications are reviewed. PHYSICAL EXAMINATION: Patient is mechanically ventilated and sedated. Pulse 78, blood pressure /60, respiration 26, temperature normal, pulse ox 93% on mechanical ventilation. Vent settings are noted. HEENT: Conjunctivae normal. NECK: No jugular venous distention. CARDIOVASCULAR: S1, S2 muffled. RESPIRATION: A few scattered rhonchi and crackles. ABDOMEN: Soft, nontender. NERVOUS SYSTEM: No focal deficit. LABS: WBC 8.2, hemoglobin is 9.6. Other labs are noted. ASSESSMENT: 1. Acute COVID-19 infection with acute COVID-19 interstitial pneumonia, bilateral, with acute hypoxic respiratory failure with prolonged mechanical ventilation with failure to wean on multiple occasions. 2. Fever; possible sepsis. 3. Gram-negative bacilli in the sputum. 4. Elevated D-dimer. 5. Status post BiPAP. 6. Possible superadded bacterial pneumonia. 7. Elevated procalcitonin. 8. Atrial fibrillation with rapid ventricular rate, paroxysmal, currently on amiodarone and metoprolol. 9. Change in mental status, acute metabolic encephalopathy. 10.Bicytopenia, possibly secondary to COVID-19 neutropenia anemia. 11.Elevated AST and ALT; possibly acute hepatitis, possibly secondary to COVID- 19. 12.Leukopenia. 13.Elevated D-dimer. 14.Hyponatremia. 15.Elevated creatinine with acute renal failure with acute tubular necrosis, present on admission. 16.Hypomagnesemia. 17.Hypokalemia. 18.Troponin 0.05, possibly related to COVID-19 or underlying coronary artery disease. 19.Hypertension. 20.History of abdominal aortic aneurysm. 21.History of ETOH. 22.Deep vein thrombosis prophylaxis. 23.On therapeutic dose of Eliquis. 24.FULL CODE. RECOMMENDATIONS AND DISCUSSION: I recommend to continue current medications, continue with the monitoring, symptomatic treatment. Most recent sputum cultures are showing Gram-negative bacilli. The patient is on IV Zosyn at this time. The patient is also on empiric antifungals. Dr. Randolph is following the patient closely. Otherwise, PEG tube and tracheostomy. Prognosis is guarded because of multiple complex medical issues. Further recommendations to follow. MMODL / IJN: [id number] / JULI
[2021-09-01] MEDS ORDERED: NOREPINEPHRINE 32 MG in SODIUM CHLORIDE 0.9% 218 ML IV SCH (16:00)
[2021-09-01] MEDS ORDERED: ANIDULAFUNGIN 100 MG in SODIUM CHLORIDE 0.9% 100 ML IVPB SCH (18:00)
[2021-09-01 18:03] LABS: Glucose,Whole Blood 124 mg/dL (75-99)
--- NOTE | 2021-09-01 20:46 | PN ---
PROGRESS NOTE DATE OF SERVICE: 09/01/2021 REASON FOR FOLLOWUP: 1. Pneumonia. 2. Fever. INTERVAL HISTORY: The patient is afebrile with no fever recorded since yesterday afternoon. The patient is going through atrial fibrillation with RVR and some but no need for pressor support. FiO2 is currently 70%. No significant purulent secretions through the ET or any worsening diarrhea per the nursing staff. PHYSICAL EXAMINATION: Blood pressure 103/64 with a pulse of 78, temperature of 98.7. He is 95% on 70% FiO2. General description is an elderly male lying in bed in no distress. Respiratory system: Unlabored breathing, decreased intensity of breath sounds. No wheeze. Heart S1, S2. Regular rate and rhythm. Abdomen soft, no tenderness. LABS: Hemoglobin is 10, white count 9.3, creatinine 0.81. DIAGNOSTIC IMPRESSION AND PLAN: Patient with acute respiratory failure which is multifactorial in this patient who did have COVID-19 pneumonia, now with possibly Gram-negative pneumonia, for which the patient is currently covered with Zosyn. However, his fever responded to Eraxis, which will be continued while waiting for the final culture to finalize. Monitor his clinical course closely. MMODL / IJN: [id number] /
[2021-09-02 00:26] VITALS: TEMP 101.2
[2021-09-02] MEDS: ACETAMINOPHEN TAB 325 MG TAB PO PRN (00:29)
[2021-09-02] MEDS: PIPERACILLIN-TAZOBACTAM 3.375 GM in SODIUM CHLORIDE 0.9% 100 ML IVPB SCH (00:45)
[2021-09-02 01:10] LABS: Glucose,Whole Blood 144 mg/dL (75-99)
[2021-09-02] MEDS: INSULIN ASPART (NovoLOG) 100 UNIT/ML VIAL SQ SCH (01:12)
[2021-09-02] MEDS: AMIODARONE 450 MG in DEXTROSE 5% IN WATER 250 ML IV SCH ×2 (01:36)
[2021-09-02] MEDS ORDERED: NOREPINEPHRINE 8 MG in SODIUM CHLORIDE 0.9% 250 ML IV SCH (02:00)
[2021-09-02 02:04] VITALS: BP 91/52; PULSE 70; RESP 26
[2021-09-02] MEDS ORDERED: SODIUM BICARB 8.4% 50 ML SYR (1 MEQ/ML) ONE (03:00)
[2021-09-02] MEDS ORDERED: EPINEPHrine 10 ML SYRINGE (0.1 MG/ML) ONE (03:00)
[2021-09-02] MEDS ORDERED: ATROPINE SULFATE 0.1 MG/ML 10ML SYRINGE ONE (03:00)
[2021-09-02 03:11] LABS: Glucose,Whole Blood 146 mg/dL (75-99)
[2021-09-02] MEDS ORDERED: SODIUM CHLORIDE 0.9% 50 ML with VASOPRESSIN 20 UNIT IVPB SCH ×2 (03:45)
--- NOTE | 2021-09-04 23:37 | DS ---
DISCHARGE SUMMARY PRELIMINARY CAUSE OF : Acute COVID-19 infection. OTHER DIAGNOSES: 1. Acute COVID-19 injection with bilateral interstitial pneumonia with acute hypoxic respiratory failure with prolonged mechanical ventilation with failure to wean on multiple occasions. 2. Fever, possible sepsis. 3. Gram-negative bacilli in the sputum which was Klebsiella pneumoniae. 4. Elevated D-dimer. 5. Status post BiPAP. 6. Possible superadded bacterial pneumonia. 7. Elevated procalcitonin. 8. Atrial fibrillation with a rapid ventricular rate, paroxysmal, on amiodarone and metoprolol. 9. Change in mental status, acute metabolic encephalopathy. 10.Bicytopenia, possibly secondary to COVID-19 neutropenia, anemia. 11.Elevated AST, ALT, possibly acute hepatitis, possibly secondary to COVID-19. 12.Leukopenia. 13.Elevated D-dimer. 14.Hyponatremia. 15.Elevated creatinine with acute renal failure, acute tubular necrosis, present on admission. 16.Hypomagnesemia. 17.Hypokalemia. 18.Troponin 0.05, possible related to COVID-19 and underlying coronary artery disease. 19.Hypertension. 20.History of abdominal aortic aneurysm. 21.History of ETOH. 22.Deep vein thrombosis prophylaxis. 23.On therapeutic dose of Eliquis. 24.FULL CODE. HISTORY OF PRESENT ILLNESS: This 75-year-old gentleman with past medical history of multiple medical problems was admitted with acute COVID-19 pneumonia and acute hypoxic respiratory failure and multiple other complications, as listed above. Patient was monitored in ICU. The patient had multiple failed weaning trials and multiple complications as listed above. Patient was seen by multiple consultants, including Infectious Disease, Pulmonary and Cardiology. Care was coordinated. Please refer to the multiple consultations and progress notes for details. The patient did not improve despite intensive treatment with multiple medications. Infectious Disease Dr. Randolph also saw the patient during the hospitalization, but finally the patient succumbed to his above-mentioned medical illnesses and complications. The prognosis remained extremely guarded throughout the hospitalization, as mentioned earlier. Once again, please refer to the previous consultation notes and progress notes for further details. MMODL / IJN: [id number] /
== END 2021-09-02 09:06 | disposition expired | DRG 207 ==
LOC: EC 22:06 → 3SCARD 08-20 02:06 → 2SICU 08-21 16:29
PROVIDERS: ADMIT Hospitalist; ATTEND Hospitalist
PROC: 5A0945A Assistance with Respiratory Ventilation, 24-96 Consecutive Hours, High Flow/Velocity Cannula (ICD-10-PCS; 2021-08-20)
PROC: 5A1955Z Respiratory Ventilation, Greater than 96 Consecutive Hours (ICD-10-PCS; 2021-08-21)
PROC: 0BH17EZ Insertion of Endotracheal Airway into Trachea, Via Natural or Artificial Opening (ICD-10-PCS; 2021-08-21)
PROC: XW0DXM6 Introduction of Baricitinib into Mouth and Pharynx, External Approach, New Technology Group 6 (ICD-10-PCS; 2021-08-21)
PROC: 02HV33Z Insertion of Infusion Device into Superior Vena Cava, Percutaneous Approach (ICD-10-PCS; principal; 2021-08-22 11:55)
PROC: 3E043XZ Introduction of Vasopressor into Central Vein, Percutaneous Approach (ICD-10-PCS; 2021-09-01)
PROC: 0D9670Z Drainage of Stomach with Drainage Device, Via Natural or Artificial Opening (ICD-10-PCS; 2021-09-02)
DX: U07.1 COVID-19 (principal); T83.511A Infection and inflammatory reaction due to indwelling urethral catheter, initial encounter; E43 Unspecified severe protein-calorie malnutrition; G93.41 Metabolic encephalopathy; J12.82 Pneumonia due to coronavirus disease 2019; J96.21 Acute and chronic respiratory failure with hypoxia; J96.22 Acute and chronic respiratory failure with hypercapnia; N17.0 Acute kidney failure with tubular necrosis; A41.9 Sepsis, unspecified organism; J18.9 Pneumonia, unspecified organism; E87.1 Hypo-osmolality and hyponatremia; I42.9 Cardiomyopathy, unspecified; I50.20 Unspecified systolic (congestive) heart failure; J84.9 Interstitial pulmonary disease, unspecified; N39.0 Urinary tract infection, site not specified; B95.2 Enterococcus as the cause of diseases classified elsewhere; D72.810 Lymphocytopenia; E78.5 Hyperlipidemia, unspecified; E83.41 Hypermagnesemia; E83.42 Hypomagnesemia; E83.51 Hypocalcemia; E86.0 Dehydration; E86.1 Hypovolemia; E87.6 Hypokalemia; I11.0 Hypertensive heart disease with heart failure; I48.0 Paroxysmal atrial fibrillation; J98.4 Other disorders of lung; K75.9 Inflammatory liver disease, unspecified; Z79.01 Long term (current) use of anticoagulants; Z79.899 Other long term (current) drug therapy; Z82.49 Family history of ischemic heart disease and other diseases of the circulatory system; Z86.79 Personal history of other diseases of the circulatory system; Z91.14 Patient's other noncompliance with medication regimen; T46.5X6A Underdosing of other antihypertensive drugs, initial encounter; I95.9 Hypotension, unspecified; R19.7 Diarrhea, unspecified; Y73.8 Miscellaneous gastroenterology and urology devices associated with adverse incidents, not elsewhere classified
CPT/HCPCS: 36415; 36573; 36600; 71045; 71046; 71275; 76705; 80048; 80053; 80076; 81001; 81003; 82805; 83605; 83615; 83735; 83880; 84145; 84443; 84484; 85025; 85379; 85610; 85730; 86140; 87040; 87070; 87077; 87086; 87103; 87186; 87205; 87324; 87502; 87634; 87635; 93308; 94002; 94003; 96360; 99285